=== PATIENT | male | born 1955 ===

== ENCOUNTER 2017-10-23 09:33 | Inpatient (IN) | payer MEDICARE, MEDICAID ==
[2017-10-23 09:51] VITALS: BMI 32.3
[2017-10-23] MEDS ORDERED: Albuterol-Ipratrop 3 mg / 0.5 (3 ml) UD INH STA (10:18)
[2017-10-23] MEDS ORDERED: Albuterol-Ipratrop 3 mg / 0.5 (3 ml) UD ONE (10:36)
[2017-10-23 10:37] LABS: BASO # 0.1 K/uL (0.0-0.2); BASO % 1.1 % (0.0-2.0); EOS # 0.5 K/uL (0.0-0.7); EOS % 6.1 % (0.0-4.0); HEMOGLOBIN 6.9 g/dL (12.0-18.0); LYMPH # 1.2 K/uL (1.0-4.3); LYMPH % 14.6 % (20.0-40.0); MEAN CELL VOLUME 92.5 fl (80.0-94.0); MEAN CORPUSCULAR HEMOGLOBIN 30.2 pg (27.0-31.0); MEAN CORPUSCULAR HGB CONC 32.7 g/dL (33.0-37.0); MEAN PLATELET VOLUME 9.2 fl (7.2-11.7); MONO % 12.6 % (0.0-10.0); NEUT # 5.4 K/uL (1.8-7.0); NEUT % 65.6 % (50.0-75.0); RBC 2.27 Mil/uL (4.40-5.90); RED CELL DISTRIBUTION WIDTH 13.4 % (11.5-14.5); WHITE BLOOD COUNT 8.2 K/uL (4.8-10.8)
--- NOTE | 2017-10-23 10:55 | RAD ---
HISTORY: progressive dyspnea, mild wheezing, bilateral rale COMPARISON: Chest radiograph dated 04/10/2015. TECHNIQUE: Chest PA and lateral FINDINGS: LUNGS: Left upper lobe infiltrate. PLEURA: Stable elevation of the right hemidiaphragm. No significant pleural effusion identified. No pneumothorax apparent. CARDIOVASCULAR: Atherosclerotic aortic calcifications. Cardiomediastinal silhouette unchanged. OSSEOUS STRUCTURES: Unchanged. VISUALIZED UPPER ABDOMEN: Normal. OTHER FINDINGS: None. IMPRESSION: Left upper lobe infiltrate.
[2017-10-23 11:00] LABS: TROPONIN I 0.027 ng/mL (0.00-0.120)
--- NOTE | 2017-10-23 11:02 | ED PDOC ---
HPI: SOB/CHF/COPD Time Seen by Provider: 10/23/17 10:18 Chief Complaint (Nursing): Shortness Of Breath Chief Complaint (Provider): Shortness Of Breath History Per: Patient History/Exam Limitations: no limitations Onset/Duration Of Symptoms: Days (x 1 week) Current Symptoms Are (Timing): Still Present Additional Complaint(s): Pawan is a 62 y/o male with a history of diabetes, coronary artery disease, and hypertension who presents to the ED c/o cough and shortness of breath ongoing for 1 weeks and progressively getting heavier. Patient denies chest pain , fever, nausea, vomiting, or back pain. He states he producing a small amount of phlegm. Patient has had 2 coronary stents placed at different time by Dr. Boucher and Dr. Morel PMD: None Provided Past Medical History Reviewed: Historical Data, Nursing Documentation, Vital Signs Vital Signs: Last Vital Signs Temp 98.9 F 10/23/17 09:51 Pulse 88 10/23/17 09:51 Resp 18 10/23/17 09:51 BP 139/71 10/23/17 10:54 Pulse Ox 99 10/23/17 11:10 - Medical History PMH: CAD, Diabetes, HTN - Surgical History Surgical History: Coronary Stent (x 2) Denies: Pacemaker Other surgeries: Right BTK amputation w/ prosthesis - Family History Family History: States: Unknown Family Hx - Home Medications Home Medications: Ambulatory Orders Medication Instructions Recorded Clopidogrel Hydrogen Sulfate 75 mg PO DAILY 10/16/13 [Clopidogrel Bisulfate] Ferrous Sulfate 325 mg PO DAILY 10/16/13 Gabapentin 100 mg PO BID 10/16/13 Pravastatin Sodium [Pravastatin] 40 mg PO DAILY 10/16/13 Ergocalciferol 50,000 iu PO WED 05/01/14 [place]-3/Dha/Epa/Fish Oil [[place]-3 2 cap PO BID 05/01/14 1000 mg-5 Iu] Trajenta 5 mg PO DAILY 05/01/14 Allopurinol [Zyloprim] 100 mg PO DAILY 10/23/17 Aspirin [Ecotrin] 81 mg PO DAILY 10/23/17 Isosorbide Mononitrate [Isosorbide 30 mg PO DAILY 10/23/17 Mononitrate ER] Paricalcitol [Zemplar] 1 mcg PO DAILY 10/23/17 Repaglinide [Prandin] 1 mg PO DAILY 10/23/17 Sevelamer [Renagel] 2 tab PO TID 10/23/17 Sodium Bicarbonate 650 mg PO BID 10/23/17 Terazosin [Hytrin] 10 mg PO HS 10/23/17 amLODIPine [Norvasc] 10 mg PO DAILY 10/23/17 - Allergies Allergies/Adverse Reactions: Allergies Allergy/AdvReac Type Severity Reaction Status Date / Time No Known Allergies Allergy Unverified 05/01/14 08:31 Review of Systems ROS Statement: Except As Marked, All Systems Reviewed And Found Negative Constitutional: Negative for: Fever Cardiovascular: Positive for: Edema (left leg - progressively gotten worse). Negative for: Chest Pain Respiratory: Positive for: Cough, Shortness of Breath, Sputum Gastrointestinal: Negative for: Nausea, Vomiting Musculoskeletal: Negative for: Back Pain Physical Exam - Reviewed Nursing Documentation Reviewed: Yes Vital Signs Reviewed: Yes - Physical Exam Appears: Positive for: Well, Non-toxic, No Acute Distress Head Exam: Positive for: ATRAUMATIC, NORMAL INSPECTION, NORMOCEPHALIC Neck: Negative for: Normal (JVD noted on right side) Cardiovascular/Chest: Positive for: Regular Rate, Rhythm, Edema (pitting edema on left lower extremity 2+). Negative for: Murmur Respiratory: Positive for: Rales (both bases in back), Wheezing (b/l high pitched and fine), Other (mild SOB w increased effort) Gastrointestinal/Abdominal: Positive for: Soft. Negative for: Tenderness Extremity: Positive for: Deformity (right bka w/ prosthesis) Neurologic/Psych: Positive for: Alert, Oriented - Laboratory Results Result Diagrams: 10/23/17 10:30 10/23/17 10:30 - ECG O2 Sat by Pulse Oximetry: 99 (RA) Pulse Ox Interpretation: Normal Medical Decision Making Medical Decision Making: Time: 10:18 Initial Impression: Shortness of Breath; Differentials include URI, pneumonia, congestive heart failure Initial Plan: --EKG --BNP --CMP --Troponin --Urine Dip --CBC --Chest XR --Duoneb --Lasix --Flu Swab Scribe Attestation: Documented by Bhavin Allen, acting as a scribe for Carli Villavicencio MD Provider Scribe Attestation: All medical record entries made by the Scribe were at my direction and personally dictated by me. I have reviewed the chart and agree that the record accurately reflects my personal performance of the history, physical exam, medical decision making, and the department course for this patient. I have also personally directed, reviewed, and agree with the discharge instructions and disposition. 12.35 - chest x-ray shows evidence of pneumonia. VBG is okay. Lactate is okay. Patient with anemia, probably chronic from his renal insufficiency. He denies blood per rectum or tarry stool. Patient will benefit from admission for IV antibiotics, transfusion (he agrees) and consultation with renal and cardio Disposition - Clinical Impression Clinical Impression: Pneumonia, Anemia, Renal insufficiency - Patient ED Disposition Is Patient to be Admitted: Yes - Disposition Disposition: Routine/Home Disposition Time: 12:05 Condition: FAIR Forms: [employer] (Bhutanese) - Pt Status Changed To: Hospital Disposition Of: Inpatient - Admit Certification Admit to Inpatient:: After my assessment, the patient will require hospitalization for at least two midnights. This is because of the severity of symptoms shown, intensity of services needed, and/or the medical risk in this patient being treated as an outpatient. - POA Present On Arrival: None
[2017-10-23 11:05] LABS: ALB/GLOB RATIO 0.8 (1.0-2.1); ALBUMIN 2.9 g/dL (3.5-5.0); CALCIUM 8.4 mg/dL (8.4-10.2)
[2017-10-23] MEDS ORDERED: Azithromycin 500 MG in Sodium Chloride 0.9% 250 ML IVPB STA (11:41)
[2017-10-23] MEDS ORDERED: cefTRIAXone (Rocephin) 1 gm Inj ONE (12:10)
[2017-10-23 12:34] LABS: VENOUS BLOOD GAS BASE EXCESS -3.4 mmol/L (0.0-2.0); VENOUS BLOOD GAS PCO2 41 mmHg (40-60); VENOUS BLOOD GAS PO2 25 mm/Hg (30-55); VENOUS BLOOD PH 7.34 (7.32-7.43)
[2017-10-23] MEDS ORDERED: Sod Polystyrene Sulf 15 gm/60 ml Susp PO ONE (13:44)
[2017-10-23] MEDS ORDERED: Sod Polystyrene Sulf 15 gm/60 ml Susp ONE (13:58)
--- NOTE | 2017-10-23 14:23 | CP.PCM.HP ---
History of Present Illness - History of Present Illness History of Present Illness: This is a 62 year old male with history of DM type 2, CAD with KIMO x 2 and CABG x 2 essential hypertension, Stage IV CKD not on dialysis, right BTK amputation with prosthesis, who presents to the ED with the complaint of worsening cough and congestion x 1 month, progressively getting worse. He is denying fever, nausea, vomiting, or back pain. + Productive cough x 1 week. In the ED the patient was found to have left upper lobe pneumonia on CXR. Also found to have a Hg of 6.9. He denies any bloody stool or black tarry stool. He is being transfused 1 unit PRBC from the ED. The patient is to be admitted for tx of his pneumonia and for blood transfusion. Present on Admission - Present on Admission Any Indicators Present on Admission: No Review of Systems - Review of Systems Review of Systems: A 12 point review of systems was conducted and found to be negative other than what was mentioned in the HPI. Past Patient History - Past Medical History & Family History Past Family History: Reviewed and not pertinent - Past Social History Smoking Status: Never Smoked - CARDIAC Hx Hypertension: Yes Hx Pacemaker: No - NEUROLOGICAL Hx Paralysis: No - ENDOCRINE/METABOLIC Hx Endocrine Disorders: Yes Hx Diabetes Mellitus Type 1: Yes - HEMATOLOGICAL/ONCOLOGICAL Hx Blood Transfusions: No Hx Blood Transfusion Reaction: No - MUSCULOSKELETAL/RHEUMATOLOGICAL Hx Musculoskeletal Disorders: No - PSYCHIATRIC Hx Emotional Abuse: No Hx Physical Abuse: No Hx Substance Use: No - SURGICAL HISTORY Hx Coronary Stent: Yes (x 2) - ANESTHESIA Hx Anesthesia Reactions: No Hx Malignant Hyperthermia: No Meds Allergies/Adverse Reactions: Allergies Allergy/AdvReac Type Severity Reaction Status Date / Time No Known Allergies Allergy Unverified 05/01/14 08:31 Physical Exam - Additional Findings Additional findings: Physical exam: Constitutional- cooperative, awake, alert Head- NCAT, PERRL Eye- PERRL, EOMI ENT- normal exam, MMM. Neck- normal inspection, supple, no JVD Respiratory- scattered rhonchi, no rales. decreased breath sounds left upper lung field Cardiovascular- RRR, +S1, +S2 no MRG GI/Abdominal- normal bowel sounds, soft, no mass, no hsm Skin- warm, dry Extremities Exam- + 2 pitting edema left lower extremity. RLE BKA. normal capillary refill LLE. Neurological Exam- alert, awake, oriented Psych- normal mood, normal affect Results - Vital Signs Recent Vital Signs: Last Vital Signs Temp 98.9 F 10/23/17 09:51 Pulse 84 10/23/17 12:52 Resp 19 10/23/17 12:52 BP 134/78 10/23/17 12:52 Pulse Ox 98 10/23/17 12:52 - Labs Result Diagrams: 10/23/17 10:30 10/23/17 12:00 Labs: Laboratory Results - last 24 hr 10/23/17 10/23/17 10/23/17 10:30 10:30 10:30 WBC 8.2 RBC 2.27 L Hgb 6.9 L Hct 21.0 L MCV 92.5 MCH 30.2 MCHC 32.7 L RDW 13.4 Plt Count 213 MPV 9.2 Neut % (Auto) 65.6 Lymph % (Auto) 14.6 L [place] % (Auto) 12.6 H Eos % (Auto) 6.1 H Baso % (Auto) 1.1 Neut # (Auto) 5.4 Lymph # (Auto) 1.2 [place] # (Auto) 1.0 H Eos # (Auto) 0.5 Baso # (Auto) 0.1 pO2 VBG pH VBG pCO2 VBG HCO3 VBG Total CO2 VBG O2 Sat (Calc) VBG Base Excess VBG Potassium A-a O2 Difference Glucose Lactate FiO2 Crit Value Called To Crit Value Called By Crit Value Read Back Blood Gas Notified Time Sodium 139 Potassium 5.4 H Chloride 109 H Carbon Dioxide 21 L Anion Gap 14 BUN 59 H Creatinine 5.6 H Est GFR ( Amer) 13 Est GFR (Non-Af Amer) 10 Random Glucose 119 H Calcium 8.4 Total Bilirubin 0.5 AST 22 ALT 20 L Alkaline Phosphatase 51 Troponin I 0.0270 NT-Pro-B Natriuret Pep 40771 H Total Protein 6.5 Albumin 2.9 L Globulin 3.6 Albumin/Globulin Ratio 0.8 L Venous Blood Potassium Influenza Typ A,B (EIA) Negative for flu a/b 10/23/17 10/23/17 11:53 12:00 WBC RBC Hgb Hct MCV MCH MCHC RDW Plt Count MPV Neut % (Auto) Lymph % (Auto) [place] % (Auto) Eos % (Auto) Baso % (Auto) Neut # (Auto) Lymph # (Auto) [place] # (Auto) Eos # (Auto) Baso # (Auto) pO2 25 L VBG pH 7.34 VBG pCO2 41 VBG HCO3 21.7 VBG Total CO2 23.4 VBG O2 Sat (Calc) 66.2 H VBG Base Excess -3.4 L VBG Potassium 5.1 A-a O2 Difference 73.0 Glucose 107 Lactate 0.6 L FiO2 21.0 Crit Value Called To Dr lópez salinas md Crit Value Called By 15 Crit Value Read Back Y Blood Gas Notified Time 1233 Sodium 136.0 Potassium 5.0 Chloride 109.0 H Carbon Dioxide Anion Gap BUN Creatinine Est GFR ( Amer) Est GFR (Non-Af Amer) Random Glucose Calcium Total Bilirubin AST ALT Alkaline Phosphatase Troponin I NT-Pro-B Natriuret Pep Total Protein Albumin Globulin Albumin/Globulin Ratio Venous Blood Potassium 5.1 Influenza Typ A,B (EIA) Assessment & Plan - Assessment and Plan (Free Text) Plan: ASSESSMENT/PLAN This is a 62 year old male with history of DM type 2, CAD with KIMO x 2 and CABG x 2 essential hypertension, Stage IV CKD not on dialysis, right BTK amputation with prosthesis, who presents to the ED with the complaint of worsening cough and congestion x 1 month, progressively getting worse. He is also complaining of chest pain, fever, nausea, vomiting, or back pain. + Productive cough x 1 week. In the ED the patient was found to have left upper lobe pneumonia. Also found to have a Hg of 6.9. He denies any bloody stool or black tarry stool. He is being transfused 1 unit PRBC from the ED. The patient is to be admitted for tx of his pneumonia and for blood transfusion. 1) Left upper lobe CAP - Admit to med/surg - Azithromycin/Rocephin IV abx - Robitussin PRN for cough - Repeat labs in AM 2) Anemia of chronic disease, acute on chronic - Hg 6.8 - 1 unit PRBC now - Repeat lab in AM - No evidence of acute bleeding 3) Acute on chronic stage IV renal disease - Nephrology consultation with Dr. 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 Beatty) - May need dialysis soon - Likely cause of pitting edema - Allopurinal - Renegel - Zemplar 4) CAD with CABG - Cardiology consultation with Dr. Cho - continue to monitor for chest pain - Troponin negative - Continue ASA/Plavix - Lasix given in ED - Isosorbide mononitrate 30 mg po daily' - Pravastatin 40 mg po daily 5) Diabetes mellitus - Regular insulin sliding scale - Continue Trajenta 5 mg po daily 6) Hyperkalemia - due to CKD - Kayexalate po 7) BPH continue Hytrin 8) DVT prophylaxis -Heparin SQ
[2017-10-23] MEDS: Insulin Regular 100 units/ml SC SCH ×2 (16:52→22:58)
[2017-10-23] MEDS: Omega-3-Acid Ethyl Esters 1 GM Cap PO SCH (17:00)
[2017-10-24 06:45] LABS: HEMOGLOBIN 8.7 g/dL (12.0-18.0); MEAN CELL VOLUME 92.4 fl (80.0-94.0); MEAN CORPUSCULAR HEMOGLOBIN 29.8 pg (27.0-31.0); MEAN CORPUSCULAR HGB CONC 32.2 g/dL (33.0-37.0); RBC 2.92 Mil/uL (4.40-5.90); RED CELL DISTRIBUTION WIDTH 14.1 % (11.5-14.5); WHITE BLOOD COUNT 6.3 K/uL (4.8-10.8)
[2017-10-24] MEDS: Insulin Regular 100 units/ml SC SCH ×4 (07:56→23:33)
--- NOTE | 2017-10-24 07:57 | CARD ---
APPROVED REPORT EKG Measurement Heart [id number] <Conclusion> Normal sinus rhythm Nonspecific T wave abnormality Abnormal ECG
[2017-10-24] MEDS: Omega-3-Acid Ethyl Esters 1 GM Cap PO SCH ×2 (09:17→16:44)
[2017-10-24] MEDS: Pravastatin Sodium 40 MG TAB PO SCH (09:24)
[2017-10-24] MEDS: guaiFENesin 200 mg/10 ml Syrup UD PO PRN (09:28)
[2017-10-24] MEDS: Azithromycin 500 MG in Sodium Chloride 0.9% 250 ML IVPB SCH (09:35)
--- NOTE | 2017-10-24 09:35 | CP.PCM.CON ---
History of Present Illness - History of Present Illness History of Present Illness: This patient however is 62 years of age presented to the emergency room complaining of coughing and diagnosed left upper lobe pneumonia and admitted for further evaluation. Receiving antibiotics. I was called to see this patient for consultation because of the abnormal kidney function. This patient has long history of chronic kidney disease stage IV not on dialysis. Patient also has multitude of past medical history related to diabetes mellitus Right below knee amputation Coronary artery disease also reported to have CABG Chin has been followed by cardiology intermittently History of hypertension as well Medication noted Review of system as noted below Social history noncontributory Review of Systems - Review of Systems Systems not reviewed;Unavailable: Language Barrier - Constitutional Constitutional: Anorexia. absent: Headache - EENT Eyes: Blurred Vision Nose/Mouth/Throat: Nasal Congestion. absent: Neck Pain - Cardiovascular Cardiovascular: Dyspnea on Exertion, Edema. absent: Acrocyanosis, Chest Pain - Respiratory Respiratory: Cough, Chest Congestion. absent: Hemoptysis - Gastrointestinal Gastrointestinal: absent: Abdominal Pain, Nausea - Genitourinary Genitourinary: Nocturia - Musculoskeletal Musculoskeletal: Muscle Weakness. absent: Numbness - Neurological Neurological: absent: Confusion, Headaches, Lack of Coordination - Psychiatric Psychiatric: As Per HPI - Endocrine Endocrine: Fatigue. absent: Excessive Sweating - Hematologic/Lymphatic Hematologic: absent: Easy Bleeding Past Patient History - Past Medical History & Family History Past Family History: Reviewed and not pertinent - Past Social History Smoking Status: Former Smoker - CARDIAC Hx Angina: Yes Hx Hypercholesterolemia: Yes Hx Hypertension: Yes Hx Pacemaker: No - PULMONARY Hx Pneumonia: Yes - NEUROLOGICAL Hx Paralysis: No - HEENT Hx Cataracts: Yes (extraction 2010) - RENAL Hx Chronic Kidney Disease: Yes Other/Comment: stage IV CKD - ENDOCRINE/METABOLIC Hx Endocrine Disorders: Yes Hx Diabetes Mellitus Type 1: Yes - HEMATOLOGICAL/ONCOLOGICAL Hx Blood Transfusions: No Hx Blood Transfusion Reaction: No - MUSCULOSKELETAL/RHEUMATOLOGICAL Hx Musculoskeletal Disorders: No Hx Falls: No - PSYCHIATRIC Hx Emotional Abuse: No Hx Physical Abuse: No Hx Substance Use: No - SURGICAL HISTORY Hx Surgeries: Yes Hx Amputation: Yes (Right BKA, Left TMA) Hx Cataract Extraction: Yes Hx Cardiac Catheterization: Yes Hx Coronary Stent: Yes (x 2) Hx Open Heart Surgery: Yes - ANESTHESIA Hx Anesthesia: Yes Hx Anesthesia Reactions: No Hx Malignant Hyperthermia: No Has any member of the family had a problem w/ anesthesia?: No Meds Allergies/Adverse Reactions: Allergies Allergy/AdvReac Type Severity Reaction Status Date / Time No Known Allergies Allergy Unverified 05/01/14 08:31 - Medications Medications: Current Medications Acetaminophen (Tylenol 325mg Tab) 650 mg PO Q6 PRN PRN Reason: Pain, Mild (1-3) Allopurinol (Zyloprim) 100 mg PO DAILY [facility] Last Admin: 10/24/17 09:20 Dose: 100 mg Amlodipine Besylate (Norvasc) 10 mg PO DAILY [facility] Last Admin: 10/24/17 09:18 Dose: 10 mg Aspirin (Ecotrin) 81 mg PO DAILY [facility] Last Admin: 10/24/17 09:15 Dose: 81 mg Clopidogrel Bisulfate (Plavix) 75 mg PO DAILY [facility] Last Admin: 10/24/17 09:19 Dose: 75 mg Ergocalciferol (Drisdol 50,000 Intl Units Cap) 1 cap PO WED [facility] Ferrous Sulfate (Feosol) 325 mg PO DAILY [facility] Last Admin: 10/24/17 09:16 Dose: 325 mg Gabapentin (Neurontin) 100 mg PO BID [facility] Last Admin: 10/24/17 09:18 Dose: 100 mg Guaifenesin (Robitussin) 200 mg PO Q6 PRN PRN Reason: Cough Last Admin: 10/24/17 09:28 Dose: 200 mg Heparin Sodium (Porcine) (Heparin) 5,000 units SC Q12 [facility] PRN Reason: Protocol Last Admin: 10/24/17 09:16 Dose: 5,000 units Home Med (Paricalcitol [Zemplar]) 1 mcg PO DAILY [facility] Azithromycin 500 mg/ Sodium (Chloride) 250 mls @ 250 mls/hr IVPB DAILY [facility] PRN Reason: Protocol Ceftriaxone Sodium 1 gm/ (Sodium Chloride) 100 mls @ 100 mls/hr IVPB DAILY [facility] PRN Reason: Protocol Insulin Human Regular (Humulin R) 0 units SC ACCU-CHECK [facility] PRN Reason: Protocol Last Admin: 10/24/17 07:56 Dose: Not Given Isosorbide Mononitrate (Imdur Er) 30 mg PO DAILY [facility] Last Admin: 10/24/17 09:16 Dose: 30 mg [id number] Ethyl Esters (Lovaza) 2 gm PO BID [facility] Last Admin: 10/24/17 09:17 Dose: 2 gm Pravastatin Sodium (Pravachol) 40 mg PO DAILY [facility] Last Admin: 10/24/17 09:24 Dose: 40 mg Repaglinide (Prandin) 1 mg PO DAILY [facility] Last Admin: 10/24/17 09:19 Dose: 1 mg Sevelamer HCl (Renagel) 1,600 mg PO TID [facility] Last Admin: 10/24/17 09:19 Dose: 1,600 mg Sitagliptin Phosphate (Januvia) 25 mg PO DAILY [facility] Last Admin: 10/24/17 09:17 Dose: 25 mg Sodium Bicarbonate (Sodium Bicarbonate Tab) 650 mg PO BID [facility] Last Admin: 10/24/17 09:20 Dose: 650 mg Terazosin HCl (Hytrin) 10 mg PO HS [facility] Last Admin: 10/23/17 21:13 Dose: 10 mg Physical Exam - Constitutional Appears: No Acute Distress - Eye Exam Eye Exam: absent: Nystagmus - ENT Exam ENT Exam: Mucous Membranes Moist - Neck Exam Neck exam: Negative for: Lymphadenopathy - Respiratory Exam Respiratory Exam: Rhonchi. absent: Chest Wall Tenderness - Cardiovascular Exam Cardiovascular Exam: absent: Gallop, JVD, Rubs - GI/Abdominal Exam GI & Abdominal Exam: Normal Bowel Sounds. absent: Guarding - Extremities Exam Extremities exam: Negative for: calf tenderness - Back Exam Back exam: absent: CVA tenderness (L), CVA tenderness (R) - Neurological Exam Neurological exam: Alert - Psychiatric Exam Psychiatric exam: Normal Mood Results - Vital Signs Recent Vital Signs: Last Vital Signs Temp 99.7 F H 10/24/17 08:36 Pulse 89 10/24/17 09:18 Resp 20 10/24/17 08:36 BP 164/76 H 10/24/17 09:18 Pulse Ox 98 10/24/17 08:36 - Labs Result Diagrams: 10/24/17 06:05 10/23/17 12:00 Labs: Laboratory Results - last 24 hr 10/23/17 10/23/17 10/23/17 10:30 10:30 10:30 WBC 8.2 RBC 2.27 L Hgb 6.9 L Hct 21.0 L MCV 92.5 MCH 30.2 MCHC 32.7 L RDW 13.4 Plt Count 213 MPV 9.2 Neut % (Auto) 65.6 Lymph % (Auto) 14.6 L [place] % (Auto) 12.6 H Eos % (Auto) 6.1 H Baso % (Auto) 1.1 Neut # (Auto) 5.4 Lymph # (Auto) 1.2 [place] # (Auto) 1.0 H Eos # (Auto) 0.5 Baso # (Auto) 0.1 pO2 VBG pH VBG pCO2 VBG HCO3 VBG Total CO2 VBG O2 Sat (Calc) VBG Base Excess VBG Potassium A-a O2 Difference Glucose Lactate FiO2 Crit Value Called To Crit Value Called By Crit Value Read Back Blood Gas Notified Time Sodium 139 Potassium 5.4 H Chloride 109 H Carbon Dioxide 21 L Anion Gap 14 BUN 59 H Creatinine 5.6 H Est GFR ( Amer) 13 Est GFR (Non-Af Amer) 10 POC Glucose (mg/dL) Random Glucose 119 H Calcium 8.4 Total Bilirubin 0.5 AST 22 ALT 20 L Alkaline Phosphatase 51 Troponin I 0.0270 NT-Pro-B Natriuret Pep 66019 H Total Protein 6.5 Albumin 2.9 L Globulin 3.6 Albumin/Globulin Ratio 0.8 L Venous Blood Potassium Influenza Typ A,B (EIA) Negative for flu a/b Blood Type Antibody Screen Crossmatch BBK History Checked 10/23/17 10/23/17 10/23/17 11:53 12:00 12:45 WBC RBC Hgb Hct MCV MCH MCHC RDW Plt Count MPV Neut % (Auto) Lymph % (Auto) [place] % (Auto) Eos % (Auto) Baso % (Auto) Neut # (Auto) Lymph # (Auto) [place] # (Auto) Eos # (Auto) Baso # (Auto) pO2 25 L VBG pH 7.34 VBG pCO2 41 VBG HCO3 21.7 VBG Total CO2 23.4 VBG O2 Sat (Calc) 66.2 H VBG Base Excess -3.4 L VBG Potassium 5.1 A-a O2 Difference 73.0 Glucose 107 Lactate 0.6 L FiO2 21.0 Crit Value Called To Dr lópez salinas md Crit Value Called By 15 Crit Value Read Back Y Blood Gas Notified Time 1233 Sodium 136.0 Potassium 5.0 Chloride 109.0 H Carbon Dioxide Anion Gap BUN Creatinine Est GFR ( Amer) Est GFR (Non-Af Amer) POC Glucose (mg/dL) Random Glucose Calcium Total Bilirubin AST ALT Alkaline Phosphatase Troponin I NT-Pro-B Natriuret Pep Total Protein Albumin Globulin Albumin/Globulin Ratio Venous Blood Potassium 5.1 Influenza Typ A,B (EIA) Blood Type O POSITIVE Antibody Screen Negative Crossmatch See Detail BBK History Checked Patient has bt 10/23/17 10/23/17 10/24/17 16:33 22:17 05:24 WBC RBC Hgb Hct MCV MCH MCHC RDW Plt Count MPV Neut % (Auto) Lymph % (Auto) [place] % (Auto) Eos % (Auto) Baso % (Auto) Neut # (Auto) Lymph # (Auto) [place] # (Auto) Eos # (Auto) Baso # (Auto) pO2 VBG pH VBG pCO2 VBG HCO3 VBG Total CO2 VBG O2 Sat (Calc) VBG Base Excess VBG Potassium A-a O2 Difference Glucose Lactate FiO2 Crit Value Called To Crit Value Called By Crit Value Read Back Blood Gas Notified Time Sodium Potassium Chloride Carbon Dioxide Anion Gap BUN Creatinine Est GFR ( Amer) Est GFR (Non-Af Amer) POC Glucose (mg/dL) 88 85 60 L Random Glucose Calcium Total Bilirubin AST ALT Alkaline Phosphatase Troponin I NT-Pro-B Natriuret Pep Total Protein Albumin Globulin Albumin/Globulin Ratio Venous Blood Potassium Influenza Typ A,B (EIA) Blood Type Antibody Screen Crossmatch BBK History Checked 10/24/17 06:05 WBC 6.3 RBC 2.92 L Hgb 8.7 L Hct 26.9 L MCV 92.4 MCH 29.8 MCHC 32.2 L RDW 14.1 Plt Count 168 MPV Neut % (Auto) Lymph % (Auto) [place] % (Auto) Eos % (Auto) Baso % (Auto) Neut # (Auto) Lymph # (Auto) [place] # (Auto) Eos # (Auto) Baso # (Auto) pO2 VBG pH VBG pCO2 VBG HCO3 VBG Total CO2 VBG O2 Sat (Calc) VBG Base Excess VBG Potassium A-a O2 Difference Glucose Lactate FiO2 Crit Value Called To Crit Value Called By Crit Value Read Back Blood Gas Notified Time Sodium Potassium Chloride Carbon Dioxide Anion Gap BUN Creatinine Est GFR ( Amer) Est GFR (Non-Af Amer) POC Glucose (mg/dL) Random Glucose Calcium Total Bilirubin AST ALT Alkaline Phosphatase Troponin I NT-Pro-B Natriuret Pep Total Protein Albumin Globulin Albumin/Globulin Ratio Venous Blood Potassium Influenza Typ A,B (EIA) Blood Type Antibody Screen Crossmatch BBK History Checked Assessment & Plan (1) Chronic kidney disease, stage V Assessment and Plan: Patient admitted with pneumonia was history of chronic kidney disease stage IV however kidney function deteriorating at this stage V at this point was EGFR 10. Rule out acute kidney injury superimposed on chronic kidney disease stage IV Patient receiving antibiotics for the pneumonia. I recommended to do a serum phosphorus and PTH and urinalysis and the ratio between protein to creatinine. Suggest ultrasound of the kidney We will monitor the kidney function and cross adductor dual venous mapping when his improving. Anemia patient given 1 unit of packed cells and he would need EPO . Serum iron and ferritin level. Status: Acute (2) Type 2 diabetes mellitus with diabetic chronic kidney disease Status: Acute (3) Anemia Status: Acute (4) Pneumonia Status: Acute
[2017-10-24 10:00] LABS: CALCIUM 8.2 mg/dL (8.4-10.2)
--- NOTE | 2017-10-24 12:00 | CARD ---
APPROVED REPORT EXAM: Two-dimensional and M-mode echocardiogram with Doppler and color Doppler. Other Information Quality : GoodRhythm : NSR INDICATION Congestive Heart Failure 2D DIMENSIONS IVSd1.08 (0.7-1.1cm)LVDd4.45 (3.9-5.9cm) LVOT Diameter1.84 (1.8-2.4cm)PWd1.17 (0.7-1.1cm) IVSs1.35 (0.8-1.2cm)LVDs2.92 (2.5-4.0cm) FS (%) 34.3 %PWs1.00 (0.8-1.2cm) M-Mode DIMENSIONS Left Atrium (MM)5.49 (2.5-4.0cm)IVSd1.19 (0.7-1.1cm) Aortic Root3.28 (2.2-3.7cm)LVDd6.42 (4.0-5.6cm) Aortic Cusp Exc.1.65 (1.5-2.0cm)PWd1.16 (0.7-1.1cm) IVSs2.12 cmFS (%) 44 % LVDs3.61 (2.0-3.8cm)PWs1.39 cm Mitral Valve MV E Drtzpryo624.9cm/sMV DECEL [id number] A Zvxfbxyu117.9cm/s MV [id number]/A ratio1.3MVA (PHT)4.07cm2 TDI Lateral E' Peak V14.18cm/sMedial E' Peak V12.22cm/sE/Lateral E'10.7 E/Medial E'12.4 LEFT VENTRICLE The left ventricle is normal size. There is normal left ventricular wall thickness. The left ventricular function is normal. The left ventricular ejection fraction is within the normal range. The Ejection Fraction is 65-70%. There is normal LV segmental wall motion. The left ventricular diastolic function is normal. RIGHT VENTRICLE The right ventricle is normal size. The right ventricular systolic function is normal. ATRIA The left atrium size is normal. The right atrium size is normal. AORTIC VALVE The aortic valve is normal in structure. No aortic regurgitation is present. There is no aortic valvular stenosis. MITRAL VALVE The mitral valve is normal in structure. There is no mitral valve stenosis. Mitral regurgitation is mild to moderate. TRICUSPID VALVE The tricuspid valve is normal in structure. There is no tricuspid valve regurgitation noted. PULMONIC VALVE The pulmonary valve is normal in structure. There is no pulmonic valvular regurgitation. GREAT VESSELS The aortic root is normal in size. The IVC is normal in size and collapses >50% with inspiration. PERICARDIAL EFFUSION The pericardium appears normal. <Conclusion> The left ventricle is normal size. The left ventricular function is normal. The left ventricular ejection fraction is within the normal range. The Ejection Fraction is 65-70%. Mitral regurgitation is mild to moderate.
[2017-10-24 12:56] LABS: IRON 17 ug/dL (49-181)
[2017-10-24 13:05] LABS: % IRON SATURATION 8 % (20-55); TOTAL IRON BINDING CAPACITY 228 ug/dL (250-450)
--- NOTE | 2017-10-24 15:42 | CP.PCM.PN ---
Subjective - Date & Time of Evaluation Date of Evaluation: 10/24/17 Time of Evaluation: 13:00 - Subjective Subjective: Patient seen and examined. Complained of mild SOB. Objective - Vital Signs/Intake and Output Vital Signs (last 24 hours): Temp Pulse Resp BP Pulse Ox 99.7 F H 89 20 164/76 H 98 10/24/17 08:36 10/24/17 09:18 10/24/17 08:36 10/24/17 09:18 10/24/17 08:36 - Medications Medications: Current Medications Acetaminophen (Tylenol 325mg Tab) 650 mg PO Q6 PRN PRN Reason: Pain, Mild (1-3) Allopurinol (Zyloprim) 100 mg PO DAILY [facility] Last Admin: 10/24/17 09:20 Dose: 100 mg Amlodipine Besylate (Norvasc) 10 mg PO DAILY [facility] Last Admin: 10/24/17 09:18 Dose: 10 mg Aspirin (Ecotrin) 81 mg PO DAILY [facility] Last Admin: 10/24/17 09:15 Dose: 81 mg Clopidogrel Bisulfate (Plavix) 75 mg PO DAILY [facility] Last Admin: 10/24/17 09:19 Dose: 75 mg Ergocalciferol (Drisdol 50,000 Intl Units Cap) 1 cap PO WED [facility] Ferrous Sulfate (Feosol) 325 mg PO DAILY [facility] Last Admin: 10/24/17 09:16 Dose: 325 mg Gabapentin (Neurontin) 100 mg PO BID [facility] Last Admin: 10/24/17 09:18 Dose: 100 mg Guaifenesin (Robitussin) 200 mg PO Q6 PRN PRN Reason: Cough Last Admin: 10/24/17 09:28 Dose: 200 mg Heparin Sodium (Porcine) (Heparin) 5,000 units SC Q12 [facility] PRN Reason: Protocol Last Admin: 10/24/17 09:16 Dose: 5,000 units Home Med (Paricalcitol [Zemplar]) 1 mcg PO DAILY [facility] Azithromycin 500 mg/ Sodium (Chloride) 250 mls @ 250 mls/hr IVPB DAILY [facility] PRN Reason: Protocol Last Admin: 10/24/17 09:35 Dose: 250 mls/hr Ceftriaxone Sodium 1 gm/ (Sodium Chloride) 100 mls @ 100 mls/hr IVPB DAILY [facility] PRN Reason: Protocol Insulin Human Regular (Humulin R) 0 units SC ACCU-CHECK [facility] PRN Reason: Protocol Last Admin: 10/24/17 12:24 Dose: Not Given Isosorbide Mononitrate (Imdur Er) 30 mg PO DAILY [facility] Last Admin: 10/24/17 09:16 Dose: 30 mg [id number] Ethyl Esters (Lovaza) 2 gm PO BID [facility] Last Admin: 10/24/17 09:17 Dose: 2 gm Pravastatin Sodium (Pravachol) 40 mg PO DAILY [facility] Last Admin: 10/24/17 09:24 Dose: 40 mg Repaglinide (Prandin) 1 mg PO DAILY [facility] Last Admin: 10/24/17 09:19 Dose: 1 mg Sevelamer HCl (Renagel) 1,600 mg PO TID [facility] Last Admin: 10/24/17 12:25 Dose: 1,600 mg Sitagliptin Phosphate (Januvia) 25 mg PO DAILY [facility] Last Admin: 10/24/17 09:17 Dose: 25 mg Sodium Bicarbonate (Sodium Bicarbonate Tab) 650 mg PO BID [facility] Last Admin: 10/24/17 09:20 Dose: 650 mg Terazosin HCl (Hytrin) 10 mg PO HS [facility] Last Admin: 10/23/17 21:13 Dose: 10 mg - Labs Labs: 10/24/17 06:05 10/24/17 09:37 - Constitutional Appears: No Acute Distress - Head Exam Head Exam: ATRAUMATIC - Eye Exam Eye Exam: absent: Scleral icterus - ENT Exam ENT Exam: Mucous Membranes Moist - Neck Exam Neck Exam: absent: Meningismus - Respiratory Exam Respiratory Exam: absent: Rhonchi, Wheezes, Respiratory Distress - Cardiovascular Exam Cardiovascular Exam: REGULAR RHYTHM, +S1, +S2 - GI/Abdominal Exam GI & Abdominal Exam: Soft. absent: Tenderness - Rectal Exam Rectal Exam: Deferred - Neurological Exam Neurological Exam: Alert, Oriented x3 - Psychiatric Exam Psychiatric exam: Normal Affect - Skin Skin Exam: Dry, Intact Assessment and Plan - Assessment and Plan (Free Text) Assessment: 62 yo male with history of DM2, CAD, HTN, right BKA and CKD came in with coughing associated with SOB. CXray showed KRISTI pneumonia. CBC was also significant for anemia with Hgb of 6.9. 1. KRISTI Pneumonia continue Rocephin and Azithromycin 2. Anemia orf Chronic Renal Failure received 1 unit of PRBC follow post transfusion CBC in am 3. Acute on CKD CKD probably secondary to DM renal consult with Dr Palmer 4. CAD continue ASA, Plavix, statin continue Isosorbide mononitrate 30mg PO daily cardiology consult with Dr Cho 5. DM2 BS on the low side DC Prandin Januvia 25mg PO daily accuchek ACHS 6. DVT prophylaxis Heparin 5000 SC q 12hrs
[2017-10-24 18:26] LABS: SQUAMOUS EPITHIAL < 1 /hpf (0-5); URINE BACTERIA RARE (<OCC); URINE BILIRUBIN NEGATIVE (NEGATIVE); URINE BLOOD SMALL (NEGATIVE); URINE CLARITY SLIGHTY-CLOUDY (Clear); URINE COLOR YELLOW (YELLOW); URINE GLUCOSE (UA) 150 mg/dL (Normal); URINE LEUKOCYTE ESTERASE NEG Leu/uL (Negative); URINE NITRATE NEGATIVE (NEGATIVE); URINE PROTEIN >=500 mg/dL (NEGATIVE); URINE UROBILINOGEN 0.2-1.0 mg/dL (0.2-1.0)
[2017-10-24 19:03] LABS: CREATININE, RANDOM URINE 72.7 mg/dL
--- NOTE | 2017-10-25 01:38 | CON ---
CARDIOLOGY CONSULTATION DATE: REASON FOR CONSULTATION: Coronary artery disease and history of coronary stenting. HISTORY OF PRESENT ILLNESS: The patient is a 62-year-old male who has history of coronary artery disease status post coronary artery stenting in the past, history of hypertension, diabetes mellitus, history of advanced renal insufficiency and history of peripheral vascular disease status post right below-knee amputation 6 years ago and left metatarsal amputation 5 years ago. The patient presented because of shortness of breath. The patient denies any retrosternal chest pain. Denies any fever or chills. SOCIAL HISTORY: Nonsmoker. Nondrinker. MEDICATIONS: IV Zithromax 500 mg daily, Rocephin 1 g intravenously daily, aspirin 81 mg once a day, Feosol 325 mg once a day, heparin 5000 units subcutaneous twice a day, Hytrin 10 mg once a day, Imdur 30 mg once a day, Januvia 25 mg daily, Plavix 75 mg once a day, Pravachol 40 mg once a day, Robitussin 200 mg p.o q.6 hours p.r.n. and allopurinol 100 mg daily. REVIEW OF SYSTEMS: No fever or chills. No vomiting or diarrhea. PHYSICAL EXAMINATION GENERAL: The patient is a middle-aged male who does not appear to be in acute distress. VITAL SIGNS: Blood pressure 144/74, heart rate 94, temperature on admission was 100.1 and respirations 20. HEENT: [place] conjunctivae. CHEST: Bilateral rhonchi. HEART: S1 and S2 regular. ABDOMEN: Soft. EXTREMITIES: Right below-knee amputation and left metatarsal amputation. LABORATORY DATA: Today's BUN and creatinine are 54 and 5.5 respectively, glucose is 72 and calcium is 8.2. Troponin 0.027. ProBNP is 21,000. Hemoglobin and hematocrit is 8.7 and 26.9, white count and platelet count are within normal limits. EKG reveals normal sinus rhythm with non-specific Q-waves changes. Echocardiograph study revealed ejection fraction in the range of 65% to 70%, [id number] mitral insufficiency. Chest x-ray revealed left upper lobe infiltrate. ASSESSMENT: 1. Pneumonia. 2. Coronary artery disease status post coronary stenting in the past. 3. Peripheral vascular disease status post right below-knee amputation, left metatarsal amputation. 4. Advanced renal insufficiency. RECOMMENDATIONS: Continue current IV Celexa and IV Rocephin. Continue aspirin, subcutanoeus heparin, Norvasc, Plavix, Pravachol . The case was discussed with Dr. Palmer, crop consultant oyster grader. Anish Cho MD
[2017-10-25] MEDS: Insulin Regular 100 units/ml SC SCH ×4 (07:04→22:01)
--- NOTE | 2017-10-25 07:28 | CP.PCM.PN ---
Subjective - Date & Time of Evaluation Date of Evaluation: 10/25/17 Time of Evaluation: 07:23 - Subjective Subjective: Patient did spike fever 102. Complain of some coughing. Kidney function noted to be no significant changes serum creatinine coming down slightly No chest pain complaining of congestion Objective - Vital Signs/Intake and Output Vital Signs (last 24 hours): Temp Pulse Resp BP Pulse Ox 99.6 F 103 H 20 153/79 H 97 10/25/17 04:03 10/24/17 23:59 10/24/17 23:59 10/24/17 23:59 10/24/17 23:59 - Medications Medications: Current Medications Acetaminophen (Tylenol 325mg Tab) 650 mg PO Q6 PRN PRN Reason: Pain, Mild (1-3) Acetaminophen (Tylenol 325mg Tab) 650 mg PO Q6 PRN PRN Reason: Fever >100.4 F Last Admin: 10/25/17 00:44 Dose: 650 mg Allopurinol (Zyloprim) 100 mg PO DAILY [facility] Last Admin: 10/24/17 09:20 Dose: 100 mg Amlodipine Besylate (Norvasc) 10 mg PO DAILY [facility] Last Admin: 10/24/17 09:18 Dose: 10 mg Aspirin (Ecotrin) 81 mg PO DAILY [facility] Last Admin: 10/24/17 09:15 Dose: 81 mg Clopidogrel Bisulfate (Plavix) 75 mg PO DAILY [facility] Last Admin: 10/24/17 09:19 Dose: 75 mg Ergocalciferol (Drisdol 50,000 Intl Units Cap) 1 cap PO WED [facility] Ferrous Sulfate (Feosol) 325 mg PO DAILY [facility] Last Admin: 10/24/17 09:16 Dose: 325 mg Gabapentin (Neurontin) 100 mg PO BID [facility] Last Admin: 10/24/17 16:44 Dose: 100 mg Guaifenesin (Robitussin) 200 mg PO Q6 PRN PRN Reason: Cough Last Admin: 10/24/17 09:28 Dose: 200 mg Heparin Sodium (Porcine) (Heparin) 5,000 units SC Q12 [facility] PRN Reason: Protocol Last Admin: 10/24/17 21:29 Dose: 5,000 units Home Med (Paricalcitol [Zemplar]) 1 mcg PO DAILY [facility] Azithromycin 500 mg/ Sodium (Chloride) 250 mls @ 250 mls/hr IVPB DAILY [facility] PRN Reason: Protocol Last Admin: 10/24/17 09:35 Dose: 250 mls/hr Ceftriaxone Sodium 1 gm/ (Sodium Chloride) 100 mls @ 100 mls/hr IVPB DAILY [facility] PRN Reason: Protocol Last Admin: 10/24/17 16:45 Dose: 100 mls/hr Insulin Human Regular (Humulin R) 0 units SC ACCU-CHECK [facility] PRN Reason: Protocol Last Admin: 10/25/17 07:04 Dose: Not Given Isosorbide Mononitrate (Imdur Er) 30 mg PO DAILY [facility] Last Admin: 10/24/17 09:16 Dose: 30 mg Uewnq-[id number] Ethyl Esters (Lovaza) 2 gm PO BID [facility] Last Admin: 10/24/17 16:44 Dose: 2 gm Pravastatin Sodium (Pravachol) 40 mg PO DAILY [facility] Last Admin: 10/24/17 09:24 Dose: 40 mg Sevelamer HCl (Renagel) 1,600 mg PO TID [facility] Last Admin: 10/24/17 16:44 Dose: 1,600 mg Sitagliptin Phosphate (Januvia) 25 mg PO DAILY [facility] Last Admin: 10/24/17 09:17 Dose: 25 mg Sodium Bicarbonate (Sodium Bicarbonate Tab) 650 mg PO BID [facility] Last Admin: 10/24/17 16:45 Dose: 650 mg Terazosin HCl (Hytrin) 10 mg PO HS [facility] Last Admin: 10/24/17 21:28 Dose: 10 mg - Labs Labs: 10/24/17 06:05 10/24/17 09:37 - Constitutional Appears: No Acute Distress - ENT Exam ENT Exam: Mucous Membranes Moist - Respiratory Exam Respiratory Exam: Rhonchi. absent: Chest Wall Tenderness - Cardiovascular Exam Cardiovascular Exam: REGULAR RHYTHM. absent: JVD, Rubs - GI/Abdominal Exam GI & Abdominal Exam: Soft, Normal Bowel Sounds. absent: Guarding - Extremities Exam Extremities Exam: absent: Calf Tenderness - Back Exam Back Exam: absent: CVA tenderness (L), CVA tenderness (R) - Neurological Exam Neurological Exam: Alert - Psychiatric Exam Psychiatric exam: Normal Affect Assessment and Plan (1) Chronic kidney disease, stage V Assessment & Plan: Chronic kidney disease is stage IV I cannot rule out acute kidney injury superimposed on chronic kidney disease related to the pneumonia and volume changes. Patient has history of coronary artery disease was previous past stent? No CABG Serum phosphorus and PTH pending Patient need adjustment with antibiotics because of the fever spiking As per primary team .for the pneumonia We will keep monitoring kidney function for the need of dialysis. He would need ultrasound of the kidney when his condition improving diabetes mellitus patient needs glycemic control. Anemia we will start epo Status: Acute (2) Type 2 diabetes mellitus with diabetic chronic kidney disease Status: Acute (3) Anemia Status: Acute (4) Pneumonia Status: Acute
[2017-10-25] MEDS: Omega-3-Acid Ethyl Esters 1 GM Cap PO SCH ×2 (09:17→17:19)
[2017-10-25] MEDS: Pravastatin Sodium 40 MG TAB PO SCH (09:18)
[2017-10-25] MEDS: Azithromycin 500 MG in Sodium Chloride 0.9% 250 ML IVPB SCH (09:26)
--- NOTE | 2017-10-25 15:59 | CP.PCM.PN ---
Subjective - Date & Time of Evaluation Date of Evaluation: 10/25/17 Time of Evaluation: 11:00 - Subjective Subjective: Patient seen and examined. Admitted feeling much better. Still with slight SOB but better than before. Objective - Vital Signs/Intake and Output Vital Signs (last 24 hours): Temp Pulse Resp BP Pulse Ox 98.6 F 77 20 133/72 97 10/25/17 12:00 10/25/17 09:17 10/25/17 08:56 10/25/17 09:17 10/25/17 08:56 - Medications Medications: Current Medications Acetaminophen (Tylenol 325mg Tab) 650 mg PO Q6 PRN PRN Reason: Pain, Mild (1-3) Acetaminophen (Tylenol 325mg Tab) 650 mg PO Q6 PRN PRN Reason: Fever >100.4 F Last Admin: 10/25/17 00:44 Dose: 650 mg Allopurinol (Zyloprim) 100 mg PO DAILY [facility] Last Admin: 10/25/17 09:20 Dose: 100 mg Amlodipine Besylate (Norvasc) 10 mg PO DAILY [facility] Last Admin: 10/25/17 09:17 Dose: 10 mg Aspirin (Ecotrin) 81 mg PO DAILY [facility] Last Admin: 10/25/17 09:16 Dose: 81 mg Clopidogrel Bisulfate (Plavix) 75 mg PO DAILY [facility] Last Admin: 10/25/17 09:18 Dose: 75 mg Epoetin Eddy (Procrit) 4,000 unit SC TTS [facility] Ergocalciferol (Drisdol 50,000 Intl Units Cap) 1 cap PO WED [facility] Ferrous Sulfate (Feosol) 325 mg PO DAILY [facility] Last Admin: 10/25/17 09:16 Dose: 325 mg Gabapentin (Neurontin) 100 mg PO BID [facility] Last Admin: 10/25/17 09:17 Dose: 100 mg Guaifenesin (Robitussin) 200 mg PO Q6 PRN PRN Reason: Cough Last Admin: 10/24/17 09:28 Dose: 200 mg Heparin Sodium (Porcine) (Heparin) 5,000 units SC Q12 [facility] PRN Reason: Protocol Last Admin: 10/25/17 09:16 Dose: 5,000 units Home Med (Paricalcitol [Zemplar]) 1 mcg PO DAILY [facility] Azithromycin 500 mg/ Sodium (Chloride) 250 mls @ 250 mls/hr IVPB DAILY [facility] PRN Reason: Protocol Last Admin: 10/25/17 09:26 Dose: 250 mls/hr Ceftriaxone Sodium 1 gm/ (Sodium Chloride) 100 mls @ 100 mls/hr IVPB DAILY [facility] PRN Reason: Protocol Last Admin: 10/25/17 09:20 Dose: 100 mls/hr Insulin Human Regular (Humulin R) 0 units SC ACCU-CHECK [facility] PRN Reason: Protocol Last Admin: 10/25/17 13:28 Dose: Not Given Isosorbide Mononitrate (Imdur Er) 30 mg PO DAILY [facility] Last Admin: 10/25/17 09:17 Dose: 30 mg Hcopq-5-Tlhq Ethyl Esters (Lovaza) 2 gm PO BID [facility] Last Admin: 10/25/17 09:17 Dose: 2 gm Pravastatin Sodium (Pravachol) 40 mg PO DAILY [facility] Last Admin: 10/25/17 09:18 Dose: 40 mg Sevelamer HCl (Renagel) 1,600 mg PO TID [facility] Last Admin: 10/25/17 09:20 Dose: 1,600 mg Sitagliptin Phosphate (Januvia) 25 mg PO DAILY [facility] Last Admin: 10/25/17 09:17 Dose: 25 mg Sodium Bicarbonate (Sodium Bicarbonate Tab) 650 mg PO BID [facility] Last Admin: 10/25/17 09:20 Dose: 650 mg Terazosin HCl (Hytrin) 10 mg PO HS [facility] Last Admin: 10/24/17 21:28 Dose: 10 mg - Labs Labs: 10/24/17 06:05 10/24/17 09:37 - Constitutional Appears: No Acute Distress - Head Exam Head Exam: ATRAUMATIC - Eye Exam Eye Exam: absent: Scleral icterus - ENT Exam ENT Exam: Mucous Membranes Moist - Neck Exam Neck Exam: absent: Meningismus - Respiratory Exam Respiratory Exam: Decreased Breath Sounds. absent: Rhonchi, Wheezes - Cardiovascular Exam Cardiovascular Exam: REGULAR RHYTHM, +S1, +S2 - GI/Abdominal Exam GI & Abdominal Exam: Soft. absent: Tenderness - Rectal Exam Rectal Exam: Deferred - Neurological Exam Neurological Exam: Alert, Oriented x3 - Psychiatric Exam Psychiatric exam: Normal Affect - Skin Skin Exam: Dry, Intact Assessment and Plan - Assessment and Plan (Free Text) Assessment: 62 yo male with history of DM2, CAD, HTN, right BKA and CKD came in with coughing associated with SOB. CXray showed KRISTI pneumonia. CBC was also significant for anemia with Hgb of 6.9. 1. KRISTI Pneumonia continue Rocephin and Azithromycin 2. Anemia orf Chronic Renal Failure received 1 unit of PRBC post transfusion Hgb: 8.7 3. Acute on CKD CKD probably secondary to DM aggravated by pneumonia renal consult with Dr Palmer appreciated renal sonogram 4. CAD continue ASA, Plavix, statin continue Isosorbide mononitrate 30mg PO daily cardiology consult with Dr Cho 5. DM2 BS controlled off Prandin Januvia 25mg PO daily accuchek ACHS 6. HTN BP stable continue Norvasc and Isosorbide 7. DVT prophylaxis Heparin 5000 SC q 12hrs
[2017-10-25] MEDS: Epoetin Alfa 4000 UNIT/ML Inj SC SCH (17:41)
[2017-10-26] MEDS: Insulin Regular 100 units/ml SC SCH ×4 (06:23→22:16)
[2017-10-26] MEDS: Azithromycin 500 MG in Sodium Chloride 0.9% 250 ML IVPB SCH (09:07)
[2017-10-26] MEDS: Omega-3-Acid Ethyl Esters 1 GM Cap PO SCH ×2 (09:07→17:57)
[2017-10-26] MEDS: guaiFENesin 200 mg/10 ml Syrup UD PO PRN ×2 (09:08→21:32)
[2017-10-26] MEDS: Ergocalciferol 50,000 Intl Units Cap PO SCH (09:09)
[2017-10-26] MEDS: Pravastatin Sodium 40 MG TAB PO SCH (09:09)
[2017-10-26] MEDS ORDERED: Tuberculin 5 Units/0.1 ml Inj ID ONE (11:00)
[2017-10-26] MEDS ORDERED: Albuterol-Ipratrop 3 mg / 0.5 (3 ml) UD INH PRN (11:06)
--- NOTE | 2017-10-26 11:47 | CP.PCM.CON ---
History of Present Illness - History of Present Illness History of Present Illness: Infectious Disease Consultation Note- asked to see this patient at the request of for cough and fever. HPI- Patient is a 62 year old male with pmh of DM II, CAD s/p CABG, HTN, CKD stage 4 , Right BKA who was admitted 3 days ago with c/o cough that has been persistent for past month and has recently gotten worse. Pt.denie any fever at home but states he has been febrile here while inpatient. he denies any hemoptysois, denies any phlegm, denies any weight loss or night swetas, denies any recent travel. denies any h/o exposure to TB. Is from [place] originally but has lived in [place] for past 40 years. I'm asked to evaluate the patient because he continues to be febrile on IV antibiotics. Pt. however does states that he feels better today compared to yesterday. Review of Systems - Review of Systems Review of Systems: ROS_ + fever in past 3 days while inpatient, + cough without much phlegm, denies any hemoptysis, denies any night sweats, denies any weight loss, denies any chest pain, denies any abd. pain, denies any nausea or vomiting. denies any dysurea, denies any diarrhea. denies any recent travel denies any exposure to TB Past Patient History - Past Medical History & Family History Past Family History: Reviewed and not pertinent - Past Social History Smoking Status: Former Smoker Alcohol: None Drugs: Denies Home Situation {Lives}: With Family - CARDIAC Hx Angina: Yes Hx Hypercholesterolemia: Yes Hx Hypertension: Yes Hx Pacemaker: No - PULMONARY Hx Pneumonia: Yes - NEUROLOGICAL Hx Paralysis: No - HEENT Hx Cataracts: Yes (extraction 2010) - RENAL Hx Chronic Kidney Disease: Yes Other/Comment: stage IV CKD - ENDOCRINE/METABOLIC Hx Endocrine Disorders: Yes Hx Diabetes Mellitus Type 1: Yes - HEMATOLOGICAL/ONCOLOGICAL Hx Blood Transfusions: No Hx Blood Transfusion Reaction: No - MUSCULOSKELETAL/RHEUMATOLOGICAL Hx Musculoskeletal Disorders: No Hx Falls: No - PSYCHIATRIC Hx Emotional Abuse: No Hx Physical Abuse: No Hx Substance Use: No - SURGICAL HISTORY Hx Surgeries: Yes Hx Amputation: Yes (Right BKA, Left TMA) Hx Cataract Extraction: Yes Hx Cardiac Catheterization: Yes Hx Coronary Stent: Yes (x 2) Hx Open Heart Surgery: Yes - ANESTHESIA Hx Anesthesia: Yes Hx Anesthesia Reactions: No Hx Malignant Hyperthermia: No Has any member of the family had a problem w/ anesthesia?: No Meds Allergies/Adverse Reactions: Allergies Allergy/AdvReac Type Severity Reaction Status Date / Time No Known Allergies Allergy Unverified 05/01/14 08:31 - Medications Medications: Current Medications Acetaminophen (Tylenol 325mg Tab) 650 mg PO Q6 PRN PRN Reason: Pain, Mild (1-3) Last Admin: 10/25/17 17:17 Dose: 650 mg Acetaminophen (Tylenol 325mg Tab) 650 mg PO Q6 PRN PRN Reason: Fever >100.4 F Last Admin: 10/26/17 09:06 Dose: 650 mg Albuterol/Ipratropium (Duoneb 3 Mg/0.5 Mg (3 Ml) Ud) 3 ml INH RQ4 PRN PRN Reason: Shortness of Breath Allopurinol (Zyloprim) 100 mg PO DAILY [facility] Last Admin: 10/26/17 09:07 Dose: 100 mg Amlodipine Besylate (Norvasc) 10 mg PO DAILY [facility] Last Admin: 10/26/17 09:07 Dose: 10 mg Aspirin (Ecotrin) 81 mg PO DAILY [facility] Last Admin: 10/26/17 09:07 Dose: 81 mg Clopidogrel Bisulfate (Plavix) 75 mg PO DAILY [facility] Last Admin: 10/26/17 09:08 Dose: 75 mg Epoetin Eddy (Procrit) 4,000 unit SC TTS [facility] Last Admin: 10/25/17 17:41 Dose: 4,000 unit Ergocalciferol (Drisdol 50,000 Intl Units Cap) 1 cap PO WED [facility] Last Admin: 10/26/17 09:09 Dose: 1 cap Ferrous Sulfate (Feosol) 325 mg PO DAILY [facility] Last Admin: 10/26/17 09:07 Dose: 325 mg Gabapentin (Neurontin) 100 mg PO BID [facility] Last Admin: 10/26/17 09:07 Dose: 100 mg Guaifenesin (Robitussin) 200 mg PO Q6 PRN PRN Reason: Cough Last Admin: 10/26/17 09:08 Dose: 200 mg Heparin Sodium (Porcine) (Heparin) 5,000 units SC Q12 [facility] PRN Reason: Protocol Last Admin: 10/26/17 09:09 Dose: 5,000 units Home Med (Paricalcitol [Zemplar]) 1 mcg PO DAILY [facility] Azithromycin 500 mg/ Sodium (Chloride) 250 mls @ 250 mls/hr IVPB DAILY [facility] PRN Reason: Protocol Last Admin: 10/26/17 09:07 Dose: 250 mls/hr Ceftriaxone Sodium 1 gm/ (Sodium Chloride) 100 mls @ 100 mls/hr IVPB DAILY [facility] PRN Reason: Protocol Last Admin: 10/26/17 09:06 Dose: 100 mls/hr Insulin Human Regular (Humulin R) 0 units SC ACCU-CHECK [facility] PRN Reason: Protocol Last Admin: 10/26/17 06:23 Dose: Not Given Isosorbide Mononitrate (Imdur Er) 30 mg PO DAILY [facility] Last Admin: 10/26/17 09:08 Dose: 30 mg Eaiao-6-Pklp Ethyl Esters (Lovaza) 2 gm PO BID [facility] Last Admin: 10/26/17 09:07 Dose: 2 gm Pravastatin Sodium (Pravachol) 40 mg PO DAILY [facility] Last Admin: 10/26/17 09:09 Dose: 40 mg Sevelamer HCl (Renagel) 1,600 mg PO TID [facility] Last Admin: 10/26/17 09:08 Dose: 1,600 mg Sitagliptin Phosphate (Januvia) 25 mg PO DAILY [facility] Last Admin: 10/26/17 09:08 Dose: 25 mg Sodium Bicarbonate (Sodium Bicarbonate Tab) 650 mg PO BID [facility] Last Admin: 10/26/17 09:08 Dose: 650 mg Terazosin HCl (Hytrin) 10 mg PO HS [facility] Last Admin: 10/25/17 21:41 Dose: 10 mg Physical Exam - Constitutional Appears: No Acute Distress - Head Exam Head Exam: ATRAUMATIC - Eye Exam Eye Exam: EOMI - ENT Exam ENT Exam: Normal Oropharynx - Neck Exam Neck exam: Positive for: Full Rom - Respiratory Exam Respiratory Exam: NORMAL BREATHING PATTERN Additional comments: left lung coarse breath sounds No wheezing - Cardiovascular Exam Cardiovascular Exam: RRR, +S1, +S2 - GI/Abdominal Exam GI & Abdominal Exam: Normal Bowel Sounds, Soft Additional comments: NT, ND - Extremities Exam Additional comments: Right BKA stump clean/ no erythema - Neurological Exam Neurological exam: Alert, Oriented x3 Results - Vital Signs Recent Vital Signs: Last Vital Signs Temp 100.5 F H 02/07/18 10:06 Pulse 109 H 10/26/17 08:07 Resp 20 10/26/17 08:07 BP 151/80 H 10/26/17 08:07 Pulse Ox 94 L 10/26/17 08:07 - Labs Result Diagrams: 10/24/17 06:05 10/24/17 09:37 Labs: Laboratory Results - last 24 hr 10/24/17 10/25/17 10/25/17 11:20 15:44 21:39 POC Glucose (mg/dL) 104 124 H PTH Intact Whole Molec 168 H 10/26/17 10/26/17 05:50 11:22 POC Glucose (mg/dL) 80 107 PTH Intact Whole Molec Laboratory Results - last 72 hr 10/23/17 10/23/17 10/23/17 12:45 16:33 22:17 WBC RBC Hgb Hct MCV MCH MCHC RDW Plt Count Sodium Potassium Chloride Carbon Dioxide Anion Gap BUN Creatinine Est GFR ( Amer) Est GFR (Non-Af Amer) POC Glucose (mg/dL) 88 85 Random Glucose Calcium Phosphorus Iron TIBC % Saturation Ferritin PTH Intact Whole Molec Urine Color Urine Clarity Urine pH Ur Specific [place] Urine Protein Urine Glucose (UA) Urine Ketones Urine Blood Urine Nitrate Urine Bilirubin Urine Urobilinogen Ur Leukocyte Esterase Urine RBC (Auto) Urine Microscopic WBC Ur Squamous Epith Cells Urine Bacteria Ur Random Creatinine U Random Total Protein Blood Type O POSITIVE Antibody Screen Negative Crossmatch See Detail BBK History Checked Patient has bt 10/24/17 10/24/17 10/24/17 05:24 06:05 09:37 WBC 6.3 RBC 2.92 L Hgb 8.7 L Hct 26.9 L MCV 92.4 MCH 29.8 MCHC 32.2 L RDW 14.1 Plt Count 168 Sodium 140 Potassium 4.9 Chloride 109 H Carbon Dioxide 20 L Anion Gap 16 BUN 54 H Creatinine 5.5 H Est GFR ( Amer) 13 Est GFR (Non-Af Amer) 11 POC Glucose (mg/dL) 60 L Random Glucose 72 L Calcium 8.2 L Phosphorus Iron TIBC % Saturation Ferritin PTH Intact Whole Molec Urine Color Urine Clarity Urine pH Ur Specific [place] Urine Protein Urine Glucose (UA) Urine Ketones Urine Blood Urine Nitrate Urine Bilirubin Urine Urobilinogen Ur Leukocyte Esterase Urine RBC (Auto) Urine Microscopic WBC Ur Squamous Epith Cells Urine Bacteria Ur Random Creatinine U Random Total Protein Blood Type Antibody Screen Crossmatch BBK History Checked 10/24/17 10/24/17 10/24/17 10:40 10:59 11:20 WBC RBC Hgb Hct MCV MCH MCHC RDW Plt Count Sodium Potassium Chloride Carbon Dioxide Anion Gap BUN Creatinine Est GFR ( Amer) Est GFR (Non-Af Amer) POC Glucose (mg/dL) 126 H Random Glucose Calcium Phosphorus 5.9 H Iron 17 L TIBC 228 L % Saturation 8 L Ferritin 293.0 PTH Intact Whole Molec Urine Color Urine Clarity Urine pH Ur Specific [place] Urine Protein Urine Glucose (UA) Urine Ketones Urine Blood Urine Nitrate Urine Bilirubin Urine Urobilinogen Ur Leukocyte Esterase Urine RBC (Auto) Urine Microscopic WBC Ur Squamous Epith Cells Urine Bacteria Ur Random Creatinine U Random Total Protein Blood Type Antibody Screen Crossmatch BBK History Checked 10/24/17 10/24/17 10/24/17 11:20 15:33 18:00 WBC RBC Hgb Hct MCV MCH MCHC RDW Plt Count Sodium Potassium Chloride Carbon Dioxide Anion Gap BUN Creatinine Est GFR ( Amer) Est GFR (Non-Af Amer) POC Glucose (mg/dL) 88 Random Glucose Calcium Phosphorus Iron TIBC % Saturation Ferritin PTH Intact Whole Molec 168 H Urine Color Yellow Urine Clarity Slighty-cloudy Urine pH 6.0 Ur Specific [place] 1.014 Urine Protein >=500 Urine Glucose (UA) 150 Urine Ketones Negative Urine Blood Small Urine Nitrate Negative Urine Bilirubin Negative Urine Urobilinogen 0.2-1.0 Ur Leukocyte Esterase Neg Urine RBC (Auto) 9 H Urine Microscopic WBC 3 Ur Squamous Epith Cells < 1 Urine Bacteria Rare Ur Random Creatinine U Random Total Protein Blood Type Antibody Screen Crossmatch BBK History Checked 10/24/17 10/24/17 10/25/17 18:10 21:09 05:22 WBC RBC Hgb Hct MCV MCH MCHC RDW Plt Count Sodium Potassium Chloride Carbon Dioxide Anion Gap BUN Creatinine Est GFR ( Amer) Est GFR (Non-Af Amer) POC Glucose (mg/dL) 100 86 Random Glucose Calcium Phosphorus Iron TIBC % Saturation Ferritin PTH Intact Whole Molec Urine Color Urine Clarity Urine pH Ur Specific [place] Urine Protein Urine Glucose (UA) Urine Ketones Urine Blood Urine Nitrate Urine Bilirubin Urine Urobilinogen Ur Leukocyte Esterase Urine RBC (Auto) Urine Microscopic WBC Ur Squamous Epith Cells Urine Bacteria Ur Random Creatinine 72.7 U Random Total Protein 1108.0 H Blood Type Antibody Screen Crossmatch BBK History Checked 10/25/17 10/25/17 10/25/17 11:16 15:44 21:39 WBC RBC Hgb Hct MCV MCH MCHC RDW Plt Count Sodium Potassium Chloride Carbon Dioxide Anion Gap BUN Creatinine Est GFR ( Amer) Est GFR (Non-Af Amer) POC Glucose (mg/dL) 144 H 104 124 H Random Glucose Calcium Phosphorus Iron TIBC % Saturation Ferritin PTH Intact Whole Molec Urine Color Urine Clarity Urine pH Ur Specific [place] Urine Protein Urine Glucose (UA) Urine Ketones Urine Blood Urine Nitrate Urine Bilirubin Urine Urobilinogen Ur Leukocyte Esterase Urine RBC (Auto) Urine Microscopic WBC Ur Squamous Epith Cells Urine Bacteria Ur Random Creatinine U Random Total Protein Blood Type Antibody Screen Crossmatch BBK History Checked 10/26/17 10/26/17 05:50 11:22 WBC RBC Hgb Hct MCV MCH MCHC RDW Plt Count Sodium Potassium Chloride Carbon Dioxide Anion Gap BUN Creatinine Est GFR ( Amer) Est GFR (Non-Af Amer) POC Glucose (mg/dL) 80 107 Random Glucose Calcium Phosphorus Iron TIBC % Saturation Ferritin PTH Intact Whole Molec Urine Color Urine Clarity Urine pH Ur Specific [place] Urine Protein Urine Glucose (UA) Urine Ketones Urine Blood Urine Nitrate Urine Bilirubin Urine Urobilinogen Ur Leukocyte Esterase Urine RBC (Auto) Urine Microscopic WBC Ur Squamous Epith Cells Urine Bacteria Ur Random Creatinine U Random Total Protein Blood Type Antibody Screen Crossmatch BBK History Checked Microbiology 10/23/17 12:00 Blood Blood Culture - Preliminary NO GROWTH AFTER 3 DAYS 10/25/17 07:05 Blood-Venous Blood Culture - Preliminary NO GROWTH AFTER 24 HOURS 10/25/17 07:05 Blood-Venous Blood Culture - Preliminary NO GROWTH AFTER 24 HOURS Accession No. : [id number] Patient Name / ID : DESTINI Mcdaniels / [id number] Exam Date : 10/23/2017 10:24:06 ( Approved ) Study Comment : Sex / Age : M / 62Y Creator : Timo Cho MD Dictator : Timo Cho MD Harnessmaker Apprentice : Flooring Sales Manager : Timo Cho MD Approver2 : Report Date : 10/23/2017 10:53:51 My Comment : HISTORY: progressive dyspnea, mild wheezing, bilateral rale COMPARISON: Chest radiograph dated 04/10/2015. TECHNIQUE: Chest PA and lateral FINDINGS: LUNGS: Left upper lobe infiltrate. PLEURA: Stable elevation of the right hemidiaphragm. No significant pleural effusion identified. No pneumothorax apparent. CARDIOVASCULAR: Atherosclerotic aortic calcifications. Cardiomediastinal silhouette unchanged. OSSEOUS STRUCTURES: Unchanged. VISUALIZED UPPER ABDOMEN: Normal. OTHER FINDINGS: None. IMPRESSION: Left upper lobe infiltrate. Assessment & Plan (1) Chronic kidney disease, stage V Status: Acute (2) Pneumonia Status: Acute (3) Type 2 diabetes mellitus with diabetic chronic kidney disease Status: Acute (4) Fever Status: Acute - Assessment and Plan (Free Text) Assessment: A/P- 62 year old male with DM , CAD , CKD, admitted with cough and left sided pneumonia. febrile normal wbc count rapid flu test -neg plan- advise to check blood cx x 2. check sputum culture. advise to continue with zithromax to cover for atypicals and in addition advise to d/c ceftriaxone and place on broader spectrum antibiotic such as zosyn. advise to check urine legionella AG. check mycoplasma serology. Low suspicion for TB. Thank you for allowing me to take part in the care of this patient . will f/u while inpatient.
--- NOTE | 2017-10-26 15:14 | CP.PCM.PN ---
Subjective - Date & Time of Evaluation Date of Evaluation: 10/26/17 Time of Evaluation: 15:10 - Subjective Subjective: Patient feeling much better No nausea or vomiting No diarrhea reported Objective - Vital Signs/Intake and Output Vital Signs (last 24 hours): Temp Pulse Resp BP Pulse Ox 100.5 F H 109 H 20 151/80 H 94 L 10/26/17 10:06 10/26/17 08:07 10/26/17 08:07 10/26/17 08:07 10/26/17 08:07 - Medications Medications: Current Medications Acetaminophen (Tylenol 325mg Tab) 650 mg PO Q6 PRN PRN Reason: Pain, Mild (1-3) Last Admin: 10/25/17 17:17 Dose: 650 mg Acetaminophen (Tylenol 325mg Tab) 650 mg PO Q6 PRN PRN Reason: Fever >100.4 F Last Admin: 10/26/17 09:06 Dose: 650 mg Albuterol/Ipratropium (Duoneb 3 Mg/0.5 Mg (3 Ml) Ud) 3 ml INH RQ4 PRN PRN Reason: Shortness of Breath Allopurinol (Zyloprim) 100 mg PO DAILY [facility] Last Admin: 10/26/17 09:07 Dose: 100 mg Amlodipine Besylate (Norvasc) 10 mg PO DAILY [facility] Last Admin: 10/26/17 09:07 Dose: 10 mg Aspirin (Ecotrin) 81 mg PO DAILY [facility] Last Admin: 10/26/17 09:07 Dose: 81 mg Clopidogrel Bisulfate (Plavix) 75 mg PO DAILY [facility] Last Admin: 10/26/17 09:08 Dose: 75 mg Epoetin Eddy (Procrit) 4,000 unit SC TTS [facility] Last Admin: 10/25/17 17:41 Dose: 4,000 unit Ergocalciferol (Drisdol 50,000 Intl Units Cap) 1 cap PO WED [facility] Last Admin: 10/26/17 09:09 Dose: 1 cap Ferrous Sulfate (Feosol) 325 mg PO DAILY [facility] Last Admin: 10/26/17 09:07 Dose: 325 mg Gabapentin (Neurontin) 100 mg PO BID [facility] Last Admin: 10/26/17 09:07 Dose: 100 mg Guaifenesin (Robitussin) 200 mg PO Q6 PRN PRN Reason: Cough Last Admin: 10/26/17 09:08 Dose: 200 mg Heparin Sodium (Porcine) (Heparin) 5,000 units SC Q12 [facility] PRN Reason: Protocol Last Admin: 10/26/17 09:09 Dose: 5,000 units Home Med (Paricalcitol [Zemplar]) 1 mcg PO DAILY [facility] Azithromycin 500 mg/ Sodium (Chloride) 250 mls @ 250 mls/hr IVPB DAILY [facility] PRN Reason: Protocol Last Admin: 10/26/17 09:07 Dose: 250 mls/hr Piperacillin Sod/Tazobactam (Sod 2.25 gm/ Sodium Chloride) 50 mls @ 50 mls/hr IVPB Q8 [facility] PRN Reason: Protocol Insulin Human Regular (Humulin R) 0 units SC ACCU-CHECK [facility] PRN Reason: Protocol Last Admin: 10/26/17 11:57 Dose: Not Given Isosorbide Mononitrate (Imdur Er) 30 mg PO DAILY [facility] Last Admin: 10/26/17 09:08 Dose: 30 mg Eddgh-6-Odiy Ethyl Esters (Lovaza) 2 gm PO BID [facility] Last Admin: 10/26/17 09:07 Dose: 2 gm Pravastatin Sodium (Pravachol) 40 mg PO DAILY [facility] Last Admin: 10/26/17 09:09 Dose: 40 mg Sevelamer HCl (Renagel) 1,600 mg PO TID [facility] Last Admin: 10/26/17 12:46 Dose: 1,600 mg Sitagliptin Phosphate (Januvia) 25 mg PO DAILY [facility] Last Admin: 10/26/17 09:08 Dose: 25 mg Sodium Bicarbonate (Sodium Bicarbonate Tab) 650 mg PO BID [facility] Last Admin: 10/26/17 09:08 Dose: 650 mg Terazosin HCl (Hytrin) 10 mg PO HS [facility] Last Admin: 10/25/17 21:41 Dose: 10 mg - Labs Labs: 10/24/17 06:05 10/24/17 09:37 - Constitutional Appears: No Acute Distress - ENT Exam ENT Exam: Mucous Membranes Moist - Neck Exam Neck Exam: absent: Lymphadenopathy - Respiratory Exam Respiratory Exam: NORMAL BREATHING PATTERN. absent: Chest Wall Tenderness - Cardiovascular Exam Cardiovascular Exam: REGULAR RHYTHM. absent: Gallop, Rubs - GI/Abdominal Exam GI & Abdominal Exam: Soft, Normal Bowel Sounds - Extremities Exam Extremities Exam: absent: Calf Tenderness - Back Exam Back Exam: absent: CVA tenderness (L), CVA tenderness (R) - Neurological Exam Neurological Exam: Alert - Psychiatric Exam Psychiatric exam: Normal Affect - Skin Skin Exam: Normal Color Assessment and Plan (1) Chronic kidney disease, stage V Assessment & Plan: Serum creatinine stable around that level was GFR around 11-12 consistent with chronic kidney disease stage V Patient appeared to be very close to the dialysis Patient receiving antibiotics for the pneumonia and fever which is improving since yesterday to still have low-grade fever Secondary hyperparathyroidism I would add calcitriol Phosphorus pending We will do ultrasound of the kidney as soon as we can and then will do venous mapping and possibly dialysis if it is not improving Status: Acute (2) Type 2 diabetes mellitus with diabetic chronic kidney disease Status: Acute (3) Anemia Status: Acute (4) Pneumonia Status: Acute
[2017-10-26] MEDS: Piperacillin/Tazobact 2.25 GM in Sodium Chloride 0.9% 50 ML IVPB SCH (17:55)
--- NOTE | 2017-10-26 18:00 | CP.PCM.PN ---
Subjective - Date & Time of Evaluation Date of Evaluation: 10/26/17 Time of Evaluation: 17:00 - Subjective Subjective: Patient seen and examined. Claimed he still coughing and has SOB but admitted feeling better. Also has been having fever. Objective - Vital Signs/Intake and Output Vital Signs (last 24 hours): Temp Pulse Resp BP Pulse Ox 98.5 F 86 20 149/77 97 10/26/17 16:37 10/26/17 16:37 10/26/17 16:37 10/26/17 16:37 10/26/17 16:37 - Medications Medications: Current Medications Acetaminophen (Tylenol 325mg Tab) 650 mg PO Q6 PRN PRN Reason: Pain, Mild (1-3) Last Admin: 10/25/17 17:17 Dose: 650 mg Acetaminophen (Tylenol 325mg Tab) 650 mg PO Q6 PRN PRN Reason: Fever >100.4 F Last Admin: 10/26/17 09:06 Dose: 650 mg Albuterol/Ipratropium (Duoneb 3 Mg/0.5 Mg (3 Ml) Ud) 3 ml INH RQ4 PRN PRN Reason: Shortness of Breath Allopurinol (Zyloprim) 100 mg PO DAILY [facility] Last Admin: 10/26/17 09:07 Dose: 100 mg Amlodipine Besylate (Norvasc) 10 mg PO DAILY [facility] Last Admin: 10/26/17 09:07 Dose: 10 mg Aspirin (Ecotrin) 81 mg PO DAILY [facility] Last Admin: 10/26/17 09:07 Dose: 81 mg Clopidogrel Bisulfate (Plavix) 75 mg PO DAILY [facility] Last Admin: 10/26/17 09:08 Dose: 75 mg Epoetin Eddy (Procrit) 4,000 unit SC TTS [facility] Last Admin: 10/25/17 17:41 Dose: 4,000 unit Ergocalciferol (Drisdol 50,000 Intl Units Cap) 1 cap PO WED [facility] Last Admin: 10/26/17 09:09 Dose: 1 cap Ferrous Sulfate (Feosol) 325 mg PO DAILY [facility] Last Admin: 10/26/17 09:07 Dose: 325 mg Gabapentin (Neurontin) 100 mg PO BID [facility] Last Admin: 10/26/17 09:07 Dose: 100 mg Guaifenesin (Robitussin) 200 mg PO Q6 PRN PRN Reason: Cough Last Admin: 10/26/17 09:08 Dose: 200 mg Heparin Sodium (Porcine) (Heparin) 5,000 units SC Q12 [facility] PRN Reason: Protocol Last Admin: 10/26/17 09:09 Dose: 5,000 units Home Med (Paricalcitol [Zemplar]) 1 mcg PO DAILY [facility] Azithromycin 500 mg/ Sodium (Chloride) 250 mls @ 250 mls/hr IVPB DAILY [facility] PRN Reason: Protocol Last Admin: 10/26/17 09:07 Dose: 250 mls/hr Piperacillin Sod/Tazobactam (Sod 2.25 gm/ Sodium Chloride) 50 mls @ 50 mls/hr IVPB Q8 [facility] PRN Reason: Protocol Insulin Human Regular (Humulin R) 0 units SC ACCU-CHECK [facility] PRN Reason: Protocol Last Admin: 10/26/17 11:57 Dose: Not Given Isosorbide Mononitrate (Imdur Er) 30 mg PO DAILY [facility] Last Admin: 10/26/17 09:08 Dose: 30 mg Mbazt-8-Xdeq Ethyl Esters (Lovaza) 2 gm PO BID [facility] Last Admin: 10/26/17 09:07 Dose: 2 gm Pravastatin Sodium (Pravachol) 40 mg PO DAILY [facility] Last Admin: 10/26/17 09:09 Dose: 40 mg Sevelamer HCl (Renagel) 1,600 mg PO TID [facility] Last Admin: 10/26/17 12:46 Dose: 1,600 mg Sitagliptin Phosphate (Januvia) 25 mg PO DAILY [facility] Last Admin: 10/26/17 09:08 Dose: 25 mg Sodium Bicarbonate (Sodium Bicarbonate Tab) 650 mg PO BID [facility] Last Admin: 10/26/17 09:08 Dose: 650 mg Terazosin HCl (Hytrin) 10 mg PO HS [facility] Last Admin: 10/25/17 21:41 Dose: 10 mg - Labs Labs: 10/24/17 06:05 10/24/17 09:37 - Constitutional Appears: No Acute Distress - Head Exam Head Exam: ATRAUMATIC - Eye Exam Eye Exam: absent: Scleral icterus - ENT Exam ENT Exam: Mucous Membranes Moist - Neck Exam Neck Exam: absent: Meningismus - Respiratory Exam Respiratory Exam: Decreased Breath Sounds. absent: Rhonchi, Wheezes - Cardiovascular Exam Cardiovascular Exam: REGULAR RHYTHM, +S1, +S2 - GI/Abdominal Exam GI & Abdominal Exam: Soft. absent: Tenderness - Rectal Exam Rectal Exam: Deferred - Neurological Exam Neurological Exam: Alert, Oriented x3 - Psychiatric Exam Psychiatric exam: Normal Affect - Skin Skin Exam: Dry, Intact Assessment and Plan - Assessment and Plan (Free Text) Assessment: 62 yo male with history of DM2, CAD, HTN, right BKA and CKD came in with coughing associated with SOB. CXray showed KRISTI pneumonia. CBC was also significant for anemia with Hgb of 6.9. 1. KRISTI Pneumonia has been receiving Rocephin and Azithromycin but continue to have fever and coughing PPD, sputum AFB, Quantiferon TB placed on respiratory isolation ID consult with Dr Gaona appreciated Rocephin switched to Zosyn 2.25gm IV q 8hrs (renal dose) 2. Anemia orf Chronic Renal Failure received 1 unit of PRBC post transfusion Hgb: 8.7 3. Acute on CKD CKD probably secondary to DM aggravated by pneumonia renal consult with Dr Palmer appreciated renal sonogram ordered 4. CAD continue ASA, Plavix, statin continue Isosorbide mononitrate 30mg PO daily 5. DM2 BS controlled off Prandin Januvia 25mg PO daily accuchek ACHS 6. HTN BP stable continue Norvasc and Isosorbide 7. DVT prophylaxis Heparin 5000 SC q 12hrs
--- NOTE | 2017-10-26 22:26 | PN ---
DATE: SUBJECTIVE: The patient is on droplet and contact isolation. He denies or shortness of breath. PHYSICAL EXAMINATION VITAL SIGNS: Blood pressure 149/77, heart rate 86, temperature 98.5 and respirations 20. HEENT: Pale conjunctivae. CHEST: Minimal basal rhonchi. HEART: S1 and S2 regular. EXTREMITIES: Right below knee amputation, left metatarsal amputation. LABORATORY DATA: Today's blood sugars are 80, 107 and 129. Echocardiographic study revealed normal ejection fraction range of 65% to 70%. Blood cultures are negative after 24 hours and 3 days. I did review the nephrology evaluation and according to the manager managing, the patient has GFR around 11 to 12 consistent with chronic kidney disease stage 5. The patient appears to be very close to dialysis. The patient is receiving antibiotics for pneumonia and fever, which is improving. We will do ultrasound of kidney as soon as possible and venous mapping and possibly dialysis if not improving. ASSESSMENT: 1. Coronary artery disease status post coronary stenting in the past. 2. Advanced renal insufficiency. 3. Peripheral vascular disease. 4. Pneumonia. RECOMMENDATIONS: Continue current IV Zithromax and IV Zosyn. Continue Plavix 75 mg once a day and 2 mg p.o. twice a day, Hytrin 10 mg once a day, subcutaneous heparin 5000 units q. 8 hours and aspirin 81 mg once a day. Anish Cho MD
[2017-10-27] MEDS: Piperacillin/Tazobact 2.25 GM in Sodium Chloride 0.9% 50 ML IVPB SCH ×3 (00:05→21:16)
[2017-10-27] MEDS: Insulin Regular 100 units/ml SC SCH ×4 (07:00→23:00)
[2017-10-27] MEDS: Omega-3-Acid Ethyl Esters 1 GM Cap PO SCH ×2 (08:37→17:11)
[2017-10-27] MEDS: Patient's Own Med (Paricalcitol [Zemplar] 1 MCG) PO SCH (08:39)
[2017-10-27] MEDS: Pravastatin Sodium 40 MG TAB PO SCH (08:39)
[2017-10-27] MEDS: Epoetin Alfa 4000 UNIT/ML Inj SC SCH (08:40)
[2017-10-27] MEDS: Azithromycin 500 MG in Sodium Chloride 0.9% 250 ML IVPB SCH (08:47)
[2017-10-27] MEDS ORDERED: Piperacillin/Tazobact 2.25 GM in Sodium Chloride 0.9% 50 ML IVPB SCH (09:00)
--- NOTE | 2017-10-27 10:10 | CP.PCM.PN ---
Subjective - Date & Time of Evaluation Date of Evaluation: 10/27/17 Time of Evaluation: 10:09 - Subjective Subjective: doing well, no complaints mild wheezing no cp, sob, calftenderness HD stable NAD Objective - Vital Signs/Intake and Output Vital Signs (last 24 hours): Temp Pulse Resp BP Pulse Ox 97.8 F 99 H 19 145/82 94 L 10/27/17 07:59 10/27/17 08:38 10/27/17 07:59 10/27/17 08:38 10/27/17 07:59 - Medications Medications: Current Medications Acetaminophen (Tylenol 325mg Tab) 650 mg PO Q6 PRN PRN Reason: Pain, Mild (1-3) Last Admin: 10/25/17 17:17 Dose: 650 mg Acetaminophen (Tylenol 325mg Tab) 650 mg PO Q6 PRN PRN Reason: Fever >100.4 F Last Admin: 10/27/17 00:07 Dose: 650 mg Albuterol/Ipratropium (Duoneb 3 Mg/0.5 Mg (3 Ml) Ud) 3 ml INH RQ4 PRN PRN Reason: Shortness of Breath Last Admin: 10/27/17 01:09 Dose: 3 ml Allopurinol (Zyloprim) 100 mg PO DAILY [facility] Last Admin: 10/27/17 08:42 Dose: 100 mg Amlodipine Besylate (Norvasc) 10 mg PO DAILY [facility] Last Admin: 10/27/17 08:38 Dose: 10 mg Aspirin (Ecotrin) 81 mg PO DAILY [facility] Last Admin: 10/27/17 08:33 Dose: 81 mg Clopidogrel Bisulfate (Plavix) 75 mg PO DAILY [facility] Last Admin: 10/27/17 08:39 Dose: 75 mg Epoetin Eddy (Procrit) 4,000 unit SC TTS [facility] Last Admin: 10/27/17 08:40 Dose: 4,000 unit Ergocalciferol (Drisdol 50,000 Intl Units Cap) 1 cap PO WED [facility] Last Admin: 10/26/17 09:09 Dose: 1 cap Ferrous Sulfate (Feosol) 325 mg PO DAILY [facility] Last Admin: 10/27/17 08:33 Dose: 325 mg Gabapentin (Neurontin) 100 mg PO BID [facility] Last Admin: 10/27/17 08:38 Dose: 100 mg Guaifenesin (Robitussin) 200 mg PO Q6 PRN PRN Reason: Cough Last Admin: 10/26/17 21:32 Dose: 200 mg Heparin Sodium (Porcine) (Heparin) 5,000 units SC Q12 [facility] PRN Reason: Protocol Last Admin: 10/27/17 08:33 Dose: 5,000 units Home Med (Paricalcitol [Zemplar]) 1 mcg PO DAILY [facility] Last Admin: 10/27/17 08:39 Dose: 1 mcg Azithromycin 500 mg/ Sodium (Chloride) 250 mls @ 250 mls/hr IVPB DAILY [facility] PRN Reason: Protocol Last Admin: 10/27/17 08:47 Dose: 250 mls/hr Piperacillin Sod/Tazobactam (Sod 2.25 gm/ Sodium Chloride) 50 mls @ 50 mls/hr IVPB Q8 [facility] PRN Reason: Protocol Insulin Human Regular (Humulin R) 0 units SC ACCU-CHECK [facility] PRN Reason: Protocol Last Admin: 10/27/17 07:00 Dose: Not Given Isosorbide Mononitrate (Imdur Er) 30 mg PO DAILY [facility] Last Admin: 10/27/17 08:36 Dose: 30 mg Xnftk-[id number] Ethyl Esters (Lovaza) 2 gm PO BID [facility] Last Admin: 10/27/17 08:37 Dose: 2 gm Pravastatin Sodium (Pravachol) 40 mg PO DAILY [facility] Last Admin: 10/27/17 08:39 Dose: 40 mg Sevelamer HCl (Renagel) 1,600 mg PO TID [facility] Last Admin: 10/27/17 08:41 Dose: 1,600 mg Sitagliptin Phosphate (Januvia) 25 mg PO DAILY [facility] Last Admin: 10/27/17 08:37 Dose: 25 mg Sodium Bicarbonate (Sodium Bicarbonate Tab) 650 mg PO BID [facility] Last Admin: 10/27/17 08:41 Dose: 650 mg Terazosin HCl (Hytrin) 10 mg PO HS [facility] Last Admin: 10/26/17 21:27 Dose: 10 mg - Labs Labs: 10/24/17 06:05 10/24/17 09:37 - Constitutional Appears: Non-toxic, No Acute Distress - Head Exam Head Exam: ATRAUMATIC, NORMOCEPHALIC - Eye Exam Eye Exam: EOMI, Normal appearance, PERRL Pupil Exam: NORMAL ACCOMODATION - ENT Exam ENT Exam: Mucous Membranes Moist, Normal Oropharynx - Respiratory Exam Respiratory Exam: Wheezes, NORMAL BREATHING PATTERN - Cardiovascular Exam Cardiovascular Exam: RRR, +S1, +S2 - GI/Abdominal Exam GI & Abdominal Exam: Soft, Normal Bowel Sounds - Extremities Exam Extremities Exam: Full ROM, Normal Capillary Refill. absent: Calf Tenderness - Back Exam Back Exam: absent: CVA tenderness (L), CVA tenderness (R) - Neurological Exam Neurological Exam: Alert, Awake - Psychiatric Exam Psychiatric exam: Normal Affect, Normal Mood - Skin Skin Exam: Dry, Warm Assessment and Plan - Assessment and Plan (Free Text) Plan: 62 yo male with history of DM2, CAD, HTN, right BKA and CKD came in with coughing associated with SOB. CXray showed KRISTI pneumonia. CBC was also significant for anemia with Hgb of 6.9. 1. KRISTI Pneumonia has been receiving Rocephin and Azithromycin but continue to have fever and coughing PPD, sputum AFB, Quantiferon TB placed on respiratory isolation bronchodilators scheduled ID consult with Dr Gaona appreciated Rocephin switched to Zosyn 2.25gm IV q 8hrs (renal dose) 2. Anemia 2/2 Chronic Renal Failure received 1 unit of PRBC post transfusion Hgb: 8.7 3. Acute on CKD CKD probably secondary to DM aggravated by pneumonia renal consult with Dr Palmer appreciated renal sonogram ordered 4. CAD continue ASA, Plavix, statin continue Isosorbide mononitrate 30mg PO daily 5. DM2 BS controlled off Prandin Januvia 25mg PO daily accuchek ACHS 6. HTN BP stable continue Norvasc and Isosorbide 7. DVT prophylaxis Heparin 5000 SC q 12hrs
[2017-10-27] MEDS: Albuterol-Ipratrop 3 mg / 0.5 (3 ml) UD INH SCH ×3 (10:47→20:04)
--- NOTE | 2017-10-27 11:22 | CP.PCM.PN ---
Subjective - Date & Time of Evaluation Date of Evaluation: 10/27/17 Time of Evaluation: 11:20 - Subjective Subjective: Patient is awake No nausea no vomiting No diarrhea no chest pain Vision appears to be comfortable temperature coming down to normal Objective - Vital Signs/Intake and Output Vital Signs (last 24 hours): Temp Pulse Resp BP Pulse Ox 97.8 F 99 H 19 145/82 94 L 10/27/17 07:59 10/27/17 08:38 10/27/17 07:59 10/27/17 08:38 10/27/17 07:59 - Medications Medications: Current Medications Acetaminophen (Tylenol 325mg Tab) 650 mg PO Q6 PRN PRN Reason: Pain, Mild (1-3) Last Admin: 10/25/17 17:17 Dose: 650 mg Acetaminophen (Tylenol 325mg Tab) 650 mg PO Q6 PRN PRN Reason: Fever >100.4 F Last Admin: 10/27/17 00:07 Dose: 650 mg Albuterol/Ipratropium (Duoneb 3 Mg/0.5 Mg (3 Ml) Ud) 3 ml INH RQ4 [facility] Last Admin: 10/27/17 10:47 Dose: 3 ml Allopurinol (Zyloprim) 100 mg PO DAILY [facility] Last Admin: 10/27/17 08:42 Dose: 100 mg Amlodipine Besylate (Norvasc) 10 mg PO DAILY [facility] Last Admin: 10/27/17 08:38 Dose: 10 mg Aspirin (Ecotrin) 81 mg PO DAILY [facility] Last Admin: 10/27/17 08:33 Dose: 81 mg Clopidogrel Bisulfate (Plavix) 75 mg PO DAILY [facility] Last Admin: 10/27/17 08:39 Dose: 75 mg Epoetin Eddy (Procrit) 4,000 unit SC TTS [facility] Last Admin: 10/27/17 08:40 Dose: 4,000 unit Ergocalciferol (Drisdol 50,000 Intl Units Cap) 1 cap PO WED [facility] Last Admin: 10/26/17 09:09 Dose: 1 cap Ferrous Sulfate (Feosol) 325 mg PO DAILY [facility] Last Admin: 10/27/17 08:33 Dose: 325 mg Gabapentin (Neurontin) 100 mg PO BID [facility] Last Admin: 10/27/17 08:38 Dose: 100 mg Guaifenesin (Robitussin) 200 mg PO Q6 PRN PRN Reason: Cough Last Admin: 10/26/17 21:32 Dose: 200 mg Heparin Sodium (Porcine) (Heparin) 5,000 units SC Q12 [facility] PRN Reason: Protocol Last Admin: 10/27/17 08:33 Dose: 5,000 units Home Med (Paricalcitol [Zemplar]) 1 mcg PO DAILY [facility] Last Admin: 10/27/17 08:39 Dose: 1 mcg Azithromycin 500 mg/ Sodium (Chloride) 250 mls @ 250 mls/hr IVPB DAILY [facility] PRN Reason: Protocol Last Admin: 10/27/17 08:47 Dose: 250 mls/hr Piperacillin Sod/Tazobactam (Sod 2.25 gm/ Sodium Chloride) 50 mls @ 50 mls/hr IVPB Q8 [facility] PRN Reason: Protocol Insulin Human Regular (Humulin R) 0 units SC ACCU-CHECK [facility] PRN Reason: Protocol Last Admin: 10/27/17 07:00 Dose: Not Given Isosorbide Mononitrate (Imdur Er) 30 mg PO DAILY [facility] Last Admin: 10/27/17 08:36 Dose: 30 mg [id number]-[id number] Ethyl Esters (Lovaza) 2 gm PO BID [facility] Last Admin: 10/27/17 08:37 Dose: 2 gm Pravastatin Sodium (Pravachol) 40 mg PO DAILY [facility] Last Admin: 10/27/17 08:39 Dose: 40 mg Sevelamer HCl (Renagel) 1,600 mg PO TID [facility] Last Admin: 10/27/17 08:41 Dose: 1,600 mg Sitagliptin Phosphate (Januvia) 25 mg PO DAILY [facility] Last Admin: 10/27/17 08:37 Dose: 25 mg Sodium Bicarbonate (Sodium Bicarbonate Tab) 650 mg PO BID [facility] Last Admin: 10/27/17 08:41 Dose: 650 mg Terazosin HCl (Hytrin) 10 mg PO HS [facility] Last Admin: 10/26/17 21:27 Dose: 10 mg - Labs Labs: 10/24/17 06:05 10/24/17 09:37 - Constitutional Appears: No Acute Distress - Eye Exam Eye Exam: Conjunctival injection - ENT Exam ENT Exam: Mucous Membranes Moist - Neck Exam Neck Exam: absent: Lymphadenopathy - Respiratory Exam Respiratory Exam: absent: Chest Wall Tenderness, Rales, Wheezes - Cardiovascular Exam Cardiovascular Exam: absent: Gallop, JVD, Rubs - GI/Abdominal Exam GI & Abdominal Exam: Soft, Normal Bowel Sounds - Extremities Exam Extremities Exam: absent: Calf Tenderness - Back Exam Back Exam: absent: CVA tenderness (L), CVA tenderness (R) - Neurological Exam Neurological Exam: Alert - Psychiatric Exam Psychiatric exam: Normal Affect - Skin Skin Exam: absent: Cyanosis Assessment and Plan (1) Chronic kidney disease, stage V Assessment & Plan: Chronic kidney disease stage V. Stable Pneumonia patient receiving antibiotics and improving. Patient seen venous mapping of the upper extremity for AV fistula Please call vascular when his fever is cleared and cleared by ID for AV fistula Status: Acute (2) Type 2 diabetes mellitus with diabetic chronic kidney disease Status: Acute (3) Anemia Status: Acute (4) Pneumonia Status: Acute
--- NOTE | 2017-10-27 12:00 | US ---
PROCEDURE: Ultrasound of the Kidneys HISTORY: CR[facility] COMPARISON: Renal ultrasound dated 05/03/2015. TECHNIQUE: Sonogram of the kidneys. FINDINGS: RIGHT KIDNEY: Measures: 10.4 x 5.6 x 5.5 cm. Normal in size, contour and echogenicity. No stone, solid mass lesion or hydronephrosis visualized. LEFT KIDNEY: Measures: 11.6 x 6.2 x 4.3 cm. Normal in size, contour and echogenicity. No stone, solid mass lesion or hydronephrosis visualized. OTHER FINDINGS: None. IMPRESSION: Unremarkable renal sonogram.
--- NOTE | 2017-10-27 14:09 | PN ---
DATE: SUBJECTIVE: The patient denies any retrosternal chest pain. He is experiencing productive cough. PHYSICAL EXAMINATION: VITAL SIGNS: Blood pressure 145/82, heart rate 99, temperature 97.8, and respirations 19. HEENT: Normocephalic. CHEST: Bilateral rhonchi. HEART: S1 and S2 regular. EXTREMITIES: Right below-knee amputation and left metatarsal amputation. LABORATORY DATA: Blood cultures are negative after 48 hours and 4 days. Laboratories; today's blood sugars are 107 and 129. ASSESSMENT: 1. Advanced renal insufficiency. 2. Coronary artery disease with history of coronary artery stenting in the past. 3. Peripheral vascular disease, status post right below-knee amputation and left metatarsal amputation. RECOMMENDATIONS: I did review the renal consult, which was unremarkable study. Continue IV Zithromax at 500 mg daily, IV Zosyn 2.25 g intravenously q.8 hours. Continue Plavix 75 mg once a day, Norvasc 10 mg once a day, Imdur ER 30 mg once a day, and aspirin 81 mg once a day. Awaiting AFB sputum smear . Anish Cho MD
[2017-10-27] MEDS: guaiFENesin 200 mg/10 ml Syrup UD PO PRN (21:22)
[2017-10-28] MEDS: Albuterol-Ipratrop 3 mg / 0.5 (3 ml) UD INH SCH ×7 (00:32→23:44)
[2017-10-28] MEDS: Piperacillin/Tazobact 2.25 GM in Sodium Chloride 0.9% 50 ML IVPB SCH ×3 (03:22→21:04)
[2017-10-28 06:40] LABS: BASO % 0.4 % (0.0-2.0); EOS # 0.8 K/uL (0.0-0.7); EOS % 14.5 % (0.0-4.0); HEMOGLOBIN 8.1 g/dL (12.0-18.0); LYMPH # 1.1 K/uL (1.0-4.3); LYMPH % 18.7 % (20.0-40.0); MEAN CELL VOLUME 91.5 fl (80.0-94.0); MEAN CORPUSCULAR HEMOGLOBIN 29.8 pg (27.0-31.0); MEAN CORPUSCULAR HGB CONC 32.6 g/dL (33.0-37.0); MEAN PLATELET VOLUME 8.7 fl (7.2-11.7); MONO # 0.5 K/uL (0.0-0.8); MONO % 9.2 % (0.0-10.0); NEUT # 3.3 K/uL (1.8-7.0); NEUT % 57.2 % (50.0-75.0); NRBC % 0.1 % (0.0-0.0); RBC 2.71 Mil/uL (4.40-5.90); RED CELL DISTRIBUTION WIDTH 13.7 % (11.5-14.5); WHITE BLOOD COUNT 5.8 K/uL (4.8-10.8)
[2017-10-28] MEDS: Pravastatin Sodium 40 MG TAB PO SCH (09:20)
[2017-10-28] MEDS: Omega-3-Acid Ethyl Esters 1 GM Cap PO SCH ×2 (09:21→16:26)
[2017-10-28] MEDS: Patient's Own Med (Paricalcitol [Zemplar] 1 MCG) PO SCH (09:21)
[2017-10-28] MEDS: Insulin Regular 100 units/ml SC SCH ×3 (09:22→16:21)
[2017-10-28] MEDS: Azithromycin 500 MG in Sodium Chloride 0.9% 250 ML IVPB SCH (09:23)
--- NOTE | 2017-10-28 09:54 | CP.PCM.PN ---
<Carlos Alberto Kennedy - Last Filed: 10/28/17 17:05> Subjective - Date & Time of Evaluation Date of Evaluation: 10/28/17 Time of Evaluation: 09:47 - Subjective Subjective: Progress Note for Hospitalist- Dr. Aguila. 62 y.o male seen and examined at bedside for pneumonia. Patient is seen sitting comfortably in bedside, in NAD, and AA0x3. Reports unable to produce septum. Patient reports that his SOB has improved and coughing improved. Denies acute overnight events. Patient denies n/v/sob/cp or chills. Denies calf pain or tenderness. Pt denies any new complaints. Objective - Vital Signs/Intake and Output Vital Signs (last 24 hours): Temp Pulse Resp BP Pulse Ox 98.3 F 102 H 20 137/74 100 10/28/17 07:57 10/28/17 09:20 10/28/17 07:57 10/28/17 09:20 10/28/17 07:57 - Medications Medications: Current Medications Acetaminophen (Tylenol 325mg Tab) 650 mg PO Q6 PRN PRN Reason: Pain, Mild (1-3) Last Admin: 10/25/17 17:17 Dose: 650 mg Acetaminophen (Tylenol 325mg Tab) 650 mg PO Q6 PRN PRN Reason: Fever >100.4 F Last Admin: 10/27/17 00:07 Dose: 650 mg Albuterol/Ipratropium (Duoneb 3 Mg/0.5 Mg (3 Ml) Ud) 3 ml INH RQ4 [facility] Last Admin: 10/28/17 07:46 Dose: 3 ml Allopurinol (Zyloprim) 100 mg PO DAILY [facility] Last Admin: 10/28/17 09:20 Dose: 100 mg Amlodipine Besylate (Norvasc) 10 mg PO DAILY [facility] Last Admin: 10/28/17 09:20 Dose: 10 mg Aspirin (Ecotrin) 81 mg PO DAILY [facility] Last Admin: 10/28/17 09:21 Dose: 81 mg Clopidogrel Bisulfate (Plavix) 75 mg PO DAILY [facility] Last Admin: 10/28/17 09:22 Dose: 75 mg Epoetin Eddy (Procrit) 4,000 unit SC TTS [facility] Last Admin: 10/27/17 08:40 Dose: 4,000 unit Ergocalciferol (Drisdol 50,000 Intl Units Cap) 1 cap PO WED [facility] Last Admin: 10/26/17 09:09 Dose: 1 cap Ferrous Sulfate (Feosol) 325 mg PO DAILY [facility] Last Admin: 10/28/17 09:22 Dose: 325 mg Gabapentin (Neurontin) 100 mg PO BID [facility] Last Admin: 10/28/17 09:21 Dose: 100 mg Guaifenesin (Robitussin) 200 mg PO Q6 PRN PRN Reason: Cough Last Admin: 10/27/17 21:22 Dose: 200 mg Heparin Sodium (Porcine) (Heparin) 5,000 units SC Q12 [facility] PRN Reason: Protocol Last Admin: 10/28/17 09:23 Dose: 5,000 units Home Med (Paricalcitol [Zemplar]) 1 mcg PO DAILY [facility] Last Admin: 10/28/17 09:21 Dose: 1 mcg Azithromycin 500 mg/ Sodium (Chloride) 250 mls @ 250 mls/hr IVPB DAILY [facility] PRN Reason: Protocol Last Admin: 10/28/17 09:23 Dose: 250 mls/hr Piperacillin Sod/Tazobactam (Sod 2.25 gm/ Sodium Chloride) 50 mls @ 50 mls/hr IVPB Q8@0400,1200,2000 [facility] PRN Reason: Protocol Last Admin: 10/28/17 03:22 Dose: 50 mls/hr Insulin Human Regular (Humulin R) 0 units SC ACCU-CHECK [facility] PRN Reason: Protocol Last Admin: 10/28/17 09:22 Dose: Not Given Isosorbide Mononitrate (Imdur Er) 30 mg PO DAILY [facility] Last Admin: 10/28/17 09:21 Dose: 30 mg Lkhef-5-Asjg Ethyl Esters (Lovaza) 2 gm PO BID [facility] Last Admin: 10/28/17 09:21 Dose: 2 gm Pravastatin Sodium (Pravachol) 40 mg PO DAILY [facility] Last Admin: 10/28/17 09:20 Dose: 40 mg Sevelamer HCl (Renagel) 1,600 mg PO TID [facility] Last Admin: 10/28/17 09:20 Dose: 1,600 mg Sitagliptin Phosphate (Januvia) 25 mg PO DAILY [facility] Last Admin: 10/28/17 09:20 Dose: 25 mg Sodium Bicarbonate (Sodium Bicarbonate Tab) 650 mg PO BID [facility] Last Admin: 10/28/17 09:22 Dose: 650 mg Terazosin HCl (Hytrin) 10 mg PO HS [facility] Last Admin: 10/27/17 21:17 Dose: 10 mg - Labs Labs: 10/28/17 05:40 10/28/17 05:40 - Constitutional Appears: Well, Non-toxic, No Acute Distress - Head Exam Head Exam: ATRAUMATIC, NORMAL INSPECTION, NORMOCEPHALIC - Eye Exam Eye Exam: EOMI, Normal appearance Pupil Exam: NORMAL ACCOMODATION - ENT Exam ENT Exam: Mucous Membranes Moist, Normal Exam - Neck Exam Neck Exam: Full ROM, Normal Inspection - Respiratory Exam Respiratory Exam: Clear to Ausculation Bilateral, Wheezes, NORMAL BREATHING PATTERN. absent: Rales, Rhonchi, Respiratory Distress, Stridor Additional comments: Patient is seen at bedside breathing comfortably - Cardiovascular Exam Cardiovascular Exam: REGULAR RHYTHM, +S1, +S2 - GI/Abdominal Exam GI & Abdominal Exam: Soft, Normal Bowel Sounds. absent: Tenderness - Extremities Exam Extremities Exam: Full ROM, Normal Inspection. absent: Calf Tenderness - Back Exam Back Exam: absent: CVA tenderness (L), CVA tenderness (R) - Neurological Exam Neurological Exam: Alert, Awake, Oriented x3 - Psychiatric Exam Psychiatric exam: Normal Affect, Normal Mood - Skin Skin Exam: Dry, Intact, Normal Color, Warm Assessment and Plan - Assessment and Plan (Free Text) Assessment: 62 yo male with history of DM2, CAD, HTN, right BKA and CKD came in with coughing associated with SOB. CXray showed KRISTI pneumonia. CBC was also significant for anemia with Hgb of 6.9; stable Plan: 1. KRISTI Pneumonia cxray-left upper lobe infiltrate has been receiving Rocephin and Azithromycin but continue to have fever and coughing PPD, sputum AFB, Quantiferon TB placed on respiratory isolation bronchodilators scheduled ID consult with Dr Gaona appreciated Rocephin switched to Zosyn 2.25gm IV q 8hrs (renal dose) 2. Anemia 2/2 Chronic Renal Failure received 1 unit of PRBC post transfusion Hgb: 8.7 will monitor 3. Acute on CKD CKD probably secondary to DM aggravated by pneumonia renal consult with Dr Palmer appreciated: -to call vascular when fever is cleared and cleared by ID for AV fistula renal ultrasound- unremarkable 4. CAD continue ASA, Plavix, statin continue Isosorbide mononitrate 30mg PO daily 5. DM2 BS controlled off Prandin Januvia 25mg PO daily accuchek ACHS 6. HTN BP stable continue Norvasc and Isosorbide 7. DVT prophylaxis Heparin 5000 SC q 12hrs <Danyell Aguila - Last Filed: 10/29/17 19:15> Objective - Vital Signs/Intake and Output Vital Signs (last 24 hours): Temp Pulse Resp BP Pulse Ox 98 F 100 H 20 123/78 98 10/29/17 15:58 10/29/17 15:58 10/29/17 15:58 10/29/17 15:58 10/29/17 15:58 - Medications Medications: Current Medications Acetaminophen (Tylenol 325mg Tab) 650 mg PO Q6 PRN PRN Reason: Pain, Mild (1-3) Last Admin: 10/25/17 17:17 Dose: 650 mg Acetaminophen (Tylenol 325mg Tab) 650 mg PO Q6 PRN PRN Reason: Fever >100.4 F Last Admin: 10/27/17 00:07 Dose: 650 mg Albuterol/Ipratropium (Duoneb 3 Mg/0.5 Mg (3 Ml) Ud) 3 ml INH RQ4 [facility] Last Admin: 10/29/17 18:59 Dose: 3 ml Allopurinol (Zyloprim) 100 mg PO DAILY [facility] Last Admin: 10/29/17 09:31 Dose: 100 mg Amlodipine Besylate (Norvasc) 10 mg PO DAILY [facility] Last Admin: 10/29/17 09:31 Dose: 10 mg Aspirin (Ecotrin) 81 mg PO DAILY [facility] Last Admin: 10/29/17 09:32 Dose: 81 mg Clopidogrel Bisulfate (Plavix) 75 mg PO DAILY [facility] Last Admin: 10/29/17 09:31 Dose: 75 mg Epoetin Eddy (Procrit) 4,000 unit SC TTS [facility] Last Admin: 10/29/17 09:32 Dose: 4,000 unit Ergocalciferol (Drisdol 50,000 Intl Units Cap) 1 cap PO WED [facility] Last Admin: 10/26/17 09:09 Dose: 1 cap Ferrous Sulfate (Feosol) 325 mg PO DAILY [facility] Last Admin: 10/29/17 09:32 Dose: 325 mg Gabapentin (Neurontin) 100 mg PO BID [facility] Last Admin: 10/29/17 17:00 Dose: 100 mg Guaifenesin (Robitussin) 200 mg PO Q6 PRN PRN Reason: Cough Last Admin: 10/28/17 10:28 Dose: 200 mg Heparin Sodium (Porcine) (Heparin) 5,000 units SC Q12 [facility] PRN Reason: Protocol Last Admin: 10/29/17 09:32 Dose: 5,000 units Home Med (Paricalcitol [Zemplar]) 1 mcg PO DAILY [facility] Last Admin: 10/29/17 09:31 Dose: 1 mcg Piperacillin Sod/Tazobactam (Sod 2.25 gm/ Sodium Chloride) 50 mls @ 50 mls/hr IVPB Q8@0400,1200,2000 [facility] PRN Reason: Protocol Last Admin: 10/29/17 13:10 Dose: 50 mls/hr Iron Sucrose 100 mg/ Sodium (Chloride) 105 mls @ 105 mls/hr IVPB DAILY [facility] Last Admin: 10/29/17 11:12 Dose: 105 mls/hr Insulin Human Regular (Humulin R) 0 units SC ACCU-CHECK [facility] PRN Reason: Protocol Last Admin: 10/29/17 16:57 Dose: Not Given Isosorbide Mononitrate (Imdur Er) 30 mg PO DAILY [facility] Last Admin: 10/29/17 09:31 Dose: 30 mg Tnhdm-1-Bivf Ethyl Esters (Lovaza) 2 gm PO BID [facility] Last Admin: 10/29/17 17:00 Dose: 2 gm Pravastatin Sodium (Pravachol) 40 mg PO DAILY [facility] Last Admin: 10/29/17 09:32 Dose: 40 mg Sevelamer HCl (Renagel) 1,600 mg PO TID [facility] Last Admin: 10/29/17 16:58 Dose: 1,600 mg Sitagliptin Phosphate (Januvia) 25 mg PO DAILY [facility] Last Admin: 10/29/17 09:32 Dose: 25 mg Sodium Bicarbonate (Sodium Bicarbonate Tab) 650 mg PO BID [facility] Last Admin: 10/29/17 16:59 Dose: 650 mg Terazosin HCl (Hytrin) 10 mg PO HS [facility] Last Admin: 10/28/17 21:06 Dose: 10 mg - Labs Labs: 10/28/17 05:40 10/28/17 05:40 Attending/Attestation - Attestation I have personally seen and examined this patient.: Yes I have fully participated in the care of the patient.: Yes I have reviewed all pertinent clinical information, including history, physical exam and plan: Yes Notes (Text): 10/29/17 19:14 Seen, examined, and discussed with resident Dr. Kennedy, agree with findings and plan as above.
[2017-10-28] MEDS: guaiFENesin 200 mg/10 ml Syrup UD PO PRN (10:28)
--- NOTE | 2017-10-28 14:47 | CP.PCM.PN ---
Subjective - Date & Time of Evaluation Date of Evaluation: 10/28/17 Time of Evaluation: 14:43 - Subjective Subjective: FEELS BETTER LESS COUPHING NO NAUSEA OR VOMITING Objective - Vital Signs/Intake and Output Vital Signs (last 24 hours): Temp Pulse Resp BP Pulse Ox 98.3 F 102 H 20 137/74 100 10/28/17 07:57 10/28/17 09:20 10/28/17 07:57 10/28/17 09:20 10/28/17 07:57 - Medications Medications: Current Medications Acetaminophen (Tylenol 325mg Tab) 650 mg PO Q6 PRN PRN Reason: Pain, Mild (1-3) Last Admin: 10/25/17 17:17 Dose: 650 mg Acetaminophen (Tylenol 325mg Tab) 650 mg PO Q6 PRN PRN Reason: Fever >100.4 F Last Admin: 10/27/17 00:07 Dose: 650 mg Albuterol/Ipratropium (Duoneb 3 Mg/0.5 Mg (3 Ml) Ud) 3 ml INH RQ4 [facility] Last Admin: 10/28/17 11:29 Dose: 3 ml Allopurinol (Zyloprim) 100 mg PO DAILY [facility] Last Admin: 10/28/17 09:20 Dose: 100 mg Amlodipine Besylate (Norvasc) 10 mg PO DAILY [facility] Last Admin: 10/28/17 09:20 Dose: 10 mg Aspirin (Ecotrin) 81 mg PO DAILY [facility] Last Admin: 10/28/17 09:21 Dose: 81 mg Clopidogrel Bisulfate (Plavix) 75 mg PO DAILY [facility] Last Admin: 10/28/17 09:22 Dose: 75 mg Epoetin Eddy (Procrit) 4,000 unit SC TTS [facility] Last Admin: 10/27/17 08:40 Dose: 4,000 unit Ergocalciferol (Drisdol 50,000 Intl Units Cap) 1 cap PO WED [facility] Last Admin: 10/26/17 09:09 Dose: 1 cap Ferrous Sulfate (Feosol) 325 mg PO DAILY [facility] Last Admin: 10/28/17 09:22 Dose: 325 mg Gabapentin (Neurontin) 100 mg PO BID [facility] Last Admin: 10/28/17 09:21 Dose: 100 mg Guaifenesin (Robitussin) 200 mg PO Q6 PRN PRN Reason: Cough Last Admin: 10/28/17 10:28 Dose: 200 mg Heparin Sodium (Porcine) (Heparin) 5,000 units SC Q12 [facility] PRN Reason: Protocol Last Admin: 10/28/17 09:23 Dose: 5,000 units Home Med (Paricalcitol [Zemplar]) 1 mcg PO DAILY [facility] Last Admin: 10/28/17 09:21 Dose: 1 mcg Azithromycin 500 mg/ Sodium (Chloride) 250 mls @ 250 mls/hr IVPB DAILY [facility] PRN Reason: Protocol Last Admin: 10/28/17 09:23 Dose: 250 mls/hr Piperacillin Sod/Tazobactam (Sod 2.25 gm/ Sodium Chloride) 50 mls @ 50 mls/hr IVPB Q8@0400,1200,2000 [facility] PRN Reason: Protocol Last Admin: 10/28/17 12:14 Dose: 50 mls/hr Insulin Human Regular (Humulin R) 0 units SC ACCU-CHECK [facility] PRN Reason: Protocol Last Admin: 10/28/17 12:10 Dose: Not Given Isosorbide Mononitrate (Imdur Er) 30 mg PO DAILY [facility] Last Admin: 10/28/17 09:21 Dose: 30 mg [id number] Ethyl Esters (Lovaza) 2 gm PO BID [facility] Last Admin: 10/28/17 09:21 Dose: 2 gm Pravastatin Sodium (Pravachol) 40 mg PO DAILY [facility] Last Admin: 10/28/17 09:20 Dose: 40 mg Sevelamer HCl (Renagel) 1,600 mg PO TID [facility] Last Admin: 10/28/17 12:15 Dose: 1,600 mg Sitagliptin Phosphate (Januvia) 25 mg PO DAILY [facility] Last Admin: 10/28/17 09:20 Dose: 25 mg Sodium Bicarbonate (Sodium Bicarbonate Tab) 650 mg PO BID [facility] Last Admin: 10/28/17 09:22 Dose: 650 mg Terazosin HCl (Hytrin) 10 mg PO HS [facility] Last Admin: 10/27/17 21:17 Dose: 10 mg - Labs Labs: 10/28/17 05:40 10/28/17 05:40 - Constitutional Appears: No Acute Distress - ENT Exam ENT Exam: Mucous Membranes Moist - Neck Exam Neck Exam: absent: Lymphadenopathy - Respiratory Exam Respiratory Exam: Rhonchi, NORMAL BREATHING PATTERN. absent: Chest Wall Tenderness - GI/Abdominal Exam GI & Abdominal Exam: Soft, Normal Bowel Sounds - Extremities Exam Extremities Exam: absent: Calf Tenderness - Back Exam Back Exam: absent: CVA tenderness (L), CVA tenderness (R) - Neurological Exam Neurological Exam: Alert - Psychiatric Exam Psychiatric exam: Normal Affect - Skin Skin Exam: absent: Cyanosis Assessment and Plan (1) Chronic kidney disease, stage V Assessment & Plan: CKD 5 STABLE WAITING FOR VENOUS MAPPING AND VASCULAR CONSULT NEPHROTIC SYNDROM PROTEINURIA / DIABETIC? PNEUMONIA ON atbx HYPERPHOSPHATEMIA SECONDARY hpt ANEMIA ON EPO ALSEO NEEDS IRON iv Status: Acute (2) Type 2 diabetes mellitus with diabetic chronic kidney disease Status: Acute (3) Anemia Status: Acute (4) Pneumonia Status: Acute
--- NOTE | 2017-10-28 21:20 | PN ---
DATE: SUBJECTIVE: The patient denies retrosternal chest pain. PHYSICAL EXAMINATION: VITAL SIGNS: Blood pressure 135/73, heart rate 104, temperature 97.5, and respirations 19. HEENT: Pale conjunctivae. CHEST: Right basal rhonchi. HEART: S1 and S2 regular. EXTREMITIES: Right below-knee amputation and left metatarsal amputation. LABORATORY DATA: BUN and creatinine are 46 and 5.5 respectively. Calcium is below normal at 8.0. Hemoglobin and hematocrit 8.1 and 24.8. White count and platelet count are within normal limits. Sputum Gram-stain is Gram-positive rods. Blood cultures are still negative after 5 days and 2 days. ASSESSMENT: 1. Coronary artery disease with history of coronary stenting. 2. Advanced renal insufficiency. 3. Peripheral vascular disease, status post right below-knee amputation and left metatarsal amputation. 4. Pneumonia. RECOMMENDATIONS: Continue current IV . Continue aspirin 81 mg once a day, subcutaneous heparin 5000 units twice a day, Hytrin 10 mg once a day, Norvasc 10 mg once a day, IV Zosyn 2.25 g intravenously q.8 hours, Plavix 75 mg once a day, and Zyloprim 100 mg once a day. Anish Cho MD
[2017-10-29 01:35] LABS: TB ANTIGEN MINUS NIL <0.00 IU/mL
[2017-10-29] MEDS: Piperacillin/Tazobact 2.25 GM in Sodium Chloride 0.9% 50 ML IVPB SCH ×3 (03:25→20:24)
[2017-10-29] MEDS: Albuterol-Ipratrop 3 mg / 0.5 (3 ml) UD INH SCH ×6 (03:52→23:24)
[2017-10-29] MEDS: Omega-3-Acid Ethyl Esters 1 GM Cap PO SCH ×2 (09:31→17:00)
[2017-10-29] MEDS: Patient's Own Med (Paricalcitol [Zemplar] 1 MCG) PO SCH (09:31)
[2017-10-29] MEDS: Pravastatin Sodium 40 MG TAB PO SCH (09:32)
[2017-10-29] MEDS: Epoetin Alfa 4000 UNIT/ML Inj SC SCH (09:32)
[2017-10-29] MEDS: Insulin Regular 100 units/ml SC SCH ×4 (09:33→23:16)
[2017-10-29] MEDS: Azithromycin 500 MG in Sodium Chloride 0.9% 250 ML IVPB SCH (09:33)
--- NOTE | 2017-10-29 10:58 | CP.PCM.PN ---
Subjective - Date & Time of Evaluation Date of Evaluation: 10/29/17 Time of Evaluation: 10:58 - Subjective Subjective: RENAL FOLLOW UP Seen and examined , on isolation feels ok no n/v appetite is good o: vss gen: nad slcera anicteric op clear neck supple cv+s1+s2 lungs coarse bs abd soft ext no edema neuro A+Ox3 psych: nml affect skin no rash labs reviewed imp: ckd 5 / hypertensive kidney / anemia of renal / secondary hyperparathyroidism plan: renal function is stable bp is stable will give dose of epogen pth is acceptable Objective - Vital Signs/Intake and Output Vital Signs (last 24 hours): Temp Pulse Resp BP Pulse Ox 98.3 F 99 H 20 144/73 94 L 10/29/17 08:29 10/29/17 09:31 10/29/17 08:29 10/29/17 09:31 10/29/17 08:29 - Medications Medications: Current Medications Acetaminophen (Tylenol 325mg Tab) 650 mg PO Q6 PRN PRN Reason: Pain, Mild (1-3) Last Admin: 10/25/17 17:17 Dose: 650 mg Acetaminophen (Tylenol 325mg Tab) 650 mg PO Q6 PRN PRN Reason: Fever >100.4 F Last Admin: 10/27/17 00:07 Dose: 650 mg Albuterol/Ipratropium (Duoneb 3 Mg/0.5 Mg (3 Ml) Ud) 3 ml INH RQ4 [facility] Last Admin: 10/29/17 08:24 Dose: Not Given Allopurinol (Zyloprim) 100 mg PO DAILY [facility] Last Admin: 10/29/17 09:31 Dose: 100 mg Amlodipine Besylate (Norvasc) 10 mg PO DAILY [facility] Last Admin: 10/29/17 09:31 Dose: 10 mg Aspirin (Ecotrin) 81 mg PO DAILY [facility] Last Admin: 10/29/17 09:32 Dose: 81 mg Clopidogrel Bisulfate (Plavix) 75 mg PO DAILY [facility] Last Admin: 10/29/17 09:31 Dose: 75 mg Epoetin Eddy (Procrit) 4,000 unit SC TTS [facility] Last Admin: 10/29/17 09:32 Dose: 4,000 unit Ergocalciferol (Drisdol 50,000 Intl Units Cap) 1 cap PO WED [facility] Last Admin: 10/26/17 09:09 Dose: 1 cap Ferrous Sulfate (Feosol) 325 mg PO DAILY [facility] Last Admin: 10/29/17 09:32 Dose: 325 mg Gabapentin (Neurontin) 100 mg PO BID [facility] Last Admin: 10/29/17 09:31 Dose: 100 mg Guaifenesin (Robitussin) 200 mg PO Q6 PRN PRN Reason: Cough Last Admin: 10/28/17 10:28 Dose: 200 mg Heparin Sodium (Porcine) (Heparin) 5,000 units SC Q12 [facility] PRN Reason: Protocol Last Admin: 10/29/17 09:32 Dose: 5,000 units Home Med (Paricalcitol [Zemplar]) 1 mcg PO DAILY [facility] Last Admin: 10/29/17 09:31 Dose: 1 mcg Piperacillin Sod/Tazobactam (Sod 2.25 gm/ Sodium Chloride) 50 mls @ 50 mls/hr IVPB Q8@0400,1200,2000 [facility] PRN Reason: Protocol Last Admin: 10/29/17 03:25 Dose: 50 mls/hr Iron Sucrose 100 mg/ Sodium (Chloride) 105 mls @ 105 mls/hr IVPB DAILY [facility] Last Admin: 10/28/17 16:25 Dose: 105 mls/hr Insulin Human Regular (Humulin R) 0 units SC ACCU-CHECK [facility] PRN Reason: Protocol Last Admin: 10/29/17 09:33 Dose: Not Given Isosorbide Mononitrate (Imdur Er) 30 mg PO DAILY [facility] Last Admin: 10/29/17 09:31 Dose: 30 mg Oonuq-5-[id number] Ethyl Esters (Lovaza) 2 gm PO BID [facility] Last Admin: 10/29/17 09:31 Dose: 2 gm Pravastatin Sodium (Pravachol) 40 mg PO DAILY [facility] Last Admin: 10/29/17 09:32 Dose: 40 mg Sevelamer HCl (Renagel) 1,600 mg PO TID [facility] Last Admin: 10/29/17 09:32 Dose: 1,600 mg Sitagliptin Phosphate (Januvia) 25 mg PO DAILY [facility] Last Admin: 10/29/17 09:32 Dose: 25 mg Sodium Bicarbonate (Sodium Bicarbonate Tab) 650 mg PO BID [facility] Last Admin: 10/29/17 09:32 Dose: 650 mg Terazosin HCl (Hytrin) 10 mg PO HS [facility] Last Admin: 10/28/17 21:06 Dose: 10 mg - Labs Labs: 10/28/17 05:40 10/28/17 05:40
--- NOTE | 2017-10-29 12:05 | CP.PCM.PN ---
Subjective - Date & Time of Evaluation Date of Evaluation: 10/29/17 Time of Evaluation: 11:30 - Subjective Subjective: No fever still with cough no CP no SOB Sputum E coli ESBL AFB x 2 negative no abd pain Objective - Vital Signs/Intake and Output Vital Signs (last 24 hours): Temp Pulse Resp BP Pulse Ox 98.3 F 99 H 20 144/73 94 L 10/29/17 08:29 10/29/17 09:31 10/29/17 08:29 10/29/17 09:31 10/29/17 08:29 - Medications Medications: Current Medications Acetaminophen (Tylenol 325mg Tab) 650 mg PO Q6 PRN PRN Reason: Pain, Mild (1-3) Last Admin: 10/25/17 17:17 Dose: 650 mg Acetaminophen (Tylenol 325mg Tab) 650 mg PO Q6 PRN PRN Reason: Fever >100.4 F Last Admin: 10/27/17 00:07 Dose: 650 mg Albuterol/Ipratropium (Duoneb 3 Mg/0.5 Mg (3 Ml) Ud) 3 ml INH RQ4 [facility] Last Admin: 10/29/17 11:31 Dose: 3 ml Allopurinol (Zyloprim) 100 mg PO DAILY [facility] Last Admin: 10/29/17 09:31 Dose: 100 mg Amlodipine Besylate (Norvasc) 10 mg PO DAILY [facility] Last Admin: 10/29/17 09:31 Dose: 10 mg Aspirin (Ecotrin) 81 mg PO DAILY [facility] Last Admin: 10/29/17 09:32 Dose: 81 mg Clopidogrel Bisulfate (Plavix) 75 mg PO DAILY [facility] Last Admin: 10/29/17 09:31 Dose: 75 mg Epoetin Eddy (Procrit) 4,000 unit SC TTS [facility] Last Admin: 10/29/17 09:32 Dose: 4,000 unit Ergocalciferol (Drisdol 50,000 Intl Units Cap) 1 cap PO WED [facility] Last Admin: 10/26/17 09:09 Dose: 1 cap Ferrous Sulfate (Feosol) 325 mg PO DAILY [facility] Last Admin: 10/29/17 09:32 Dose: 325 mg Gabapentin (Neurontin) 100 mg PO BID [facility] Last Admin: 10/29/17 09:31 Dose: 100 mg Guaifenesin (Robitussin) 200 mg PO Q6 PRN PRN Reason: Cough Last Admin: 10/28/17 10:28 Dose: 200 mg Heparin Sodium (Porcine) (Heparin) 5,000 units SC Q12 [facility] PRN Reason: Protocol Last Admin: 10/29/17 09:32 Dose: 5,000 units Home Med (Paricalcitol [Zemplar]) 1 mcg PO DAILY [facility] Last Admin: 10/29/17 09:31 Dose: 1 mcg Piperacillin Sod/Tazobactam (Sod 2.25 gm/ Sodium Chloride) 50 mls @ 50 mls/hr IVPB Q8@0400,1200,2000 [facility] PRN Reason: Protocol Last Admin: 10/29/17 03:25 Dose: 50 mls/hr Iron Sucrose 100 mg/ Sodium (Chloride) 105 mls @ 105 mls/hr IVPB DAILY [facility] Last Admin: 10/29/17 11:12 Dose: 105 mls/hr Insulin Human Regular (Humulin R) 0 units SC ACCU-CHECK [facility] PRN Reason: Protocol Last Admin: 10/29/17 09:33 Dose: Not Given Isosorbide Mononitrate (Imdur Er) 30 mg PO DAILY [facility] Last Admin: 10/29/17 09:31 Dose: 30 mg Nvhcl-2-Hqvb Ethyl Esters (Lovaza) 2 gm PO BID [facility] Last Admin: 10/29/17 09:31 Dose: 2 gm Pravastatin Sodium (Pravachol) 40 mg PO DAILY [facility] Last Admin: 10/29/17 09:32 Dose: 40 mg Sevelamer HCl (Renagel) 1,600 mg PO TID [facility] Last Admin: 10/29/17 09:32 Dose: 1,600 mg Sitagliptin Phosphate (Januvia) 25 mg PO DAILY [facility] Last Admin: 10/29/17 09:32 Dose: 25 mg Sodium Bicarbonate (Sodium Bicarbonate Tab) 650 mg PO BID [facility] Last Admin: 10/29/17 09:32 Dose: 650 mg Terazosin HCl (Hytrin) 10 mg PO HS [facility] Last Admin: 10/28/17 21:06 Dose: 10 mg - Labs Labs: 10/28/17 05:40 10/28/17 05:40 - Constitutional Appears: Chronically Ill - Head Exam Head Exam: ATRAUMATIC, NORMAL INSPECTION, NORMOCEPHALIC - Eye Exam Eye Exam: EOMI, Normal appearance Pupil Exam: NORMAL ACCOMODATION - ENT Exam ENT Exam: Mucous Membranes Moist, Normal External Ear Exam - Neck Exam Neck Exam: Full ROM. absent: Meningismus - Respiratory Exam Respiratory Exam: Rales, Rhonchi, NORMAL BREATHING PATTERN. absent: Respiratory Distress - Cardiovascular Exam Cardiovascular Exam: REGULAR RHYTHM, +S1, +S2 - Extremities Exam Extremities Exam: Full ROM, Normal Capillary Refill. absent: Calf Tenderness Additional comments: right BKA - Back Exam Back Exam: Full ROM. absent: CVA tenderness (L), CVA tenderness (R), vertebral tenderness - Neurological Exam Neurological Exam: Alert, Awake, CN II-XII Intact, Oriented x3 - Psychiatric Exam Psychiatric exam: Normal Affect, Normal Mood - Skin Skin Exam: Dry, Normal Color, Warm Assessment and Plan - Assessment and Plan (Free Text) Assessment: 62 yo male with history of DM2, CAD, HTN, right BKA and CKD came bec of fever and cough, associated with SOB. CXray showed KRISTI pneumonia. CBC was also significant for anemia with Hgb of 6.9 1. KRISTI Pneumonia need to r/o PTB cxray-left upper lobe infiltrate Pt was on Rocephin and Azithromycin but continued to have fever and coughing - ID was consulted- rec change Rocephin to Zosyn Sputum AFB x 2 negative Sputum c/s : E Coli ESBL placed on respiratory and contact isolation Influenza negative Legionella negative Quabtiferon TB negative 2. Anemia 2/2 Chronic Renal Failure received 1 unit of PRBC post transfusion Hgb: 8.7 will monitor 3. Acute on CKD CKD probably secondary to DM renal consult with Dr Palmer -to call vascular when fever is cleared and cleared by ID for AV fistula renal ultrasound- unremarkable cont Renagel and Bicarb tabs Crea stable around 5.0 4. CAD continue ASA, Plavix, statin continue Isosorbide mononitrate 30mg PO daily 5. DM2 BS controlled off Prandin Januvia 25mg PO daily accuchek ACHS 6. HTN BP stable continue Norvasc and Isosorbide 7. DVT prophylaxis Heparin 5000 SC q 12hrs
[2017-10-30] MEDS: Albuterol-Ipratrop 3 mg / 0.5 (3 ml) UD INH SCH ×5 (03:11→19:31)
[2017-10-30] MEDS: Piperacillin/Tazobact 2.25 GM in Sodium Chloride 0.9% 50 ML IVPB SCH ×3 (04:36→20:44)
[2017-10-30] MEDS: Insulin Regular 100 units/ml SC SCH ×4 (06:56→23:34)
[2017-10-30] MEDS: Omega-3-Acid Ethyl Esters 1 GM Cap PO SCH ×2 (08:43→16:00)
[2017-10-30] MEDS: Patient's Own Med (Paricalcitol [Zemplar] 1 MCG) PO SCH (08:43)
[2017-10-30] MEDS: Pravastatin Sodium 40 MG TAB PO SCH (08:45)
--- NOTE | 2017-10-30 13:48 | CP.PCM.PN ---
Subjective - Date & Time of Evaluation Date of Evaluation: 10/30/17 Time of Evaluation: 12:00 - Subjective Subjective: No fever Cough better today no CP no SOB no abd pain awaiting 3rd AFB Objective - Vital Signs/Intake and Output Vital Signs (last 24 hours): Temp Pulse Resp BP Pulse Ox 98.3 F 101 H 20 137/79 99 10/30/17 08:00 10/30/17 08:44 10/30/17 08:00 10/30/17 08:44 10/30/17 08:00 - Medications Medications: Current Medications Acetaminophen (Tylenol 325mg Tab) 650 mg PO Q6 PRN PRN Reason: Pain, Mild (1-3) Last Admin: 10/25/17 17:17 Dose: 650 mg Acetaminophen (Tylenol 325mg Tab) 650 mg PO Q6 PRN PRN Reason: Fever >100.4 F Last Admin: 10/27/17 00:07 Dose: 650 mg Albuterol/Ipratropium (Duoneb 3 Mg/0.5 Mg (3 Ml) Ud) 3 ml INH RQ4 [facility] Last Admin: 10/30/17 11:23 Dose: 3 ml Allopurinol (Zyloprim) 100 mg PO DAILY [facility] Last Admin: 10/30/17 08:44 Dose: 100 mg Amlodipine Besylate (Norvasc) 10 mg PO DAILY [facility] Last Admin: 10/30/17 08:44 Dose: 10 mg Aspirin (Ecotrin) 81 mg PO DAILY [facility] Last Admin: 10/30/17 08:44 Dose: 81 mg Clopidogrel Bisulfate (Plavix) 75 mg PO DAILY [facility] Last Admin: 10/30/17 08:43 Dose: 75 mg Epoetin Eddy (Procrit) 4,000 unit SC TTS [facility] Last Admin: 10/29/17 09:32 Dose: 4,000 unit Ergocalciferol (Drisdol 50,000 Intl Units Cap) 1 cap PO WED [facility] Last Admin: 10/26/17 09:09 Dose: 1 cap Ferrous Sulfate (Feosol) 325 mg PO DAILY [facility] Last Admin: 10/30/17 08:44 Dose: 325 mg Gabapentin (Neurontin) 100 mg PO BID [facility] Last Admin: 10/30/17 08:44 Dose: 100 mg Guaifenesin (Robitussin) 200 mg PO Q6 PRN PRN Reason: Cough Last Admin: 10/28/17 10:28 Dose: 200 mg Heparin Sodium (Porcine) (Heparin) 5,000 units SC Q12 [facility] PRN Reason: Protocol Last Admin: 10/30/17 08:45 Dose: 5,000 units Home Med (Paricalcitol [Zemplar]) 1 mcg PO DAILY [facility] Last Admin: 10/30/17 08:43 Dose: 1 mcg Piperacillin Sod/Tazobactam (Sod 2.25 gm/ Sodium Chloride) 50 mls @ 50 mls/hr IVPB Q8@0400,1200,2000 [facility] PRN Reason: Protocol Last Admin: 10/30/17 12:16 Dose: 50 mls/hr Iron Sucrose 100 mg/ Sodium (Chloride) 105 mls @ 105 mls/hr IVPB DAILY [facility] Stop: 11/01/17 09:59 Last Admin: 10/30/17 09:35 Dose: 105 mls/hr Insulin Human Regular (Humulin R) 0 units SC ACCU-CHECK [facility] PRN Reason: Protocol Last Admin: 10/30/17 11:06 Dose: Not Given Isosorbide Mononitrate (Imdur Er) 30 mg PO DAILY [facility] Last Admin: 10/30/17 08:43 Dose: 30 mg Weukg-2-Ozwu Ethyl Esters (Lovaza) 2 gm PO BID [facility] Last Admin: 10/30/17 08:43 Dose: 2 gm Pravastatin Sodium (Pravachol) 40 mg PO DAILY [facility] Last Admin: 10/30/17 08:45 Dose: 40 mg Sevelamer HCl (Renagel) 1,600 mg PO TID [facility] Last Admin: 10/30/17 12:17 Dose: 1,600 mg Sitagliptin Phosphate (Januvia) 25 mg PO DAILY [facility] Last Admin: 10/30/17 08:43 Dose: 25 mg Sodium Bicarbonate (Sodium Bicarbonate Tab) 650 mg PO BID [facility] Last Admin: 10/30/17 08:43 Dose: 650 mg Terazosin HCl (Hytrin) 10 mg PO HS [facility] Last Admin: 10/29/17 21:11 Dose: 10 mg - Labs Labs: 10/28/17 05:40 10/28/17 05:40 s - Constitutional Appears: Chronically Ill - Head Exam Head Exam: ATRAUMATIC, NORMAL INSPECTION, NORMOCEPHALIC - Eye Exam Eye Exam: EOMI, Normal appearance Pupil Exam: NORMAL ACCOMMODATION - ENT Exam ENT Exam: Mucous Membranes Moist, Normal External Ear Exam - Neck Exam Neck Exam: Full ROM. absent: Meningismus - Respiratory Exam Respiratory Exam: Rales, Rhonchi, NORMAL BREATHING PATTERN. absent: Respiratory Distress - Cardiovascular Exam Cardiovascular Exam: REGULAR RHYTHM, +S1, +S2 - Extremities Exam Extremities Exam: Full ROM, Normal Capillary Refill. absent: Calf Tenderness Additional comments: right BKA left TMA - Back Exam Back Exam: Full ROM. absent: CVA tenderness (L), CVA tenderness (R), vertebral tenderness - Neurological Exam Neurological Exam: Alert, Awake, CN II-XII Intact, Oriented x3 - Psychiatric Exam Psychiatric exam: Normal Affect, Normal Mood - Skin Skin Exam: Dry, Normal Color, Warm Assessment and Plan - Assessment and Plan (Free Text) Assessment: 62 yo male with history of DM2, CAD, HTN, right BKA and CKD came bec of fever and cough, associated with SOB. CXray showed KRISTI pneumonia. CBC was also significant for anemia with Hgb of 6.9 Pt started on IV antibiotics and transfused PRBC. 1. KRISTI Pneumonia need to r/o PTB CXR-left upper lobe infiltrate Pt was on Rocephin and Azithromycin but continued to have fever and coughing - ID was consulted- rec change Rocephin to Zosyn Sputum AFB x 2 negative Sputum c/s : E Coli ESBL placed on respiratory and contact isolation Influenza negative Legionella negative Quantiferon TB negative 2. Anemia 2/2 Chronic Renal Failure received 1 unit of PRBC post transfusion Hgb: 8.7 will monitor Received IV venofer and Epogen 3. Acute on CKD CKD probably secondary to DM renal consult with Dr Palmer -to call vascular Sx when fever is cleared and cleared by ID for AV fistula renal ultrasound- unremarkable cont Renagel and Bicarb tabs Crea stable around 5.0 Venous mapping for HD access 4. CAD continue ASA, Plavix, statin continue Isosorbide mononitrate 30mg PO daily Cardio : Dr Cho 5. DM2 BS controlled off Prandin Januvia 25mg PO daily accuchek ACHS 6. HTN BP stable continue Norvasc and Isosorbide 7. DVT prophylaxis Heparin 5000 SC q 12hrs
[2017-10-30] MEDS: Azithromycin 500 MG in Sodium Chloride 0.9% 250 ML IVPB SCH (16:12)
[2017-10-31] MEDS: Albuterol-Ipratrop 3 mg / 0.5 (3 ml) UD INH SCH ×7 (00:31→23:37)
[2017-10-31] MEDS: Piperacillin/Tazobact 2.25 GM in Sodium Chloride 0.9% 50 ML IVPB SCH ×3 (04:07→20:25)
[2017-10-31 06:41] LABS: HEMOGLOBIN 8.2 g/dL (12.0-18.0); MEAN CELL VOLUME 90.4 fl (80.0-94.0); MEAN CORPUSCULAR HEMOGLOBIN 30.6 pg (27.0-31.0); MEAN CORPUSCULAR HGB CONC 33.8 g/dL (33.0-37.0); RBC 2.67 Mil/uL (4.40-5.90); RED CELL DISTRIBUTION WIDTH 13.7 % (11.5-14.5); WHITE BLOOD COUNT 7.2 K/uL (4.8-10.8)
[2017-10-31 06:53] LABS: CALCIUM 7.9 mg/dL (8.4-10.2)
--- NOTE | 2017-10-31 09:21 | CP.PCM.PN ---
Subjective - Date & Time of Evaluation Date of Evaluation: 10/31/17 Time of Evaluation: 09:20 - Subjective Subjective: dictated Objective - Vital Signs/Intake and Output Vital Signs (last 24 hours): Temp Pulse Resp BP Pulse Ox 97.5 F L 103 H 19 133/86 98 10/31/17 08:50 10/31/17 08:50 10/31/17 08:50 10/31/17 08:50 10/31/17 08:50 - Medications Medications: Current Medications Acetaminophen (Tylenol 325mg Tab) 650 mg PO Q6 PRN PRN Reason: Pain, Mild (1-3) Last Admin: 10/25/17 17:17 Dose: 650 mg Acetaminophen (Tylenol 325mg Tab) 650 mg PO Q6 PRN PRN Reason: Fever >100.4 F Last Admin: 10/27/17 00:07 Dose: 650 mg Albuterol/Ipratropium (Duoneb 3 Mg/0.5 Mg (3 Ml) Ud) 3 ml INH RQ4 ON LICENSE OF [facility] Last Admin: 10/31/17 07:17 Dose: 3 ml Allopurinol (Zyloprim) 100 mg PO DAILY ON LICENSE OF [facility] Last Admin: 10/30/17 08:44 Dose: 100 mg Amlodipine Besylate (Norvasc) 10 mg PO DAILY ON [facility] OF [facility] Last Admin: 10/30/17 08:44 Dose: 10 mg Aspirin (Ecotrin) 81 mg PO DAILY ON [facility] OF [facility] Last Admin: 10/30/17 08:44 Dose: 81 mg Clopidogrel Bisulfate (Plavix) 75 mg PO DAILY ON [facility] OF [facility] Last Admin: 10/30/17 08:43 Dose: 75 mg Epoetin Eddy (Procrit) 4,000 unit SC TTS ON LICENSE OF [facility] Last Admin: 10/29/17 09:32 Dose: 4,000 unit Ergocalciferol (Drisdol 50,000 Intl Units Cap) 1 cap PO WED ON LICENSE OF [facility] Last Admin: 10/26/17 09:09 Dose: 1 cap Ferrous Sulfate (Feosol) 325 mg PO DAILY ON [facility] OF [facility] Last Admin: 10/30/17 08:44 Dose: 325 mg Gabapentin (Neurontin) 100 mg PO BID ON LICENSE OF [facility] Last Admin: 10/30/17 16:01 Dose: 100 mg Guaifenesin (Robitussin) 200 mg PO Q6 PRN PRN Reason: Cough Last Admin: 10/28/17 10:28 Dose: 200 mg Heparin Sodium (Porcine) (Heparin) 5,000 units SC Q12 ON LICENSE OF [facility] PRN Reason: Protocol Last Admin: 10/30/17 20:51 Dose: 5,000 units Home Med (Paricalcitol [Zemplar]) 1 mcg PO DAILY ON [facility] OF [facility] Last Admin: 10/30/17 08:43 Dose: 1 mcg Piperacillin Sod/Tazobactam (Sod 2.25 gm/ Sodium Chloride) 50 mls @ 50 mls/hr IVPB Q8@0400,1200,2000 ON LICENSE OF [facility] PRN Reason: Protocol Last Admin: 10/31/17 04:07 Dose: 50 mls/hr Iron Sucrose 100 mg/ Sodium (Chloride) 105 mls @ 105 mls/hr IVPB DAILY ON [facility] OF [facility] Stop: 11/01/17 09:59 Last Admin: 10/30/17 09:35 Dose: 105 mls/hr Azithromycin 500 mg/ Sodium (Chloride) 250 mls @ 250 mls/hr IVPB DAILY ON [facility] OF [facility] PRN Reason: Protocol Last Admin: 10/30/17 16:12 Dose: 250 mls/hr Insulin Human Regular (Humulin R) 0 units SC ACCU-CHECK ON LICENSE OF [facility] PRN Reason: Protocol Last Admin: 10/30/17 23:34 Dose: Not Given Isosorbide Mononitrate (Imdur Er) 30 mg PO DAILY ON [facility] OF [facility] Last Admin: 10/30/17 08:43 Dose: 30 mg [id number] Ethyl Esters (Lovaza) 2 gm PO BID ON [facility] OF [facility] Last Admin: 10/30/17 16:00 Dose: 2 gm Pravastatin Sodium (Pravachol) 40 mg PO DAILY ON [facility] Last Admin: 10/30/17 08:45 Dose: 40 mg Sevelamer HCl (Renagel) 1,600 mg PO TID ON LICENSE OF [facility] Last Admin: 10/30/17 16:00 Dose: 1,600 mg Sitagliptin Phosphate (Januvia) 25 mg PO DAILY ON [facility] Last Admin: 10/30/17 08:43 Dose: 25 mg Sodium Bicarbonate (Sodium Bicarbonate Tab) 650 mg PO BID ON [facility] Last Admin: 10/30/17 16:01 Dose: 650 mg Terazosin HCl (Hytrin) 10 mg PO HS ON [facility] Last Admin: 10/30/17 22:54 Dose: 10 mg - Labs Labs: 10/31/17 05:55 10/31/17 05:55 Assessment and Plan (1) Chronic kidney disease, stage V Status: Acute (2) Type 2 diabetes mellitus with diabetic chronic kidney disease Status: Acute (3) Anemia Status: Acute (4) Pneumonia Status: Acute
[2017-10-31] MEDS: Omega-3-Acid Ethyl Esters 1 GM Cap PO SCH (09:23)
[2017-10-31] MEDS: Pravastatin Sodium 40 MG TAB PO SCH (09:26)
[2017-10-31] MEDS: Insulin Regular 100 units/ml SC SCH ×4 (09:27→22:14)
[2017-10-31] MEDS: Azithromycin 500 MG in Sodium Chloride 0.9% 250 ML IVPB SCH (09:31)
--- NOTE | 2017-10-31 09:41 | CP.PCM.CON ---
<Priscilla Lemons - Last Filed: 10/31/17 09:42> History of Present Illness - History of Present Illness History of Present Illness: Vascular Surgery Dr. Leon 62 y/o M w/ PMHx of DM2, CAD, HTN, CKD presented to the ED on 10/23/17 for worsening cough and congestion. Pt admitted and receiving treatment for pneumonia. During admission, pt found to have worsening kidney function and is now Stage V, ESRD. Surgery consulted for HD access and AVF. Today, pt has no complaints. denies F/C, SOB, CP, N/V, D/C. PMHx: see above Meds: reviewed in chart NKDA PSHx: CABG, cardiac stents, R BKA, L trans-met amputation SHx: denies tobacco, EtOH, drug use FHx: noncontributory Review of Systems - Review of Systems All systems: reviewed and no additional remarkable complaints except (see HPI) Past Patient History - Past Medical History & Family History Past Family History: Reviewed and not pertinent - Past Social History Smoking Status: Former Smoker Alcohol: None Drugs: Denies Home Situation {Lives}: With Family - CARDIAC Hx Angina: Yes Hx Hypercholesterolemia: Yes Hx Hypertension: Yes Hx Pacemaker: No - PULMONARY Hx Pneumonia: Yes - NEUROLOGICAL Hx Paralysis: No - HEENT Hx Cataracts: Yes (extraction 2010) - RENAL Hx Chronic Kidney Disease: Yes Other/Comment: stage IV CKD - ENDOCRINE/METABOLIC Hx Endocrine Disorders: Yes Hx Diabetes Mellitus Type 1: Yes - HEMATOLOGICAL/ONCOLOGICAL Hx Blood Transfusions: No Hx Blood Transfusion Reaction: No - MUSCULOSKELETAL/RHEUMATOLOGICAL Hx Musculoskeletal Disorders: No Hx Falls: No - PSYCHIATRIC Hx Emotional Abuse: No Hx Physical Abuse: No Hx Substance Use: No - SURGICAL HISTORY Hx Surgeries: Yes Hx Amputation: Yes (Right BKA, Left TMA) Hx Cataract Extraction: Yes Hx Cardiac Catheterization: Yes Hx Coronary Stent: Yes (x 2) Hx Open Heart Surgery: Yes - ANESTHESIA Hx Anesthesia: Yes Hx Anesthesia Reactions: No Hx Malignant Hyperthermia: No Has any member of the family had a problem w/ anesthesia?: No Meds Allergies/Adverse Reactions: Allergies Allergy/AdvReac Type Severity Reaction Status Date / Time No Known Allergies Allergy Unverified 05/01/14 08:31 - Medications Medications: Current Medications Acetaminophen (Tylenol 325mg Tab) 650 mg PO Q6 PRN PRN Reason: Pain, Mild (1-3) Last Admin: 10/25/17 17:17 Dose: 650 mg Acetaminophen (Tylenol 325mg Tab) 650 mg PO Q6 PRN PRN Reason: Fever >100.4 F Last Admin: 10/27/17 00:07 Dose: 650 mg Albuterol/Ipratropium (Duoneb 3 Mg/0.5 Mg (3 Ml) Ud) 3 ml INH RQ4 [facility] Last Admin: 10/31/17 07:17 Dose: 3 ml Allopurinol (Zyloprim) 100 mg PO DAILY [facility] Last Admin: 10/31/17 09:26 Dose: 100 mg Amlodipine Besylate (Norvasc) 10 mg PO DAILY [facility] Last Admin: 10/31/17 09:26 Dose: 10 mg Aspirin (Ecotrin) 81 mg PO DAILY [facility] Last Admin: 10/31/17 09:25 Dose: 81 mg Clopidogrel Bisulfate (Plavix) 75 mg PO DAILY [facility] Last Admin: 10/31/17 09:25 Dose: 75 mg Epoetin Eddy (Procrit) 4,000 unit SC TTS [facility] Last Admin: 10/29/17 09:32 Dose: 4,000 unit Ergocalciferol (Drisdol 50,000 Intl Units Cap) 1 cap PO WED [facility] Last Admin: 10/26/17 09:09 Dose: 1 cap Ferrous Sulfate (Feosol) 325 mg PO DAILY [facility] Last Admin: 10/31/17 09:25 Dose: 325 mg Gabapentin (Neurontin) 100 mg PO BID [facility] Last Admin: 10/31/17 09:25 Dose: 100 mg Guaifenesin (Robitussin) 200 mg PO Q6 PRN PRN Reason: Cough Last Admin: 10/28/17 10:28 Dose: 200 mg Heparin Sodium (Porcine) (Heparin) 5,000 units SC Q12 [facility] PRN Reason: Protocol Last Admin: 10/31/17 09:27 Dose: 5,000 units Home Med (Paricalcitol [Zemplar]) 1 mcg PO DAILY [facility] Last Admin: 10/30/17 08:43 Dose: 1 mcg Piperacillin Sod/Tazobactam (Sod 2.25 gm/ Sodium Chloride) 50 mls @ 50 mls/hr IVPB Q8@0400,1200,2000 [facility] PRN Reason: Protocol Last Admin: 10/31/17 04:07 Dose: 50 mls/hr Iron Sucrose 100 mg/ Sodium (Chloride) 105 mls @ 105 mls/hr IVPB DAILY [facility] Stop: 11/01/17 09:59 Last Admin: 10/30/17 09:35 Dose: 105 mls/hr Azithromycin 500 mg/ Sodium (Chloride) 250 mls @ 250 mls/hr IVPB DAILY [facility] PRN Reason: Protocol Last Admin: 10/31/17 09:31 Dose: 250 mls/hr Insulin Human Regular (Humulin R) 0 units SC ACCU-CHECK [facility] PRN Reason: Protocol Last Admin: 10/31/17 09:27 Dose: Not Given Isosorbide Mononitrate (Imdur Er) 30 mg PO DAILY [facility] Last Admin: 10/31/17 09:25 Dose: 30 mg Onjyi-1-Yrig Ethyl Esters (Lovaza) 2 gm PO BID [facility] Last Admin: 10/31/17 09:23 Dose: 2 gm Pravastatin Sodium (Pravachol) 40 mg PO DAILY [facility] Last Admin: 10/31/17 09:26 Dose: 40 mg Sevelamer HCl (Renagel) 1,600 mg PO TID [facility] Last Admin: 10/31/17 09:23 Dose: 1,600 mg Sitagliptin Phosphate (Januvia) 25 mg PO DAILY [facility] Last Admin: 10/31/17 09:25 Dose: 25 mg Sodium Bicarbonate (Sodium Bicarbonate Tab) 650 mg PO BID [facility] Last Admin: 10/31/17 09:26 Dose: 650 mg Terazosin HCl (Hytrin) 10 mg PO HS [facility] Last Admin: 10/30/17 22:54 Dose: 10 mg Physical Exam - Constitutional Appears: Non-toxic, No Acute Distress - Head Exam Head Exam: NORMAL INSPECTION - Eye Exam Eye Exam: Normal appearance - ENT Exam ENT Exam: Mucous Membranes Moist - Respiratory Exam Respiratory Exam: NORMAL BREATHING PATTERN. absent: Accessory Muscle Use, Respiratory Distress - GI/Abdominal Exam GI & Abdominal Exam: Soft. absent: Distended, Tenderness - Extremities Exam Extremities exam: Positive for: pedal edema. Negative for: tenderness Additional comments: R BKA L trans-met - Neurological Exam Neurological exam: Alert, Oriented x3 - Psychiatric Exam Psychiatric exam: Normal Affect, Normal Mood - Skin Skin Exam: Dry, Intact, Warm Results - Vital Signs Recent Vital Signs: Last Vital Signs Temp 97.5 F L 10/31/17 08:50 Pulse 103 H 10/31/17 09:26 Resp 19 10/31/17 08:50 BP 138/86 10/31/17 09:26 Pulse Ox 98 10/31/17 08:50 - Labs Result Diagrams: 10/31/17 05:55 10/31/17 05:55 Labs: Laboratory Results - last 24 hr 10/26/17 10/30/17 10/30/17 15:32 11:05 16:37 WBC RBC Hgb Hct MCV MCH MCHC RDW Plt Count Sodium Potassium Chloride Carbon Dioxide Anion Gap BUN Creatinine Est GFR ( Amer) Est GFR (Non-Af Amer) POC Glucose (mg/dL) 122 H 98 Random Glucose Calcium Mycoplasma pneumon IgM 13 10/30/17 10/31/17 10/31/17 22:14 05:16 05:55 WBC 7.2 RBC 2.67 L Hgb 8.2 L Hct 24.1 L MCV 90.4 MCH 30.6 MCHC 33.8 RDW 13.7 Plt Count 256 Sodium Potassium Chloride Carbon Dioxide Anion Gap BUN Creatinine Est GFR ( Amer) Est GFR (Non-Af Amer) POC Glucose (mg/dL) 115 H 62 L Random Glucose Calcium Mycoplasma pneumon IgM 10/31/17 10/31/17 05:55 06:10 WBC RBC Hgb Hct MCV MCH MCHC RDW Plt Count Sodium 143 Potassium 4.5 Chloride 114 H Carbon Dioxide 17 L Anion Gap 17 BUN 37 H Creatinine 5.5 H Est GFR ( Amer) 13 Est GFR (Non-Af Amer) 11 POC Glucose (mg/dL) 75 Random Glucose 82 Calcium 7.9 L Mycoplasma pneumon IgM - Imaging and Cardiology Vein mapping Status: Pending Assessment & Plan - Assessment and Plan (Free Text) Assessment: 62 y/o M w/ ESRD - f/u vein mapping - cont IV Abx per ID - cont medical management - encourage OOB to chair/Amb - GI/DVT PPx Pt discussed w/ Dr. Edward Lemons DO PGY2 <Cedrick Leon - Last Filed: 10/31/17 15:56> Meds - Medications Medications: Current Medications Acetaminophen (Tylenol 325mg Tab) 650 mg PO Q6 PRN PRN Reason: Pain, Mild (1-3) Last Admin: 10/25/17 17:17 Dose: 650 mg Acetaminophen (Tylenol 325mg Tab) 650 mg PO Q6 PRN PRN Reason: Fever >100.4 F Last Admin: 10/27/17 00:07 Dose: 650 mg Albuterol/Ipratropium (Duoneb 3 Mg/0.5 Mg (3 Ml) Ud) 3 ml INH RQ4 [facility] Last Admin: 10/31/17 15:24 Dose: 3 ml Allopurinol (Zyloprim) 100 mg PO DAILY [facility] Last Admin: 10/31/17 09:26 Dose: 100 mg Amlodipine Besylate (Norvasc) 10 mg PO DAILY [facility] Last Admin: 10/31/17 09:26 Dose: 10 mg Aspirin (Ecotrin) 81 mg PO DAILY [facility] Last Admin: 10/31/17 09:25 Dose: 81 mg Clopidogrel Bisulfate (Plavix) 75 mg PO DAILY [facility] Last Admin: 10/31/17 09:25 Dose: 75 mg Epoetin Eddy (Procrit) 4,000 unit SC TTS [facility] Last Admin: 10/29/17 09:32 Dose: 4,000 unit Ergocalciferol (Drisdol 50,000 Intl Units Cap) 1 cap PO WED [facility] Last Admin: 10/26/17 09:09 Dose: 1 cap Ferrous Sulfate (Feosol) 325 mg PO DAILY [facility] Last Admin: 10/31/17 09:25 Dose: 325 mg Gabapentin (Neurontin) 100 mg PO BID [facility] Last Admin: 10/31/17 09:25 Dose: 100 mg Guaifenesin (Robitussin) 200 mg PO Q6 PRN PRN Reason: Cough Last Admin: 10/28/17 10:28 Dose: 200 mg Heparin Sodium (Porcine) (Heparin) 5,000 units SC Q12 [facility] PRN Reason: Protocol Last Admin: 10/31/17 09:27 Dose: 5,000 units Home Med (Paricalcitol [Zemplar]) 1 mcg PO DAILY [facility] Last Admin: 10/30/17 08:43 Dose: 1 mcg Piperacillin Sod/Tazobactam (Sod 2.25 gm/ Sodium Chloride) 50 mls @ 50 mls/hr IVPB Q8@0400,1200,2000 [facility] PRN Reason: Protocol Last Admin: 10/31/17 11:40 Dose: 50 mls/hr Iron Sucrose 100 mg/ Sodium (Chloride) 105 mls @ 105 mls/hr IVPB DAILY [facility] Stop: 11/01/17 09:59 Last Admin: 10/31/17 13:22 Dose: 105 mls/hr Azithromycin 500 mg/ Sodium (Chloride) 250 mls @ 250 mls/hr IVPB DAILY [facility] PRN Reason: Protocol Last Admin: 10/31/17 09:31 Dose: 250 mls/hr Insulin Human Regular (Humulin R) 0 units SC ACCU-CHECK [facility] PRN Reason: Protocol Last Admin: 10/31/17 11:40 Dose: Not Given Isosorbide Mononitrate (Imdur Er) 30 mg PO DAILY [facility] Last Admin: 10/31/17 09:25 Dose: 30 mg [id number] Ethyl Esters (Lovaza) 2 gm PO BID [facility] Last Admin: 10/31/17 09:23 Dose: 2 gm Pravastatin Sodium (Pravachol) 40 mg PO DAILY [facility] Last Admin: 10/31/17 09:26 Dose: 40 mg Sevelamer HCl (Renagel) 1,600 mg PO TID [facility] Last Admin: 10/31/17 12:26 Dose: 1,600 mg Sitagliptin Phosphate (Januvia) 25 mg PO DAILY [facility] Last Admin: 10/31/17 09:25 Dose: 25 mg Sodium Bicarbonate (Sodium Bicarbonate Tab) 650 mg PO BID [facility] Last Admin: 10/31/17 09:26 Dose: 650 mg Terazosin HCl (Hytrin) 10 mg PO HS [facility] Last Admin: 10/30/17 22:54 Dose: 10 mg Results - Vital Signs Recent Vital Signs: Last Vital Signs Temp 97.5 F L 10/31/17 08:50 Pulse 103 H 10/31/17 09:26 Resp 19 10/31/17 08:50 BP 138/86 10/31/17 09:26 Pulse Ox 98 10/31/17 08:50 - Labs Result Diagrams: 10/31/17 05:55 10/31/17 05:55 Labs: Laboratory Results - last 24 hr 10/26/17 10/30/17 10/30/17 15:32 16:37 22:14 WBC RBC Hgb Hct MCV MCH MCHC RDW Plt Count Sodium Potassium Chloride Carbon Dioxide Anion Gap BUN Creatinine Est GFR ( Amer) Est GFR (Non-Af Amer) POC Glucose (mg/dL) 98 115 H Random Glucose Calcium Mycoplasma pneumon IgM 13 10/31/17 10/31/17 10/31/17 05:16 05:55 05:55 WBC 7.2 RBC 2.67 L Hgb 8.2 L Hct 24.1 L MCV 90.4 MCH 30.6 MCHC 33.8 RDW 13.7 Plt Count 256 Sodium 143 Potassium 4.5 Chloride 114 H Carbon Dioxide 17 L Anion Gap 17 BUN 37 H Creatinine 5.5 H Est GFR ( Amer) 13 Est GFR (Non-Af Amer) 11 POC Glucose (mg/dL) 62 L Random Glucose 82 Calcium 7.9 L Mycoplasma pneumon IgM 10/31/17 10/31/17 10/31/17 06:10 11:08 15:30 WBC RBC Hgb Hct MCV MCH MCHC RDW Plt Count Sodium Potassium Chloride Carbon Dioxide Anion Gap BUN Creatinine Est GFR ( Amer) Est GFR (Non-Af Amer) POC Glucose (mg/dL) 75 124 H 141 H Random Glucose Calcium Mycoplasma pneumon IgM Assessment & Plan - Assessment and Plan (Free Text) Plan: Patient was seen and examined by me Dr Leon ESRD need dialysis access. For vein mapping and creation of the AV fistula - Date & Time Date: 10/31/17 Time: 12:15
--- NOTE | 2017-10-31 15:55 | CP.PCM.DIS ---
<Carlos Alberto Kennedy - Last Filed: 10/31/17 16:46> Provider - Provider Date of Admission: 10/23/17 12:33 Attending physician: London Cr DO Consults: Cardiology Consult- Dr. Cho Nephrology Consult- Dr. Palmer Infectious Disease Consult- Dr. Barr Vascular Consult Dr. Avilez Time Spent in preparation of Discharge (in minutes): 20 Diagnosis - Discharge Diagnosis (1) Pneumonia Status: Acute (2) Anemia Status: Chronic Comment: Anemia 2/2 Chronic Renal Failure (3) Chronic kidney disease, stage V Status: Acute Comment: Acute on CKD (4) CAD (coronary artery disease) Status: Chronic (5) Type 2 diabetes mellitus with diabetic chronic kidney disease Status: Chronic (6) HTN (hypertension) Status: Chronic Hospital Course - Lab Results Lab Results: Micro Results 10/26/17 15:42 Blood-Venous Blood Culture - Preliminary NO GROWTH AFTER 4 DAYS 10/26/17 15:32 Blood-Venous Blood Culture - Preliminary NO GROWTH AFTER 4 DAYS 10/28/17 06:50 Other: Please Indicate Mycobacterial Culture - Preliminary 10/25/17 07:05 Blood-Venous Blood Culture - Final NO GROWTH AFTER 5 DAYS 10/25/17 07:05 Blood-Venous Gram Stain - Final TEST NOT PERFORMED 10/25/17 07:05 Blood-Venous Blood Culture - Final NO GROWTH AFTER 5 DAYS 10/25/17 07:05 Blood-Venous Gram Stain - Final TEST NOT PERFORMED 10/26/17 06:55 Sputum Gram Stain - Final 10/26/17 06:55 Sputum Sputum Culture - Final Escherichia Coli 10/27/17 10:58 Other: Please Indicate Mycobacterial Culture - Preliminary 10/23/17 12:00 Blood Blood Culture - Final NO GROWTH AFTER 5 DAYS 10/23/17 12:00 Blood Gram Stain - Final TEST NOT PERFORMED 10/26/17 13:39 Other: Please Indicate Mycobacterial Culture - Preliminary Most Recent Lab Values WBC 7.2 K/uL (4.8-10.8) 10/31/17 05:55 RBC 2.67 Mil/uL (4.40-5.90) L 10/31/17 05:55 Hgb 8.2 g/dL (12.0-18.0) L 10/31/17 05:55 Hct 24.1 % (35.0-51.0) L 10/31/17 05:55 MCV 90.4 fl (80.0-94.0) 10/31/17 05:55 MCH 30.6 pg (27.0-31.0) 10/31/17 05:55 MCHC 33.8 g/dL (33.0-37.0) 10/31/17 05:55 RDW 13.7 % (11.5-14.5) 10/31/17 05:55 Plt Count 256 K/uL (130-400) 10/31/17 05:55 MPV 8.7 fl (7.2-11.7) 10/28/17 05:40 Neut % (Auto) 57.2 % (50.0-75.0) 10/28/17 05:40 Lymph % (Auto) 18.7 % (20.0-40.0) L 10/28/17 05:40 [place] % (Auto) 9.2 % (0.0-10.0) 10/28/17 05:40 Eos % (Auto) 14.5 % (0.0-4.0) H 10/28/17 05:40 Baso % (Auto) 0.4 % (0.0-2.0) 10/28/17 05:40 Neut # (Auto) 3.3 K/uL (1.8-7.0) 10/28/17 05:40 Lymph # (Auto) 1.1 K/uL (1.0-4.3) 10/28/17 05:40 [place] # (Auto) 0.5 K/uL (0.0-0.8) 10/28/17 05:40 Eos # (Auto) 0.8 K/uL (0.0-0.7) H 10/28/17 05:40 Baso # (Auto) 0.0 K/uL (0.0-0.2) 10/28/17 05:40 pO2 25 mm/Hg (30-55) L 10/23/17 11:53 VBG pH 7.34 (7.32-7.43) 10/23/17 11:53 VBG pCO2 41 mmHg (40-60) 10/23/17 11:53 VBG HCO3 21.7 mmol/L 10/23/17 11:53 VBG Total CO2 23.4 mmol/L (22-28) 10/23/17 11:53 VBG O2 Sat (Calc) 66.2 % (40-65) H 10/23/17 11:53 VBG Base Excess -3.4 mmol/L (0.0-2.0) L 10/23/17 11:53 VBG Potassium 5.1 mmol/L (3.6-5.2) 10/23/17 11:53 A-a O2 Difference 73.0 mm/Hg 10/23/17 11:53 Sodium 136.0 mmol/L (132-148) 10/23/17 11:53 Chloride 109.0 mmol/L (98-107) H 10/23/17 11:53 Glucose 107 mg/dL (75-110) 10/23/17 11:53 Lactate 0.6 mmol/L (0.7-2.1) L 10/23/17 11:53 FiO2 21.0 % 10/23/17 11:53 Crit Value Called To Dr lópez salinas md 10/23/17 11:53 Crit Value Called By Liberty 10/23/17 11:53 Crit Value Read Back Y 10/23/17 11:53 Blood Gas Notified Time 1233 10/23/17 11:53 Sodium 143 mmol/l (132-148) 10/31/17 05:55 Potassium 4.5 MMOL/L (3.6-5.0) 10/31/17 05:55 Chloride 114 mmol/L (98-107) H 10/31/17 05:55 Carbon Dioxide 17 mmol/L (22-30) L 10/31/17 05:55 Anion Gap 17 (10-20) 10/31/17 05:55 BUN 37 mg/dl (9-20) H 10/31/17 05:55 Creatinine 5.5 mg/dl (0.8-1.5) H 10/31/17 05:55 Est GFR ( Amer) 13 10/31/17 05:55 Est GFR (Non-Af Amer) 11 10/31/17 05:55 POC Glucose (mg/dL) 141 mg/dL (65-110) H 10/31/17 15:30 Random Glucose 82 mg/dL (75-110) 10/31/17 05:55 Calcium 7.9 mg/dL (8.4-10.2) L 10/31/17 05:55 Phosphorus 5.9 mg/dl (2.5-4.5) H 10/24/17 10:40 Iron 17 ug/dL (49-181) L 10/24/17 11:20 TIBC 228 ug/dL (250-450) L 10/24/17 11:20 % Saturation 8 % (20-55) L 10/24/17 11:20 Ferritin 293.0 ng/Ml (17.9-464) 10/24/17 10:40 Total Bilirubin 0.5 mg/dl (0.2-1.3) 10/23/17 10:30 AST 22 U/L (17-59) 10/23/17 10:30 ALT 20 U/L (21-72) L 10/23/17 10:30 Alkaline Phosphatase 51 U/L (38-126) 10/23/17 10:30 Troponin I 0.0270 ng/mL (0.00-0.120) 10/23/17 10:30 NT-Pro-B Natriuret Pep 25953 pg/ml (0-900) H 10/23/17 10:30 Total Protein 6.5 G/DL (6.3-8.2) 10/23/17 10:30 Albumin 2.9 g/dL (3.5-5.0) L 10/23/17 10:30 Globulin 3.6 gm/dL (2.2-3.9) 10/23/17 10:30 Albumin/Globulin Ratio 0.8 (1.0-2.1) L 10/23/17 10:30 PTH Intact Whole Molec 168 pg/mL (14-64) H 10/24/17 11:20 Venous Blood Potassium 5.1 mmol/L (3.6-5.2) 10/23/17 11:53 Urine Color Yellow (YELLOW) 10/24/17 18:00 Urine Clarity Slighty-cloudy (Clear) 10/24/17 18:00 Urine pH 6.0 (5.0-8.0) 10/24/17 18:00 Ur Specific Sultan 1.014 (1.003-1.030) 10/24/17 18:00 Urine Protein >=500 mg/dL (NEGATIVE) 10/24/17 18:00 Urine Glucose (UA) 150 mg/dL (Normal) 10/24/17 18:00 Urine Ketones Negative mg/dL (NEGATIVE) 10/24/17 18:00 Urine Blood Small (NEGATIVE) 10/24/17 18:00 Urine Nitrate Negative (NEGATIVE) 10/24/17 18:00 Urine Bilirubin Negative (NEGATIVE) 10/24/17 18:00 Urine Urobilinogen 0.2-1.0 mg/dL (0.2-1.0) 10/24/17 18:00 Ur Leukocyte Esterase Neg Michelle/uL (Negative) 10/24/17 18:00 Urine RBC (Auto) 9 /hpf (0-3) H 10/24/17 18:00 Urine Microscopic WBC 3 /hpf (0-5) 10/24/17 18:00 Ur Squamous Epith Cells < 1 /hpf (0-5) 10/24/17 18:00 Urine Bacteria Rare (<OCC) 10/24/17 18:00 Ur Random Creatinine 72.7 mg/dL 10/24/17 18:10 U Random Total Protein 1108.0 mg/dL (0.0-12.0) H 10/24/17 18:10 Influenza Typ A,B (EIA) Negative for flu a/b (NEGATIVE) 10/23/17 10:30 Ur L.pneumophila Ag Negative (NEGATIVE) 10/26/17 06:58 Mycoplasma pneumon IgG <=0.90 (<=0.90) 10/26/17 15:32 Mycoplasma pneumon IgM 13 U/mL (<770) 10/26/17 15:32 TB Test (QFT) Nil 0.73 IU/mL 10/26/17 10:30 TB Test Mitogen - Nil 7.79 IU/mL 10/26/17 10:30 TB Test TB - Nil <0.00 IU/mL 10/26/17 10:30 TB Test (QFT) Negative (Negative) 10/26/17 10:30 Blood Type O POSITIVE 10/23/17 12:45 Antibody Screen Negative 10/23/17 12:45 Crossmatch See Detail 10/23/17 12:45 BBK History Checked Patient has bt 10/23/17 12:45 - Hospital Course Hospital Course: 62 y.o male with PMH of DM2, CAD, CABG, HTN, Stage IV CKD not on dialysis, right BTK amputation with prosthesis admitted for pneumonia. Chest x-ray shows left upper lobe infiltrate. Patient was started on Azithromycin and Rocephin. Patient continued to have fever and ID consulted Dr. Barr: stopped Rocephin and started Zosyn. Pt received Duonebs, Venofer treatments, IV Zoysn and Azithromycin. Sputum AFB x 3 negative TB. Sputum c/s: E.Coli ESBL, Influenza negative, Urine- negative legionella AG, Quantiferon TB negative. In the ED patient found to Hg of 6.8 in which 1 unit PRBC transfused. Hg post transfusion 8.7 and remains stable the entire hospital course. Nephrology Dr. Palmer was consulted 2/2 patients stage IV CKD. Renal ultrasound unremarkable. Recommended venous mapping and vascular consult for need of HD access in the future. Patient has improved significantly clinically and decision was made to d/c to [facility] with close followup with PMH. Patient will follow-up with Vascular Dr. Avilez as an outpatient. Patient will f/u with Dr. Palmer Discharge Exam - Head Exam Head Exam: ATRAUMATIC, NORMAL INSPECTION - Eye Exam Eye Exam: EOMI, Normal appearance, PERRL Pupil Exam: NORMAL ACCOMODATION - ENT Exam ENT Exam: Mucous Membranes Moist - Neck Exam Neck exam: Full Rom, Normal Inspection - Respiratory Exam Respiratory Exam: Rales, Rhonchi, NORMAL BREATHING PATTERN, UNREMARKABLE. absent: Wheezes, Respiratory Distress, Stridor - Cardiovascular Exam Cardiovascular Exam: REGULAR RHYTHM, +S1, +S2 - GI/Abdominal Exam GI & Abdominal Exam: Normal Bowel Sounds, Unremarkable - Extremities Exam Additional comments: right BKA left TMA no calf tenderness with palpation - Back Exam Back exam: absent: CVA tenderness (L), CVA tenderness (R) - Neurological Exam Neurological exam: Alert, Oriented x3 - Psychiatric Exam Psychiatric exam: Normal Affect, Normal Mood - Skin Skin Exam: Intact, Normal Color, Warm Discharge Plan - Discharge Medications Prescriptions: Azithromycin [Zithomax 500mg IV] 500 mg IV DAILY 5 Days pds Piperacillin/Tazobact 2.25gm [ZOSYN 2.25 gm in 0.9% 100 ml] 2.25 g IV Q8 5 Days bag - Follow Up Plan Condition: FAIR Disposition: TRANSF TO SNF Instructions: Iron Rich Diet (DC), Blood Transfusion (DC), Anemia (DC), Pneumonia (DC) Additional Instructions: follow up appointment at [facility] with Dr. Rudolph on tuesdaynov 04 at 2pm. ff up with Dr Palmer in [address] Leon in 1 wk Referrals: [facility] [Outside] Cedrick Leon MD [Medical Doctor] - Jonathan Palmer MD [Staff Provider] - Anish hCo MD [Staff Provider] - Miesha Rudolph MD [Family Provider] - <Latrice Gutierrez - Last Filed: 10/31/17 16:54> Provider - Provider Date of Admission: 10/23/17 12:33 Attending physician: London Cr DO Hospital Course - Lab Results Lab Results: Micro Results 10/26/17 15:42 Blood-Venous Blood Culture - Final NO GROWTH AFTER 5 DAYS 10/26/17 15:42 Blood-Venous Gram Stain - Final TEST NOT PERFORMED 10/26/17 15:32 Blood-Venous Blood Culture - Final NO GROWTH AFTER 5 DAYS 10/26/17 15:32 Blood-Venous Gram Stain - Final TEST NOT PERFORMED 10/28/17 06:50 Other: Please Indicate Mycobacterial Culture - Preliminary 10/25/17 07:05 Blood-Venous Blood Culture - Final NO GROWTH AFTER 5 DAYS 10/25/17 07:05 Blood-Venous Gram Stain - Final TEST NOT PERFORMED 10/25/17 07:05 Blood-Venous Blood Culture - Final NO GROWTH AFTER 5 DAYS 10/25/17 07:05 Blood-Venous Gram Stain - Final TEST NOT PERFORMED 10/26/17 06:55 Sputum Gram Stain - Final 10/26/17 06:55 Sputum Sputum Culture - Final Escherichia Coli 10/27/17 10:58 Other: Please Indicate Mycobacterial Culture - Preliminary 10/23/17 12:00 Blood Blood Culture - Final NO GROWTH AFTER 5 DAYS 10/23/17 12:00 Blood Gram Stain - Final TEST NOT PERFORMED 10/26/17 13:39 Other: Please Indicate Mycobacterial Culture - Preliminary Most Recent Lab Values WBC 7.2 K/uL (4.8-10.8) 10/31/17 05:55 RBC 2.67 Mil/uL (4.40-5.90) L 10/31/17 05:55 Hgb 8.2 g/dL (12.0-18.0) L 10/31/17 05:55 Hct 24.1 % (35.0-51.0) L 10/31/17 05:55 MCV 90.4 fl (80.0-94.0) 10/31/17 05:55 MCH 30.6 pg (27.0-31.0) 10/31/17 05:55 MCHC 33.8 g/dL (33.0-37.0) 10/31/17 05:55 RDW 13.7 % (11.5-14.5) 10/31/17 05:55 Plt Count 256 K/uL (130-400) 10/31/17 05:55 MPV 8.7 fl (7.2-11.7) 10/28/17 05:40 Neut % (Auto) 57.2 % (50.0-75.0) 10/28/17 05:40 Lymph % (Auto) 18.7 % (20.0-40.0) L 10/28/17 05:40 [place] % (Auto) 9.2 % (0.0-10.0) 10/28/17 05:40 Eos % (Auto) 14.5 % (0.0-4.0) H 10/28/17 05:40 Baso % (Auto) 0.4 % (0.0-2.0) 10/28/17 05:40 Neut # (Auto) 3.3 K/uL (1.8-7.0) 10/28/17 05:40 Lymph # (Auto) 1.1 K/uL (1.0-4.3) 10/28/17 05:40 [place] # (Auto) 0.5 K/uL (0.0-0.8) 10/28/17 05:40 Eos # (Auto) 0.8 K/uL (0.0-0.7) H 10/28/17 05:40 Baso # (Auto) 0.0 K/uL (0.0-0.2) 10/28/17 05:40 pO2 25 mm/Hg (30-55) L 10/23/17 11:53 VBG pH 7.34 (7.32-7.43) 10/23/17 11:53 VBG pCO2 41 mmHg (40-60) 10/23/17 11:53 VBG HCO3 21.7 mmol/L 10/23/17 11:53 VBG Total CO2 23.4 mmol/L (22-28) 10/23/17 11:53 VBG O2 Sat (Calc) 66.2 % (40-65) H 10/23/17 11:53 VBG Base Excess -3.4 mmol/L (0.0-2.0) L 10/23/17 11:53 VBG Potassium 5.1 mmol/L (3.6-5.2) 10/23/17 11:53 A-a O2 Difference 73.0 mm/Hg 10/23/17 11:53 Sodium 136.0 mmol/L (132-148) 10/23/17 11:53 Chloride 109.0 mmol/L (98-107) H 10/23/17 11:53 Glucose 107 mg/dL (75-110) 10/23/17 11:53 Lactate 0.6 mmol/L (0.7-2.1) L 10/23/17 11:53 FiO2 21.0 % 10/23/17 11:53 Crit Value Called To Dr lópez salinas md 10/23/17 11:53 Crit Value Called By 15 10/23/17 11:53 Crit Value Read Back Y 10/23/17 11:53 Blood Gas Notified Time 1233 10/23/17 11:53 Sodium 143 mmol/l (132-148) 10/31/17 05:55 Potassium 4.5 MMOL/L (3.6-5.0) 10/31/17 05:55 Chloride 114 mmol/L (98-107) H 10/31/17 05:55 Carbon Dioxide 17 mmol/L (22-30) L 10/31/17 05:55 Anion Gap 17 (10-20) 10/31/17 05:55 BUN 37 mg/dl (9-20) H 10/31/17 05:55 Creatinine 5.5 mg/dl (0.8-1.5) H 10/31/17 05:55 Est GFR ( Amer) 13 10/31/17 05:55 Est GFR (Non-Af Amer) 11 10/31/17 05:55 POC Glucose (mg/dL) 141 mg/dL (65-110) H 10/31/17 15:30 Random Glucose 82 mg/dL (75-110) 10/31/17 05:55 Calcium 7.9 mg/dL (8.4-10.2) L 10/31/17 05:55 Phosphorus 5.9 mg/dl (2.5-4.5) H 10/24/17 10:40 Iron 17 ug/dL (49-181) L 10/24/17 11:20 TIBC 228 ug/dL (250-450) L 10/24/17 11:20 % Saturation 8 % (20-55) L 10/24/17 11:20 Ferritin 293.0 ng/Ml (17.9-464) 10/24/17 10:40 Total Bilirubin 0.5 mg/dl (0.2-1.3) 10/23/17 10:30 AST 22 U/L (17-59) 10/23/17 10:30 ALT 20 U/L (21-72) L 10/23/17 10:30 Alkaline Phosphatase 51 U/L (38-126) 10/23/17 10:30 Troponin I 0.0270 ng/mL (0.00-0.120) 10/23/17 10:30 NT-Pro-B Natriuret Pep 75298 pg/ml (0-900) H 10/23/17 10:30 Total Protein 6.5 G/DL (6.3-8.2) 10/23/17 10:30 Albumin 2.9 g/dL (3.5-5.0) L 10/23/17 10:30 Globulin 3.6 gm/dL (2.2-3.9) 10/23/17 10:30 Albumin/Globulin Ratio 0.8 (1.0-2.1) L 10/23/17 10:30 PTH Intact Whole Molec 168 pg/mL (14-64) H 10/24/17 11:20 Venous Blood Potassium 5.1 mmol/L (3.6-5.2) 10/23/17 11:53 Urine Color Yellow (YELLOW) 10/24/17 18:00 Urine Clarity Slighty-cloudy (Clear) 10/24/17 18:00 Urine pH 6.0 (5.0-8.0) 10/24/17 18:00 Ur Specific Sultan 1.014 (1.003-1.030) 10/24/17 18:00 Urine Protein >=500 mg/dL (NEGATIVE) 10/24/17 18:00 Urine Glucose (UA) 150 mg/dL (Normal) 10/24/17 18:00 Urine Ketones Negative mg/dL (NEGATIVE) 10/24/17 18:00 Urine Blood Small (NEGATIVE) 10/24/17 18:00 Urine Nitrate Negative (NEGATIVE) 10/24/17 18:00 Urine Bilirubin Negative (NEGATIVE) 10/24/17 18:00 Urine Urobilinogen 0.2-1.0 mg/dL (0.2-1.0) 10/24/17 18:00 Ur Leukocyte Esterase Neg Michelle/uL (Negative) 10/24/17 18:00 Urine RBC (Auto) 9 /hpf (0-3) H 10/24/17 18:00 Urine Microscopic WBC 3 /hpf (0-5) 10/24/17 18:00 Ur Squamous Epith Cells < 1 /hpf (0-5) 10/24/17 18:00 Urine Bacteria Rare (<OCC) 10/24/17 18:00 Ur Random Creatinine 72.7 mg/dL 10/24/17 18:10 U Random Total Protein 1108.0 mg/dL (0.0-12.0) H 10/24/17 18:10 Influenza Typ A,B (EIA) Negative for flu a/b (NEGATIVE) 10/23/17 10:30 Ur L.pneumophila Ag Negative (NEGATIVE) 10/26/17 06:58 Mycoplasma pneumon IgG <=0.90 (<=0.90) 10/26/17 15:32 Mycoplasma pneumon IgM 13 U/mL (<770) 10/26/17 15:32 TB Test (QFT) Nil 0.73 IU/mL 10/26/17 10:30 TB Test Mitogen - Nil 7.79 IU/mL 10/26/17 10:30 TB Test TB - Nil <0.00 IU/mL 10/26/17 10:30 TB Test (QFT) Negative (Negative) 10/26/17 10:30 Blood Type O POSITIVE 10/23/17 12:45 Antibody Screen Negative 10/23/17 12:45 Crossmatch See Detail 10/23/17 12:45 BBK History Checked Patient has bt 10/23/17 12:45 Attending/Attestation - Attestation Notes (Text): 1. KRISTI Pneumonia, bacterial PTB ruled out CXR-left upper lobe infiltrate Pt was on Rocephin and Azithromycin but continued to have fever and coughing - ID was consulted- rec change Rocephin to Zosyn Sputum AFB x 2 negative Sputum c/s : E Coli ESBL placed on respiratory and contact isolation Influenza negative Legionella negative Quantiferon TB negative Pt refused to go to [facility] for further IV abx and Physical therapy, discussed with ID , rec to continue IV Zosyn x 2 more days as inpatient 2. Anemia 2/2 Chronic Renal Failure received 1 unit of PRBC post transfusion Hgb: 8.7 Received IV venofer and Epogen 3. Acute on CKD CKD probably secondary to DM renal consult with Dr Palmer renal ultrasound- unremarkable cont Renagel and Bicarb tabs Crea stable around 5.0 Venous mapping for HD access Discussed case with Dr Leon - plan for outpt AV Fistula 4. CAD continue ASA, Plavix, statin continue Isosorbide mononitrate 30mg PO daily Cardio : Dr Cho 5. DM2 BS controlled off Prandin Januvia 25mg PO daily accuchek ACHS 6. HTN BP stable continue Norvasc and Isosorbide 7. DVT prophylaxis Heparin 5000 SC q 12hrs
--- NOTE | 2017-10-31 22:18 | CP.PCM.PN ---
Subjective - Date & Time of Evaluation Date of Evaluation: 10/31/17 Time of Evaluation: 19:00 - Subjective Subjective: ID note- Pt. seen and examined today. denies any fever or chills. cough is almost resolved. denies any sob. AFB - neg x 3 Objective - Vital Signs/Intake and Output Vital Signs (last 24 hours): Temp Pulse Resp BP Pulse Ox 97.9 F 103 H 20 148/82 99 10/31/17 16:15 10/31/17 16:15 10/31/17 16:15 10/31/17 16:15 10/31/17 16:15 - Medications Medications: Current Medications Acetaminophen (Tylenol 325mg Tab) 650 mg PO Q6 PRN PRN Reason: Pain, Mild (1-3) Last Admin: 10/25/17 17:17 Dose: 650 mg Acetaminophen (Tylenol 325mg Tab) 650 mg PO Q6 PRN PRN Reason: Fever >100.4 F Last Admin: 10/27/17 00:07 Dose: 650 mg Albuterol/Ipratropium (Duoneb 3 Mg/0.5 Mg (3 Ml) Ud) 3 ml INH RQ4 [facility] Last Admin: 10/31/17 19:05 Dose: 3 ml Allopurinol (Zyloprim) 100 mg PO DAILY [facility] Last Admin: 10/31/17 09:26 Dose: 100 mg Amlodipine Besylate (Norvasc) 10 mg PO DAILY [facility] Last Admin: 10/31/17 09:26 Dose: 10 mg Aspirin (Ecotrin) 81 mg PO DAILY [facility] Last Admin: 10/31/17 09:25 Dose: 81 mg Clopidogrel Bisulfate (Plavix) 75 mg PO DAILY [facility] Last Admin: 10/31/17 09:25 Dose: 75 mg Epoetin Eddy (Procrit) 4,000 unit SC TTS [facility] Last Admin: 10/29/17 09:32 Dose: 4,000 unit Ergocalciferol (Drisdol 50,000 Intl Units Cap) 1 cap PO WED [facility] Last Admin: 10/26/17 09:09 Dose: 1 cap Ferrous Sulfate (Feosol) 325 mg PO DAILY [facility] Last Admin: 10/31/17 09:25 Dose: 325 mg Gabapentin (Neurontin) 100 mg PO BID [facility] Last Admin: 10/31/17 09:25 Dose: 100 mg Guaifenesin (Robitussin) 200 mg PO Q6 PRN PRN Reason: Cough Last Admin: 10/28/17 10:28 Dose: 200 mg Heparin Sodium (Porcine) (Heparin) 5,000 units SC Q12 [facility] PRN Reason: Protocol Last Admin: 10/31/17 20:26 Dose: 5,000 units Home Med (Paricalcitol [Zemplar]) 1 mcg PO DAILY [facility] Last Admin: 10/30/17 08:43 Dose: 1 mcg Piperacillin Sod/Tazobactam (Sod 2.25 gm/ Sodium Chloride) 50 mls @ 50 mls/hr IVPB Q8@0400,1200,2000 [facility] PRN Reason: Protocol Last Admin: 10/31/17 20:25 Dose: 50 mls/hr Iron Sucrose 100 mg/ Sodium (Chloride) 105 mls @ 105 mls/hr IVPB DAILY [facility] Stop: 11/01/17 09:59 Last Admin: 10/31/17 13:22 Dose: 105 mls/hr Azithromycin 500 mg/ Sodium (Chloride) 250 mls @ 250 mls/hr IVPB DAILY [facility] PRN Reason: Protocol Last Admin: 10/31/17 09:31 Dose: 250 mls/hr Insulin Human Regular (Humulin R) 0 units SC ACCU-CHECK [facility] PRN Reason: Protocol Last Admin: 10/31/17 22:14 Dose: Not Given Isosorbide Mononitrate (Imdur Er) 30 mg PO DAILY [facility] Last Admin: 10/31/17 09:25 Dose: 30 mg [id number] Ethyl Esters (Lovaza) 2 gm PO BID [facility] Last Admin: 10/31/17 09:23 Dose: 2 gm Pravastatin Sodium (Pravachol) 40 mg PO DAILY [facility] Last Admin: 10/31/17 09:26 Dose: 40 mg Sevelamer HCl (Renagel) 1,600 mg PO TID [facility] Last Admin: 10/31/17 12:26 Dose: 1,600 mg Sitagliptin Phosphate (Januvia) 25 mg PO DAILY [facility] Last Admin: 10/31/17 09:25 Dose: 25 mg Sodium Bicarbonate (Sodium Bicarbonate Tab) 650 mg PO TID [facility] Terazosin HCl (Hytrin) 10 mg PO HS [facility] Last Admin: 10/31/17 22:15 Dose: 10 mg - Labs Labs: - Additional Findings Additional findings: - Constitutional Appears: No Acute Distress - Head Exam Head Exam: ATRAUMATIC - Eye Exam Eye Exam: EOMI - ENT Exam ENT Exam: Normal Oropharynx - Neck Exam Neck exam: Positive for: Full Rom - Respiratory Exam Respiratory Exam: NORMAL BREATHING PATTERN Additional comments: good breath sounds b/l No wheezing - Cardiovascular Exam Cardiovascular Exam: RRR, +S1, +S2 - GI/Abdominal Exam GI & Abdominal Exam: Normal Bowel Sounds, Soft Additional comments: NT, ND - Extremities Exam Additional comments: Right BKA stump clean/ no erythema - Neurological Exam Neurological exam: Alert, Oriented x 3 Laboratory Results - last 72 hr 10/26/17 10/26/17 10/29/17 10:30 15:32 06:59 WBC RBC Hgb Hct MCV MCH MCHC RDW Plt Count Sodium Potassium Chloride Carbon Dioxide Anion Gap BUN Creatinine Est GFR ( Amer) Est GFR (Non-Af Amer) POC Glucose (mg/dL) 75 Random Glucose Calcium Mycoplasma pneumon IgM 13 TB Test (QFT) Nil 0.73 TB Test Mitogen - Nil 7.79 TB Test TB - Nil <0.00 TB Test (QFT) Negative 10/29/17 10/29/17 10/29/17 11:10 16:14 22:24 WBC RBC Hgb Hct MCV MCH MCHC RDW Plt Count Sodium Potassium Chloride Carbon Dioxide Anion Gap BUN Creatinine Est GFR ( Amer) Est GFR (Non-Af Amer) POC Glucose (mg/dL) 130 H 113 H 122 H Random Glucose Calcium Mycoplasma pneumon IgM TB Test (QFT) Nil TB Test Mitogen - Nil TB Test TB - Nil TB Test (QFT) 10/30/17 10/30/17 10/30/17 05:29 11:05 16:37 WBC RBC Hgb Hct MCV MCH MCHC RDW Plt Count Sodium Potassium Chloride Carbon Dioxide Anion Gap BUN Creatinine Est GFR ( Amer) Est GFR (Non-Af Amer) POC Glucose (mg/dL) 78 122 H 98 Random Glucose Calcium Mycoplasma pneumon IgM TB Test (QFT) Nil TB Test Mitogen - Nil TB Test TB - Nil TB Test (QFT) 10/30/17 10/31/17 10/31/17 22:14 05:16 05:55 WBC 7.2 RBC 2.67 L Hgb 8.2 L Hct 24.1 L MCV 90.4 MCH 30.6 MCHC 33.8 RDW 13.7 Plt Count 256 Sodium Potassium Chloride Carbon Dioxide Anion Gap BUN Creatinine Est GFR ( Amer) Est GFR (Non-Af Amer) POC Glucose (mg/dL) 115 H 62 L Random Glucose Calcium Mycoplasma pneumon IgM TB Test (QFT) Nil TB Test Mitogen - Nil TB Test TB - Nil TB Test (QFT) 10/31/17 10/31/17 10/31/17 05:55 06:10 11:08 WBC RBC Hgb Hct MCV MCH MCHC RDW Plt Count Sodium 143 Potassium 4.5 Chloride 114 H Carbon Dioxide 17 L Anion Gap 17 BUN 37 H Creatinine 5.5 H Est GFR ( Amer) 13 Est GFR (Non-Af Amer) 11 POC Glucose (mg/dL) 75 124 H Random Glucose 82 Calcium 7.9 L Mycoplasma pneumon IgM TB Test (QFT) Nil TB Test Mitogen - Nil TB Test TB - Nil TB Test (QFT) 10/31/17 10/31/17 15:30 21:40 WBC RBC Hgb Hct MCV MCH MCHC RDW Plt Count Sodium Potassium Chloride Carbon Dioxide Anion Gap BUN Creatinine Est GFR ( Amer) Est GFR (Non-Af Amer) POC Glucose (mg/dL) 141 H 154 H Random Glucose Calcium Mycoplasma pneumon IgM TB Test (QFT) Nil TB Test Mitogen - Nil TB Test TB - Nil TB Test (QFT) Microbiology 10/26/17 15:42 Blood-Venous Blood Culture - Final NO GROWTH AFTER 5 DAYS 10/26/17 15:42 Blood-Venous Gram Stain - Final TEST NOT PERFORMED 10/26/17 15:32 Blood-Venous Blood Culture - Final NO GROWTH AFTER 5 DAYS 10/26/17 15:32 Blood-Venous Gram Stain - Final TEST NOT PERFORMED 10/28/17 06:50 Other: Please Indicate Mycobacterial Culture - Preliminary 10/25/17 07:05 Blood-Venous Blood Culture - Final NO GROWTH AFTER 5 DAYS 10/25/17 07:05 Blood-Venous Gram Stain - Final TEST NOT PERFORMED 10/25/17 07:05 Blood-Venous Blood Culture - Final NO GROWTH AFTER 5 DAYS 10/25/17 07:05 Blood-Venous Gram Stain - Final TEST NOT PERFORMED 10/26/17 06:55 Sputum Gram Stain - Final 10/26/17 06:55 Sputum Sputum Culture - Final Escherichia Coli 10/27/17 10:58 Other: Please Indicate Mycobacterial Culture - Preliminary 10/23/17 12:00 Blood Blood Culture - Final NO GROWTH AFTER 5 DAYS 10/23/17 12:00 Blood Gram Stain - Final TEST NOT PERFORMED 10/26/17 13:39 Other: Please Indicate Mycobacterial Culture - Preliminary Assessment and Plan (1) Chronic kidney disease, stage V Status: Acute (2) Pneumonia Status: Acute (3) Type 2 diabetes mellitus with diabetic chronic kidney disease Status: Chronic (4) Fever Status: Acute - Assessment and Plan (Free Text) Assessment: A/P- 62 year old male with DM , CAD , CKD, admitted with cough and left sided pneumonia. afebrile normal wbc count rapid flu test -neg blood cx- neg x 5 sputum AFB smear - Neg x 3 Urine legionella AG- neg sputum cx- ESBL E.coli sens to zosyn plan- d/c airborne isolation. has completed 5 days of IV zosyn, advise 2 more days for treatment of the e.coli in sputum cx. d/c zithromax.
[2017-11-01] MEDS: Piperacillin/Tazobact 2.25 GM in Sodium Chloride 0.9% 50 ML IVPB SCH ×3 (04:05→20:42)
[2017-11-01] MEDS: Albuterol-Ipratrop 3 mg / 0.5 (3 ml) UD INH SCH ×6 (04:44→23:37)
[2017-11-01] MEDS: Insulin Regular 100 units/ml SC SCH ×4 (08:28→23:35)
--- NOTE | 2017-11-01 08:53 | PN ---
DATE: SUBJECTIVE: The patient feeling much better, less coughing. No chest pain. No nausea. No vomiting. PHYSICAL EXAMINATION: VITAL SIGNS: Blood pressure 153/86 with normal temperature 97.5, pulse in the range of 95. NECK: Supple. CHEST: Few scattered rhonchi. HEART: No rubs. ABDOMEN: Soft. Bowel sounds were active. EXTREMITIES: No edema. LABORATORY DATA: Creatinine still 5.5, GFR 11, CO2 17, and sodium and potassium within normal limits. Last phosphorus 5.9. Hemoglobin 8.2. IMPRESSION AND PLAN: 1. The patient has chronic kidney disease stage V, appear to be stable. The patient is scheduled to have venous mapping and arteriovenous fistula by the vascular. I have spoken with hospitalist this morning to call for vascular consult. 2. Nephrotic syndrome proteinuria probably related to diabetic nephropathy and continue ARB or DARLIN. 3. Pneumonia, the patient is receiving the antibiotics. 4. Hyperphosphatemia. Continue phosphorus binder. 5. Secondary hyperparathyroidism, stable. 6. Anemia. The patient receiving EPO and Venofer. Continue renal diet. oJnathan Palmer MD
--- NOTE | 2017-11-01 08:58 | US ---
PROCEDURE: Upper Extremity Venous Duplex Exam HISTORY: HD access PRIORS: None. TECHNIQUE: Bilateral upper extremity, internal jugular, subclavian, axillary, brachial, ulnar, radial, basilic and upper cephalic veins were evaluated. Flow was assessed with color Doppler, compressibility, assessment of phasic flow and augmentation response. FINDINGS: RIGHT: 1. Internal Jugular Vein: Compressibility - Fully compressible: Thrombus - None : Flow - Phasic 2. Subclavian Vein:Compressibility - Fully compressible: Thrombus - None : Flow - Phasic 3. Axillary Vein: Compressibility - Fully compressible: Thrombus - None 4. Brachial Vein: Compressibility - Fully compressible: Thrombus - None 5. Cephalic Vein: Compressibility - Fully compressible: thrombus - None 5.1. Proximal Diameter: 0.5cm. Mid Diameter: 0.5cm. Distal Diameter: 0.5cm. 6. Basilic Vein:Compressibility - Fully compressible: thrombus - None 6.1. Mid Diameter: 0.6cm. Distal Diameter: 0.6cm. LEFT: 1. Internal Jugular Vein: Compressibility - Fully compressible: Thrombus - None : Flow - Phasic 2. Subclavian Vein:Compressibility - Fully compressible: Thrombus - None : Flow - Phasic 3. Axillary Vein: Compressibility - Fully compressible: Thrombus - None 4. Brachial Vein: Compressibility - Fully compressible: Thrombus - None 5. Cephalic Vein: Compressibility - Fully compressible: thrombus - None 5.1. Proximal Diameter: 0.3cm. Mid Diameter: 0.2cm. Distal Diameter: 0.3cm. 6. Basilic Vein:Compressibility - Fully compressible: thrombus - None 6.1. Proximal Diameter: 0.5cm. Mid Diameter: 0.6cm. Distal Diameter: 0.5cm. OTHER FINDINGS: Right: None. Left: None. IMPRESSION: Right: Diameter measurements of the right cephalic vein is measured at 0.5 cm and basilic vein is measured at 0.6 cm. Left: Diameter measurements of the left cephalic vein is measured between 0.2 cm and 0.3 cm and basilic vein is measured between 0.5cm and 0.6cm.
[2017-11-01] MEDS: Pravastatin Sodium 40 MG TAB PO SCH (09:05)
[2017-11-01] MEDS: Omega-3-Acid Ethyl Esters 1 GM Cap PO SCH ×2 (09:05→17:11)
[2017-11-01] MEDS: Patient's Own Med (Paricalcitol [Zemplar] 1 MCG) PO SCH (09:06)
[2017-11-01] MEDS: Epoetin Alfa 4000 UNIT/ML Inj SC SCH (10:01)
--- NOTE | 2017-11-01 11:03 | CP.PCM.PN ---
Subjective - Date & Time of Evaluation Date of Evaluation: 11/01/17 Time of Evaluation: 11:01 - Subjective Subjective: Patient continued to improve feeling much better Objective - Vital Signs/Intake and Output Vital Signs (last 24 hours): Temp Pulse Resp BP Pulse Ox 98.0 F 99 H 19 151/89 H 97 11/01/17 08:33 11/01/17 08:33 11/01/17 08:33 11/01/17 08:33 11/01/17 08:33 - Medications Medications: Current Medications Acetaminophen (Tylenol 325mg Tab) 650 mg PO Q6 PRN PRN Reason: Pain, Mild (1-3) Last Admin: 10/25/17 17:17 Dose: 650 mg Acetaminophen (Tylenol 325mg Tab) 650 mg PO Q6 PRN PRN Reason: Fever >100.4 F Last Admin: 10/27/17 00:07 Dose: 650 mg Albuterol/Ipratropium (Duoneb 3 Mg/0.5 Mg (3 Ml) Ud) 3 ml INH RQ4 [facility] Last Admin: 11/01/17 04:44 Dose: 3 ml Allopurinol (Zyloprim) 100 mg PO DAILY [facility] Last Admin: 11/01/17 09:07 Dose: 100 mg Amlodipine Besylate (Norvasc) 10 mg PO DAILY [facility] Last Admin: 11/01/17 09:05 Dose: 10 mg Aspirin (Ecotrin) 81 mg PO DAILY [facility] Last Admin: 11/01/17 09:07 Dose: 81 mg Clopidogrel Bisulfate (Plavix) 75 mg PO DAILY [facility] Last Admin: 11/01/17 09:05 Dose: 75 mg Epoetin Eddy (Procrit) 4,000 unit SC TTS [facility] Last Admin: 11/01/17 10:01 Dose: 4,000 unit Ergocalciferol (Drisdol 50,000 Intl Units Cap) 1 cap PO WED [facility] Last Admin: 10/26/17 09:09 Dose: 1 cap Ferrous Sulfate (Feosol) 325 mg PO DAILY [facility] Last Admin: 11/01/17 09:05 Dose: 325 mg Gabapentin (Neurontin) 100 mg PO BID [facility] Last Admin: 11/01/17 09:05 Dose: 100 mg Guaifenesin (Robitussin) 200 mg PO Q6 PRN PRN Reason: Cough Last Admin: 10/28/17 10:28 Dose: 200 mg Heparin Sodium (Porcine) (Heparin) 5,000 units SC Q12 [facility] PRN Reason: Protocol Last Admin: 11/01/17 09:04 Dose: 5,000 units Home Med (Paricalcitol [Zemplar]) 1 mcg PO DAILY [facility] Last Admin: 11/01/17 09:06 Dose: 1 mcg Piperacillin Sod/Tazobactam (Sod 2.25 gm/ Sodium Chloride) 50 mls @ 50 mls/hr IVPB Q8@0400,1200,2000 [facility] PRN Reason: Protocol Last Admin: 11/01/17 04:05 Dose: 50 mls/hr Iron Sucrose 100 mg/ Sodium (Chloride) 105 mls @ 105 mls/hr IVPB ONCE ONE Stop: 11/01/17 11:44 Insulin Human Regular (Humulin R) 0 units SC ACCU-CHECK [facility] PRN Reason: Protocol Last Admin: 11/01/17 08:28 Dose: Not Given Isosorbide Mononitrate (Imdur Er) 30 mg PO DAILY [facility] Last Admin: 11/01/17 09:05 Dose: 30 mg [id number] Ethyl Esters (Lovaza) 2 gm PO BID [facility] Last Admin: 11/01/17 09:05 Dose: 2 gm Pravastatin Sodium (Pravachol) 40 mg PO DAILY [facility] Last Admin: 11/01/17 09:05 Dose: 40 mg Sevelamer HCl (Renagel) 1,600 mg PO TID [facility] Last Admin: 11/01/17 09:04 Dose: 1,600 mg Sitagliptin Phosphate (Januvia) 25 mg PO DAILY [facility] Last Admin: 11/01/17 09:07 Dose: 25 mg Sodium Bicarbonate (Sodium Bicarbonate Tab) 650 mg PO TID [facility] Last Admin: 11/01/17 09:04 Dose: 650 mg Terazosin HCl (Hytrin) 10 mg PO HS [facility] Last Admin: 10/31/17 22:15 Dose: 10 mg - Labs Labs: 10/31/17 05:55 11/01/17 05:50 - Constitutional Appears: No Acute Distress - Eye Exam Eye Exam: Conjunctival injection - ENT Exam ENT Exam: Mucous Membranes Moist - Neck Exam Neck Exam: absent: Lymphadenopathy - Respiratory Exam Respiratory Exam: NORMAL BREATHING PATTERN. absent: Chest Wall Tenderness, Rales - GI/Abdominal Exam GI & Abdominal Exam: Soft, Normal Bowel Sounds. absent: Rigid - Extremities Exam Extremities Exam: absent: Calf Tenderness - Back Exam Back Exam: absent: CVA tenderness (L), CVA tenderness (R) - Neurological Exam Neurological Exam: Alert - Psychiatric Exam Psychiatric exam: Normal Affect - Skin Skin Exam: absent: Cyanosis Assessment and Plan (1) Chronic kidney disease, stage V Assessment & Plan: Chronic kidney disease stage V has been stable Status post pneumonia which has been improving and recovering Patient will have AV fistula as outpatient at clinic that time when his condition continued to improve Follow-up by his group sales representative as outpatient for his chronic kidney disease Status: Acute (2) 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
--- NOTE | 2017-11-01 12:03 | CP.PCM.PN ---
Subjective - Date & Time of Evaluation Date of Evaluation: 11/01/17 Time of Evaluation: 12:07 - Subjective Subjective: Progress Note for Hospitalist- Dr. Mackenzie 62 y.o male seen and examined at bedside for pneumonia. Patient is seen sitting comfortably in bedside, in NAD, and AA0x3. Patient denies acute overnight events. Patient denies SOB. Reports same cough. Denies n/v/sob/cp or chills. Denies calf pain or tenderness. Reports able to void and urinate without problems. Pt denies any new complaints. Objective - Vital Signs/Intake and Output Vital Signs (last 24 hours): Temp Pulse Resp BP Pulse Ox 98.0 F 99 H 19 151/89 H 97 11/01/17 08:33 11/01/17 08:33 11/01/17 08:33 11/01/17 08:33 11/01/17 08:33 - Medications Medications: Current Medications Acetaminophen (Tylenol 325mg Tab) 650 mg PO Q6 PRN PRN Reason: Pain, Mild (1-3) Last Admin: 10/25/17 17:17 Dose: 650 mg Acetaminophen (Tylenol 325mg Tab) 650 mg PO Q6 PRN PRN Reason: Fever >100.4 F Last Admin: 10/27/17 00:07 Dose: 650 mg Albuterol/Ipratropium (Duoneb 3 Mg/0.5 Mg (3 Ml) Ud) 3 ml INH RQ4 [facility] Last Admin: 11/01/17 11:29 Dose: 3 ml Allopurinol (Zyloprim) 100 mg PO DAILY [facility] Last Admin: 11/01/17 09:07 Dose: 100 mg Amlodipine Besylate (Norvasc) 10 mg PO DAILY [facility] Last Admin: 11/01/17 09:05 Dose: 10 mg Aspirin (Ecotrin) 81 mg PO DAILY [facility] Last Admin: 11/01/17 09:07 Dose: 81 mg Clopidogrel Bisulfate (Plavix) 75 mg PO DAILY [facility] Last Admin: 11/01/17 09:05 Dose: 75 mg Epoetin Eddy (Procrit) 4,000 unit SC TTS [facility] Last Admin: 11/01/17 10:01 Dose: 4,000 unit Ergocalciferol (Drisdol 50,000 Intl Units Cap) 1 cap PO WED [facility] Last Admin: 10/26/17 09:09 Dose: 1 cap Ferrous Sulfate (Feosol) 325 mg PO DAILY [facility] Last Admin: 11/01/17 09:05 Dose: 325 mg Gabapentin (Neurontin) 100 mg PO BID [facility] Last Admin: 11/01/17 09:05 Dose: 100 mg Guaifenesin (Robitussin) 200 mg PO Q6 PRN PRN Reason: Cough Last Admin: 10/28/17 10:28 Dose: 200 mg Heparin Sodium (Porcine) (Heparin) 5,000 units SC Q12 [facility] PRN Reason: Protocol Last Admin: 11/01/17 09:04 Dose: 5,000 units Home Med (Paricalcitol [Zemplar]) 1 mcg PO DAILY [facility] Last Admin: 11/01/17 09:06 Dose: 1 mcg Piperacillin Sod/Tazobactam (Sod 2.25 gm/ Sodium Chloride) 50 mls @ 50 mls/hr IVPB Q8@0400,1200,2000 [facility] PRN Reason: Protocol Last Admin: 11/01/17 04:05 Dose: 50 mls/hr Insulin Human Regular (Humulin R) 0 units SC ACCU-CHECK [facility] PRN Reason: Protocol Last Admin: 11/01/17 08:28 Dose: Not Given Isosorbide Mononitrate (Imdur Er) 30 mg PO DAILY [facility] Last Admin: 11/01/17 09:05 Dose: 30 mg Ragdo-0-Zgby Ethyl Esters (Lovaza) 2 gm PO BID [facility] Last Admin: 11/01/17 09:05 Dose: 2 gm Pravastatin Sodium (Pravachol) 40 mg PO DAILY [facility] Last Admin: 11/01/17 09:05 Dose: 40 mg Sevelamer HCl (Renagel) 1,600 mg PO TID [facility] Last Admin: 11/01/17 09:04 Dose: 1,600 mg Sitagliptin Phosphate (Januvia) 25 mg PO DAILY [facility] Last Admin: 11/01/17 09:07 Dose: 25 mg Sodium Bicarbonate (Sodium Bicarbonate Tab) 650 mg PO TID [facility] Last Admin: 11/01/17 09:04 Dose: 650 mg Terazosin HCl (Hytrin) 10 mg PO HS [facility] Last Admin: 10/31/17 22:15 Dose: 10 mg - Labs Labs: 10/31/17 05:55 11/01/17 05:50 - Constitutional Appears: Well, Non-toxic, No Acute Distress - Head Exam Head Exam: ATRAUMATIC, NORMAL INSPECTION - Eye Exam Eye Exam: EOMI, Normal appearance, PERRL Pupil Exam: NORMAL ACCOMODATION, PERRL - ENT Exam ENT Exam: Mucous Membranes Moist, Normal Exam - Neck Exam Neck Exam: Full ROM, Normal Inspection - Respiratory Exam Respiratory Exam: Rales, Rhonchi, NORMAL BREATHING PATTERN. absent: Wheezes, Respiratory Distress - Cardiovascular Exam Cardiovascular Exam: REGULAR RHYTHM, +S1, +S2 - GI/Abdominal Exam GI & Abdominal Exam: Soft, Normal Bowel Sounds. absent: Tenderness - Extremities Exam Extremities Exam: absent: Calf Tenderness Additional comments: right BKA left TMA no calf tenderness with palpation - Neurological Exam Neurological Exam: Alert, Awake, Oriented x3 - Psychiatric Exam Psychiatric exam: Normal Affect, Normal Mood - Skin Skin Exam: Dry, Intact, Normal Color, Warm Assessment and Plan (1) Pneumonia Status: Acute (2) Anemia Status: Chronic (3) Chronic kidney disease, stage V Status: Acute (4) CAD (coronary artery disease) Status: Chronic (5) Type 2 diabetes mellitus with diabetic chronic kidney disease Status: Chronic (6) HTN (hypertension) Status: Chronic - Assessment and Plan (Free Text) Assessment: 62 y.o male with PMH of DM2, CAD, CABG, HTN, Stage IV CKD not on dialysis, right BTK amputation with prosthesis admitted for pneumonia. Plan: 1. KRISTI Pneumonia, bacterial PTB ruled out CXR-left upper lobe infiltrate Pt was on Rocephin and Azithromycin but continued to have fever and coughing - ID was consulted- rec change Rocephin to Zosyn Sputum AFB x 2 negative Sputum c/s : E Coli ESBL placed on respiratory and contact isolation Influenza negative Legionella negative Quantiferon TB negative Pt refused to go to [facility] for further IV abx and Physical therapy, discussed with ID , rec to continue IV Zosyn x 2 more days as inpatient d/c Azithromycin repeat chest x-ray (11/01/17)-Impression: Prominence of the pulmonary vasculature may be secondary to low lung volumes, AP technique and/or pulmonary vascular congestion. No focal consolidation or pleural effusion. 2. Anemia 2/2 Chronic Renal Failure received 1 unit of PRBC post transfusion Hgb: 8.7 Received IV venofer and Epogen 3. Acute on CKD CKD probably secondary to DM renal consult with Dr Palmer renal ultrasound- unremarkable cont Renagel and Bicarb tabs Crea stable around 5.0 Venous mapping for HD access Discussed case with Dr Leon - plan for outpt AV Fistula once infection resolved 4. CAD continue ASA, Plavix, statin continue Isosorbide mononitrate 30mg PO daily Cardio: Dr Cho 5. DM2 BS controlled off Prandin Januvia 25mg PO daily accuchek ACHS 6. HTN BP stable continue Norvasc and Isosorbide 7. DVT prophylaxis Heparin 5000 SC q 12hrs
--- NOTE | 2017-11-01 14:37 | RAD ---
HISTORY: pneumonia COMPARISON: Chest radiograph dated 10/23/2017. TECHNIQUE: Chest PA and lateral FINDINGS: LUNGS: Prominence of the pulmonary vasculature may be secondary to low lung volumes, AP technique and/or pulmonary vascular congestion. PLEURA: Stable elevation of the right hemidiaphragm. No significant pleural effusion identified. No pneumothorax apparent. CARDIOVASCULAR: Atherosclerotic aortic calcifications. Cardiomediastinal silhouette stably enlarged. OSSEOUS STRUCTURES: Unchanged VISUALIZED UPPER ABDOMEN: Normal. OTHER FINDINGS: None. IMPRESSION: Prominence of the pulmonary vasculature may be secondary to low lung volumes, AP technique and/or pulmonary vascular congestion. No focal consolidation or pleural effusion.
[2017-11-01 18:23] VITALS: RESP 20
[2017-11-02] MEDS: Albuterol-Ipratrop 3 mg / 0.5 (3 ml) UD INH SCH (03:28)
[2017-11-02] MEDS: Piperacillin/Tazobact 2.25 GM in Sodium Chloride 0.9% 50 ML IVPB SCH ×2 (04:19→12:52)
[2017-11-02 06:42] LABS: HEMOGLOBIN 8.2 g/dL (12.0-18.0); MEAN CELL VOLUME 91.2 fl (80.0-94.0); MEAN CORPUSCULAR HEMOGLOBIN 30.3 pg (27.0-31.0); MEAN CORPUSCULAR HGB CONC 33.2 g/dL (33.0-37.0); RBC 2.71 Mil/uL (4.40-5.90); WHITE BLOOD COUNT 8.6 K/uL (4.8-10.8)
[2017-11-02 06:44] LABS: CALCIUM 8.1 mg/dL (8.4-10.2)
[2017-11-02] MEDS: Insulin Regular 100 units/ml SC SCH ×2 (07:30→12:35)
[2017-11-02 07:58] VITALS: BP 126/75; PULSE 108; TEMP 98.6; O2SAT 97
[2017-11-02] MEDS: Omega-3-Acid Ethyl Esters 1 GM Cap PO SCH (08:54)
[2017-11-02] MEDS: Patient's Own Med (Paricalcitol [Zemplar] 1 MCG) PO SCH (08:54)
[2017-11-02] MEDS: Pravastatin Sodium 40 MG TAB PO SCH (08:56)
[2017-11-02] MEDS: Ergocalciferol 50,000 Intl Units Cap PO SCH (08:57)
--- NOTE | 2017-11-02 10:18 | CP.PCM.PN ---
Subjective - Date & Time of Evaluation Date of Evaluation: 11/02/17 Time of Evaluation: 10:15 - Subjective Subjective: Patient appears to be comfortable Complaining of feel coughing intermittently. Feeling much better Objective - Vital Signs/Intake and Output Vital Signs (last 24 hours): Temp Pulse Resp BP Pulse Ox 98.6 F 108 H 20 126/75 97 11/02/17 07:57 11/02/17 07:57 11/02/17 07:57 11/02/17 07:57 11/02/17 07:57 - Medications Medications: Current Medications Acetaminophen (Tylenol 325mg Tab) 650 mg PO Q6 PRN PRN Reason: Pain, Mild (1-3) Last Admin: 10/25/17 17:17 Dose: 650 mg Acetaminophen (Tylenol 325mg Tab) 650 mg PO Q6 PRN PRN Reason: Fever >100.4 F Last Admin: 10/27/17 00:07 Dose: 650 mg Albuterol/Ipratropium (Duoneb 3 Mg/0.5 Mg (3 Ml) Ud) 3 ml INH RQ4 [facility] Last Admin: 11/02/17 03:28 Dose: 3 ml Allopurinol (Zyloprim) 100 mg PO DAILY [facility] Last Admin: 11/02/17 08:58 Dose: 100 mg Amlodipine Besylate (Norvasc) 10 mg PO DAILY [facility] Last Admin: 11/02/17 08:58 Dose: 10 mg Aspirin (Ecotrin) 81 mg PO DAILY [facility] Last Admin: 11/02/17 08:58 Dose: 81 mg Clopidogrel Bisulfate (Plavix) 75 mg PO DAILY [facility] Last Admin: 11/02/17 08:58 Dose: 75 mg Epoetin Eddy (Procrit) 4,000 unit SC TTS [facility] Last Admin: 11/01/17 10:01 Dose: 4,000 unit Ergocalciferol (Drisdol 50,000 Intl Units Cap) 1 cap PO WED [facility] Last Admin: 11/02/17 08:57 Dose: 1 cap Ferrous Sulfate (Feosol) 325 mg PO DAILY [facility] Last Admin: 11/02/17 08:57 Dose: 325 mg Gabapentin (Neurontin) 100 mg PO BID [facility] Last Admin: 11/02/17 08:56 Dose: 100 mg Guaifenesin (Robitussin) 200 mg PO Q6 PRN PRN Reason: Cough Last Admin: 10/28/17 10:28 Dose: 200 mg Heparin Sodium (Porcine) (Heparin) 5,000 units SC Q12 [facility] PRN Reason: Protocol Last Admin: 11/02/17 08:57 Dose: 5,000 units Home Med (Paricalcitol [Zemplar]) 1 mcg PO DAILY [facility] Last Admin: 11/02/17 08:54 Dose: 1 mcg Piperacillin Sod/Tazobactam (Sod 2.25 gm/ Sodium Chloride) 50 mls @ 50 mls/hr IVPB Q8@0400,1200,2000 [facility] PRN Reason: Protocol Last Admin: 11/02/17 04:19 Dose: 50 mls/hr Insulin Human Regular (Humulin R) 0 units SC ACCU-CHECK [facility] PRN Reason: Protocol Last Admin: 11/02/17 07:30 Dose: Not Given Isosorbide Mononitrate (Imdur Er) 30 mg PO DAILY [facility] Last Admin: 11/02/17 08:57 Dose: 30 mg [id number] Ethyl Esters (Lovaza) 2 gm PO BID [facility] Last Admin: 11/02/17 08:54 Dose: 2 gm Pravastatin Sodium (Pravachol) 40 mg PO DAILY [facility] Last Admin: 11/02/17 08:56 Dose: 40 mg Sevelamer HCl (Renagel) 1,600 mg PO TID [facility] Last Admin: 11/02/17 08:53 Dose: 1,600 mg Sitagliptin Phosphate (Januvia) 25 mg PO DAILY [facility] Last Admin: 11/02/17 08:57 Dose: 25 mg Sodium Bicarbonate (Sodium Bicarbonate Tab) 650 mg PO TID [facility] Last Admin: 11/02/17 08:54 Dose: 650 mg Terazosin HCl (Hytrin) 10 mg PO HS [facility] Last Admin: 11/01/17 21:48 Dose: 10 mg - Labs Labs: 11/02/17 05:25 11/02/17 05:25 - Constitutional Appears: No Acute Distress - ENT Exam ENT Exam: Mucous Membranes Moist - Respiratory Exam Respiratory Exam: NORMAL BREATHING PATTERN. absent: Chest Wall Tenderness, Rales - Cardiovascular Exam Cardiovascular Exam: absent: Gallop, JVD, RRR, Rubs - GI/Abdominal Exam GI & Abdominal Exam: Soft, Normal Bowel Sounds - Extremities Exam Extremities Exam: absent: Calf Tenderness - Back Exam Back Exam: absent: CVA tenderness (L), CVA tenderness (R) - Neurological Exam Neurological Exam: Alert - Psychiatric Exam Psychiatric exam: Normal Affect Assessment and Plan (1) Chronic kidney disease, stage V Assessment & Plan: CK disease stage V remained to be stable for AV fistula as outpatient Receiving antibiotics for pneumonia Hyperphosphatemia and secondary hyperparathyroidism continue the same treatment Status: Acute (2) 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
--- NOTE | 2017-11-02 11:46 | CP.PCM.DIS ---
Provider - Provider Date of Admission: 10/23/17 12:33 Attending physician: London Cr DO Consults: Cardiology Consult- Dr. Cho Nephrology Consult- Dr. Palmer Infectious Disease Consult- Dr. Barr Vascular Consult Dr. Avilez Time Spent in preparation of Discharge (in minutes): 20 Diagnosis - Discharge Diagnosis (1) Pneumonia Status: Acute Comment: Bacterial pneumonia KRISTI (2) Anemia Status: Chronic Comment: Anemia 2/2 Chronic Renal Failure (3) Chronic kidney disease, stage V Status: Acute Comment: Acute on CKD (4) CAD (coronary artery disease) Status: Chronic (5) Type 2 diabetes mellitus with diabetic chronic kidney disease Status: Chronic (6) HTN (hypertension) Status: Chronic Hospital Course - Lab Results Lab Results: Micro Results 10/26/17 15:42 Blood-Venous Blood Culture - Final NO GROWTH AFTER 5 DAYS 10/26/17 15:42 Blood-Venous Gram Stain - Final TEST NOT PERFORMED 10/26/17 15:32 Blood-Venous Blood Culture - Final NO GROWTH AFTER 5 DAYS 10/26/17 15:32 Blood-Venous Gram Stain - Final TEST NOT PERFORMED 10/28/17 06:50 Other: Please Indicate Mycobacterial Culture - Preliminary 10/25/17 07:05 Blood-Venous Blood Culture - Final NO GROWTH AFTER 5 DAYS 10/25/17 07:05 Blood-Venous Gram Stain - Final TEST NOT PERFORMED 10/25/17 07:05 Blood-Venous Blood Culture - Final NO GROWTH AFTER 5 DAYS 10/25/17 07:05 Blood-Venous Gram Stain - Final TEST NOT PERFORMED 10/26/17 06:55 Sputum Gram Stain - Final 10/26/17 06:55 Sputum Sputum Culture - Final Escherichia Coli 10/27/17 10:58 Other: Please Indicate Mycobacterial Culture - Preliminary 10/23/17 12:00 Blood Blood Culture - Final NO GROWTH AFTER 5 DAYS 10/23/17 12:00 Blood Gram Stain - Final TEST NOT PERFORMED 10/26/17 13:39 Other: Please Indicate Mycobacterial Culture - Preliminary Most Recent Lab Values WBC 8.6 K/uL (4.8-10.8) 11/02/17 05:25 RBC 2.71 Mil/uL (4.40-5.90) L 11/02/17 05:25 Hgb 8.2 g/dL (12.0-18.0) L 11/02/17 05:25 Hct 24.7 % (35.0-51.0) L 11/02/17 05:25 MCV 91.2 fl (80.0-94.0) 11/02/17 05:25 MCH 30.3 pg (27.0-31.0) 11/02/17 05:25 MCHC 33.2 g/dL (33.0-37.0) 11/02/17 05:25 RDW 14.0 % (11.5-14.5) 11/02/17 05:25 Plt Count 264 K/uL (130-400) 11/02/17 05:25 MPV 8.7 fl (7.2-11.7) 10/28/17 05:40 Neut % (Auto) 57.2 % (50.0-75.0) 10/28/17 05:40 Lymph % (Auto) 18.7 % (20.0-40.0) L 10/28/17 05:40 [place] % (Auto) 9.2 % (0.0-10.0) 10/28/17 05:40 Eos % (Auto) 14.5 % (0.0-4.0) H 10/28/17 05:40 Baso % (Auto) 0.4 % (0.0-2.0) 10/28/17 05:40 Neut # (Auto) 3.3 K/uL (1.8-7.0) 10/28/17 05:40 Lymph # (Auto) 1.1 K/uL (1.0-4.3) 10/28/17 05:40 [place] # (Auto) 0.5 K/uL (0.0-0.8) 10/28/17 05:40 Eos # (Auto) 0.8 K/uL (0.0-0.7) H 10/28/17 05:40 Baso # (Auto) 0.0 K/uL (0.0-0.2) 10/28/17 05:40 pO2 25 mm/Hg (30-55) L 10/23/17 11:53 VBG pH 7.34 (7.32-7.43) 10/23/17 11:53 VBG pCO2 41 mmHg (40-60) 10/23/17 11:53 VBG HCO3 21.7 mmol/L 10/23/17 11:53 VBG Total CO2 23.4 mmol/L (22-28) 10/23/17 11:53 VBG O2 Sat (Calc) 66.2 % (40-65) H 10/23/17 11:53 VBG Base Excess -3.4 mmol/L (0.0-2.0) L 10/23/17 11:53 VBG Potassium 5.1 mmol/L (3.6-5.2) 10/23/17 11:53 A-a O2 Difference 73.0 mm/Hg 10/23/17 11:53 Sodium 136.0 mmol/L (132-148) 10/23/17 11:53 Chloride 109.0 mmol/L (98-107) H 10/23/17 11:53 Glucose 107 mg/dL (75-110) 10/23/17 11:53 Lactate 0.6 mmol/L (0.7-2.1) L 10/23/17 11:53 FiO2 21.0 % 10/23/17 11:53 Crit Value Called To Dr lópez salinas md 10/23/17 11:53 Crit Value Called By 15 10/23/17 11:53 Crit Value Read Back Y 10/23/17 11:53 Blood Gas Notified Time 1233 10/23/17 11:53 Sodium 142 mmol/l (132-148) 11/02/17 05:25 Potassium 4.8 MMOL/L (3.6-5.0) 11/02/17 05:25 Chloride 114 mmol/L (98-107) H 11/02/17 05:25 Carbon Dioxide 21 mmol/L (22-30) L 11/02/17 05:25 Anion Gap 12 (10-20) 11/02/17 05:25 BUN 38 mg/dl (9-20) H 11/02/17 05:25 Creatinine 5.8 mg/dl (0.8-1.5) H 11/02/17 05:25 Est GFR ( Amer) 12 11/02/17 05:25 Est GFR (Non-Af Amer) 10 11/02/17 05:25 POC Glucose (mg/dL) 121 mg/dL (65-110) H 02/14/18 10:52 Random Glucose 81 mg/dL (75-110) 11/02/17 05:25 Calcium 8.1 mg/dL (8.4-10.2) L 11/02/17 05:25 Phosphorus 5.9 mg/dl (2.5-4.5) H 10/24/17 10:40 Iron 17 ug/dL (49-181) L 10/24/17 11:20 TIBC 228 ug/dL (250-450) L 10/24/17 11:20 % Saturation 8 % (20-55) L 10/24/17 11:20 Ferritin 293.0 ng/Ml (17.9-464) 10/24/17 10:40 Total Bilirubin 0.5 mg/dl (0.2-1.3) 10/23/17 10:30 AST 22 U/L (17-59) 10/23/17 10:30 ALT 20 U/L (21-72) L 10/23/17 10:30 Alkaline Phosphatase 51 U/L (38-126) 10/23/17 10:30 Troponin I 0.0270 ng/mL (0.00-0.120) 10/23/17 10:30 NT-Pro-B Natriuret Pep 37761 pg/ml (0-900) H 10/23/17 10:30 Total Protein 6.5 G/DL (6.3-8.2) 10/23/17 10:30 Albumin 2.9 g/dL (3.5-5.0) L 10/23/17 10:30 Globulin 3.6 gm/dL (2.2-3.9) 10/23/17 10:30 Albumin/Globulin Ratio 0.8 (1.0-2.1) L 10/23/17 10:30 PTH Intact Whole Molec 168 pg/mL (14-64) H 10/24/17 11:20 Venous Blood Potassium 5.1 mmol/L (3.6-5.2) 10/23/17 11:53 Urine Color Yellow (YELLOW) 10/24/17 18:00 Urine Clarity Slighty-cloudy (Clear) 10/24/17 18:00 Urine pH 6.0 (5.0-8.0) 10/24/17 18:00 Ur Specific Sandy 1.014 (1.003-1.030) 10/24/17 18:00 Urine Protein >=500 mg/dL (NEGATIVE) 10/24/17 18:00 Urine Glucose (UA) 150 mg/dL (Normal) 10/24/17 18:00 Urine Ketones Negative mg/dL (NEGATIVE) 10/24/17 18:00 Urine Blood Small (NEGATIVE) 10/24/17 18:00 Urine Nitrate Negative (NEGATIVE) 10/24/17 18:00 Urine Bilirubin Negative (NEGATIVE) 10/24/17 18:00 Urine Urobilinogen 0.2-1.0 mg/dL (0.2-1.0) 10/24/17 18:00 Ur Leukocyte Esterase Neg Michelle/uL (Negative) 10/24/17 18:00 Urine RBC (Auto) 9 /hpf (0-3) H 10/24/17 18:00 Urine Microscopic WBC 3 /hpf (0-5) 10/24/17 18:00 Ur Squamous Epith Cells < 1 /hpf (0-5) 10/24/17 18:00 Urine Bacteria Rare (<OCC) 10/24/17 18:00 Ur Random Creatinine 72.7 mg/dL 10/24/17 18:10 U Random Total Protein 1108.0 mg/dL (0.0-12.0) H 10/24/17 18:10 Influenza Typ A,B (EIA) Negative for flu a/b (NEGATIVE) 10/23/17 10:30 Ur L.pneumophila Ag Negative (NEGATIVE) 10/26/17 06:58 Mycoplasma pneumon IgG <=0.90 (<=0.90) 10/26/17 15:32 Mycoplasma pneumon IgM 13 U/mL (<770) 10/26/17 15:32 TB Test (QFT) Nil 0.73 IU/mL 10/26/17 10:30 TB Test Mitogen - Nil 7.79 IU/mL 10/26/17 10:30 TB Test TB - Nil <0.00 IU/mL 10/26/17 10:30 TB Test (QFT) Negative (Negative) 10/26/17 10:30 Blood Type O POSITIVE 10/23/17 12:45 Antibody Screen Negative 10/23/17 12:45 Crossmatch See Detail 10/23/17 12:45 BBK History Checked Patient has bt 10/23/17 12:45 - Hospital Course Hospital Course: 62 y.o male with PMH of DM2, CAD, CABG, HTN, Stage IV CKD not on dialysis, right BTK amputation with prosthesis admitted for pneumonia. Chest x-ray shows left upper lobe infiltrate. Patient was started on Azithromycin and Rocephin. Patient continued to have fever and ID consulted Dr. Barr: stopped Rocephin and started Zosyn. Pt received Duonebs, Venofer treatments, IV Zoysn and Azithromycin. Sputum AFB x 3 negative TB. Sputum c/s: E.Coli ESBL, Influenza negative, Urine- negative legionella AG, Quantiferon TB negative. Patient received repeat chest X-ray on 11/01/17 and showed no focal consolidation or pleural effusion. In the ED patient found to Hg of 6.8 in which 1 unit PRBC transfused. Hg post transfusion 8.7 and remains stable the entire hospital course. Nephrology Dr. Palmer was consulted 2/2 patients stage IV CKD. Renal ultrasound unremarkable. Recommended venous mapping, in which was performed during hospital stay, and vascular consult for need of HD access in the future. Patient has improved significantly clinically and decision was made to d/c to [facility] with close followup with PMH. Patient will follow-up with Vascular Dr. Avilez. Patient will f/u with Dr. Palmer Discharge Exam - Head Exam Head Exam: ATRAUMATIC, NORMAL INSPECTION - Eye Exam Eye Exam: EOMI, Normal appearance, PERRL Pupil Exam: NORMAL ACCOMODATION, PERRL - Respiratory Exam Respiratory Exam: NORMAL BREATHING PATTERN. absent: Wheezes, Respiratory Distress, Stridor Additional comments: rales and rhonchi has improved significantly - Cardiovascular Exam Cardiovascular Exam: RRR, +S1, +S2 - GI/Abdominal Exam GI & Abdominal Exam: Normal Bowel Sounds, Unremarkable - Extremities Exam Additional comments: right BKA left TMA no calf tenderness with palpation - Back Exam Back exam: NORMAL INSPECTION. absent: CVA tenderness (L), CVA tenderness (R) - Neurological Exam Neurological exam: Alert, Oriented x3 - Psychiatric Exam Psychiatric exam: Normal Affect, Normal Mood - Skin Skin Exam: Dry, Intact, Normal Color, Warm Discharge Plan - Follow Up Plan Condition: FAIR Disposition: HOME/ ROUTINE Instructions: Iron Rich Diet (DC), Blood Transfusion (DC), Anemia (DC), Pneumonia (DC) Additional Instructions: follow up appointment at [facility] with Dr. Rudolph on tuesdaynov 04 at 2pm. ff up with Dr Palmer in [address] Leon in 1 wk Referrals: [facility] [Outside] Cedrick Leon MD [Medical Doctor] - Jonathan Palmer MD [Staff Provider] - Anish Cho MD [Staff Provider] - Miesha Rudolph MD [Family Provider] -
--- NOTE | 2017-11-02 13:12 | PN ---
DATE: SUBJECTIVE: The patient denies chest pain, no shortness of breath at this time. PHYSICAL EXAMINATION: VITAL SIGNS: Blood pressure 126/75, heart rate 108, temperature 98.6, and respirations 20. HEENT: Pale conjunctivae. CHEST: Diminished breath sounds over the bases. HEART: S1 and S2 regular. EXTREMITIES: Right below-knee amputation and left metatarsal amputation with 1+ pedal edema of the left lower extremity. LABORATORY DATA: Hemoglobin and hematocrit are 8.1 and 24.7. White count and platelet count are within normal limit. Today's BUN and creatinine are 38 and 5.8 respectively. Yesterday's chest x-ray revealed prominence of pulmonary vasculature it is secondary to low lung volumes. No focal consolidation or pleural effusion. ASSESSMENT: 1. Coronary artery disease, status post coronary stenting. 2. Peripheral vascular disease. 3. Pneumonia. 4. Advanced renal insufficiency. 5. Hypertension. 6. Diabetes mellitus. RECOMMENDATIONS: Continue current Plavix 75 mg once a day, Norvasc 10 mg once a day, subcutaneous heparin 5000 units twice a day, aspirin 81 mg once a day, and Zosyn 2.25 g intravenously q.8 hours. The plain is to perform an IV access as an outpatient for near future hemodialysis. Anish Cho MD
== END 2017-11-02 15:55 | disposition home or self-care (01) | DRG 194 ==
LOC: H.ER 09:33 → H.ERHOLD 12:33 → H.MEDSURG1 14:29
PROVIDERS: ADMIT Internal Medicine; ATTEND Internal Medicine
PROC: 30233N1 Transfusion of Nonautologous Red Blood Cells into Peripheral Vein, Percutaneous Approach (ICD-10-PCS; principal; 2017-10-23)
DX: J15.9 Unspecified bacterial pneumonia (principal); N25.81 Secondary hyperparathyroidism of renal origin; E11.21 Type 2 diabetes mellitus with diabetic nephropathy; E11.51 Type 2 diabetes mellitus with diabetic peripheral angiopathy without gangrene; I12.0 Hypertensive chronic kidney disease with stage 5 chronic kidney disease or end stage renal disease; N18.5 Chronic kidney disease, stage 5; E83.39 Other disorders of phosphorus metabolism; E87.5 Hyperkalemia; I25.10 Atherosclerotic heart disease of native coronary artery without angina pectoris; Z89.511 Acquired absence of right leg below knee; Z95.5 Presence of coronary angioplasty implant and graft; D63.1 Anemia in chronic kidney disease; Z87.891 Personal history of nicotine dependence; N40.0 Benign prostatic hyperplasia without lower urinary tract symptoms; E11.22 Type 2 diabetes mellitus with diabetic chronic kidney disease

== ENCOUNTER 2018-02-20 07:19 | Day surgery (SDC) | payer MEDICARE, MEDICAID ==
[2018-02-16 10:54] VITALS: BMI 28.0
[2018-02-20] MEDS ORDERED: Bupivacaine HCl 0.25% PF (10 ml) Inj ONE (09:01)
[2018-02-20] MEDS ORDERED: Lidocaine 2% Inj (20ml) ONE (09:01)
[2018-02-20 09:42] LABS: CALCIUM 8.6 mg/dL (8.4-10.2)
--- NOTE | 2018-02-20 11:42 | CP.SDSHP ---
Same Day Surgery H & P - History Proposed Procedure: R arm AV Fistula creation Pre-Op Diagnosis: End-Stage Renal Disease - Previous Medical/Surgical History Cardiac: Hypertension, ASHD/CAD Endocrine/Metabolic: Diabetes, Renal Disease Pain: 0. No Pain Previous Surgical History: CABG, Cardiac Stents, R BKA, L Trans-metatarsal Amputation - Allergies Allergies: Allergies No Known Allergies Allergy (Unverified 02/20/18 08:26) - Physical Exam Vital Signs: Vital Signs 02/20/18 02/20/18 08:12 08:20 Temperature 98.1 F Pulse Rate 89 89 Respiratory 20 Rate Blood Pressure 148/78 O2 Sat by Pulse 97 Oximetry Mental Status: Alert & Oriented x3 Neuro: WNL Heart: WNL Lungs: WNL GI: WNL - Impression Impression: 62yo M with Renal Disease, here for Right arm AVF creation. Pt. Evaluated Today:Candidate for Anesthesia & Procedure: Yes - Date & Time Date: 02/20/18 Time: 11:42 Short Stay Discharge - Short Stay Discharge Admitting Diagnosis/Reason for Visit: N18.6 Disposition: HOME/ ROUTINE Referrals: Miesha Rudolph MD [Primary Care Provider] - Cedrick Leon MD [Medical Doctor] -
[2018-02-20] MEDS ORDERED: ePHEDrine 50 mg/ml Inj ONE (11:43)
[2018-02-20] MEDS ORDERED: Ropivacaine 0.5% 30ML IV ONE (11:43)
[2018-02-20] MEDS ORDERED: Midazolam 2 MG/2 ML VIAL ONE ×2 (11:53→12:45)
[2018-02-20] MEDS ORDERED: Sodium Chloride 0.9% 500 ML IV ONE (12:10)
[2018-02-20] MEDS ORDERED: ceFAZolin IV 2 gm in Dextrose 2 GM/50 ML BAG IVPB ONE (12:17)
[2018-02-20] MEDS ORDERED: Lidocaine 2% Inj (20ml) IJ ONE (12:25)
--- NOTE | 2018-02-20 13:56 | PCM.SURG1 ---
Surgeon's Initial Post Op Note - Surgeon's Notes Surgeon: Dr. Leon Event Marketing Representative: Radha PGY1; Bertrand PGY1 Type of Anesthesia: Block Regional, IV Sedation, Local Anesthesia Administered By: Dr. Estrada Pre-Operative Diagnosis: Renal Disease Operative Findings: see operative report Post-Operative Diagnosis: same Operation Performed: Right Brachio-cephalic AV fistula creation Specimen/Specimens Removed: none Estimated Blood Loss: EBL {In ML}: 20 Blood Products Given: N/A Drains Used: No Drains Post-Op Condition: Fair Date of Surgery/Procedure: 02/20/18 Time of Surgery/Procedure: 13:56
[2018-02-20] MEDS ORDERED: Oxycodone/Acetaminophen 5/325 mg Tab PO PRN (13:58)
--- NOTE | 2018-02-20 15:47 | PCM.ANESB4 ---
Infraclavicular Block - Procedure Infraclavicular Block: Right Supraclavicular Block The procedure was explained to the patient that it is for the post-operative pain management. Consent was obtained after a thorough discussion with the patient regarding the benefits and possible complications of local anesthetic block of the brachial plexus at the supraclavicular area. The patient was brought to the operating room and standard monitors were applied. Time-out was held with the circulating nurse to confirm the correct surgery and the appropriate block. After applying oxygen by nasal cannula and administering IV Sedation, patient's head was gently rotated away from the operative ____right___ _ shoulder. The ultrasound transducer was then applied to the skin in the transverse plane and the brachial plexus was visualized lateral to the subclavian artery. After thorough identification, this area was prepped with Betadine solution three times and 1 % Lidocaine was injected subcutaneously for topical anesthesia. At this point, a #21 gauge Stimuplex 2-inch needle was inserted inserted in supraclavicular region above clavicle in lateral to medial direction. Needle advancement was performed carefully under ultrasound visualization, noted to be above pleura at all times. Nerve stimulator was used and twitch of the affected extremity including fingers, hand, wrist and elbow was obtained at current of __ 0.4___MA. After repeated negative aspiration, ___5__cc of ____0.5_% ropivacaine was injected and this was followed with ___15___ cc of _ ___0.5% ropivacaine__. Under ultrasound guidance the local anesthetics were observed surrounding the brachial plexus. The needle was removed intact and sterile dressing was applied. The patient had stable vital signs, was conscious and in no apparent distress. The patient tolerated the supraclavicular block of the brachial plexus well with stable vital signs was prepared for subsequent surgery.
[2018-02-20 16:04] VITALS: RESP 18; TEMP 98.2; O2SAT 98
[2018-02-20 17:19] VITALS: BP 132/67; PULSE 74
--- NOTE | 2018-02-20 22:28 | CARD ---
APPROVED REPORT EKG Measurement Heart [id number] <Conclusion> Normal sinus rhythm Nonspecific T wave abnormality Abnormal ECG
== END 2018-02-20 17:20 | disposition home or self-care (01) ==
LOC: H.OPSURG 07:19
PROVIDERS: ATTEND Surgery
DX: I12.0 Hypertensive chronic kidney disease with stage 5 chronic kidney disease or end stage renal disease (principal); E11.22 Type 2 diabetes mellitus with diabetic chronic kidney disease; N18.6 End stage renal disease; Z99.2 Dependence on renal dialysis; I25.10 Atherosclerotic heart disease of native coronary artery without angina pectoris; Z89.511 Acquired absence of right leg below knee; Z89.512 Acquired absence of left leg below knee; Z95.1 Presence of aortocoronary bypass graft; Z95.5 Presence of coronary angioplasty implant and graft
CPT/HCPCS: 36415; 36821; 80048; 82948; 86850; 86900; 93005; J0690; J1644; J2250; J7030

== ENCOUNTER 2018-04-18 10:01 | Inpatient (IN) | payer MEDICARE, MEDICAID ==
[2018-04-18 10:10] VITALS: BMI 30.4
[2018-04-18] MEDS ORDERED: Albuterol-Ipratrop 3 mg / 0.5 (3 ml) UD INH STA (10:51)
--- NOTE | 2018-04-18 10:54 | ED PDOC ---
HPI: General Adult Time Seen by Provider: 04/18/18 10:33 Chief Complaint (Provider): Dyspnea History Per: Patient History/Exam Limitations: no limitations Onset/Duration Of Symptoms: Days (3 weeks) Additional Complaint(s): Pt. with dyspnea for 3 weeks. Worse on ambulation. Mild sternal chest pain. No nausea, vomit, diarrhea, headaches, dizziness, weakness. No numbness, tingles. No abd pain. No cough, congestion. Past Medical History Reviewed: Nursing Documentation, Vital Signs Vital Signs: Last Vital Signs Temp 98 F 04/18/18 13:20 Pulse 97 H 04/18/18 13:20 Resp 19 04/18/18 13:20 BP 150/80 04/18/18 13:20 Pulse Ox 97 04/18/18 13:24 - Medical History PMH: Anemia, CAD, Diabetes, HTN, Hypercholesterolemia, Pneumonia, Chronic Kidney Disease - Surgical History Surgical History: Coronary Stent (x 2) Denies: Pacemaker Other surgeries: dialysis shunt on R arm; R BKA - Family History Family History: States: Unknown Family Hx - Living Arrangements Living Arrangements: With Family - Home Medications Home Medications: Ambulatory Orders Medication Instructions Recorded Ferrous Sulfate 325 mg PO DAILY 10/16/13 Gabapentin 100 mg PO BID 10/16/13 Pravastatin Sodium [Pravastatin] 40 mg PO HS 10/16/13 Allopurinol [Zyloprim] 200 mg PO DAILY 10/23/17 Aspirin [Ecotrin] 81 mg PO DAILY 10/23/17 Isosorbide Mononitrate [Isosorbide 30 mg PO DAILY 10/23/17 Mononitrate ER] Terazosin [Hytrin] 10 mg PO HS 10/23/17 amLODIPine [Norvasc] 10 mg PO DAILY 10/23/17 Cholecalciferol [Vitamin D 1000 IU] 1,000 intlu PO DAILY 02/16/18 Clopidogrel [Plavix] 75 mg PO DAILY 02/16/18 Ergocalciferol (Vitamin D2) 50,000 unit PO DAILY 02/16/18 [Vitamin D2] Furosemide [Lasix] 40 mg PO DAILY 02/16/18 Sevelamer Carbonate [Renvela] 800 mg PO DAILY 02/16/18 hydrALAZINE [Apresoline] 25 mg PO TID 02/16/18 Calcitriol [Rocaltrol] 0.25 mcg PO .TID/WEEK 02/20/18 Enalapril Maleate [Vasotec] 20 mg PO DAILY 02/20/18 Linagliptin [Tradjenta] 5 mg PO DAILY 02/20/18 Metoprolol Succinate XL [Toprol XL] 100 mg PO DAILY 02/20/18 Paricalcitol [Zemplar] 1 mcg PO DAILY 02/20/18 Repaglinide [Prandin] 1 mg PO TID 02/20/18 Sodium Bicarbonate Tab 650 mg PO BID 02/20/18 oxyCODONE/Acetaminophen [Percocet 1 tab PO Q6 PRN 02/20/18 5/325 mg Tab] - Allergies Allergies/Adverse Reactions: Allergies Allergy/AdvReac Type Severity Reaction Status Date / Time No Known Allergies Allergy Unverified 02/20/18 08:26 Review of Systems ROS Statement: Except As Marked, All Systems Reviewed And Found Negative Cardiovascular: Positive for: Chest Pain Respiratory: Positive for: Shortness of Breath Physical Exam - Reviewed Nursing Documentation Reviewed: Yes Vital Signs Reviewed: Yes - Physical Exam Appears: Positive for: Non-toxic, No Acute Distress Head Exam: Positive for: ATRAUMATIC, NORMAL INSPECTION, NORMOCEPHALIC Skin: Positive for: Normal Color, Warm, DRY Eye Exam: Positive for: EOMI, Normal appearance, PERRL ENT: Positive for: Normal ENT Inspection Neck: Positive for: Normal, Painless ROM Cardiovascular/Chest: Positive for: Regular Rate, Rhythm Respiratory: Positive for: Decreased Breath Sounds, Other (coarse b/l mild) Gastrointestinal/Abdominal: Positive for: Normal Exam, Soft. Negative for: Tenderness Back: Positive for: Normal Inspection. Negative for: L CVA Tenderness, R CVA Tenderness Extremity: Positive for: Normal ROM, Other (R BKA). Negative for: Tenderness Neurologic/Psych: Positive for: Alert, Oriented - Laboratory Results Result Diagrams: 04/18/18 11:15 04/18/18 11:15 Interpretation Of Abn Labs: hg 7.2, elevated bun/cr elevated trop and probnp - ECG ECG: Positive for: Interpreted By Me, Viewed By Me ECG Rhythm: Positive for: Nonspecific Changes O2 Sat by Pulse Oximetry: 97 - Radiology X-Ray: Read By Radiologist X-Ray Interpretation: Other (increased interstial markings) - Progress ED Course And Treament: 1322: Pt. likely chf. Troponin borderline elevation likely from chf and renal failure. Pt. anemia. 1417: Stable. Alert. Dr. Gambino will admit. Dr. Gambino spoken to and will consult. Agrees with current management. Disposition - Clinical Impression Clinical Impression: CHF exacerbation, Renal insufficiency, Anemia - Patient ED Disposition Is Patient to be Admitted: Yes Counseled Patient/Family Regarding: Studies Performed, Diagnosis - Disposition Disposition Time: 14:19 Condition: FAIR - POA Present On Arrival: None
[2018-04-18] MEDS ORDERED: Sodium Chloride 0.9% 500 ML IV SCH (11:00)
[2018-04-18 11:28] LABS: BASO % 0.4 % (0.0-2.0); EOS # 0.3 K/uL (0.0-0.7); EOS % 4.2 % (0.0-4.0); HEMOGLOBIN 7.2 g/dL (12.0-18.0); LYMPH # 0.6 K/uL (1.0-4.3); LYMPH % 7.8 % (20.0-40.0); MEAN CELL VOLUME 97.7 fl (80.0-94.0); MEAN CORPUSCULAR HEMOGLOBIN 32.7 pg (27.0-31.0); MEAN CORPUSCULAR HGB CONC 33.5 g/dL (33.0-37.0); MEAN PLATELET VOLUME 8.5 fl (7.2-11.7); MONO # 0.7 K/uL (0.0-0.8); MONO % 8.7 % (0.0-10.0); NEUT % 78.9 % (50.0-75.0); NRBC % 0.2 % (0.0-0.0); PLATELET COUNT 179 K/uL (130-400); RED CELL DISTRIBUTION WIDTH 15.6 % (11.5-14.5); WHITE BLOOD COUNT 7.6 K/uL (4.8-10.8)
[2018-04-18] MEDS ORDERED: Albuterol-Ipratrop 3 mg / 0.5 (3 ml) UD ONE ×2 (11:31→20:27)
[2018-04-18 11:32] LABS: ALB/GLOB RATIO 1.1 (1.0-2.1); ALBUMIN 3.5 g/dL (3.5-5.0); CALCIUM 9.5 mg/dL (8.4-10.2)
[2018-04-18 11:34] LABS: INR 1.1 (0.9-1.2); PROTHROMBIN TIME 12.5 Seconds (9.8-13.1)
[2018-04-18] MEDS: Albuterol-Ipratrop 3 mg / 0.5 (3 ml) UD IH STA ×2 (11:37→12:01)
[2018-04-18 11:53] LABS: ABG ALLEN TEST YES; ARTERIAL BLOOD GAS HCO3 22.8 mmol/L (21-28); ARTERIAL BLOOD GAS O2 SAT 98.9 % (95-98); ARTERIAL BLOOD GAS PCO2 33 mm/Hg (35-45); ARTERIAL BLOOD GAS PH 7.42 (7.35-7.45); ARTERIAL BLOOD GAS PO2 87 mm/Hg (80-100); ARTERIAL BLOOD GAS TCO2 22.4 mmol/L (22-28)
[2018-04-18 11:54] LABS: TROPONIN I 0.243 ng/mL (0.00-0.120)
--- NOTE | 2018-04-18 12:27 | RAD ---
Date of service: 04/18/2018 HISTORY: Sepsis Patient COMPARISON: No prior. FINDINGS: LUNGS: Current lung volumes more shallow than before. Current projection apical lordotic accentuating pulmonary vasculature and heart size. PLEURA: No significant pleural effusion identified, no pneumothorax apparent. CARDIOVASCULAR: Nevertheless despite projection cardiomegaly and mild pulmonary venous congestion interstitial type is suggested and represents an interval change. OSSEOUS STRUCTURES: No significant abnormalities. VISUALIZED UPPER ABDOMEN: Similar asymmetrically elevated right hemidiaphragm status OTHER FINDINGS: None. IMPRESSION: Mild cardiomegaly with mild interval increased pulmonary interstitial edema. No consolidation appreciated. Other findings -as above.
[2018-04-18 13:05] LABS: ANISOCYTOSIS SLIGHT; EOSINOPHIL 3 % (0-7); HYPOCHROMIC MODERATE; LYMPHOCYTE 10 % (20-50); MONOCYTE 7 % (0-10); NEUTROPHIL 80 % (42-75); OVALOCYTES SLIGHT; PLATELET ESTIMATE NORMAL (NORMAL); SCHISTOCYTES SLIGHT; TEARDROP CELLS SLIGHT; TOTAL CELLS COUNTED 100
--- NOTE | 2018-04-18 15:21 | CARD ---
APPROVED REPORT Date of service: 04/18/2018 EKG Measurement Heart [id number] <Conclusion> Sinus tachycardia ST & T wave abnormality, consider lateral ischemia Abnormal ECG
--- NOTE | 2018-04-18 16:48 | CP.PCM.HP ---
History of Present Illness - History of Present Illness History of Present Illness: 62 YR OLD MALE ADMITTED VIA THE ER BECAUSE OF SHORTNESS OF BREATH FOR SEVERAL WEEKS,WORSE ON THE DAY OF ADMISSION.HX OF CARDIAC DISEASE,RENAL DISEASE AND CHRONIC ANEMIA.S/P R BKA. HX OF FORMER SMOKING AND ALCOHOL USE. Present on Admission - Present on Admission Any Indicators Present on Admission: Yes Past Patient History - Past Medical History & Family History Past Medical History?: Yes - Past Social History Smoking Status: Former Smoker - CARDIAC Hx Hypercholesterolemia: Yes Hx Hypertension: Yes Hx Pacemaker: No - PULMONARY Hx Pneumonia: Yes - NEUROLOGICAL Hx Neurological Disorder: No Hx Paralysis: No Other/Comment: mini-stroke 2010 - HEENT Hx HEENT Problems: Yes Hx Cataracts: Yes (extraction 2010) - RENAL Hx Chronic Kidney Disease: Yes - ENDOCRINE/METABOLIC Hx Endocrine Disorders: Yes Hx Diabetes Mellitus Type 2: Yes - HEMATOLOGICAL/ONCOLOGICAL Hx Anemia: Yes - INTEGUMENTARY Hx Dermatological Problems: No - MUSCULOSKELETAL/RHEUMATOLOGICAL Hx Musculoskeletal Disorders: No Hx Falls: No - GASTROINTESTINAL Hx Gastrointestinal Disorders: No - GENITOURINARY/GYNECOLOGICAL Hx Genitourinary Disorders: No - PSYCHIATRIC Hx Emotional Abuse: No Hx Physical Abuse: No Hx Substance Use: No - SURGICAL HISTORY Hx Coronary Stent: Yes (x 2) - ANESTHESIA Hx Anesthesia: Yes Hx Anesthesia Reactions: No Hx Malignant Hyperthermia: No Meds Allergies/Adverse Reactions: Allergies Allergy/AdvReac Type Severity Reaction Status Date / Time No Known Allergies Allergy Unverified 02/20/18 08:26 Results - Vital Signs Recent Vital Signs: Last Vital Signs Temp 98 F 04/18/18 13:20 Pulse 90 04/18/18 14:58 Resp 19 04/18/18 14:58 BP 153/86 H 04/18/18 14:58 Pulse Ox 98 04/18/18 14:58 - Labs Result Diagrams: 04/18/18 11:15 04/18/18 11:15 Labs: Laboratory Results - last 24 hr 04/18/18 04/18/18 04/18/18 11:05 11:15 11:15 WBC 7.6 RBC 2.20 L Hgb 7.2 L D Hct 21.5 L MCV 97.7 H D MCH 32.7 H MCHC 33.5 RDW 15.6 H Plt Count 179 MPV 8.5 Neut % (Auto) 78.9 H Lymph % (Auto) 7.8 L [place] % (Auto) 8.7 Eos % (Auto) 4.2 H Baso % (Auto) 0.4 Neut # (Auto) 6.0 Lymph # (Auto) 0.6 L [place] # (Auto) 0.7 Eos # (Auto) 0.3 Baso # (Auto) 0.0 Neutrophils % (Manual) 80 H Lymphocytes % (Manual) 10 L Monocytes % (Manual) 7 Eosinophils % (Manual) 3 Platelet Estimate Normal Hypochromasia (manual) Moderate Anisocytosis (manual) Slight Tear Drop Cells Slight Ovalocytes Slight Schistocytes Slight PT INR APTT pCO2 33 L pO2 87 HCO3 22.8 ABG pH 7.42 ABG Total CO2 22.4 ABG O2 Saturation 98.9 H ABG Base Excess -2.7 L Niraj Test Yes ABG Potassium 4.2 A-a O2 Difference 157.0 Sodium 138.0 140 Chloride 109.0 H 108 H Glucose 126 H Lactate 0.6 L FiO2 40.0 Potassium 4.6 Carbon Dioxide 18 L Anion Gap 19 BUN 66 H Creatinine 6.7 H Est GFR ( Amer) 10 Est GFR (Non-Af Amer) 8 Random Glucose 120 H Calcium 9.5 Phosphorus 5.2 H Magnesium 1.4 L Total Bilirubin 0.5 AST 27 ALT 30 Alkaline Phosphatase 73 Troponin I 0.2430 H* NT-Pro-B Natriuret Pep 01549 H Total Protein 6.8 Albumin 3.5 D Globulin 3.2 Albumin/Globulin Ratio 1.1 Arterial Blood Potassium 4.2 04/18/18 11:15 WBC RBC Hgb Hct MCV MCH MCHC RDW Plt Count MPV Neut % (Auto) Lymph % (Auto) [place] % (Auto) Eos % (Auto) Baso % (Auto) Neut # (Auto) Lymph # (Auto) [place] # (Auto) Eos # (Auto) Baso # (Auto) Neutrophils % (Manual) Lymphocytes % (Manual) Monocytes % (Manual) Eosinophils % (Manual) Platelet Estimate Hypochromasia (manual) Anisocytosis (manual) Tear Drop Cells Ovalocytes Schistocytes PT 12.5 INR 1.1 APTT 28.0 pCO2 pO2 HCO3 ABG pH ABG Total CO2 ABG O2 Saturation ABG Base Excess Niraj Test ABG Potassium A-a O2 Difference Sodium Chloride Glucose Lactate FiO2 Potassium Carbon Dioxide Anion Gap BUN Creatinine Est GFR ( Amer) Est GFR (Non-Af Amer) Random Glucose Calcium Phosphorus Magnesium Total Bilirubin AST ALT Alkaline Phosphatase Troponin I NT-Pro-B Natriuret Pep Total Protein Albumin Globulin Albumin/Globulin Ratio Arterial Blood Potassium Assessment & Plan - Assessment and Plan (Free Text) Assessment: ACUTE CONGESTIVE HEART FAILURE-R/O ACUTE CORONARY SYNDROME ESRD HTN CHRONIC ANEMIA--DUE TO RENAL FAILURE ?COPD HX OF R BKA Plan: CARDIOLOGY,NEPHROLOGY AND HEME EVAL SEE ORDERS - Date & Time Date: 04/18/18 Time: 16:51
[2018-04-18] MEDS ORDERED: Ergocalciferol 50,000 Intl Units Cap PO SCH (17:00)
[2018-04-18] MEDS ORDERED: Epoetin Alfa 40000 UNIT/ml Inj IV SCH (17:00)
[2018-04-18] MEDS ORDERED: Albuterol-Ipratrop 3 mg / 0.5 (3 ml) UD INH PRN (17:05)
[2018-04-18] MEDS: Cholecalciferol 1,000 INTLU TAB PO SCH ×3 (17:29→17:33)
[2018-04-18 18:15] LABS: T4 8.22 ug/dl (5.5-11.0)
[2018-04-18 18:35] LABS: TROPONIN I 0.197 ng/mL (0.00-0.120)
--- NOTE | 2018-04-18 20:58 | CP.PCM.CON ---
History of Present Illness - History of Present Illness History of Present Illness: I was asked to see patient by Dr Gambino. Patient is a 62 year old male with PMH HTN, CAD, renal failure who presents with dyspnea. Patient had recent cardiac cath revealing patent coronary stents. The patient has noted progressive dyspnea on exertion, worse after walking 2 blocks, he has noted wheezing. He presented to the ER and was found to have anemia. He is seen in the ER. Review of Systems - Constitutional Constitutional: absent: As Per HPI, Anorexia, Chills, Daytime Sleepiness, Excessive Sweating, Fatigue, Fever, Frequent Falls, Headache, Increased Appetite , Lethargy, Malaise, Night Sweats, Snoring, Sleep Apnea, Weight Gain, Weight Loss, Weakness, Other - EENT Eyes: absent: As Per HPI, Blind Spots, Blurred Vision, Change in Vision, Decreased Night Vision, Diplopia, Discharge, Dry Eye, Exophthalmos, Floaters, Irritation, Itchy Eyes, Loss of Peripheral Vision, Pain, Photophobia, Requires Corrective Lenses, Sees Flashes, Spots in Vision, Tunnel Vision, Other Visual Disturbances, Loss of Vision, Other Ears: absent: As Per HPI, Decreased Hearing, Ear Discharge, Ear Pain, Tinnitus, Abnormal Hearing, Disequilibrium, Dizziness, Other Nose/Mouth/Throat: absent: As Per HPI, Epistaxis, Nasal Congestion, Nasal Discharge, Nasal Obstruction, Nasal Trauma, Nose Pain, Post Nasal Drip, Sinus Pain, Sinus Pressure, Bleeding Gums, Change in Voice, Dental Pain, Dry Mouth, Dysphagia, Halitosis, Hoarsness, Lip Swelling, Mouth Lesions, Mouth Pain, Odynophagia, Sore Throat, Throat Swelling, Tongue Swelling, Facial Pain, Neck Pain, Neck Mass, Other - Cardiovascular Cardiovascular: Dyspnea, Dyspnea on Exertion - Respiratory Respiratory: Dyspnea - Gastrointestinal Gastrointestinal: absent: As Per HPI, Abdominal Pain, Belching, Bloating, Change in Bowel Habits, Change in Stool Character, Coffee Ground Emesis, Constipation, Cramping, Diarrhea, Dyspepsia, Dysphagia, Early Satiety, Excessive Flatus, Fecal Incontinence, Heartburn, Hematemesis, Hematochezia, Loose Stools, Melena, Nausea, Odynophagia, Temesmus, Vomiting, Other - Genitourinary Genitourinary: absent: As Per HPI, Change in Urinary Stream, Difficulty Urinating, Dysuria, Flank Pain, Hematuria, Pyuria, Nocturia, Urinary Incontinence, Urinary Frequency, Urinary Hesitance, Urinary Urgency, Voiding Freq/Small Amts, Freq UTI, Hx Renal/Bladder Calculi, Hx /Renal Surgery, Bladder Distension, Other - Musculoskeletal Musculoskeletal: absent: As Per HPI, Abnormal Gait, Arthralgias, Atrophy, Back Pain, Deformity, Joint Swelling, Limited Range of Motion, Loss of Height, Muscle Cramps, Muscle Weakness, Myalgias, Neck Pain, Numbness, Radiating Pain into Limb, Stiffness, Tingling, Other - Integumentary Integumentary: absent: As Per HPI, Acne, Alopecia, Bleeding Lesions, Change in Hair, Change in Nails, Change in Pigmentation, Changing Lesions, Dry Skin, Erythema, Furuncle, Hirsutism, Lesions, New Lesions, Non-Healing Lesions, Photosensitivity, Pruritus, Rash, Skin Pain, Skin Ulcer, Sores, Striae, Swelling , Unusual Bruising, Wounds, Jaundice, Other - Neurological Neurological: absent: As Per HPI, Abnormal Gait, Abnormal Hearing, Abnormal Movements, Abnormal Speech, Behavioral Changes, Burning Sensations, Confusion, Convulsions, Disequilibrium, Dizziness, Numbness, Focal Weakness, Frequent Falls , Headaches, Lack of Coordination, Loss of Vision, Memory Loss, Paresthesias, Radicular Pain, Restless Legs, Sensory Deficit, Syncope, Tingling, Tremor, Vertigo, Weakness, Other Visual Disturbances, Other - Psychiatric Psychiatric: absent: As Per HPI, Abnormal Sleep Pattern, Anhedonia, Anxiety, Auditory Hallucinations, Behavioral Changes, Change in Appetite, Change in Libido, Confusion, Depression, Difficulty Concentrating, Hallucinations, Homicidal Ideation, Hopelessness, Irritability, Memory Loss, Mood Swings, Panic Attacks, Paranoia, Suicidal Ideation, Visual Hallucinations, Tactile Hallucinations, Other - Endocrine Endocrine: absent: As Per HPI, Change in Body Appearance, Change in Libido, Cold Intolorance, Deepening of Voice, Excessive Sweating, Fatigue, Flushing, Heat Intolorance, Increase in Ring/Shoe/Hat Size, Palpitations, Polydipsia, Polyphagia, Polyuria, Other - Hematologic/Lymphatic Hematologic: absent: As Per HPI, Easy Bleeding, Easy Bruising, Lymphadenopathy, Other Past Patient History - Past Medical History & Family History Past Medical History?: Yes - Past Social History Smoking Status: Former Smoker - CARDIAC Hx Hypercholesterolemia: Yes Hx Hypertension: Yes Hx Pacemaker: No - PULMONARY Hx Pneumonia: Yes - NEUROLOGICAL Hx Neurological Disorder: No Hx Paralysis: No Other/Comment: mini-stroke 2010 - HEENT Hx HEENT Problems: Yes Hx Cataracts: Yes (extraction 2010) - RENAL Hx Chronic Kidney Disease: Yes - ENDOCRINE/METABOLIC Hx Endocrine Disorders: Yes Hx Diabetes Mellitus Type 2: Yes - HEMATOLOGICAL/ONCOLOGICAL Hx Anemia: Yes - INTEGUMENTARY Hx Dermatological Problems: No - MUSCULOSKELETAL/RHEUMATOLOGICAL Hx Musculoskeletal Disorders: No Hx Falls: No - GASTROINTESTINAL Hx Gastrointestinal Disorders: No - GENITOURINARY/GYNECOLOGICAL Hx Genitourinary Disorders: No - PSYCHIATRIC Hx Emotional Abuse: No Hx Physical Abuse: No Hx Substance Use: No - SURGICAL HISTORY Hx Coronary Stent: Yes (x 2) - ANESTHESIA Hx Anesthesia: Yes Hx Anesthesia Reactions: No Hx Malignant Hyperthermia: No Meds Allergies/Adverse Reactions: Allergies Allergy/AdvReac Type Severity Reaction Status Date / Time No Known Allergies Allergy Unverified 02/20/18 08:26 - Medications Medications: Current Medications Albuterol/Ipratropium (Duoneb 3 Mg/0.5 Mg (3 Ml) Ud) 3 ml INH RQ6 PRN PRN Reason: Shortness of Breath Last Admin: 04/18/18 20:30 Dose: 3 ml Allopurinol (Zyloprim) 200 mg PO DAILY [facility] Amlodipine Besylate (Norvasc) 10 mg PO DAILY [facility] Aspirin (Ecotrin) 81 mg PO DAILY [facility] Calcitriol (Rocaltrol) 0.25 mcg PO MWF [facility] Cholecalciferol (Vitamin D) 5,000 intlu PO DAILY [facility] Last Admin: 04/18/18 17:33 Dose: 5,000 intlu Clopidogrel Bisulfate (Plavix) 75 mg PO DAILY [facility] Enalapril Maleate (Vasotec) 20 mg PO DAILY [facility] Epoetin Eddy (Procrit) 40,000 unit IV QWK [facility] Ferrous Sulfate (Feosol) 325 mg PO DAILY [facility] Furosemide (Lasix) 40 mg IVP DAILY [facility] Home Med (Paricalcitol [Zemplar]) 1 mcg PO DAILY [facility] Home Med (Sevelamer Carbonate [Renvela]) 1,600 mg PO TID [facility] Hydralazine HCl (Apresoline) 50 mg PO Q8 [facility] Last Admin: 04/18/18 17:34 Dose: 50 mg Isosorbide Mononitrate (Imdur Er) 30 mg PO DAILY [facility] Last Admin: 04/18/18 17:28 Dose: 30 mg Metoprolol Succinate (Toprol Xl) 100 mg PO DAILY [facility] Pravastatin Sodium (Pravachol) 40 mg PO HS [facility] Repaglinide (Prandin) 1 mg PO BRKDIN [facility] Last Admin: 04/18/18 17:29 Dose: 1 mg Repaglinide (Prandin) 2 mg PO ACL [facility] Last Admin: 04/18/18 20:04 Dose: Not Given Sitagliptin Phosphate (Januvia) 25 mg PO DAILY [facility] Sodium Bicarbonate (Sodium Bicarbonate Tab) 1,300 mg PO Q12 [facility] Physical Exam - Constitutional Appears: Non-toxic - Head Exam Head Exam: NORMAL INSPECTION - Eye Exam Eye Exam: Normal appearance - ENT Exam ENT Exam: Mucous Membranes Moist - Neck Exam Neck exam: Positive for: Full Rom - Respiratory Exam Respiratory Exam: NORMAL BREATHING PATTERN - Cardiovascular Exam Cardiovascular Exam: REGULAR RHYTHM - GI/Abdominal Exam GI & Abdominal Exam: Normal Bowel Sounds - Rectal Exam Rectal Exam: Deferred - Extremities Exam Extremities exam: Negative for: pedal edema - Back Exam Back exam: NORMAL INSPECTION - Neurological Exam Neurological exam: Alert, Oriented x3 - Psychiatric Exam Psychiatric exam: Normal Affect - Skin Skin Exam: Normal Color Results - Vital Signs Recent Vital Signs: Last Vital Signs Temp 98 F 04/18/18 17:07 Pulse 80 04/18/18 20:30 Resp 18 04/18/18 20:30 BP 144/87 04/18/18 20:30 Pulse Ox 100 04/18/18 20:30 - Labs Result Diagrams: 04/18/18 11:15 04/18/18 11:15 Labs: Laboratory Results - last 24 hr 04/18/18 04/18/18 04/18/18 11:05 11:15 11:15 WBC 7.6 RBC 2.20 L Hgb 7.2 L D Hct 21.5 L MCV 97.7 H D MCH 32.7 H MCHC 33.5 RDW 15.6 H Plt Count 179 MPV 8.5 Neut % (Auto) 78.9 H Lymph % (Auto) 7.8 L [place] % (Auto) 8.7 Eos % (Auto) 4.2 H Baso % (Auto) 0.4 Neut # (Auto) 6.0 Lymph # (Auto) 0.6 L [place] # (Auto) 0.7 Eos # (Auto) 0.3 Baso # (Auto) 0.0 Neutrophils % (Manual) 80 H Lymphocytes % (Manual) 10 L Monocytes % (Manual) 7 Eosinophils % (Manual) 3 Platelet Estimate Normal Hypochromasia (manual) Moderate Anisocytosis (manual) Slight Tear Drop Cells Slight Ovalocytes Slight Schistocytes Slight PT INR APTT pCO2 33 L pO2 87 HCO3 22.8 ABG pH 7.42 ABG Total CO2 22.4 ABG O2 Saturation 98.9 H ABG Base Excess -2.7 L Niraj Test Yes ABG Potassium 4.2 A-a O2 Difference 157.0 Sodium 138.0 140 Chloride 109.0 H 108 H Glucose 126 H Lactate 0.6 L FiO2 40.0 Potassium 4.6 Carbon Dioxide 18 L Anion Gap 19 BUN 66 H Creatinine 6.7 H Est GFR ( Amer) 10 Est GFR (Non-Af Amer) 8 Random Glucose 120 H Calcium 9.5 Phosphorus 5.2 H Magnesium 1.4 L Ferritin Total Bilirubin 0.5 AST 27 ALT 30 Alkaline Phosphatase 73 Troponin I 0.2430 H* NT-Pro-B Natriuret Pep 08470 H Total Protein 6.8 Albumin 3.5 D Globulin 3.2 Albumin/Globulin Ratio 1.1 Thyroxine (T4) TSH 3rd Generation Arterial Blood Potassium 4.2 04/18/18 04/18/18 11:15 17:39 WBC RBC Hgb Hct MCV MCH MCHC RDW Plt Count MPV Neut % (Auto) Lymph % (Auto) [place] % (Auto) Eos % (Auto) Baso % (Auto) Neut # (Auto) Lymph # (Auto) [place] # (Auto) Eos # (Auto) Baso # (Auto) Neutrophils % (Manual) Lymphocytes % (Manual) Monocytes % (Manual) Eosinophils % (Manual) Platelet Estimate Hypochromasia (manual) Anisocytosis (manual) Tear Drop Cells Ovalocytes Schistocytes PT 12.5 INR 1.1 APTT 28.0 pCO2 pO2 HCO3 ABG pH ABG Total CO2 ABG O2 Saturation ABG Base Excess Niraj Test ABG Potassium A-a O2 Difference Sodium Chloride Glucose Lactate FiO2 Potassium Carbon Dioxide Anion Gap BUN Creatinine Est GFR ( Amer) Est GFR (Non-Af Amer) Random Glucose Calcium Phosphorus Magnesium Ferritin 254.0 Total Bilirubin AST ALT Alkaline Phosphatase Troponin I 0.1970 H* NT-Pro-B Natriuret Pep 96547 H Total Protein Albumin Globulin Albumin/Globulin Ratio Thyroxine (T4) 8.22 TSH 3rd Generation 0.67 Arterial Blood Potassium - EKG Data EKG Interpreted by: Myself EKG shows normal: Sinus rhythm Assessment & Plan (1) Chronic kidney disease, stage V Assessment and Plan: annley a contributor with concomitant anemia. recommend medical tehrapy. likely will benefit from transfusion. renal evaluation Status: Acute (2) CAD (coronary artery disease) Assessment and Plan: no active angina Status: Chronic (3) HTN (hypertension) Assessment and Plan: will monitor blood pressure Status: Chronic
[2018-04-18] MEDS: Pravastatin Sodium 40 MG TAB PO SCH (22:17)
[2018-04-19] MEDS: Patient's Own Med (Paricalcitol [Zemplar] 1 MCG) PO SCH (09:19)
[2018-04-19] MEDS: SEVELAMER CARBONATE 1600 MG PO SCH ×2 (09:20→17:55)
[2018-04-19] MEDS: Metoprolol Succinate 100 mg XL Tab PO SCH (09:22)
--- NOTE | 2018-04-19 09:27 | CP.PCM.PN ---
Subjective - Date & Time of Evaluation Date of Evaluation: 04/19/18 Time of Evaluation: 09:30 - Subjective Subjective: still has sob on mild exertion no chest pains/sob Objective - Vital Signs/Intake and Output Vital Signs (last 24 hours): Temp Pulse Resp BP Pulse Ox 97.3 F L 84 20 153/73 H 98 04/19/18 08:00 04/19/18 09:22 04/19/18 08:00 04/19/18 09:22 04/19/18 08:00 - Medications Medications: Current Medications Albuterol/Ipratropium (Duoneb 3 Mg/0.5 Mg (3 Ml) Ud) 3 ml INH RQ6 PRN PRN Reason: Shortness of Breath Last Admin: 04/18/18 20:30 Dose: 3 ml Allopurinol (Zyloprim) 200 mg PO DAILY [facility] Last Admin: 04/19/18 09:22 Dose: 200 mg Amlodipine Besylate (Norvasc) 10 mg PO DAILY [facility] Last Admin: 04/19/18 09:18 Dose: 10 mg Aspirin (Ecotrin) 81 mg PO DAILY [facility] Last Admin: 04/19/18 09:17 Dose: Not Given Calcitriol (Rocaltrol) 0.25 mcg PO MWF [facility] Last Admin: 04/19/18 09:21 Dose: 0.25 mcg Cholecalciferol (Vitamin D) 5,000 intlu PO DAILY [facility] Last Admin: 04/18/18 17:33 Dose: 5,000 intlu Clopidogrel Bisulfate (Plavix) 75 mg PO DAILY [facility] Last Admin: 04/19/18 09:20 Dose: Not Given Enalapril Maleate (Vasotec) 20 mg PO DAILY [facility] Last Admin: 04/19/18 09:21 Dose: 20 mg Epoetin Eddy (Procrit) 40,000 unit IV QWK [facility] Ferrous Sulfate (Feosol) 325 mg PO DAILY [facility] Last Admin: 04/19/18 09:17 Dose: 325 mg Furosemide (Lasix) 40 mg IVP DAILY [facility] Last Admin: 04/19/18 09:18 Dose: 40 mg Home Med (Paricalcitol [Zemplar]) 1 mcg PO DAILY [facility] Last Admin: 04/19/18 09:19 Dose: 1 mcg Home Med (Sevelamer Carbonate [Renvela]) 1,600 mg PO TID [facility] Last Admin: 04/19/18 09:20 Dose: 1,600 mg Hydralazine HCl (Apresoline) 50 mg PO Q8 [facility] Last Admin: 04/19/18 09:16 Dose: 50 mg Isosorbide Mononitrate (Imdur Er) 30 mg PO DAILY [facility] Last Admin: 04/19/18 09:17 Dose: 30 mg Metoprolol Succinate (Toprol Xl) 100 mg PO DAILY [facility] Last Admin: 04/19/18 09:22 Dose: 100 mg Pravastatin Sodium (Pravachol) 40 mg PO HS [facility] Last Admin: 04/18/18 22:17 Dose: 40 mg Repaglinide (Prandin) 1 mg PO BRKDIN [facility] Last Admin: 04/19/18 08:00 Dose: 1 mg Repaglinide (Prandin) 2 mg PO ACL [facility] Sitagliptin Phosphate (Januvia) 25 mg PO DAILY [facility] Last Admin: 04/19/18 09:18 Dose: 25 mg Sodium Bicarbonate (Sodium Bicarbonate Tab) 1,300 mg PO Q12 [facility] Last Admin: 04/19/18 09:20 Dose: 1,300 mg - Labs Labs: 04/18/18 11:15 04/18/18 11:15 PT 12.5 Seconds (9.8-13.1) 04/18/18 11:15 INR 1.1 (0.9-1.2) 04/18/18 11:15 APTT 28.0 Seconds (25.6-37.1) 04/18/18 11:15 - Constitutional Appears: Chronically Ill - Head Exam Head Exam: ATRAUMATIC, NORMAL INSPECTION, NORMOCEPHALIC - Eye Exam Eye Exam: EOMI, Normal appearance, PERRL Pupil Exam: NORMAL ACCOMODATION, PERRL - ENT Exam ENT Exam: Mucous Membranes Moist, Normal Exam - Neck Exam Neck Exam: Full ROM, Normal Inspection. absent: Lymphadenopathy - Respiratory Exam Respiratory Exam: Decreased Breath Sounds, Rales, NORMAL BREATHING PATTERN - Cardiovascular Exam Cardiovascular Exam: REGULAR RHYTHM, +S1, +S2. absent: Murmur - GI/Abdominal Exam GI & Abdominal Exam: Soft, Normal Bowel Sounds. absent: Tenderness - Rectal Exam Rectal Exam: NORMAL INSPECTION - Extremities Exam Extremities Exam: Full ROM, Normal Capillary Refill, Normal Inspection. absent : Joint Swelling, Pedal Edema Additional comments: s/p r bka - Back Exam Back Exam: NORMAL INSPECTION - Neurological Exam Neurological Exam: Alert, Awake, CN II-XII Intact, Normal Gait, Oriented x3 - Psychiatric Exam Psychiatric exam: Normal Affect, Normal Mood - Skin Skin Exam: Dry, Intact, Normal Color, Warm Assessment and Plan - Assessment and Plan (Free Text) Assessment: sob and anemia probably due to esrd mild chf ashd dm htn elevated troponin due to renal failure Plan: may need dialysis and transfusion of prbcs/iron will obtain heme and nephrology consults
--- NOTE | 2018-04-19 11:12 | CP.PCM.PN ---
Subjective - Date & Time of Evaluation Date of Evaluation: 04/19/18 Time of Evaluation: 11:11 - Subjective Subjective: Pt see full note to follow Tests ordered. , Objective - Vital Signs/Intake and Output Vital Signs (last 24 hours): Temp Pulse Resp BP Pulse Ox 97.3 F L 84 20 141/75 98 04/19/18 08:00 04/19/18 09:22 04/19/18 08:00 04/19/18 10:55 04/19/18 08:00 - Medications Medications: Current Medications Albuterol/Ipratropium (Duoneb 3 Mg/0.5 Mg (3 Ml) Ud) 3 ml INH RQ6 PRN PRN Reason: Shortness of Breath Last Admin: 04/18/18 20:30 Dose: 3 ml Allopurinol (Zyloprim) 200 mg PO DAILY [facility] Last Admin: 04/19/18 09:22 Dose: 200 mg Amlodipine Besylate (Norvasc) 10 mg PO DAILY [facility] Last Admin: 04/19/18 09:18 Dose: 10 mg Aspirin (Ecotrin) 81 mg PO DAILY [facility] Last Admin: 04/19/18 09:17 Dose: Not Given Calcitriol (Rocaltrol) 0.25 mcg PO MWF [facility] Last Admin: 04/19/18 09:21 Dose: 0.25 mcg Cholecalciferol (Vitamin D) 5,000 intlu PO DAILY [facility] Last Admin: 04/18/18 17:33 Dose: 5,000 intlu Clopidogrel Bisulfate (Plavix) 75 mg PO DAILY [facility] Last Admin: 04/19/18 09:20 Dose: Not Given Enalapril Maleate (Vasotec) 20 mg PO DAILY [facility] Last Admin: 04/19/18 09:21 Dose: 20 mg Epoetin Eddy (Procrit) 40,000 unit IV QWK [facility] Ferrous Sulfate (Feosol) 325 mg PO DAILY [facility] Last Admin: 04/19/18 09:17 Dose: 325 mg Furosemide (Lasix) 40 mg IVP DAILY [facility] Last Admin: 04/19/18 09:18 Dose: 40 mg Home Med (Paricalcitol [Zemplar]) 1 mcg PO DAILY [facility] Last Admin: 04/19/18 09:19 Dose: 1 mcg Home Med (Sevelamer Carbonate [Renvela]) 1,600 mg PO TID [facility] Last Admin: 04/19/18 09:20 Dose: 1,600 mg Hydralazine HCl (Apresoline) 50 mg PO Q8 [facility] Last Admin: 04/19/18 09:16 Dose: 50 mg Isosorbide Mononitrate (Imdur Er) 30 mg PO DAILY [facility] Last Admin: 04/19/18 09:17 Dose: 30 mg Metoprolol Succinate (Toprol Xl) 100 mg PO DAILY [facility] Last Admin: 04/19/18 09:22 Dose: 100 mg Pravastatin Sodium (Pravachol) 40 mg PO HS [facility] Last Admin: 04/18/18 22:17 Dose: 40 mg Repaglinide (Prandin) 1 mg PO BRKDIN [facility] Last Admin: 04/19/18 08:00 Dose: 1 mg Repaglinide (Prandin) 2 mg PO ACL [facility] Sitagliptin Phosphate (Januvia) 25 mg PO DAILY [facility] Last Admin: 04/19/18 09:18 Dose: 25 mg Sodium Bicarbonate (Sodium Bicarbonate Tab) 1,300 mg PO Q12 [facility] Last Admin: 04/19/18 09:20 Dose: 1,300 mg - Labs Labs: 04/18/18 11:15 04/18/18 11:15 PT 12.5 Seconds (9.8-13.1) 04/18/18 11:15 INR 1.1 (0.9-1.2) 04/18/18 11:15 APTT 28.0 Seconds (25.6-37.1) 04/18/18 11:15
--- NOTE | 2018-04-19 11:32 | CP.PCM.CON ---
History of Present Illness - History of Present Illness History of Present Illness: patient is a 62 years of age male who was admitted from the emergency room complaining of shortness of breath and difficulty breathing. Patient is known to have a chronic kidney disease stage V. Patient has right upper arm fistula approximately 4 weeks ago And patient was told that he may need dialysis in the near future.no nausea no vomiting Medical history patient has diabetes mellitus and hypertension in addition to chronic kidney disease And anemia Social history patient was EX smoker and ex alcohol but not anymore Review of Systems - Constitutional Constitutional: absent: Chills - Cardiovascular Cardiovascular: Dyspnea on Exertion. absent: Chest Pain, Edema, Pedal Edema - Respiratory Respiratory: Chest Congestion. absent: Hemoptysis - Gastrointestinal Gastrointestinal: absent: Abdominal Pain - Genitourinary Genitourinary: Nocturia - Musculoskeletal Musculoskeletal: As Per HPI - Neurological Neurological: As Per HPI. absent: Confusion, Focal Weakness - Psychiatric Psychiatric: As Per HPI - Endocrine Endocrine: Fatigue - Hematologic/Lymphatic Hematologic: absent: Easy Bleeding Past Patient History - Past Medical History & Family History Past Medical History?: Yes - Past Social History Smoking Status: Unknown If Ever Smoked - CARDIAC Hx Hypercholesterolemia: Yes Hx Hypertension: Yes Hx Pacemaker: No - PULMONARY Hx Pneumonia: Yes - NEUROLOGICAL Hx Neurological Disorder: No Hx Paralysis: No Other/Comment: mini-stroke 2010 - HEENT Hx HEENT Problems: Yes Hx Cataracts: Yes (extraction 2010) - RENAL Hx Chronic Kidney Disease: Yes - ENDOCRINE/METABOLIC Hx Endocrine Disorders: Yes Hx Diabetes Mellitus Type 2: Yes - HEMATOLOGICAL/ONCOLOGICAL Hx Anemia: Yes - INTEGUMENTARY Hx Dermatological Problems: No - MUSCULOSKELETAL/RHEUMATOLOGICAL Hx Falls: No - GASTROINTESTINAL Hx Gastrointestinal Disorders: No - GENITOURINARY/GYNECOLOGICAL Hx Genitourinary Disorders: No - PSYCHIATRIC Hx Substance Use: No - SURGICAL HISTORY Hx Coronary Stent: Yes (x 2) - ANESTHESIA Hx Anesthesia: Yes Hx Anesthesia Reactions: No Hx Malignant Hyperthermia: No Meds Allergies/Adverse Reactions: Allergies Allergy/AdvReac Type Severity Reaction Status Date / Time No Known Allergies Allergy Unverified 02/20/18 08:26 - Medications Medications: Current Medications Albuterol/Ipratropium (Duoneb 3 Mg/0.5 Mg (3 Ml) Ud) 3 ml INH RQ6 PRN PRN Reason: Shortness of Breath Last Admin: 04/18/18 20:30 Dose: 3 ml Allopurinol (Zyloprim) 200 mg PO DAILY [facility] Last Admin: 04/19/18 09:22 Dose: 200 mg Amlodipine Besylate (Norvasc) 10 mg PO DAILY [facility] Last Admin: 04/19/18 09:18 Dose: 10 mg Aspirin (Ecotrin) 81 mg PO DAILY [facility] Last Admin: 04/19/18 09:17 Dose: Not Given Calcitriol (Rocaltrol) 0.25 mcg PO MWF [facility] Last Admin: 04/19/18 09:21 Dose: 0.25 mcg Cholecalciferol (Vitamin D) 5,000 intlu PO DAILY [facility] Last Admin: 04/18/18 17:33 Dose: 5,000 intlu Clopidogrel Bisulfate (Plavix) 75 mg PO DAILY [facility] Last Admin: 04/19/18 09:20 Dose: Not Given Enalapril Maleate (Vasotec) 20 mg PO DAILY [facility] Last Admin: 04/19/18 09:21 Dose: 20 mg Epoetin Eddy (Procrit) 40,000 unit IV QWK [facility] Ferrous Sulfate (Feosol) 325 mg PO DAILY [facility] Last Admin: 04/19/18 09:17 Dose: 325 mg Furosemide (Lasix) 40 mg IVP DAILY [facility] Last Admin: 04/19/18 09:18 Dose: 40 mg Home Med (Paricalcitol [Zemplar]) 1 mcg PO DAILY [facility] Last Admin: 04/19/18 09:19 Dose: 1 mcg Home Med (Sevelamer Carbonate [Renvela]) 1,600 mg PO TID [facility] Last Admin: 04/19/18 09:20 Dose: 1,600 mg Hydralazine HCl (Apresoline) 50 mg PO Q8 [facility] Last Admin: 04/19/18 09:16 Dose: 50 mg Isosorbide Mononitrate (Imdur Er) 30 mg PO DAILY [facility] Last Admin: 04/19/18 09:17 Dose: 30 mg Metoprolol Succinate (Toprol Xl) 100 mg PO DAILY [facility] Last Admin: 04/19/18 09:22 Dose: 100 mg Pravastatin Sodium (Pravachol) 40 mg PO HS [facility] Last Admin: 04/18/18 22:17 Dose: 40 mg Repaglinide (Prandin) 1 mg PO BRKDIN [facility] Last Admin: 04/19/18 08:00 Dose: 1 mg Repaglinide (Prandin) 2 mg PO ACL [facility] Sitagliptin Phosphate (Januvia) 25 mg PO DAILY [facility] Last Admin: 04/19/18 09:18 Dose: 25 mg Sodium Bicarbonate (Sodium Bicarbonate Tab) 1,300 mg PO Q12 [facility] Last Admin: 04/19/18 09:20 Dose: 1,300 mg Physical Exam - Constitutional Appears: No Acute Distress - Eye Exam Eye Exam: Conjunctival injection - ENT Exam ENT Exam: absent: Mucous Membranes Moist - Neck Exam Neck exam: Negative for: Lymphadenopathy - Respiratory Exam Respiratory Exam: NORMAL BREATHING PATTERN - Cardiovascular Exam Cardiovascular Exam: absent: Gallop, JVD, Rubs - GI/Abdominal Exam GI & Abdominal Exam: absent: Normal Bowel Sounds - Extremities Exam Extremities exam: Negative for: calf tenderness - Back Exam Back exam: absent: CVA tenderness (L), CVA tenderness (R) - Neurological Exam Neurological exam: Alert - Psychiatric Exam Psychiatric exam: Normal Affect - Skin Skin Exam: Intact Results - Vital Signs Recent Vital Signs: Last Vital Signs Temp 97.3 F L 04/19/18 08:00 Pulse 84 04/19/18 09:22 Resp 20 04/19/18 08:00 BP 141/75 04/19/18 10:55 Pulse Ox 98 04/19/18 08:00 - Labs Result Diagrams: 04/18/18 11:15 04/18/18 11:15 Labs: Laboratory Results - last 24 hr 04/18/18 04/18/18 04/18/18 11:05 11:15 11:15 WBC 7.6 RBC 2.20 L Hgb 7.2 L D Hct 21.5 L MCV 97.7 H D MCH 32.7 H MCHC 33.5 RDW 15.6 H Plt Count 179 MPV 8.5 Neut % (Auto) 78.9 H Lymph % (Auto) 7.8 L [place] % (Auto) 8.7 Eos % (Auto) 4.2 H Baso % (Auto) 0.4 Neut # (Auto) 6.0 Lymph # (Auto) 0.6 L [place] # (Auto) 0.7 Eos # (Auto) 0.3 Baso # (Auto) 0.0 Neutrophils % (Manual) 80 H Lymphocytes % (Manual) 10 L Monocytes % (Manual) 7 Eosinophils % (Manual) 3 Platelet Estimate Normal Hypochromasia (manual) Moderate Anisocytosis (manual) Slight Tear Drop Cells Slight Ovalocytes Slight Schistocytes Slight PT INR APTT pCO2 33 L pO2 87 HCO3 22.8 ABG pH 7.42 ABG Total CO2 22.4 ABG O2 Saturation 98.9 H ABG Base Excess -2.7 L Niraj Test Yes ABG Potassium 4.2 A-a O2 Difference 157.0 Sodium 138.0 140 Chloride 109.0 H 108 H Glucose 126 H Lactate 0.6 L FiO2 40.0 Potassium 4.6 Carbon Dioxide 18 L Anion Gap 19 BUN 66 H Creatinine 6.7 H Est GFR ( Amer) 10 Est GFR (Non-Af Amer) 8 POC Glucose (mg/dL) Random Glucose 120 H Calcium 9.5 Phosphorus 5.2 H Magnesium 1.4 L Ferritin Total Bilirubin 0.5 AST 27 ALT 30 Alkaline Phosphatase 73 Troponin I 0.2430 H* NT-Pro-B Natriuret Pep 23464 H Total Protein 6.8 Albumin 3.5 D Globulin 3.2 Albumin/Globulin Ratio 1.1 Thyroxine (T4) TSH 3rd Generation Arterial Blood Potassium 4.2 04/18/18 04/18/18 04/18/18 11:15 17:39 21:13 WBC RBC Hgb Hct MCV MCH MCHC RDW Plt Count MPV Neut % (Auto) Lymph % (Auto) [place] % (Auto) Eos % (Auto) Baso % (Auto) Neut # (Auto) Lymph # (Auto) [place] # (Auto) Eos # (Auto) Baso # (Auto) Neutrophils % (Manual) Lymphocytes % (Manual) Monocytes % (Manual) Eosinophils % (Manual) Platelet Estimate Hypochromasia (manual) Anisocytosis (manual) Tear Drop Cells Ovalocytes Schistocytes PT 12.5 INR 1.1 APTT 28.0 pCO2 pO2 HCO3 ABG pH ABG Total CO2 ABG O2 Saturation ABG Base Excess Niraj Test ABG Potassium A-a O2 Difference Sodium Chloride Glucose Lactate FiO2 Potassium Carbon Dioxide Anion Gap BUN Creatinine Est GFR ( Amer) Est GFR (Non-Af Amer) POC Glucose (mg/dL) 304 H Random Glucose Calcium Phosphorus Magnesium Ferritin 254.0 Total Bilirubin AST ALT Alkaline Phosphatase Troponin I 0.1970 H* NT-Pro-B Natriuret Pep 80170 H Total Protein Albumin Globulin Albumin/Globulin Ratio Thyroxine (T4) 8.22 TSH 3rd Generation 0.67 Arterial Blood Potassium Assessment & Plan (1) CHF exacerbation Status: Acute (2) Chronic kidney disease, stage V Assessment and Plan: patient admitted with on a kidney disease stage V , appeared that he is in need of dialysis. patient has right upper arm fistula appears to be has good bruit but not ready to be used . I spoke to the vascular surgeon and he will put permacath by tomorrow morning so he can go to dialysis after that.therefore we will proceed for dialysis for tomorrow morning Patient was given Lasix 80 mg stat now and he appeared to be making urine. Review of blood test no hyperkalemia B UN and creatinine noted to be elevated. Hypertension Diabetes mellitus history of hyperphosphatemia History of secondary hyperparathyroidism Status: Acute
--- NOTE | 2018-04-19 14:43 | CP.PCM.PCO ---
Physician Communication Note - Physician Communication Note Physician Communication Note: pt. scheduled for HD cath placement tommorow with at 12:30
[2018-04-19 15:44] LABS: IRON 27 ug/dL (49-181)
[2018-04-19 15:54] LABS: % IRON SATURATION 10 % (20-55); TOTAL IRON BINDING CAPACITY 260 ug/dL (250-450)
--- NOTE | 2018-04-19 17:42 | CP.PCM.PN ---
Subjective - Date & Time of Evaluation Date of Evaluation: 04/19/18 Time of Evaluation: 17:30 - Subjective Subjective: less dyspnea today. Objective - Vital Signs/Intake and Output Vital Signs (last 24 hours): Temp Pulse Resp BP Pulse Ox 98.1 F 73 20 112/68 100 04/19/18 15:46 04/19/18 15:46 04/19/18 15:46 04/19/18 15:46 04/19/18 15:46 - Medications Medications: Current Medications Albuterol/Ipratropium (Duoneb 3 Mg/0.5 Mg (3 Ml) Ud) 3 ml INH RQ6 PRN PRN Reason: Shortness of Breath Last Admin: 04/18/18 20:30 Dose: 3 ml Allopurinol (Zyloprim) 200 mg PO DAILY [facility] Last Admin: 04/19/18 09:22 Dose: 200 mg Amlodipine Besylate (Norvasc) 10 mg PO DAILY [facility] Last Admin: 04/19/18 09:18 Dose: 10 mg Aspirin (Ecotrin) 81 mg PO DAILY [facility] Last Admin: 04/19/18 09:17 Dose: Not Given Calcitriol (Rocaltrol) 0.25 mcg PO MWF [facility] Last Admin: 04/19/18 09:21 Dose: 0.25 mcg Cholecalciferol (Vitamin D) 5,000 intlu PO DAILY [facility] Last Admin: 04/18/18 17:33 Dose: 5,000 intlu Clopidogrel Bisulfate (Plavix) 75 mg PO DAILY [facility] Last Admin: 04/19/18 09:20 Dose: Not Given Enalapril Maleate (Vasotec) 20 mg PO DAILY [facility] Last Admin: 04/19/18 09:21 Dose: 20 mg Epoetin Eddy (Procrit) 40,000 unit IV QWK [facility] Ferrous Sulfate (Feosol) 325 mg PO DAILY [facility] Last Admin: 04/19/18 09:17 Dose: 325 mg Furosemide (Lasix) 40 mg IVP DAILY [facility] Last Admin: 04/19/18 09:18 Dose: 40 mg Home Med (Paricalcitol [Zemplar]) 1 mcg PO DAILY [facility] Last Admin: 04/19/18 09:19 Dose: 1 mcg Home Med (Sevelamer Carbonate [Renvela]) 1,600 mg PO TID [facility] Last Admin: 04/19/18 09:20 Dose: 1,600 mg Hydralazine HCl (Apresoline) 50 mg PO Q8 [facility] Last Admin: 04/19/18 09:16 Dose: 50 mg Isosorbide Mononitrate (Imdur Er) 30 mg PO DAILY [facility] Last Admin: 04/19/18 09:17 Dose: 30 mg Metoprolol Succinate (Toprol Xl) 100 mg PO DAILY [facility] Last Admin: 04/19/18 09:22 Dose: 100 mg Pravastatin Sodium (Pravachol) 40 mg PO HS [facility] Last Admin: 04/18/18 22:17 Dose: 40 mg Repaglinide (Prandin) 1 mg PO BRKDIN [facility] Last Admin: 04/19/18 08:00 Dose: 1 mg Repaglinide (Prandin) 2 mg PO ACL [facility] Sitagliptin Phosphate (Januvia) 25 mg PO DAILY [facility] Last Admin: 04/19/18 09:18 Dose: 25 mg Sodium Bicarbonate (Sodium Bicarbonate Tab) 1,300 mg PO Q12 [facility] Last Admin: 04/19/18 09:20 Dose: 1,300 mg - Labs Labs: 04/18/18 11:15 04/18/18 11:15 PT 12.5 Seconds (9.8-13.1) 04/18/18 11:15 INR 1.1 (0.9-1.2) 04/18/18 11:15 APTT 28.0 Seconds (25.6-37.1) 04/18/18 11:15 - Constitutional Appears: Non-toxic - Head Exam Head Exam: NORMAL INSPECTION - Eye Exam Eye Exam: Normal appearance - ENT Exam ENT Exam: Mucous Membranes Moist - Neck Exam Neck Exam: Full ROM - Respiratory Exam Respiratory Exam: NORMAL BREATHING PATTERN - Cardiovascular Exam Cardiovascular Exam: REGULAR RHYTHM, Murmur - GI/Abdominal Exam GI & Abdominal Exam: Normal Bowel Sounds - Rectal Exam Rectal Exam: Deferred - Extremities Exam Extremities Exam: absent: Pedal Edema - Back Exam Back Exam: NORMAL INSPECTION - Neurological Exam Neurological Exam: Alert - Psychiatric Exam Psychiatric exam: Normal Affect - Skin Skin Exam: Normal Color Assessment and Plan (1) Chronic kidney disease, stage V Assessment & Plan: for permacath tomorrow. no cardiovascular contraindication. Status: Acute (2) CAD (coronary artery disease) Assessment & Plan: no angina Status: Chronic (3) HTN (hypertension) Assessment & Plan: blood pressure control Status: Chronic
--- NOTE | 2018-04-19 21:09 | CARD ---
APPROVED REPORT Date of service: 04/19/2018 EXAM: Two-dimensional and M-mode echocardiogram with Doppler and color Doppler. Other Information Quality : GoodRhythm : NSR INDICATION ASD 2D DIMENSIONS IVSd1.29 (0.7-1.1cm)LVDd5.26 (3.9-5.9cm) LVOT Diameter2.14 (1.8-2.4cm)PWd0.81 (0.7-1.1cm) IVSs1.49 (0.8-1.2cm)LVDs3.63 (2.5-4.0cm) FS (%) 31.0 %PWs1.47 (0.8-1.2cm) M-Mode DIMENSIONS Left Atrium (MM)5.21 (2.5-4.0cm)IVSd1.18 (0.7-1.1cm) Aortic Root3.35 (2.2-3.7cm)LVDd6.59 (4.0-5.6cm) Aortic Cusp Exc.1.47 (1.5-2.0cm)PWd1.03 (0.7-1.1cm) IVSs1.47 cmFS (%) 32 % LVDs4.50 (2.0-3.8cm)PWs1.47 cm Aortic Valve AoV Peak Psxlceej821.8cm/Camila Peak GR.31mmHgLVOT Peak Hmsshnuc931.1cm/s LVOT VTI23.01cmAVA (VMAX)0.69cm2 Mitral Valve MV E Vmpyunnh752.0cm/sMV DECEL ADRD015cwBN A Dtiwerhr04.5cm/s MV SDV27wvL/A ratio1.8MVA (PHT)4.31cm2 TDI Lateral E' Peak V13.12cm/sMedial E' Peak V6.60cm/sE/Lateral E'12.2 E/Medial E'24.2 Pulmonary Valve PV Peak Enxqpjqv484.7cm/s LEFT VENTRICLE The left ventricle is normal size. There is mild concentric left ventricular hypertrophy. The left ventricular ejection fraction is within the normal range, with EF 55-60%. No regional wall motion abnormalities noted. Transmitral Doppler flow pattern is Grade 2-abnormal relaxation pattern. No left ventricle thrombus noted on this study. There is no ventricular septal defect visualized. There is no left ventricular aneurysm. There is no mass noted in the left ventricle. RIGHT VENTRICLE The right ventricle is normal size. There is normal right ventricular wall thickness. The right ventricular systolic function is normal. ATRIA The left atrium size is moderately dilated. The right atrium size is normal. The interatrial septum is intact with no evidence for an atrial septal defect. AORTIC VALVE The aortic valve is normal in structure. Mildly calcified leaflets. No aortic regurgitation is present. There is mild to moderate aortic valvular stenosis. There is no aortic valvular vegetation. MITRAL VALVE The mitral valve is normal in structure. There is no evidence of mitral valve prolapse. There is no mitral valve stenosis. There is mild to moderate mitral valve regurgitation noted. TRICUSPID VALVE The tricuspid valve is normal in structure. There is mild tricuspid valve regurgitation noted. There is no tricuspid valve prolapse or vegetation. There is no tricuspid valve stenosis. PULMONIC VALVE The pulmonary valve is normal in structure. There is no pulmonic valvular regurgitation. There is no pulmonic valvular stenosis. GREAT VESSELS The aortic root is normal in size. The ascending aorta is normal in size. The pulmonary artery is normal. The IVC is normal in size and collapses >50% with inspiration. PERICARDIAL EFFUSION The pericardium appears normal. There is no pleural effusion. <Conclusion> The left ventricular ejection fraction is within the normal range, with EF 55-60%. There is mild concentric left ventricular hypertrophy. Transmitral Doppler flow pattern is Grade 2-abnormal relaxation pattern. There is mild to moderate mitral valve regurgitation noted. There is mild to moderate aortic valvular stenosis. The left atrium size is moderately dilated.
[2018-04-19 21:20] LABS: FOLATE 12.9 ng/mL
[2018-04-19] MEDS: Pravastatin Sodium 40 MG TAB PO SCH (21:51)
[2018-04-20] MEDS ORDERED: Dextrose 50% SYRINGE Inj (50 ml) IVP STA (05:52)
[2018-04-20 06:34] LABS: BASO # 0.1 K/uL (0.0-0.2); BASO % 0.5 % (0.0-2.0); EOS # 0.3 K/uL (0.0-0.7); EOS % 2.3 % (0.0-4.0); LYMPH # 1.2 K/uL (1.0-4.3); LYMPH % 10.7 % (20.0-40.0); MEAN CELL VOLUME 99.1 fl (80.0-94.0); MEAN CORPUSCULAR HEMOGLOBIN 31.6 pg (27.0-31.0); MEAN CORPUSCULAR HGB CONC 31.9 g/dL (33.0-37.0); MONO # 0.9 K/uL (0.0-0.8); MONO % 8.1 % (0.0-10.0); NEUT # 8.9 K/uL (1.8-7.0); NEUT % 78.4 % (50.0-75.0); RBC 2.22 Mil/uL (4.40-5.90); RED CELL DISTRIBUTION WIDTH 15.8 % (11.5-14.5); WHITE BLOOD COUNT 11.4 K/uL (4.8-10.8)
--- NOTE | 2018-04-20 07:56 | CP.PCM.CON ---
History of Present Illness - History of Present Illness History of Present Illness: This is a 62 yrs old male with multiple medical problems, including chronic renal failure, CAD, DM2 with a R BKA. He also has HTN and hypercholesterolism pt over the past couple of weeks has been getting shortness of breath on exertion. He has h/o smoking and COPD as well. But this timew he had difficulty going even aroud the house. He came to the ER where he was found to be severely anemic Hgb 7.1gms, His mcv was 99 and WBC and Platelets were normal. B12 was normal. The iron was low at 27 , iron sat 10%, but ferritin was normal . The retic count was 5.9. Pt's creatinine is 6.7 and he is to have dialysis today during which he will receive 2 units of blood. I had ordered tests to r/o multiple myeloma but the results are awaited. He is already on procrit because of the renal disease. He is also on aspirin + plavix , but did not c/o dark stools Will ck for occult blood. Past Patient History - Past Medical History & Family History Past Medical History?: Yes - Past Social History Smoking Status: Unknown If Ever Smoked - CARDIAC Hx Hypercholesterolemia: Yes Hx Hypertension: Yes Hx Pacemaker: No - PULMONARY Hx Pneumonia: Yes - NEUROLOGICAL Hx Neurological Disorder: No Hx Paralysis: No Other/Comment: mini-stroke 2010 - HEENT Hx HEENT Problems: Yes Hx Cataracts: Yes (extraction 2010) - RENAL Hx Chronic Kidney Disease: Yes - ENDOCRINE/METABOLIC Hx Endocrine Disorders: Yes Hx Diabetes Mellitus Type 2: Yes - HEMATOLOGICAL/ONCOLOGICAL Hx Anemia: Yes - INTEGUMENTARY Hx Dermatological Problems: No - MUSCULOSKELETAL/RHEUMATOLOGICAL Hx Falls: No - GASTROINTESTINAL Hx Gastrointestinal Disorders: No - GENITOURINARY/GYNECOLOGICAL Hx Genitourinary Disorders: No - PSYCHIATRIC Hx Substance Use: No - SURGICAL HISTORY Hx Coronary Stent: Yes (x 2) - ANESTHESIA Hx Anesthesia: Yes Hx Anesthesia Reactions: No Hx Malignant Hyperthermia: No Meds Allergies/Adverse Reactions: Allergies Allergy/AdvReac Type Severity Reaction Status Date / Time No Known Allergies Allergy Unverified 02/20/18 08:26 - Medications Medications: Current Medications Albuterol/Ipratropium (Duoneb 3 Mg/0.5 Mg (3 Ml) Ud) 3 ml INH RQ6 PRN PRN Reason: Shortness of Breath Last Admin: 04/18/18 20:30 Dose: 3 ml Allopurinol (Zyloprim) 200 mg PO DAILY [facility] Last Admin: 04/19/18 09:22 Dose: 200 mg Amlodipine Besylate (Norvasc) 10 mg PO DAILY [facility] Last Admin: 04/19/18 09:18 Dose: 10 mg Aspirin (Ecotrin) 81 mg PO DAILY [facility] Last Admin: 04/19/18 09:17 Dose: Not Given Calcitriol (Rocaltrol) 0.25 mcg PO MWF [facility] Last Admin: 04/19/18 09:21 Dose: 0.25 mcg Cholecalciferol (Vitamin D) 5,000 intlu PO DAILY [facility] Last Admin: 04/18/18 17:33 Dose: 5,000 intlu Clopidogrel Bisulfate (Plavix) 75 mg PO DAILY [facility] Last Admin: 04/19/18 09:20 Dose: Not Given Enalapril Maleate (Vasotec) 20 mg PO DAILY [facility] Last Admin: 04/19/18 09:21 Dose: 20 mg Epoetin Eddy (Procrit) 40,000 unit IV QWK [facility] Ferrous Sulfate (Feosol) 325 mg PO DAILY [facility] Last Admin: 04/19/18 09:17 Dose: 325 mg Furosemide (Lasix) 40 mg IVP DAILY [facility] Last Admin: 04/19/18 09:18 Dose: 40 mg Home Med (Paricalcitol [Zemplar]) 1 mcg PO DAILY [facility] Last Admin: 04/19/18 09:19 Dose: 1 mcg Home Med (Sevelamer Carbonate [Renvela]) 1,600 mg PO TID [facility] Last Admin: 04/19/18 17:55 Dose: 1,600 mg Hydralazine HCl (Apresoline) 50 mg PO Q8 [facility] Last Admin: 04/20/18 01:41 Dose: Not Given Isosorbide Mononitrate (Imdur Er) 30 mg PO DAILY [facility] Last Admin: 04/19/18 09:17 Dose: 30 mg Metoprolol Succinate (Toprol Xl) 100 mg PO DAILY [facility] Last Admin: 04/19/18 09:22 Dose: 100 mg Pravastatin Sodium (Pravachol) 40 mg PO HS [facility] Last Admin: 04/19/18 21:51 Dose: 40 mg Repaglinide (Prandin) 1 mg PO BRKDIN [facility] Last Admin: 04/19/18 17:00 Dose: 1 mg Repaglinide (Prandin) 2 mg PO ACL [facility] Last Admin: 04/19/18 12:00 Dose: 2 mg Sitagliptin Phosphate (Januvia) 25 mg PO DAILY [facility] Last Admin: 04/19/18 09:18 Dose: 25 mg Sodium Bicarbonate (Sodium Bicarbonate Tab) 1,300 mg PO Q12 [facility] Last Admin: 04/19/18 21:51 Dose: 1,300 mg Physical Exam - Additional Findings Additional findings: Physical exam; Alert,well oriented in mild respiratory doistress neck; Supple, no adenopathy Chest' Clear, scattered rales on the bases Heart; RSR, no murmur Abd; Soft, no mass or h/s megaly Right lower extremity BKA Results - Vital Signs Recent Vital Signs: Last Vital Signs Temp 97.9 F 04/20/18 05:05 Pulse 73 04/20/18 05:05 Resp 18 04/20/18 05:05 BP 118/80 04/20/18 05:05 Pulse Ox 96 04/20/18 05:05 - Labs Result Diagrams: 04/20/18 05:50 04/18/18 11:15 Labs: Laboratory Results - last 24 hr 04/19/18 04/19/18 04/19/18 05:24 11:05 11:28 WBC RBC Hgb Hct MCV MCH MCHC RDW Plt Count MPV Neut % (Auto) Lymph % (Auto) [place] % (Auto) Eos % (Auto) Baso % (Auto) Neut # (Auto) Lymph # (Auto) [place] # (Auto) Eos # (Auto) Baso # (Auto) Retic Count POC Glucose (mg/dL) 198 H 287 H Iron TIBC % Saturation Ferritin Total Protein (PEP) Vitamin B12 Folate Blood Type O POSITIVE Antibody Screen Negative BBK History Checked Patient has bt 04/19/18 04/19/18 04/19/18 11:28 11:28 14:30 WBC RBC Hgb Hct MCV MCH MCHC RDW Plt Count MPV Neut % (Auto) Lymph % (Auto) [place] % (Auto) Eos % (Auto) Baso % (Auto) Neut # (Auto) Lymph # (Auto) [place] # (Auto) Eos # (Auto) Baso # (Auto) Retic Count 5.9 H POC Glucose (mg/dL) Iron 27 L TIBC 260 % Saturation 10 L Ferritin 250.0 Total Protein (PEP) Vitamin B12 367 Folate 12.9 Blood Type Antibody Screen BBK History Checked 04/19/18 04/19/18 04/19/18 14:30 16:24 21:26 WBC RBC Hgb Hct MCV MCH MCHC RDW Plt Count MPV Neut % (Auto) Lymph % (Auto) [place] % (Auto) Eos % (Auto) Baso % (Auto) Neut # (Auto) Lymph # (Auto) [place] # (Auto) Eos # (Auto) Baso # (Auto) Retic Count POC Glucose (mg/dL) 101 104 Iron TIBC % Saturation Ferritin Total Protein (PEP) 5.6 L Vitamin B12 Folate Blood Type Antibody Screen BBK History Checked 04/20/18 04/20/18 04/20/18 05:12 05:19 05:50 WBC 11.4 H RBC 2.22 L Hgb 7.0 L Hct 22.0 L MCV 99.1 H MCH 31.6 H MCHC 31.9 L RDW 15.8 H Plt Count 155 MPV 8.0 Neut % (Auto) 78.4 H Lymph % (Auto) 10.7 L [place] % (Auto) 8.1 Eos % (Auto) 2.3 Baso % (Auto) 0.5 Neut # (Auto) 8.9 H Lymph # (Auto) 1.2 [place] # (Auto) 0.9 H Eos # (Auto) 0.3 Baso # (Auto) 0.1 Retic Count POC Glucose (mg/dL) 60 L 51 L Iron TIBC % Saturation Ferritin Total Protein (PEP) Vitamin B12 Folate Blood Type Antibody Screen BBK History Checked Assessment & Plan - Assessment and Plan (Free Text) Assessment: Impression; Severe anemia secondary to renal disease R/O myeloma Possible upper gi bleeding from aspirin +plavix Plan: Plan; will await resiults of Myeloma work up Stools for occult blood Agree with te transfusion - Date & Time Date: 04/20/18 Time: 08:10
[2018-04-20] MEDS: Patient's Own Med (Paricalcitol [Zemplar] 1 MCG) PO SCH (09:07)
[2018-04-20] MEDS: SEVELAMER CARBONATE 1600 MG PO SCH ×3 (09:08→17:03)
[2018-04-20] MEDS: Cholecalciferol 1,000 INTLU TAB PO SCH (09:08)
[2018-04-20] MEDS: Metoprolol Succinate 100 mg XL Tab PO SCH (09:10)
--- NOTE | 2018-04-20 09:28 | CP.PCM.PN ---
Subjective - Date & Time of Evaluation Date of Evaluation: 04/20/18 Time of Evaluation: 09:28 - Subjective Subjective: CLINICALLY IMPROVING NO APPARENT DISTRESS FOR DIALYSIS CATH PLACEMENT TODAY AND FOR HEMODIALYSIS Objective - Vital Signs/Intake and Output Vital Signs (last 24 hours): Temp Pulse Resp BP Pulse Ox 97.8 F 72 20 124/76 100 04/20/18 08:21 04/20/18 08:21 04/20/18 08:21 04/20/18 08:21 04/20/18 08:21 - Medications Medications: Current Medications Albuterol/Ipratropium (Duoneb 3 Mg/0.5 Mg (3 Ml) Ud) 3 ml INH RQ6 PRN PRN Reason: Shortness of Breath Last Admin: 04/18/18 20:30 Dose: 3 ml Allopurinol (Zyloprim) 200 mg PO DAILY [facility] Last Admin: 04/20/18 09:10 Dose: Not Given Amlodipine Besylate (Norvasc) 10 mg PO DAILY [facility] Last Admin: 04/20/18 09:07 Dose: Not Given Aspirin (Ecotrin) 81 mg PO DAILY [facility] Last Admin: 04/20/18 09:06 Dose: Not Given Calcitriol (Rocaltrol) 0.25 mcg PO MWF [facility] Last Admin: 04/19/18 09:21 Dose: 0.25 mcg Cholecalciferol (Vitamin D) 5,000 intlu PO DAILY [facility] Last Admin: 04/20/18 09:08 Dose: Not Given Clopidogrel Bisulfate (Plavix) 75 mg PO DAILY [facility] Last Admin: 04/20/18 09:07 Dose: Not Given Enalapril Maleate (Vasotec) 20 mg PO DAILY [facility] Last Admin: 04/20/18 09:08 Dose: Not Given Epoetin Eddy (Procrit) 40,000 unit IV QWK [facility] Ferrous Sulfate (Feosol) 325 mg PO DAILY [facility] Last Admin: 04/20/18 09:06 Dose: Not Given Furosemide (Lasix) 40 mg IVP DAILY [facility] Last Admin: 04/20/18 09:09 Dose: 40 mg Home Med (Paricalcitol [Zemplar]) 1 mcg PO DAILY [facility] Last Admin: 04/20/18 09:07 Dose: Not Given Home Med (Sevelamer Carbonate [Renvela]) 1,600 mg PO TID [facility] Last Admin: 04/20/18 09:08 Dose: Not Given Hydralazine HCl (Apresoline) 50 mg PO Q8 [facility] Last Admin: 04/20/18 09:06 Dose: Not Given Isosorbide Mononitrate (Imdur Er) 30 mg PO DAILY [facility] Last Admin: 04/20/18 09:07 Dose: Not Given Metoprolol Succinate (Toprol Xl) 100 mg PO DAILY [facility] Last Admin: 04/20/18 09:10 Dose: 100 mg Pravastatin Sodium (Pravachol) 40 mg PO HS [facility] Last Admin: 04/19/18 21:51 Dose: 40 mg Repaglinide (Prandin) 1 mg PO BRKDIN [facility] Last Admin: 04/20/18 09:07 Dose: Not Given Repaglinide (Prandin) 2 mg PO ACL [facility] Last Admin: 04/19/18 12:00 Dose: 2 mg Sitagliptin Phosphate (Januvia) 25 mg PO DAILY [facility] Last Admin: 04/20/18 09:07 Dose: Not Given Sodium Bicarbonate (Sodium Bicarbonate Tab) 1,300 mg PO Q12 [facility] Last Admin: 04/20/18 09:08 Dose: Not Given - Labs Labs: 04/20/18 05:50 04/18/18 11:15 PT 12.5 Seconds (9.8-13.1) 04/18/18 11:15 INR 1.1 (0.9-1.2) 04/18/18 11:15 APTT 28.0 Seconds (25.6-37.1) 04/18/18 11:15 - Constitutional Appears: No Acute Distress - Head Exam Head Exam: ATRAUMATIC, NORMAL INSPECTION, NORMOCEPHALIC - Eye Exam Eye Exam: EOMI, Normal appearance, PERRL Pupil Exam: NORMAL ACCOMODATION, PERRL - ENT Exam ENT Exam: Mucous Membranes Moist, Normal Exam - Neck Exam Neck Exam: Full ROM, Normal Inspection. absent: Lymphadenopathy - Respiratory Exam Respiratory Exam: Decreased Breath Sounds, Rales, NORMAL BREATHING PATTERN - Cardiovascular Exam Cardiovascular Exam: REGULAR RHYTHM, +S1, +S2. absent: Murmur - GI/Abdominal Exam GI & Abdominal Exam: Soft, Normal Bowel Sounds. absent: Tenderness - Rectal Exam Rectal Exam: NORMAL INSPECTION - Extremities Exam Extremities Exam: Full ROM, Normal Capillary Refill, Normal Inspection. absent : Joint Swelling, Pedal Edema Additional comments: R BKA - Back Exam Back Exam: NORMAL INSPECTION - Neurological Exam Neurological Exam: Alert, Awake, CN II-XII Intact, Normal Gait, Oriented x3 - Psychiatric Exam Psychiatric exam: Normal Affect, Normal Mood - Skin Skin Exam: Dry, Intact, Normal Color, Warm Assessment and Plan - Assessment and Plan (Free Text) Assessment: CHF ESRD ANEMIA DM HTN Plan: CONTINUE CURRENT RX
--- NOTE | 2018-04-20 10:04 | CP.PCM.PN ---
Subjective - Date & Time of Evaluation Date of Evaluation: 04/20/18 Time of Evaluation: 10:03 - Subjective Subjective: patient M bed appears to be comfortable and Not in acute distress vital sign noted to be stable No nausea no vomiting Objective - Vital Signs/Intake and Output Vital Signs (last 24 hours): Temp Pulse Resp BP Pulse Ox 97.8 F 72 20 124/76 100 04/20/18 08:21 04/20/18 08:21 04/20/18 08:21 04/20/18 08:21 04/20/18 08:21 - Medications Medications: Current Medications Albuterol/Ipratropium (Duoneb 3 Mg/0.5 Mg (3 Ml) Ud) 3 ml INH RQ6 PRN PRN Reason: Shortness of Breath Last Admin: 04/18/18 20:30 Dose: 3 ml Allopurinol (Zyloprim) 200 mg PO DAILY [facility] Last Admin: 04/20/18 09:10 Dose: Not Given Amlodipine Besylate (Norvasc) 10 mg PO DAILY [facility] Last Admin: 04/20/18 09:07 Dose: Not Given Aspirin (Ecotrin) 81 mg PO DAILY [facility] Last Admin: 04/20/18 09:06 Dose: Not Given Calcitriol (Rocaltrol) 0.25 mcg PO MWF [facility] Last Admin: 04/19/18 09:21 Dose: 0.25 mcg Cholecalciferol (Vitamin D) 5,000 intlu PO DAILY [facility] Last Admin: 04/20/18 09:08 Dose: Not Given Clopidogrel Bisulfate (Plavix) 75 mg PO DAILY [facility] Last Admin: 04/20/18 09:07 Dose: Not Given Enalapril Maleate (Vasotec) 20 mg PO DAILY [facility] Last Admin: 04/20/18 09:08 Dose: Not Given Epoetin Eddy (Procrit) 40,000 unit IV QWK [facility] Ferrous Sulfate (Feosol) 325 mg PO DAILY [facility] Last Admin: 04/20/18 09:06 Dose: Not Given Furosemide (Lasix) 40 mg IVP DAILY [facility] Last Admin: 04/20/18 09:09 Dose: 40 mg Home Med (Paricalcitol [Zemplar]) 1 mcg PO DAILY [facility] Last Admin: 04/20/18 09:07 Dose: Not Given Home Med (Sevelamer Carbonate [Renvela]) 1,600 mg PO TID [facility] Last Admin: 04/20/18 09:08 Dose: Not Given Hydralazine HCl (Apresoline) 50 mg PO Q8 [facility] Last Admin: 04/20/18 09:06 Dose: Not Given Isosorbide Mononitrate (Imdur Er) 30 mg PO DAILY [facility] Last Admin: 04/20/18 09:07 Dose: Not Given Metoprolol Succinate (Toprol Xl) 100 mg PO DAILY [facility] Last Admin: 04/20/18 09:10 Dose: 100 mg Pravastatin Sodium (Pravachol) 40 mg PO HS [facility] Last Admin: 04/19/18 21:51 Dose: 40 mg Repaglinide (Prandin) 1 mg PO BRKDIN [facility] Last Admin: 04/20/18 09:07 Dose: Not Given Repaglinide (Prandin) 2 mg PO ACL [facility] Last Admin: 04/19/18 12:00 Dose: 2 mg Sitagliptin Phosphate (Januvia) 25 mg PO DAILY [facility] Last Admin: 04/20/18 09:07 Dose: Not Given Sodium Bicarbonate (Sodium Bicarbonate Tab) 1,300 mg PO Q12 [facility] Last Admin: 04/20/18 09:08 Dose: Not Given - Labs Labs: 04/20/18 05:50 04/18/18 11:15 PT 12.5 Seconds (9.8-13.1) 04/18/18 11:15 INR 1.1 (0.9-1.2) 04/18/18 11:15 APTT 28.0 Seconds (25.6-37.1) 04/18/18 11:15 - Constitutional Appears: No Acute Distress - Eye Exam Eye Exam: Conjunctival injection - ENT Exam ENT Exam: Mucous Membranes Moist - Neck Exam Neck Exam: absent: Lymphadenopathy - Respiratory Exam Respiratory Exam: Rhonchi, NORMAL BREATHING PATTERN. absent: Chest Wall Tenderness - Cardiovascular Exam Cardiovascular Exam: REGULAR RHYTHM. absent: Gallop, JVD, Rubs - GI/Abdominal Exam GI & Abdominal Exam: Soft, Normal Bowel Sounds - Extremities Exam Extremities Exam: absent: Calf Tenderness - Back Exam Back Exam: absent: CVA tenderness (L), CVA tenderness (R) - Neurological Exam Neurological Exam: Alert - Psychiatric Exam Psychiatric exam: Normal Affect - Skin Skin Exam: absent: Cyanosis Assessment and Plan (1) CHF exacerbation Status: Acute (2) Chronic kidney disease, stage V Assessment & Plan: atient admitted with on a kidney disease stage V , appeared that he is in need of dialysis. patient has right upper arm fistula appears to be has good bruit but not ready to be used . Patient was given Lasix 40 mg stat now and he appeared to be making urine. Review of blood test no hyperkalemia B UN and creatinine noted to be elevated. Hypertension Diabetes mellitus history of hyperphosphatemia History of secondary hyperparathyroidism waiting for dialysis after inserting subcl permacath call social insurance analyst for an arrangement for dialysis at [facility] Status: Acute
[2018-04-20] MEDS ORDERED: Lidocaine 2% MPF (5 ml) Inj ONE (13:01)
[2018-04-20] MEDS ORDERED: Protamine 50mg/5mL Inj IV ONE (13:01)
[2018-04-20 13:03] LABS: ALBUMIN (PEP) 2.9 g/dL (3.8-4.8); ALPHA-1-GLOBULIN (PEP) 0.3 g/dL (0.2-0.3)
[2018-04-20] MEDS ORDERED: Midazolam 2 MG/2 ML VIAL ONE (13:11)
[2018-04-20] MEDS ORDERED: Sodium Chloride 0.9% 100 ML IV ONE (13:20)
--- NOTE | 2018-04-20 14:36 | PCM.SURG1 ---
Surgeon's Initial Post Op Note - Surgeon's Notes Surgeon: Dr. Leon Bander And Cellophan[employer] Machine Helper: Dr. Lemons PGY3 Type of Anesthesia: IV Sedation, Local Pre-Operative Diagnosis: end-stage renal disease requiring hemodilaysis Operative Findings: see dictation Post-Operative Diagnosis: same Operation Performed: ultrasound-guided, fluoroscopic left internal jugular permacath placement Specimen/Specimens Removed: none Estimated Blood Loss: EBL {In ML}: 10 Blood Products Given: N/A Drains Used: No Drains Post-Op Condition: Good Date of Surgery/Procedure: 04/20/18 Time of Surgery/Procedure: 14:36
[2018-04-20] MEDS ORDERED: Oxycodone/Acetaminophen 5/325 mg Tab PO PRN (14:38)
--- NOTE | 2018-04-20 16:17 | RAD ---
Date of service: 04/20/2018 PROCEDURE: CHEST RADIOGRAPH, 1 VIEW HISTORY: s/p permacath placement COMPARISON: 04/18/2018 FINDINGS: LUNGS: Clear. PLEURA: No pneumothorax or pleural fluid seen. CARDIOVASCULAR: Mild cardiomegaly. Tunneled left central venous dialysis catheter. OSSEOUS STRUCTURES: No significant abnormalities. VISUALIZED UPPER ABDOMEN: Normal. OTHER FINDINGS: None. IMPRESSION: No active disease.
[2018-04-20] MEDS: Pravastatin Sodium 40 MG TAB PO SCH (22:00)
[2018-04-20 22:11] LABS: HEPATITIS B SURFACE AG Negative (NEGATIVE)
[2018-04-20 22:17] LABS: HEPATITIS B CORE AB NEGATIVE (NEGATIVE)
[2018-04-20 22:18] LABS: HEPATITIS A IGM NEGATIVE (NEGATIVE)
[2018-04-20 22:28] LABS: HEPATITIS C ANTIBODY NEGATIVE (NEGATIVE)
[2018-04-21 02:27] LABS: BASO % 0.4 % (0.0-2.0); EOS # 0.3 K/uL (0.0-0.7); EOS % 2.9 % (0.0-4.0); HEMOGLOBIN 9.5 g/dL (12.0-18.0); LYMPH # 0.5 K/uL (1.0-4.3); LYMPH % 5.3 % (20.0-40.0); MEAN CELL VOLUME 94.6 fl (80.0-94.0); MEAN CORPUSCULAR HGB CONC 32.8 g/dL (33.0-37.0); MEAN PLATELET VOLUME 7.8 fl (7.2-11.7); MONO # 0.7 K/uL (0.0-0.8); MONO % 6.9 % (0.0-10.0); NEUT # 8.5 K/uL (1.8-7.0); NEUT % 84.5 % (50.0-75.0); NRBC % 0.3 % (0.0-0.0); RBC 3.07 Mil/uL (4.40-5.90); RED CELL DISTRIBUTION WIDTH 15.8 % (11.5-14.5)
[2018-04-21 02:30] LABS: ABG ALLEN TEST YES; ARTERIAL BLOOD GAS HCO3 24.7 mmol/L (21-28); ARTERIAL BLOOD GAS HEMOGLOBIN 12.5 g/dL (11.7-17.4); ARTERIAL BLOOD GAS O2 CAPACITY 17.2 mL/dL (16-24); ARTERIAL BLOOD GAS O2 CONTENT 16.9 ML/dL (15-23); ARTERIAL BLOOD GAS PCO2 37 mm/Hg (35-45); ARTERIAL BLOOD GAS PH 7.42 (7.35-7.45); ARTERIAL BLOOD GAS PO2 102 mm/Hg (80-100); ARTERIAL BLOOD GAS TCO2 25.1 mmol/L (22-28)
[2018-04-21 02:33] LABS: INR 1.1; PROTHROMBIN TIME 12.5 Seconds (9.8-13.1)
--- NOTE | 2018-04-21 02:56 | PCM.RRT ---
RADIUS GRINDER Nurse Assessment - Situation RADIUS GRINDER Responder Arrival Time: 01:52 I.Reason for RADIUS GRINDER - A) Acute Change in Patient: Subjective: RADIUS GRINDER: 1:52AM RADIUS GRINDER location: 417 bed 2 RADIUS GRINDER VS : INitial VS BP 171/88, HR 72, OSat 100% on3 nc. S: RADIUS GRINDER was callled by RN after patient developed lightheadedness, and chest discomfort 4/10, non radiating. Patient has Hx of CKD and had hemodialysis session today with 2 units of PRBC administered.Patient was admitted for progressive dyspnea on exertion and underwent cardiac cath that revealed patent coronary stents. O: HEENT: NCAT, EOMI, NIRAV. CArdio: RRR, S1 S2 present, no gallop, no murmurs. RESP: CTA bilateral, no wheezing. Abdomen: Obese, soft, nontender to palpation. Neuro: AAOx 3, cranial nerves grossly intact. LE: Right BKA, LLE no edema. RADIUS GRINDER Interventions 1-EKG 12 leads: no acute ichemic changes compared to previous ekg. 2-CBC, CMP, ABG, Tropnins, PT/IMR, Mg, Ph Repeat VS @ 2:12 BP 162/87 HR 75 OSat 100% on 3 L NC. A/P 62 y/o male with PMHx of HTN, CAD, Renal failure, who was admitted for MORRIS. Today c/o dizziness and chest discomfort. 1-F/u with labs 2-Continue tele monitoring 3-F/U serial Troponin RADIUS GRINDER end at 2:15 AM: Patient states feeling better, no chest discomfort, lightheadedness resolved. RADIUS GRINDER service team leader: Dr Danyell Aguila RADIUS GRINDER residents: Dr Rees PGY3, Dr York PGY1.
[2018-04-21 02:58] LABS: ALB/GLOB RATIO 1.1 (1.0-2.1); ALBUMIN 3.5 g/dL (3.5-5.0); CALCIUM 8.4 mg/dL (8.4-10.2); TROPONIN I 0.13 ng/mL (0.00-0.120)
--- NOTE | 2018-04-21 07:19 | CP.PCM.PN ---
Subjective - Date & Time of Evaluation Date of Evaluation: 04/21/18 Time of Evaluation: 07:17 - Subjective Subjective: Vascular Surgery Dr. Leon Pt S&E @bedside. Yesterday, pt underwent permacath placement for worsening renal function. Pt tolerated the procedure well w/o complication. Pt underwent HD s/p permacath placement and tolerated well. Pt had QUILL STRIPPER overnight for chest discomfort and lightheadedness. Workup negative for acute pathology. This AM pt c/o back pain. denies F/C, N/V, CP, SOB. tolerating diet. Objective - Vital Signs/Intake and Output Vital Signs (last 24 hours): Temp Pulse Resp BP Pulse Ox 99.0 F 89 18 164/80 H 100 04/21/18 04:20 04/21/18 04:20 04/21/18 04:20 04/21/18 04:20 04/21/18 04:20 Intake and Output: 04/21/18 04/21/18 06:59 18:59 Intake Total 627 Balance 627 - Medications Medications: Current Medications Albuterol/Ipratropium (Duoneb 3 Mg/0.5 Mg (3 Ml) Ud) 3 ml INH RQ6 PRN PRN Reason: Shortness of Breath Last Admin: 04/18/18 20:30 Dose: 3 ml Allopurinol (Zyloprim) 200 mg PO DAILY [facility] Last Admin: 04/20/18 09:10 Dose: Not Given Amlodipine Besylate (Norvasc) 10 mg PO DAILY [facility] Last Admin: 04/20/18 09:07 Dose: Not Given Aspirin (Ecotrin) 81 mg PO DAILY [facility] Last Admin: 04/20/18 09:06 Dose: Not Given Calcitriol (Rocaltrol) 0.25 mcg PO MWF [facility] Last Admin: 04/19/18 09:21 Dose: 0.25 mcg Cholecalciferol (Vitamin D) 5,000 intlu PO DAILY [facility] Last Admin: 04/20/18 09:08 Dose: Not Given Clopidogrel Bisulfate (Plavix) 75 mg PO DAILY [facility] Last Admin: 04/20/18 09:07 Dose: Not Given Enalapril Maleate (Vasotec) 20 mg PO DAILY [facility] Last Admin: 04/20/18 09:08 Dose: Not Given Epoetin Eddy (Procrit) 40,000 unit IV QWK [facility] Ferrous Sulfate (Feosol) 325 mg PO DAILY [facility] Last Admin: 04/20/18 09:06 Dose: Not Given Furosemide (Lasix) 40 mg IVP DAILY [facility] Last Admin: 04/20/18 09:09 Dose: 40 mg Home Med (Paricalcitol [Zemplar]) 1 mcg PO DAILY [facility] Last Admin: 04/20/18 09:07 Dose: Not Given Home Med (Sevelamer Carbonate [Renvela]) 1,600 mg PO TID [facility] Last Admin: 04/20/18 17:03 Dose: 1,600 mg Hydralazine HCl (Apresoline) 50 mg PO Q8 [facility] Last Admin: 04/21/18 00:31 Dose: 50 mg Isosorbide Mononitrate (Imdur Er) 30 mg PO DAILY [facility] Last Admin: 04/20/18 09:07 Dose: Not Given Metoprolol Succinate (Toprol Xl) 100 mg PO DAILY [facility] Last Admin: 04/20/18 09:10 Dose: 100 mg Oxycodone/Acetaminophen (Percocet 5/325 Mg Tab) 1 tab PO Q4 PRN PRN Reason: Pain, moderate (4-7) Stop: 04/22/18 14:39 Pravastatin Sodium (Pravachol) 40 mg PO HS [facility] Last Admin: 04/20/18 22:00 Dose: 40 mg Repaglinide (Prandin) 1 mg PO BRKDIN [facility] Last Admin: 04/20/18 17:02 Dose: Not Given Repaglinide (Prandin) 2 mg PO ACL [facility] Last Admin: 04/20/18 12:29 Dose: Not Given Sitagliptin Phosphate (Januvia) 25 mg PO DAILY [facility] Last Admin: 04/20/18 09:07 Dose: Not Given Sodium Bicarbonate (Sodium Bicarbonate Tab) 1,300 mg PO Q12 [facility] Last Admin: 04/20/18 22:00 Dose: 1,300 mg - Labs Labs: 04/21/18 02:15 04/21/18 02:15 PT 12.5 Seconds (9.8-13.1) 04/21/18 02:15 INR 1.1 04/21/18 02:15 APTT 28.0 Seconds (25.6-37.1) 04/18/18 11:15 - Constitutional Appears: Non-toxic, No Acute Distress - Head Exam Head Exam: NORMAL INSPECTION - Eye Exam Eye Exam: Normal appearance - ENT Exam ENT Exam: Mucous Membranes Moist - Neck Exam Additional comments: permacath in place. dressing c/d/i no hematoma - Respiratory Exam Respiratory Exam: NORMAL BREATHING PATTERN. absent: Accessory Muscle Use, Respiratory Distress - Cardiovascular Exam Cardiovascular Exam: REGULAR RHYTHM. absent: Bradycardia, Tachycardia - GI/Abdominal Exam GI & Abdominal Exam: Soft. absent: Distended, Tenderness - Extremities Exam Extremities Exam: Normal Inspection - Back Exam Back Exam: NORMAL INSPECTION - Neurological Exam Neurological Exam: Alert, Awake, Oriented x3 - Psychiatric Exam Psychiatric exam: Normal Affect, Normal Mood - Skin Skin Exam: Dry, Intact, Normal Color, Warm Assessment and Plan - Assessment and Plan (Free Text) Assessment: 62 y/o M s/p permacath placement for HD - permacath good to use until fistula matured - cont HD per Nephrology - pain management - no further surgical intervention at this time. Pt discussed w/ Dr. Edward Lemons DO PGY3
--- NOTE | 2018-04-21 08:25 | CARD ---
APPROVED REPORT Date of service: 04/21/2018 <Conclusion> Normal sinus rhythm Nonspecific T wave abnormality Abnormal ECG
[2018-04-21] MEDS: Metoprolol Succinate 100 mg XL Tab PO SCH (08:55)
[2018-04-21] MEDS: Patient's Own Med (Paricalcitol [Zemplar] 1 MCG) PO SCH (08:57)
[2018-04-21] MEDS: SEVELAMER CARBONATE 1600 MG PO SCH ×3 (08:57→17:39)
[2018-04-21] MEDS: Cholecalciferol 1,000 INTLU TAB PO SCH (08:58)
--- NOTE | 2018-04-21 09:06 | CP.PCM.PN ---
Subjective - Date & Time of Evaluation Date of Evaluation: 04/21/18 Time of Evaluation: 09:05 - Subjective Subjective: Pt is feeling much better since the dialysis was done. No more c/o shortness of breath. all his tests for multiple myeloma are negative and his hgb is stable. Would continue the po iron and procrit. Objective - Vital Signs/Intake and Output Vital Signs (last 24 hours): Temp Pulse Resp BP Pulse Ox 98.4 F 80 20 145/78 100 04/21/18 08:08 04/21/18 08:56 04/21/18 08:08 04/21/18 08:58 04/21/18 08:08 Intake and Output: 04/21/18 04/21/18 06:59 18:59 Intake Total 627 Balance 627 - Medications Medications: Current Medications Albuterol/Ipratropium (Duoneb 3 Mg/0.5 Mg (3 Ml) Ud) 3 ml INH RQ6 PRN PRN Reason: Shortness of Breath Last Admin: 04/18/18 20:30 Dose: 3 ml Allopurinol (Zyloprim) 200 mg PO DAILY [facility] Last Admin: 04/21/18 08:56 Dose: 200 mg Amlodipine Besylate (Norvasc) 10 mg PO DAILY [facility] Last Admin: 04/21/18 08:56 Dose: 10 mg Aspirin (Ecotrin) 81 mg PO DAILY [facility] Last Admin: 04/21/18 08:55 Dose: 81 mg Calcitriol (Rocaltrol) 0.25 mcg PO MWF [facility] Last Admin: 04/21/18 08:54 Dose: 0.25 mcg Cholecalciferol (Vitamin D) 5,000 intlu PO DAILY [facility] Last Admin: 04/21/18 08:58 Dose: 5,000 intlu Clopidogrel Bisulfate (Plavix) 75 mg PO DAILY [facility] Last Admin: 04/21/18 08:57 Dose: 75 mg Enalapril Maleate (Vasotec) 20 mg PO DAILY [facility] Last Admin: 04/21/18 08:55 Dose: 20 mg Epoetin Eddy (Procrit) 40,000 unit IV QWK [facility] Ferrous Sulfate (Feosol) 325 mg PO DAILY [facility] Last Admin: 04/21/18 08:54 Dose: 325 mg Furosemide (Lasix) 40 mg IVP DAILY [facility] Last Admin: 04/21/18 08:58 Dose: 40 mg Home Med (Paricalcitol [Zemplar]) 1 mcg PO DAILY [facility] Last Admin: 04/21/18 08:57 Dose: 1 mcg Home Med (Sevelamer Carbonate [Renvela]) 1,600 mg PO TID [facility] Last Admin: 04/21/18 08:57 Dose: 1,600 mg Hydralazine HCl (Apresoline) 50 mg PO Q8 [facility] Last Admin: 04/21/18 08:54 Dose: 50 mg Isosorbide Mononitrate (Imdur Er) 30 mg PO DAILY [facility] Last Admin: 04/21/18 08:54 Dose: 30 mg Metoprolol Succinate (Toprol Xl) 100 mg PO DAILY [facility] Last Admin: 04/21/18 08:55 Dose: 100 mg Oxycodone/Acetaminophen (Percocet 5/325 Mg Tab) 1 tab PO Q4 PRN PRN Reason: Pain, moderate (4-7) Stop: 04/22/18 14:39 Pravastatin Sodium (Pravachol) 40 mg PO HS [facility] Last Admin: 04/20/18 22:00 Dose: 40 mg Repaglinide (Prandin) 1 mg PO BRKDIN [facility] Last Admin: 04/21/18 08:54 Dose: 1 mg Repaglinide (Prandin) 2 mg PO ACL [facility] Last Admin: 04/20/18 12:29 Dose: Not Given Sitagliptin Phosphate (Januvia) 25 mg PO DAILY [facility] Last Admin: 04/21/18 08:55 Dose: 25 mg Sodium Bicarbonate (Sodium Bicarbonate Tab) 1,300 mg PO Q12 [facility] Last Admin: 04/21/18 08:57 Dose: 1,300 mg - Labs Labs: 04/21/18 02:15 04/21/18 02:15 PT 12.5 Seconds (9.8-13.1) 04/21/18 02:15 INR 1.1 04/21/18 02:15 APTT 28.0 Seconds (25.6-37.1) 04/18/18 11:15
--- NOTE | 2018-04-21 12:03 | CP.PCM.PN ---
Subjective - Date & Time of Evaluation Date of Evaluation: 04/21/18 Time of Evaluation: 12:01 - Subjective Subjective: patient feeling much better less shortness of breath. No nausea no vomiting. vital sign noted to be stable Objective - Vital Signs/Intake and Output Vital Signs (last 24 hours): Temp Pulse Resp BP Pulse Ox 98.4 F 80 20 145/78 100 04/21/18 08:08 04/21/18 09:00 04/21/18 08:08 04/21/18 08:58 04/21/18 08:08 Intake and Output: 04/21/18 04/21/18 06:59 18:59 Intake Total 627 Balance 627 - Medications Medications: Current Medications Albuterol/Ipratropium (Duoneb 3 Mg/0.5 Mg (3 Ml) Ud) 3 ml INH RQ6 PRN PRN Reason: Shortness of Breath Last Admin: 04/18/18 20:30 Dose: 3 ml Allopurinol (Zyloprim) 200 mg PO DAILY [facility] Last Admin: 04/21/18 08:56 Dose: 200 mg Amlodipine Besylate (Norvasc) 10 mg PO DAILY [facility] Last Admin: 04/21/18 08:56 Dose: 10 mg Aspirin (Ecotrin) 81 mg PO DAILY [facility] Last Admin: 04/21/18 08:55 Dose: 81 mg Calcitriol (Rocaltrol) 0.25 mcg PO MWF [facility] Last Admin: 04/21/18 08:54 Dose: 0.25 mcg Cholecalciferol (Vitamin D) 5,000 intlu PO DAILY [facility] Last Admin: 04/21/18 08:58 Dose: 5,000 intlu Clopidogrel Bisulfate (Plavix) 75 mg PO DAILY [facility] Last Admin: 04/21/18 08:57 Dose: 75 mg Enalapril Maleate (Vasotec) 20 mg PO DAILY [facility] Last Admin: 04/21/18 08:55 Dose: 20 mg Epoetin Eddy (Procrit) 40,000 unit IV QWK [facility] Ferrous Sulfate (Feosol) 325 mg PO DAILY [facility] Last Admin: 04/21/18 08:54 Dose: 325 mg Furosemide (Lasix) 40 mg IVP DAILY [facility] Last Admin: 04/21/18 08:58 Dose: 40 mg Home Med (Paricalcitol [Zemplar]) 1 mcg PO DAILY [facility] Last Admin: 04/21/18 08:57 Dose: 1 mcg Home Med (Sevelamer Carbonate [Renvela]) 1,600 mg PO TID [facility] Last Admin: 04/21/18 08:57 Dose: 1,600 mg Hydralazine HCl (Apresoline) 50 mg PO Q8 [facility] Last Admin: 04/21/18 08:54 Dose: 50 mg Isosorbide Mononitrate (Imdur Er) 30 mg PO DAILY [facility] Last Admin: 04/21/18 08:54 Dose: 30 mg Metoprolol Succinate (Toprol Xl) 100 mg PO DAILY [facility] Last Admin: 04/21/18 08:55 Dose: 100 mg Oxycodone/Acetaminophen (Percocet 5/325 Mg Tab) 1 tab PO Q4 PRN PRN Reason: Pain, moderate (4-7) Stop: 04/22/18 14:39 Pravastatin Sodium (Pravachol) 40 mg PO HS [facility] Last Admin: 04/20/18 22:00 Dose: 40 mg Repaglinide (Prandin) 1 mg PO BRKDIN [facility] Last Admin: 04/21/18 08:54 Dose: 1 mg Repaglinide (Prandin) 2 mg PO ACL [facility] Last Admin: 04/20/18 12:29 Dose: Not Given Sitagliptin Phosphate (Januvia) 25 mg PO DAILY [facility] Last Admin: 04/21/18 08:55 Dose: 25 mg Sodium Bicarbonate (Sodium Bicarbonate Tab) 1,300 mg PO Q12 [facility] Last Admin: 04/21/18 08:57 Dose: 1,300 mg - Labs Labs: 04/21/18 02:15 04/21/18 02:15 PT 12.5 Seconds (9.8-13.1) 04/21/18 02:15 INR 1.1 04/21/18 02:15 APTT 28.0 Seconds (25.6-37.1) 04/18/18 11:15 - Constitutional Appears: No Acute Distress - Eye Exam Eye Exam: Conjunctival injection - ENT Exam ENT Exam: absent: Mucous Membranes Moist - Neck Exam Neck Exam: absent: Lymphadenopathy - Respiratory Exam Respiratory Exam: NORMAL BREATHING PATTERN. absent: Chest Wall Tenderness - Cardiovascular Exam Cardiovascular Exam: REGULAR RHYTHM. absent: Gallop, JVD, Rubs - GI/Abdominal Exam GI & Abdominal Exam: Soft, Normal Bowel Sounds - Extremities Exam Extremities Exam: absent: Calf Tenderness - Back Exam Back Exam: absent: CVA tenderness (L), CVA tenderness (R) - Neurological Exam Neurological Exam: Alert - Psychiatric Exam Psychiatric exam: Normal Affect - Skin Skin Exam: absent: Cyanosis Assessment and Plan (1) CHF exacerbation Status: Acute (2) Chronic kidney disease, stage V Assessment & Plan: patient became end stage renal disease Completed his first hemodialysis yesterday Patient feeling much better Scheduled for more dialysis tomorrow and Tuesday next week Hypertension controlled diabetes mellitus as per primary team Hyperphosphatemia patient on phosphorus binder Secondary hyperparathyroidism on calcitriol Anemia patient receiving EPO Plan for outpatient dialysis at [facility] Status: Acute
--- NOTE | 2018-04-21 13:02 | RAD ---
Date of service: 04/20/2018 PROCEDURE: Fluoroscopy in excess of 1 hour. HISTORY: PERM A CATH INSERTION COMPARISON: None TECHNIQUE: Standard protocol for this study/examination. FINDINGS: Total fluoroscopic time (continuous mode) utilized during the procedure 79.6 (seconds). Total exam DLP: 12.26 (mGy) IMPRESSION: Submitted images from the current procedure: 4.0.
--- NOTE | 2018-04-21 13:07 | CP.PCM.PN ---
Subjective - Date & Time of Evaluation Date of Evaluation: 04/21/18 Time of Evaluation: 13:07 - Subjective Subjective: CLINICALLY IMPROVING WITH DIALYSIS AND TRANSFUSSION OF PRBCS Objective - Vital Signs/Intake and Output Vital Signs (last 24 hours): Temp Pulse Resp BP Pulse Ox 98.4 F 80 20 145/78 100 04/21/18 08:08 04/21/18 09:00 04/21/18 08:08 04/21/18 08:58 04/21/18 08:08 Intake and Output: 04/21/18 04/21/18 06:59 18:59 Intake Total 627 Balance 627 - Medications Medications: Current Medications Albuterol/Ipratropium (Duoneb 3 Mg/0.5 Mg (3 Ml) Ud) 3 ml INH RQ6 PRN PRN Reason: Shortness of Breath Last Admin: 04/18/18 20:30 Dose: 3 ml Allopurinol (Zyloprim) 200 mg PO DAILY [facility] Last Admin: 04/21/18 08:56 Dose: 200 mg Amlodipine Besylate (Norvasc) 10 mg PO DAILY [facility] Last Admin: 04/21/18 08:56 Dose: 10 mg Aspirin (Ecotrin) 81 mg PO DAILY [facility] Last Admin: 04/21/18 08:55 Dose: 81 mg Calcitriol (Rocaltrol) 0.25 mcg PO MWF [facility] Last Admin: 04/21/18 08:54 Dose: 0.25 mcg Cholecalciferol (Vitamin D) 5,000 intlu PO DAILY [facility] Last Admin: 04/21/18 08:58 Dose: 5,000 intlu Clopidogrel Bisulfate (Plavix) 75 mg PO DAILY [facility] Last Admin: 04/21/18 08:57 Dose: 75 mg Enalapril Maleate (Vasotec) 20 mg PO DAILY [facility] Last Admin: 04/21/18 08:55 Dose: 20 mg Epoetin Eddy (Procrit) 40,000 unit IV QWK [facility] Ferrous Sulfate (Feosol) 325 mg PO DAILY [facility] Last Admin: 04/21/18 08:54 Dose: 325 mg Furosemide (Lasix) 40 mg IVP DAILY [facility] Last Admin: 04/21/18 08:58 Dose: 40 mg Home Med (Paricalcitol [Zemplar]) 1 mcg PO DAILY [facility] Last Admin: 04/21/18 08:57 Dose: 1 mcg Home Med (Sevelamer Carbonate [Renvela]) 1,600 mg PO TID [facility] Last Admin: 04/21/18 12:54 Dose: 1,600 mg Hydralazine HCl (Apresoline) 50 mg PO Q8 [facility] Last Admin: 04/21/18 08:54 Dose: 50 mg Isosorbide Mononitrate (Imdur Er) 30 mg PO DAILY [facility] Last Admin: 04/21/18 08:54 Dose: 30 mg Metoprolol Succinate (Toprol Xl) 100 mg PO DAILY [facility] Last Admin: 04/21/18 08:55 Dose: 100 mg Oxycodone/Acetaminophen (Percocet 5/325 Mg Tab) 1 tab PO Q4 PRN PRN Reason: Pain, moderate (4-7) Stop: 04/22/18 14:39 Pravastatin Sodium (Pravachol) 40 mg PO HS [facility] Last Admin: 04/20/18 22:00 Dose: 40 mg Repaglinide (Prandin) 1 mg PO BRKDIN [facility] Last Admin: 04/21/18 08:54 Dose: 1 mg Repaglinide (Prandin) 2 mg PO ACL [facility] Last Admin: 04/21/18 12:54 Dose: 2 mg Sitagliptin Phosphate (Januvia) 25 mg PO DAILY [facility] Last Admin: 04/21/18 08:55 Dose: 25 mg Sodium Bicarbonate (Sodium Bicarbonate Tab) 1,300 mg PO Q12 [facility] Last Admin: 04/21/18 08:57 Dose: 1,300 mg - Labs Labs: 04/21/18 02:15 04/21/18 02:15 PT 12.5 Seconds (9.8-13.1) 04/21/18 02:15 INR 1.1 04/21/18 02:15 APTT 28.0 Seconds (25.6-37.1) 04/18/18 11:15 - Constitutional Appears: No Acute Distress - Head Exam Head Exam: ATRAUMATIC, NORMAL INSPECTION, NORMOCEPHALIC - Eye Exam Eye Exam: EOMI, Normal appearance, PERRL Pupil Exam: NORMAL ACCOMODATION, PERRL - ENT Exam ENT Exam: Mucous Membranes Moist, Normal Exam - Neck Exam Neck Exam: Full ROM, Normal Inspection. absent: Lymphadenopathy - Respiratory Exam Respiratory Exam: Clear to Ausculation Bilateral, NORMAL BREATHING PATTERN - Cardiovascular Exam Cardiovascular Exam: REGULAR RHYTHM, +S1, +S2. absent: Murmur - GI/Abdominal Exam GI & Abdominal Exam: Soft, Normal Bowel Sounds. absent: Tenderness - Rectal Exam Rectal Exam: NORMAL INSPECTION - Extremities Exam Extremities Exam: Full ROM, Normal Capillary Refill. absent: Joint Swelling, Pedal Edema - Back Exam Back Exam: NORMAL INSPECTION - Neurological Exam Neurological Exam: Alert, Awake, CN II-XII Intact, Normal Gait, Oriented x3 - Psychiatric Exam Psychiatric exam: Normal Affect, Normal Mood - Skin Skin Exam: Dry, Intact, Normal Color, Warm Assessment and Plan - Assessment and Plan (Free Text) Assessment: CHF--IMPROVING ESRD DM HTN Plan: CONTINUE CURRENT RX FOR DIALYSIS IN AM
[2018-04-21] MEDS: Pravastatin Sodium 40 MG TAB PO SCH (22:02)
[2018-04-22] MEDS: Metoprolol Succinate 100 mg XL Tab PO SCH (08:40)
[2018-04-22] MEDS: Cholecalciferol 1,000 INTLU TAB PO SCH (08:40)
[2018-04-22] MEDS: Patient's Own Med (Paricalcitol [Zemplar] 1 MCG) PO SCH (08:42)
[2018-04-22] MEDS: SEVELAMER CARBONATE 1600 MG PO SCH ×3 (08:44→16:23)
--- NOTE | 2018-04-22 11:14 | CP.PCM.PN ---
Subjective - Date & Time of Evaluation Date of Evaluation: 04/22/18 Time of Evaluation: 11:13 - Subjective Subjective: Pt is stable, hgb today is 9.5gms. Receiveing his dialysis treatment now. Will follow. Objective - Vital Signs/Intake and Output Vital Signs (last 24 hours): Temp Pulse Resp BP Pulse Ox 98.9 F 76 18 138/70 99 04/22/18 07:57 04/22/18 07:57 04/22/18 07:57 04/22/18 07:57 04/22/18 07:57 - Medications Medications: Current Medications Albuterol/Ipratropium (Duoneb 3 Mg/0.5 Mg (3 Ml) Ud) 3 ml INH RQ6 PRN PRN Reason: Shortness of Breath Last Admin: 04/18/18 20:30 Dose: 3 ml Allopurinol (Zyloprim) 200 mg PO DAILY [facility] Last Admin: 04/22/18 08:45 Dose: 200 mg Amlodipine Besylate (Norvasc) 10 mg PO DAILY [facility] Last Admin: 04/22/18 08:42 Dose: Not Given Aspirin (Ecotrin) 81 mg PO DAILY [facility] Last Admin: 04/22/18 08:41 Dose: 81 mg Calcitriol (Rocaltrol) 0.25 mcg PO MWF [facility] Last Admin: 04/21/18 08:54 Dose: 0.25 mcg Cholecalciferol (Vitamin D) 5,000 intlu PO DAILY [facility] Last Admin: 04/22/18 08:40 Dose: 5,000 intlu Clopidogrel Bisulfate (Plavix) 75 mg PO DAILY [facility] Last Admin: 04/22/18 08:42 Dose: 75 mg Enalapril Maleate (Vasotec) 20 mg PO DAILY [facility] Last Admin: 04/22/18 08:43 Dose: Not Given Epoetin Eddy (Procrit) 40,000 unit IV QWK [facility] Ferrous Sulfate (Feosol) 325 mg PO DAILY [facility] Last Admin: 04/22/18 08:41 Dose: 325 mg Furosemide (Lasix) 40 mg IVP DAILY [facility] Last Admin: 04/22/18 08:41 Dose: Not Given Home Med (Paricalcitol [Zemplar]) 1 mcg PO DAILY [facility] Last Admin: 04/22/18 08:42 Dose: 1 mcg Home Med (Sevelamer Carbonate [Renvela]) 1,600 mg PO TID [facility] Last Admin: 04/22/18 08:44 Dose: 1,600 mg Hydralazine HCl (Apresoline) 50 mg PO Q8 [facility] Last Admin: 04/22/18 08:40 Dose: Not Given Isosorbide Mononitrate (Imdur Er) 30 mg PO DAILY [facility] Last Admin: 04/22/18 08:41 Dose: Not Given Metoprolol Succinate (Toprol Xl) 100 mg PO DAILY [facility] Last Admin: 04/22/18 08:40 Dose: Not Given Oxycodone/Acetaminophen (Percocet 5/325 Mg Tab) 1 tab PO Q4 PRN PRN Reason: Pain, moderate (4-7) Stop: 04/22/18 14:39 Pravastatin Sodium (Pravachol) 40 mg PO HS [facility] Last Admin: 04/21/18 22:02 Dose: 40 mg Repaglinide (Prandin) 1 mg PO BRKDIN [facility] Last Admin: 04/22/18 08:43 Dose: 1 mg Repaglinide (Prandin) 2 mg PO ACL [facility] Last Admin: 04/21/18 12:54 Dose: 2 mg Sitagliptin Phosphate (Januvia) 25 mg PO DAILY [facility] Last Admin: 04/22/18 08:41 Dose: 25 mg Sodium Bicarbonate (Sodium Bicarbonate Tab) 1,300 mg PO Q12 [facility] Last Admin: 04/22/18 08:43 Dose: 1,300 mg - Labs Labs: 04/21/18 02:15 04/21/18 02:15 PT 12.5 Seconds (9.8-13.1) 04/21/18 02:15 INR 1.1 04/21/18 02:15 APTT 28.0 Seconds (25.6-37.1) 04/18/18 11:15
--- NOTE | 2018-04-22 12:05 | CP.PCM.PN ---
Subjective - Date & Time of Evaluation Date of Evaluation: 04/22/18 Time of Evaluation: 12:05 - Subjective Subjective: FEELS BETTER SOB IMPROVED DIALYSIS IN PROGRESS Objective - Vital Signs/Intake and Output Vital Signs (last 24 hours): Temp Pulse Resp BP Pulse Ox 98.9 F 76 18 138/70 99 04/22/18 07:57 04/22/18 07:57 04/22/18 07:57 04/22/18 07:57 04/22/18 07:57 - Medications Medications: Current Medications Albuterol/Ipratropium (Duoneb 3 Mg/0.5 Mg (3 Ml) Ud) 3 ml INH RQ6 PRN PRN Reason: Shortness of Breath Last Admin: 04/18/18 20:30 Dose: 3 ml Allopurinol (Zyloprim) 200 mg PO DAILY [facility] Last Admin: 04/22/18 08:45 Dose: 200 mg Amlodipine Besylate (Norvasc) 10 mg PO DAILY [facility] Last Admin: 04/22/18 08:42 Dose: Not Given Aspirin (Ecotrin) 81 mg PO DAILY [facility] Last Admin: 04/22/18 08:41 Dose: 81 mg Calcitriol (Rocaltrol) 0.25 mcg PO MWF [facility] Last Admin: 04/21/18 08:54 Dose: 0.25 mcg Cholecalciferol (Vitamin D) 5,000 intlu PO DAILY [facility] Last Admin: 04/22/18 08:40 Dose: 5,000 intlu Clopidogrel Bisulfate (Plavix) 75 mg PO DAILY [facility] Last Admin: 04/22/18 08:42 Dose: 75 mg Enalapril Maleate (Vasotec) 20 mg PO DAILY [facility] Last Admin: 04/22/18 08:43 Dose: Not Given Epoetin Eddy (Procrit) 40,000 unit IV QWK [facility] Ferrous Sulfate (Feosol) 325 mg PO DAILY [facility] Last Admin: 04/22/18 08:41 Dose: 325 mg Furosemide (Lasix) 40 mg IVP DAILY [facility] Last Admin: 04/22/18 08:41 Dose: Not Given Home Med (Paricalcitol [Zemplar]) 1 mcg PO DAILY [facility] Last Admin: 04/22/18 08:42 Dose: 1 mcg Home Med (Sevelamer Carbonate [Renvela]) 1,600 mg PO TID [facility] Last Admin: 04/22/18 08:44 Dose: 1,600 mg Hydralazine HCl (Apresoline) 50 mg PO Q8 [facility] Last Admin: 04/22/18 08:40 Dose: Not Given Isosorbide Mononitrate (Imdur Er) 30 mg PO DAILY [facility] Last Admin: 04/22/18 08:41 Dose: Not Given Metoprolol Succinate (Toprol Xl) 100 mg PO DAILY [facility] Last Admin: 04/22/18 08:40 Dose: Not Given Oxycodone/Acetaminophen (Percocet 5/325 Mg Tab) 1 tab PO Q4 PRN PRN Reason: Pain, moderate (4-7) Stop: 04/22/18 14:39 Pravastatin Sodium (Pravachol) 40 mg PO HS [facility] Last Admin: 04/21/18 22:02 Dose: 40 mg Repaglinide (Prandin) 1 mg PO BRKDIN [facility] Last Admin: 04/22/18 08:43 Dose: 1 mg Repaglinide (Prandin) 2 mg PO ACL [facility] Last Admin: 04/21/18 12:54 Dose: 2 mg Sitagliptin Phosphate (Januvia) 25 mg PO DAILY [facility] Last Admin: 04/22/18 08:41 Dose: 25 mg Sodium Bicarbonate (Sodium Bicarbonate Tab) 1,300 mg PO Q12 [facility] Last Admin: 04/22/18 08:43 Dose: 1,300 mg - Labs Labs: 04/21/18 02:15 04/21/18 02:15 PT 12.5 Seconds (9.8-13.1) 04/21/18 02:15 INR 1.1 04/21/18 02:15 APTT 28.0 Seconds (25.6-37.1) 04/18/18 11:15 - Constitutional Appears: No Acute Distress - Head Exam Head Exam: ATRAUMATIC, NORMAL INSPECTION, NORMOCEPHALIC - Eye Exam Eye Exam: EOMI, Normal appearance, PERRL Pupil Exam: NORMAL ACCOMODATION, PERRL - ENT Exam ENT Exam: Mucous Membranes Moist, Normal Exam - Neck Exam Neck Exam: Full ROM, Normal Inspection. absent: Lymphadenopathy - Respiratory Exam Respiratory Exam: Prolonged Expiratory Phase, NORMAL BREATHING PATTERN - Cardiovascular Exam Cardiovascular Exam: REGULAR RHYTHM, +S1, +S2. absent: Murmur - GI/Abdominal Exam GI & Abdominal Exam: Soft, Normal Bowel Sounds. absent: Tenderness - Rectal Exam Rectal Exam: NORMAL INSPECTION - Extremities Exam Extremities Exam: Full ROM, Normal Capillary Refill, Normal Inspection. absent : Joint Swelling, Pedal Edema - Back Exam Back Exam: NORMAL INSPECTION - Neurological Exam Neurological Exam: Alert, Awake, CN II-XII Intact, Normal Gait, Oriented x3 - Psychiatric Exam Psychiatric exam: Normal Affect, Normal Mood - Skin Skin Exam: Dry, Intact, Normal Color, Warm Assessment and Plan - Assessment and Plan (Free Text) Assessment: CHF--IMPROVED ESRD HTN DM S/P R BKA Plan: CONTINUE CURRENT RX AWAIT SPOT IN DIALYSIS UNIT
--- NOTE | 2018-04-22 16:16 | CP.PCM.PN ---
Subjective - Date & Time of Evaluation Date of Evaluation: 04/22/18 Time of Evaluation: 16:14 - Subjective Subjective: RENAL seen and examined feels ok no n/v o: vs: as below gen: nad sclera: anicteric op: clear neck: supple cv: +S1+s2 lungs: reduced at bases abd: soft nt/nd no organomegaly ext: trace edema neuro: A+ox3 psych: nml affect imp: esrd / anemia of renal disease/ secondary hyperpara/ hypertensive kidney disease plan: hd today on procrit continue calcitriol bp stable Objective - Vital Signs/Intake and Output Vital Signs (last 24 hours): Temp Pulse Resp BP Pulse Ox 99 F 79 18 140/71 98 04/22/18 12:15 04/22/18 12:15 04/22/18 12:15 04/22/18 12:15 04/22/18 12:15 - Medications Medications: Current Medications Albuterol/Ipratropium (Duoneb 3 Mg/0.5 Mg (3 Ml) Ud) 3 ml INH RQ6 PRN PRN Reason: Shortness of Breath Last Admin: 04/18/18 20:30 Dose: 3 ml Allopurinol (Zyloprim) 200 mg PO DAILY [facility] Last Admin: 04/22/18 08:45 Dose: 200 mg Amlodipine Besylate (Norvasc) 10 mg PO DAILY [facility] Last Admin: 04/22/18 08:42 Dose: Not Given Aspirin (Ecotrin) 81 mg PO DAILY [facility] Last Admin: 04/22/18 08:41 Dose: 81 mg Calcitriol (Rocaltrol) 0.25 mcg PO MWF [facility] Last Admin: 04/21/18 08:54 Dose: 0.25 mcg Cholecalciferol (Vitamin D) 5,000 intlu PO DAILY [facility] Last Admin: 04/22/18 08:40 Dose: 5,000 intlu Clopidogrel Bisulfate (Plavix) 75 mg PO DAILY [facility] Last Admin: 04/22/18 08:42 Dose: 75 mg Enalapril Maleate (Vasotec) 20 mg PO DAILY [facility] Last Admin: 04/22/18 08:43 Dose: Not Given Epoetin Eddy (Procrit) 40,000 unit IV QWK [facility] Ferrous Sulfate (Feosol) 325 mg PO DAILY [facility] Last Admin: 04/22/18 08:41 Dose: 325 mg Furosemide (Lasix) 40 mg IVP DAILY [facility] Last Admin: 04/22/18 08:41 Dose: Not Given Home Med (Paricalcitol [Zemplar]) 1 mcg PO DAILY [facility] Last Admin: 04/22/18 08:42 Dose: 1 mcg Home Med (Sevelamer Carbonate [Renvela]) 1,600 mg PO TID [facility] Last Admin: 04/22/18 12:51 Dose: 1,600 mg Hydralazine HCl (Apresoline) 50 mg PO Q8 [facility] Last Admin: 04/22/18 08:40 Dose: Not Given Isosorbide Mononitrate (Imdur Er) 30 mg PO DAILY [facility] Last Admin: 04/22/18 08:41 Dose: Not Given Metoprolol Succinate (Toprol Xl) 100 mg PO DAILY [facility] Last Admin: 04/22/18 08:40 Dose: Not Given Pravastatin Sodium (Pravachol) 40 mg PO HS [facility] Last Admin: 04/21/18 22:02 Dose: 40 mg Repaglinide (Prandin) 1 mg PO BRKDIN [facility] Last Admin: 04/22/18 08:43 Dose: 1 mg Repaglinide (Prandin) 2 mg PO ACL [facility] Last Admin: 04/22/18 12:52 Dose: 2 mg Sitagliptin Phosphate (Januvia) 25 mg PO DAILY [facility] Last Admin: 04/22/18 08:41 Dose: 25 mg Sodium Bicarbonate (Sodium Bicarbonate Tab) 1,300 mg PO Q12 [facility] Last Admin: 04/22/18 08:43 Dose: 1,300 mg - Labs Labs: 04/21/18 02:15 04/21/18 02:15 PT 12.5 Seconds (9.8-13.1) 04/21/18 02:15 INR 1.1 04/21/18 02:15 APTT 28.0 Seconds (25.6-37.1) 04/18/18 11:15
[2018-04-22] MEDS: Pravastatin Sodium 40 MG TAB PO SCH (21:28)
[2018-04-23 07:00] LABS: HEMOGLOBIN 8.9 g/dL (12.0-18.0); MEAN CELL VOLUME 95.2 fl (80.0-94.0); MEAN CORPUSCULAR HEMOGLOBIN 30.7 pg (27.0-31.0); MEAN CORPUSCULAR HGB CONC 32.2 g/dL (33.0-37.0); RBC 2.91 Mil/uL (4.40-5.90); RED CELL DISTRIBUTION WIDTH 15.5 % (11.5-14.5)
[2018-04-23] MEDS: Cholecalciferol 1,000 INTLU TAB PO SCH (09:21)
[2018-04-23] MEDS: Patient's Own Med (Paricalcitol [Zemplar] 1 MCG) PO SCH (09:23)
[2018-04-23] MEDS: SEVELAMER CARBONATE 1600 MG PO SCH ×4 (09:30→17:49)
[2018-04-23] MEDS: Metoprolol Succinate 100 mg XL Tab PO SCH (10:25)
--- NOTE | 2018-04-23 11:15 | CP.PCM.PN ---
Subjective - Date & Time of Evaluation Date of Evaluation: 04/23/18 Time of Evaluation: 11:15 - Subjective Subjective: FEELS BETTER SOB IMPROVED NO CHEST PAINS/SOB Objective - Vital Signs/Intake and Output Vital Signs (last 24 hours): Temp Pulse Resp BP Pulse Ox 98.4 F 84 18 142/76 100 04/23/18 08:10 04/23/18 10:25 04/23/18 08:10 04/23/18 10:25 04/23/18 08:10 - Medications Medications: Current Medications Albuterol/Ipratropium (Duoneb 3 Mg/0.5 Mg (3 Ml) Ud) 3 ml INH RQ6 PRN PRN Reason: Shortness of Breath Last Admin: 04/18/18 20:30 Dose: 3 ml Allopurinol (Zyloprim) 200 mg PO DAILY [facility] Last Admin: 04/23/18 09:22 Dose: 200 mg Amlodipine Besylate (Norvasc) 10 mg PO DAILY [facility] Last Admin: 04/23/18 09:28 Dose: 10 mg Aspirin (Ecotrin) 81 mg PO DAILY [facility] Last Admin: 04/23/18 10:28 Dose: 81 mg Calcitriol (Rocaltrol) 0.25 mcg PO MWF [facility] Last Admin: 04/21/18 08:54 Dose: 0.25 mcg Cholecalciferol (Vitamin D) 5,000 intlu PO DAILY [facility] Last Admin: 04/23/18 09:21 Dose: 5,000 intlu Clopidogrel Bisulfate (Plavix) 75 mg PO DAILY [facility] Last Admin: 04/23/18 09:22 Dose: 75 mg Enalapril Maleate (Vasotec) 20 mg PO DAILY [facility] Last Admin: 04/23/18 10:27 Dose: 20 mg Epoetin Eddy (Procrit) 40,000 unit IV QWK [facility] Last Admin: 04/23/18 10:20 Dose: 40,000 unit Ferrous Sulfate (Feosol) 325 mg PO DAILY [facility] Last Admin: 04/23/18 10:25 Dose: 325 mg Furosemide (Lasix) 40 mg IVP DAILY [facility] Last Admin: 04/23/18 10:24 Dose: 40 mg Home Med (Paricalcitol [Zemplar]) 1 mcg PO DAILY [facility] Last Admin: 04/23/18 09:23 Dose: 1 mcg Home Med (Sevelamer Carbonate [Renvela]) 1,600 mg PO TID [facility] Last Admin: 04/22/18 16:23 Dose: 1,600 mg Hydralazine HCl (Apresoline) 50 mg PO Q8 [facility] Last Admin: 04/23/18 09:50 Dose: 50 mg Isosorbide Mononitrate (Imdur Er) 30 mg PO DAILY [facility] Last Admin: 04/23/18 10:26 Dose: 30 mg Metoprolol Succinate (Toprol Xl) 100 mg PO DAILY [facility] Last Admin: 04/23/18 10:25 Dose: 100 mg Pravastatin Sodium (Pravachol) 40 mg PO HS [facility] Last Admin: 04/22/18 21:28 Dose: 40 mg Repaglinide (Prandin) 1 mg PO BRKDIN [facility] Last Admin: 04/23/18 08:24 Dose: 1 mg Repaglinide (Prandin) 2 mg PO ACL [facility] Last Admin: 04/22/18 12:52 Dose: 2 mg Sitagliptin Phosphate (Januvia) 25 mg PO DAILY [facility] Last Admin: 04/23/18 09:24 Dose: 25 mg Sodium Bicarbonate (Sodium Bicarbonate Tab) 1,300 mg PO Q12 [facility] Last Admin: 04/23/18 09:23 Dose: 1,300 mg - Labs Labs: 04/23/18 06:05 04/21/18 02:15 PT 12.5 Seconds (9.8-13.1) 04/21/18 02:15 INR 1.1 04/21/18 02:15 APTT 28.0 Seconds (25.6-37.1) 04/18/18 11:15 - Constitutional Appears: No Acute Distress - Head Exam Head Exam: ATRAUMATIC, NORMAL INSPECTION, NORMOCEPHALIC - Eye Exam Eye Exam: EOMI, Normal appearance, PERRL Pupil Exam: NORMAL ACCOMODATION, PERRL - ENT Exam ENT Exam: Mucous Membranes Moist, Normal Exam - Neck Exam Neck Exam: Full ROM, Normal Inspection. absent: Lymphadenopathy - Respiratory Exam Respiratory Exam: Clear to Ausculation Bilateral, NORMAL BREATHING PATTERN - Cardiovascular Exam Cardiovascular Exam: REGULAR RHYTHM, +S1, +S2. absent: Murmur - GI/Abdominal Exam GI & Abdominal Exam: Soft, Normal Bowel Sounds. absent: Tenderness - Rectal Exam Rectal Exam: NORMAL INSPECTION - Extremities Exam Extremities Exam: Full ROM, Normal Capillary Refill, Normal Inspection. absent : Joint Swelling, Pedal Edema Additional comments: S/P R BKA - Back Exam Back Exam: NORMAL INSPECTION - Neurological Exam Neurological Exam: Alert, Awake, CN II-XII Intact, Normal Gait, Oriented x3 - Psychiatric Exam Psychiatric exam: Normal Affect, Normal Mood - Skin Skin Exam: Dry, Intact, Normal Color, Warm Assessment and Plan - Assessment and Plan (Free Text) Assessment: ESRD CHF-IMPROVED HTN ASHD ANEMIA Plan: CONTINUE CURRENT RX
[2018-04-23] MEDS: Pravastatin Sodium 40 MG TAB PO SCH (21:40)
--- NOTE | 2018-04-24 08:37 | OP ---
Copied To: Cedrick Leon MD Attending MD: Cedrick Leon MD PROCEDURE DATE: 04/20/2018 PREOPERATIVE DIAGNOSIS: End-stage renal disease. POSTOPERATIVE DIAGNOSIS: End-stage renal disease. PROCEDURE: Insertion of Perm-A-Cath, left IJ. SURGEON: Cedrick Leon MD CUSHION MAKER HAND: Dr. eWlls. COMPLICATIONS: None. INDICATION: Mr. Villalta is a 62-year-old male patient with multiple medical problems including end-stage renal disease. The patient had right brachiocephalic AV fistula inserted less than two months ago. The fistula is growing nicely, but not ready for dialysis. The patient needs dialysis and he was brought for insertion of a Perm-A-Cath. Risks and benefits explained to the patient and he agreed to proceed. DESCRIPTION OF PROCEDURE: The patient came to the operating room, he was lying in supine position. He was prepped and draped in usual sterile fashion. Sedation was given for the patient and local anesthesia. We started with infiltrating the left side of the neck and ultrasound-guided access of the left IJ was done using micropuncture access needle. Wire was inserted through the needle and under fluoroscopy, we inserted the micropuncture sheath over the wire and we removed the dilator and the wire and inserted 0.035 J-wire through the sheath down to the superior vena cava. The sheath was dilated and after that we inserted the 16-Greenlandic sheath for the insertion of the catheter. Lidocaine 1% used to infiltrate the left side of the neck and left subclavicular area. A small incision was made in the left subclavicular area and a tunnel was inserted from this subclavicular incision to come out from the neck incision beside the sheath and we inserted the catheter through the tunnel and pulled it up by the tunnel. After we pulled it up, we inserted the wire through the catheter and we brought it from the outside and we started to spread the catheter through the dilator until the catheter went up to the superior vena cava. We filled the sheath over the catheter and we fixed the catheter in place and we pulled it from the other end down at subclavicular area. All of these procedures were done under fluoroscopy and we checked the position, there was no kinking of the catheter. We flushed it using heparinized saline and we cut the end of the catheter and fixed in place using 2-0 silk and we closed the neck incision using 4-0 Monocryl. No complications. The patient tolerated the procedure well, transferred to recovery room and after that will be transferred to the floor. No complications during the procedure. Cedrick Leon MD
[2018-04-24] MEDS: Patient's Own Med (Paricalcitol [Zemplar] 1 MCG) PO SCH (08:42)
[2018-04-24] MEDS: SEVELAMER CARBONATE 1600 MG PO SCH (08:42)
[2018-04-24] MEDS: Metoprolol Succinate 100 mg XL Tab PO SCH (08:43)
[2018-04-24] MEDS: Cholecalciferol 1,000 INTLU TAB PO SCH (08:43)
--- NOTE | 2018-04-24 09:16 | CP.PCM.PN ---
Subjective - Date & Time of Evaluation Date of Evaluation: 04/24/18 Time of Evaluation: 09:16 - Subjective Subjective: FEELS WELL NO APPARENT DISTRESS VSS OOB TO CHAIR Objective - Vital Signs/Intake and Output Vital Signs (last 24 hours): Temp Pulse Resp BP Pulse Ox 98.2 F 78 20 146/71 99 04/24/18 08:00 04/24/18 08:43 04/24/18 08:00 04/24/18 08:43 04/24/18 08:00 - Medications Medications: Current Medications Albuterol/Ipratropium (Duoneb 3 Mg/0.5 Mg (3 Ml) Ud) 3 ml INH RQ6 PRN PRN Reason: Shortness of Breath Last Admin: 04/18/18 20:30 Dose: 3 ml Allopurinol (Zyloprim) 200 mg PO DAILY [facility] Last Admin: 04/24/18 08:44 Dose: 200 mg Amlodipine Besylate (Norvasc) 10 mg PO DAILY [facility] Last Admin: 04/24/18 08:42 Dose: 10 mg Aspirin (Ecotrin) 81 mg PO DAILY [facility] Last Admin: 04/24/18 08:43 Dose: 81 mg Calcitriol (Rocaltrol) 0.25 mcg PO MWF [facility] Last Admin: 04/24/18 08:43 Dose: 0.25 mcg Cholecalciferol (Vitamin D) 5,000 intlu PO DAILY [facility] Last Admin: 04/24/18 08:43 Dose: 5,000 intlu Clopidogrel Bisulfate (Plavix) 75 mg PO DAILY [facility] Last Admin: 04/24/18 08:43 Dose: 75 mg Enalapril Maleate (Vasotec) 20 mg PO DAILY [facility] Last Admin: 04/24/18 08:44 Dose: 20 mg [facility]poetin Edd[facility] ([facility]) [facility] Sulfate (Feosol) 325 mg PO DAILY [facility] Last Admin: 04/24/18 08:44 Dose: 325 mg Home Med (Paricalcitol [Zemplar]) 1 mcg PO DAILY [facility] Last Admin: 04/24/18 08:42 Dose: 1 mcg Home Med (Sevelamer Carbonate [Renvela]) 1,600 mg PO TID [facility] Last Admin: 04/24/18 08:42 Dose: 1,600 mg Hydralazine HCl (Apresoline) 50 mg PO Q8 [facility] Last Admin: 04/24/18 08:43 Dose: 50 mg Isosorbide Mononitrate (Imdur Er) 30 mg PO DAILY [facility] Last Admin: 04/24/18 08:44 Dose: 30 mg Metoprolol Succinate (Toprol Xl) 100 mg PO DAILY [facility] Last Admin: 04/24/18 08:43 Dose: 100 mg Pravastatin Sodium (Pravachol) 40 mg PO HS [facility] Last Admin: 04/23/18 21:40 Dose: 40 mg Repaglinide (Prandin) 1 mg PO BRKDIN [facility] Last Admin: 04/24/18 08:44 Dose: 1 mg Repaglinide (Prandin) 2 mg PO ACL [facility] Last Admin: 04/23/18 12:20 Dose: 2 mg Sitagliptin Phosphate (Januvia) 25 mg PO DAILY [facility] Last Admin: 04/24/18 08:43 Dose: 25 mg - Labs Labs: 04/23/18 06:05 04/21/18 02:15 PT 12.5 Seconds (9.8-13.1) 04/21/18 02:15 INR 1.1 04/21/18 02:15 APTT 28.0 Seconds (25.6-37.1) 04/18/18 11:15 - Constitutional Appears: No Acute Distress - Head Exam Head Exam: ATRAUMATIC, NORMAL INSPECTION, NORMOCEPHALIC - Eye Exam Eye Exam: EOMI, Normal appearance, PERRL Pupil Exam: NORMAL ACCOMODATION, PERRL - ENT Exam ENT Exam: Mucous Membranes Moist, Normal Exam - Neck Exam Neck Exam: Full ROM, Normal Inspection. absent: Lymphadenopathy - Respiratory Exam Respiratory Exam: Clear to Ausculation Bilateral, NORMAL BREATHING PATTERN - Cardiovascular Exam Cardiovascular Exam: REGULAR RHYTHM, +S1, +S2. absent: Murmur - GI/Abdominal Exam GI & Abdominal Exam: Soft, Normal Bowel Sounds. absent: Tenderness - Rectal Exam Rectal Exam: NORMAL INSPECTION - Extremities Exam Extremities Exam: Full ROM, Normal Capillary Refill, Normal Inspection. absent : Joint Swelling, Pedal Edema Additional comments: R BKA - Back Exam Back Exam: NORMAL INSPECTION - Neurological Exam Neurological Exam: Alert, Awake, CN II-XII Intact, Normal Gait, Oriented x3 - Psychiatric Exam Psychiatric exam: Normal Affect, Normal Mood - Skin Skin Exam: Dry, Intact, Normal Color, Warm Assessment and Plan - Assessment and Plan (Free Text) Assessment: ESRD CHF--IMPROVED CHRONIC ANEMIA DM HTN Plan: CONTINUE PRESENT RX AWAIT BI TRI OPERATOR INTERVENTION RE-DISPOSITION
--- NOTE | 2018-04-24 09:51 | CP.PCM.PN ---
Subjective - Date & Time of Evaluation Date of Evaluation: 04/24/18 Time of Evaluation: 09:49 - Subjective Subjective: patient sitting up in the chair feeling much better no chest pain no shortness of breath. Objective - Vital Signs/Intake and Output Vital Signs (last 24 hours): Temp Pulse Resp BP Pulse Ox 98.2 F 78 20 146/71 99 04/24/18 08:00 04/24/18 08:43 04/24/18 08:00 04/24/18 08:43 04/24/18 08:00 - Medications Medications: Current Medications Albuterol/Ipratropium (Duoneb 3 Mg/0.5 Mg (3 Ml) Ud) 3 ml INH RQ6 PRN PRN Reason: Shortness of Breath Last Admin: 04/18/18 20:30 Dose: 3 ml Allopurinol (Zyloprim) 200 mg PO DAILY [facility] Last Admin: 04/24/18 08:44 Dose: 200 mg Amlodipine Besylate (Norvasc) 10 mg PO DAILY [facility] Last Admin: 04/24/18 08:42 Dose: 10 mg Aspirin (Ecotrin) 81 mg PO DAILY [facility] Last Admin: 04/24/18 08:43 Dose: 81 mg Calcitriol (Rocaltrol) 0.25 mcg PO MWF [facility] Last Admin: 04/24/18 08:43 Dose: 0.25 mcg Cholecalciferol (Vitamin D) 5,000 intlu PO DAILY [facility] Last Admin: 04/24/18 08:43 Dose: 5,000 intlu Clopidogrel Bisulfate (Plavix) 75 mg PO DAILY [facility] Last Admin: 04/24/18 08:43 Dose: 75 mg Enalapril Maleate (Vasotec) 20 mg PO DAILY [facility] Last Admin: 04/24/18 08:44 Dose: 20 mg Epoetin Eddy (Procrit) [facility] Ferrous Sulfate (Feosol) 325 mg PO DAILY [facility] Last Admin: 04/24/18 08:44 Dose: 325 mg Home Med (Paricalcitol [Zemplar]) 1 mcg PO DAILY [facility] Last Admin: 04/24/18 08:42 Dose: 1 mcg Home Med (Sevelamer Carbonate [Renvela]) 1,600 mg PO TID [facility] Last Admin: 04/24/18 08:42 Dose: 1,600 mg Hydralazine HCl (Apresoline) 50 mg PO Q8 [facility] Last Admin: 04/24/18 08:43 Dose: 50 mg Isosorbide Mononitrate (Imdur Er) 30 mg PO DAILY [facility] Last Admin: 04/24/18 08:44 Dose: 30 mg Metoprolol Succinate (Toprol Xl) 100 mg PO DAILY [facility] Last Admin: 04/24/18 08:43 Dose: 100 mg Pravastatin Sodium (Pravachol) 40 mg PO HS [facility] Last Admin: 04/23/18 21:40 Dose: 40 mg Repaglinide (Prandin) 1 mg PO BRKDIN [facility] Last Admin: 04/24/18 08:44 Dose: 1 mg Repaglinide (Prandin) 2 mg PO ACL [facility] Last Admin: 04/23/18 12:20 Dose: 2 mg Sitagliptin Phosphate (Januvia) 25 mg PO DAILY [facility] Last Admin: 04/24/18 08:43 Dose: 25 mg - Labs Labs: 04/23/18 06:05 04/21/18 02:15 PT 12.5 Seconds (9.8-13.1) 04/21/18 02:15 INR 1.1 04/21/18 02:15 APTT 28.0 Seconds (25.6-37.1) 04/18/18 11:15 - Constitutional Appears: No Acute Distress - ENT Exam ENT Exam: Mucous Membranes Moist - Neck Exam Neck Exam: absent: Lymphadenopathy - Respiratory Exam Respiratory Exam: NORMAL BREATHING PATTERN. absent: Chest Wall Tenderness - Cardiovascular Exam Cardiovascular Exam: absent: Rubs - GI/Abdominal Exam GI & Abdominal Exam: Normal Bowel Sounds - Extremities Exam Extremities Exam: absent: Calf Tenderness - Back Exam Back Exam: absent: CVA tenderness (L), CVA tenderness (R) - Neurological Exam Neurological Exam: Alert - Psychiatric Exam Psychiatric exam: Normal Affect - Skin Skin Exam: absent: Cyanosis Assessment and Plan (1) CHF exacerbation Status: Acute (2) Chronic kidney disease, stage V Assessment & Plan: patient became end stage renal disease Patient feeling much better Scheduled for more dialysis tomorrow and Tuesday next week Hypertension controlled diabetes mellitus as per primary team Hyperphosphatemia patient on phosphorus binder Secondary hyperparathyroidism on calcitriol Anemia patient receiving EPO no dialysis Tuesday DC Lasix DC EPO weekly to be given on dialysis only 4000 unit Status: Acute
[2018-04-24] MEDS: SEVELAMER CARBONATE 800 MG PO SCH ×2 (13:26→17:04)
[2018-04-24] MEDS: Pravastatin Sodium 40 MG TAB PO SCH (22:15)
[2018-04-25] MEDS: SEVELAMER CARBONATE 800 MG PO SCH ×3 (08:48→17:41)
[2018-04-25] MEDS: Patient's Own Med (Paricalcitol [Zemplar] 1 MCG) PO SCH (08:50)
[2018-04-25] MEDS: Cholecalciferol 1,000 INTLU TAB PO SCH (08:51)
--- NOTE | 2018-04-25 09:40 | CP.PCM.PN ---
Subjective - Date & Time of Evaluation Date of Evaluation: 04/25/18 Time of Evaluation: 09:40 - Subjective Subjective: NO NEW FINDINGS AWAIT PLACEMENT AT A DIALYSIS CENTER WILL CONTINUE CURRENT RX NO CHANGE IN CLINICAL FINDINGS Objective - Vital Signs/Intake and Output Vital Signs (last 24 hours): Temp Pulse Resp BP Pulse Ox 98.3 F 75 18 122/63 100 04/25/18 08:17 04/25/18 08:17 04/25/18 08:17 04/25/18 08:17 04/25/18 08:17 - Medications Medications: Current Medications Albuterol/Ipratropium (Duoneb 3 Mg/0.5 Mg (3 Ml) Ud) 3 ml INH RQ6 PRN PRN Reason: Shortness of Breath Last Admin: 04/18/18 20:30 Dose: 3 ml Allopurinol (Zyloprim) 200 mg PO DAILY [facility] Last Admin: 04/25/18 08:52 Dose: 200 mg Amlodipine Besylate (Norvasc) 10 mg PO DAILY [facility] Last Admin: 04/24/18 08:42 Dose: 10 mg Aspirin (Ecotrin) 81 mg PO DAILY [facility] Last Admin: 04/25/18 08:48 Dose: 81 mg Calcitriol (Rocaltrol) 0.25 mcg PO MWF [facility] Last Admin: 04/24/18 08:43 Dose: 0.25 mcg Cholecalciferol (Vitamin D) 5,000 intlu PO DAILY [facility] Last Admin: 04/25/18 08:51 Dose: 5,000 intlu Clopidogrel Bisulfate (Plavix) 75 mg PO DAILY [facility] Last Admin: 04/25/18 08:50 Dose: 75 mg Enalapril Maleate (Vasotec) 20 mg PO DAILY [facility] Last Admin: 04/24/18 08:44 Dose: 20 mg Epoetin Eddy (Procrit) 4,000 unit IV MWF [facility] Ferrous Sulfate (Feosol) 325 mg PO DAILY [facility] Last Admin: 04/25/18 08:49 Dose: 325 mg Home Med (Paricalcitol [Zemplar]) 1 mcg PO DAILY [facility] Last Admin: 04/25/18 08:50 Dose: 1 mcg Home Med (Patient's Own Medication) 1,600 unit PO TID [facility] Last Admin: 04/25/18 08:48 Dose: 1,600 unit Hydralazine HCl (Apresoline) 50 mg PO Q8 [facility] Last Admin: 04/25/18 01:01 Dose: 50 mg Isosorbide Mononitrate (Imdur Er) 30 mg PO DAILY [facility] Last Admin: 04/24/18 08:44 Dose: 30 mg Metoprolol Succinate (Toprol Xl) 100 mg PO DAILY [facility] Last Admin: 04/24/18 08:43 Dose: 100 mg Pravastatin Sodium (Pravachol) 40 mg PO HS [facility] Last Admin: 04/24/18 22:15 Dose: 40 mg Repaglinide (Prandin) 1 mg PO BRKDIN [facility] Last Admin: 04/25/18 08:48 Dose: 1 mg Repaglinide (Prandin) 2 mg PO ACL [facility] Last Admin: 04/24/18 12:15 Dose: 2 mg Sitagliptin Phosphate (Januvia) 25 mg PO DAILY [facility] Last Admin: 04/25/18 08:47 Dose: 25 mg - Labs Labs: 04/23/18 06:05 04/21/18 02:15 PT 12.5 Seconds (9.8-13.1) 04/21/18 02:15 INR 1.1 04/21/18 02:15 APTT 28.0 Seconds (25.6-37.1) 04/18/18 11:15
--- NOTE | 2018-04-25 10:49 | CP.PCM.PN ---
Subjective - Date & Time of Evaluation Date of Evaluation: 04/25/18 Time of Evaluation: 10:45 - Subjective Subjective: dialysis note he was seen on hemodialysis. Patient sitting up in bed. Receiving hemodialysis through the subclavian catheter. Vital signs stable Objective - Vital Signs/Intake and Output Vital Signs (last 24 hours): Temp Pulse Resp BP Pulse Ox 98.3 F 75 18 122/63 100 04/25/18 08:17 04/25/18 08:17 04/25/18 08:17 04/25/18 08:17 04/25/18 08:17 - Medications Medications: Current Medications Albuterol/Ipratropium (Duoneb 3 Mg/0.5 Mg (3 Ml) Ud) 3 ml INH RQ6 PRN PRN Reason: Shortness of Breath Last Admin: 04/18/18 20:30 Dose: 3 ml Allopurinol (Zyloprim) 200 mg PO DAILY [facility] Last Admin: 04/25/18 08:52 Dose: 200 mg Amlodipine Besylate (Norvasc) 10 mg PO DAILY [facility] Last Admin: 04/24/18 08:42 Dose: 10 mg Aspirin (Ecotrin) 81 mg PO DAILY [facility] Last Admin: 04/25/18 08:48 Dose: 81 mg Calcitriol (Rocaltrol) 0.25 mcg PO MWF [facility] Last Admin: 04/24/18 08:43 Dose: 0.25 mcg Cholecalciferol (Vitamin D) 5,000 intlu PO DAILY [facility] Last Admin: 04/25/18 08:51 Dose: 5,000 intlu Clopidogrel Bisulfate (Plavix) 75 mg PO DAILY [facility] Last Admin: 04/25/18 08:50 Dose: 75 mg Enalapril Maleate (Vasotec) 20 mg PO DAILY [facility] Last Admin: 04/24/18 08:44 Dose: 20 mg Epoetin Eddy (Procrit) 4,000 unit IV MWF [facility] Ferrous Sulfate (Feosol) 325 mg PO DAILY [facility] Last Admin: 04/25/18 08:49 Dose: 325 mg Home Med (Paricalcitol [Zemplar]) 1 mcg PO DAILY [facility] Last Admin: 04/25/18 08:50 Dose: 1 mcg Home Med (Patient's Own Medication) 1,600 unit PO TID [facility] Last Admin: 04/25/18 08:48 Dose: 1,600 unit Hydralazine HCl (Apresoline) 50 mg PO Q8 [facility] Last Admin: 04/25/18 01:01 Dose: 50 mg Isosorbide Mononitrate (Imdur Er) 30 mg PO DAILY [facility] Last Admin: 04/24/18 08:44 Dose: 30 mg Metoprolol Succinate (Toprol Xl) 100 mg PO DAILY [facility] Last Admin: 04/24/18 08:43 Dose: 100 mg Pravastatin Sodium (Pravachol) 40 mg PO HS [facility] Last Admin: 04/24/18 22:15 Dose: 40 mg Repaglinide (Prandin) 1 mg PO BRKDIN [facility] Last Admin: 04/25/18 08:48 Dose: 1 mg Repaglinide (Prandin) 2 mg PO ACL [facility] Last Admin: 04/24/18 12:15 Dose: 2 mg Sitagliptin Phosphate (Januvia) 25 mg PO DAILY [facility] Last Admin: 04/25/18 08:47 Dose: 25 mg - Labs Labs: 04/23/18 06:05 04/21/18 02:15 PT 12.5 Seconds (9.8-13.1) 04/21/18 02:15 INR 1.1 04/21/18 02:15 APTT 28.0 Seconds (25.6-37.1) 04/18/18 11:15 - Constitutional Appears: No Acute Distress - ENT Exam ENT Exam: Mucous Membranes Moist - Neck Exam Neck Exam: Lymphadenopathy - Respiratory Exam Respiratory Exam: NORMAL BREATHING PATTERN. absent: Chest Wall Tenderness - Cardiovascular Exam Cardiovascular Exam: absent: JVD, Rubs - GI/Abdominal Exam GI & Abdominal Exam: Soft, Normal Bowel Sounds - Extremities Exam Extremities Exam: absent: Calf Tenderness - Back Exam Back Exam: absent: CVA tenderness (L), CVA tenderness (R) - Neurological Exam Neurological Exam: Alert - Psychiatric Exam Psychiatric exam: Normal Affect - Skin Skin Exam: absent: Cyanosis Assessment and Plan (1) CHF exacerbation Status: Acute (2) Chronic kidney disease, stage V Assessment & Plan: end stage renal disease receiving hemodialysis now Patient feeling much better Hypertension controlled diabetes mellitus as per primary team Hyperphosphatemia patient on phosphorus binder Secondary hyperparathyroidism on calcitriol Anemia patient receiving EPO dialysis order discussed with the dialysis nurse at the bedside Ultrafiltration about 2500 mL Right below knee amputation Patient is going home today and also his going for outpatient dialysis at [place] Status: Acute
[2018-04-25] MEDS: Metoprolol Succinate 100 mg XL Tab PO SCH (13:43)
[2018-04-25] MEDS: Pravastatin Sodium 40 MG TAB PO SCH (22:39)
[2018-04-26] MEDS ORDERED: Epoetin Alfa 4000 UNIT/ML Inj IV SCH (09:00)
[2018-04-26] MEDS: SEVELAMER CARBONATE 800 MG PO SCH ×3 (09:05→17:11)
[2018-04-26] MEDS: Metoprolol Succinate 100 mg XL Tab PO SCH (09:05)
[2018-04-26] MEDS: Patient's Own Med (Paricalcitol [Zemplar] 1 MCG) PO SCH (09:06)
[2018-04-26] MEDS: Cholecalciferol 1,000 INTLU TAB PO SCH (09:07)
--- NOTE | 2018-04-26 09:27 | CP.PCM.PN ---
Subjective - Date & Time of Evaluation Date of Evaluation: 04/26/18 Time of Evaluation: 09:27 - Subjective Subjective: NO COMPLAINTS/DISTRESS VSS Objective - Vital Signs/Intake and Output Vital Signs (last 24 hours): Temp Pulse Resp BP Pulse Ox 98.2 F 71 18 136/70 97 04/26/18 08:05 04/26/18 09:07 04/26/18 08:05 04/26/18 09:07 04/26/18 08:05 - Medications Medications: Current Medications Allopurinol (Zyloprim) 200 mg PO DAILY [facility] Last Admin: 04/26/18 09:09 Dose: 200 mg Amlodipine Besylate (Norvasc) 10 mg PO DAILY [facility] Last Admin: 04/26/18 09:07 Dose: 10 mg Aspirin (Ecotrin) 81 mg PO DAILY [facility] Last Admin: 04/26/18 09:07 Dose: 81 mg Calcitriol (Rocaltrol) 0.25 mcg PO MWF [facility] Last Admin: 04/26/18 09:07 Dose: 0.25 mcg Cholecalciferol (Vitamin D) 5,000 intlu PO DAILY [facility] Last Admin: 04/26/18 09:07 Dose: 5,000 intlu Clopidogrel Bisulfate (Plavix) 75 mg PO DAILY [facility] Last Admin: 04/26/18 09:05 Dose: 75 mg Enalapril Maleate (Vasotec) 20 mg PO DAILY [facility] Last Admin: 04/26/18 09:09 Dose: 20 mg Epoetin Eddy (Procrit) 4,000 unit IV MWF [facility] Ferrous Sulfate (Feosol) 325 mg PO DAILY [facility] Last Admin: 04/26/18 09:08 Dose: 325 mg Home Med (Paricalcitol [Zemplar]) 1 mcg PO DAILY [facility] Last Admin: 04/26/18 09:06 Dose: 1 mcg Home Med (Patient's Own Medication) 1,600 unit PO TID [facility] Last Admin: 04/26/18 09:05 Dose: 1,600 unit Hydralazine HCl (Apresoline) 50 mg PO Q8 [facility] Last Admin: 04/26/18 09:04 Dose: 50 mg Isosorbide Mononitrate (Imdur Er) 30 mg PO DAILY [facility] Last Admin: 04/26/18 09:06 Dose: 30 mg Metoprolol Succinate (Toprol Xl) 100 mg PO DAILY [facility] Last Admin: 04/26/18 09:05 Dose: 100 mg Pravastatin Sodium (Pravachol) 40 mg PO HS [facility] Last Admin: 04/25/18 22:39 Dose: 40 mg Repaglinide (Prandin) 1 mg PO BRKDIN [facility] Last Admin: 04/26/18 09:04 Dose: 1 mg Repaglinide (Prandin) 2 mg PO ACL [facility] Last Admin: 04/25/18 12:10 Dose: 2 mg Sitagliptin Phosphate (Januvia) 25 mg PO DAILY [facility] Last Admin: 04/26/18 09:04 Dose: 25 mg - Labs Labs: 04/23/18 06:05 04/21/18 02:15 PT 12.5 Seconds (9.8-13.1) 04/21/18 02:15 INR 1.1 04/21/18 02:15 APTT 28.0 Seconds (25.6-37.1) 04/18/18 11:15 - Constitutional Appears: Well - Head Exam Head Exam: ATRAUMATIC, NORMAL INSPECTION, NORMOCEPHALIC - Eye Exam Eye Exam: EOMI, Normal appearance, PERRL Pupil Exam: NORMAL ACCOMODATION, PERRL - ENT Exam ENT Exam: Mucous Membranes Moist, Normal Exam - Neck Exam Neck Exam: Full ROM, Normal Inspection. absent: Lymphadenopathy - Respiratory Exam Respiratory Exam: Clear to Ausculation Bilateral, NORMAL BREATHING PATTERN - Cardiovascular Exam Cardiovascular Exam: REGULAR RHYTHM, +S1, +S2. absent: Murmur - GI/Abdominal Exam GI & Abdominal Exam: Soft, Normal Bowel Sounds. absent: Tenderness - Rectal Exam Rectal Exam: NORMAL INSPECTION - Extremities Exam Extremities Exam: Full ROM, Normal Capillary Refill, Normal Inspection. absent : Joint Swelling, Pedal Edema - Back Exam Back Exam: NORMAL INSPECTION - Neurological Exam Neurological Exam: Alert, Awake, CN II-XII Intact, Normal Gait, Oriented x3 - Psychiatric Exam Psychiatric exam: Normal Affect, Normal Mood - Skin Skin Exam: Dry, Intact, Normal Color, Warm Assessment and Plan - Assessment and Plan (Free Text) Assessment: ESRD DM HTN CHF Plan: AWAITING PLACEMENT AT AN OUT PATIENT DIALYSIS CTR
--- NOTE | 2018-04-26 12:15 | CP.PCM.PN ---
Subjective - Date & Time of Evaluation Date of Evaluation: 04/26/18 Time of Evaluation: 12:14 - Subjective Subjective: patient feeling much better Less shortness of breath no nausea no vomiting Objective - Vital Signs/Intake and Output Vital Signs (last 24 hours): Temp Pulse Resp BP Pulse Ox 99.2 F 73 18 117/58 L 100 04/26/18 12:10 04/26/18 12:10 04/26/18 12:10 04/26/18 12:10 04/26/18 12:10 Intake and Output: 04/26/18 04/26/18 06:59 18:59 Output Total 100 Balance -100 - Medications Medications: Current Medications Allopurinol (Zyloprim) 200 mg PO DAILY [facility] Last Admin: 04/26/18 09:09 Dose: 200 mg Amlodipine Besylate (Norvasc) 10 mg PO DAILY [facility] Last Admin: 04/26/18 09:07 Dose: 10 mg Aspirin (Ecotrin) 81 mg PO DAILY [facility] Last Admin: 04/26/18 09:07 Dose: 81 mg Calcitriol (Rocaltrol) 0.25 mcg PO MWF [facility] Last Admin: 04/26/18 09:07 Dose: 0.25 mcg Cholecalciferol (Vitamin D) 5,000 intlu PO DAILY [facility] Last Admin: 04/26/18 09:07 Dose: 5,000 intlu Clopidogrel Bisulfate (Plavix) 75 mg PO DAILY [facility] Last Admin: 04/26/18 09:05 Dose: 75 mg Enalapril Maleate (Vasotec) 20 mg PO DAILY [facility] Last Admin: 04/26/18 09:09 Dose: 20 mg Epoetin Eddy (Procrit) 4,000 unit IV MWF [facility] Last Admin: 04/26/18 11:20 Dose: 4,000 unit Ferrous Sulfate (Feosol) 325 mg PO DAILY [facility] Last Admin: 04/26/18 09:08 Dose: 325 mg Home Med (Paricalcitol [Zemplar]) 1 mcg PO DAILY [facility] Last Admin: 04/26/18 09:06 Dose: 1 mcg Home Med (Patient's Own Medication) 1,600 unit PO TID [facility] Last Admin: 04/26/18 09:05 Dose: 1,600 unit Hydralazine HCl (Apresoline) 50 mg PO Q8 [facility] Last Admin: 04/26/18 09:04 Dose: 50 mg Isosorbide Mononitrate (Imdur Er) 30 mg PO DAILY [facility] Last Admin: 04/26/18 09:06 Dose: 30 mg Metoprolol Succinate (Toprol Xl) 100 mg PO DAILY [facility] Last Admin: 04/26/18 09:05 Dose: 100 mg Pravastatin Sodium (Pravachol) 40 mg PO HS [facility] Last Admin: 04/25/18 22:39 Dose: 40 mg Repaglinide (Prandin) 1 mg PO BRKDIN [facility] Last Admin: 04/26/18 09:04 Dose: 1 mg Repaglinide (Prandin) 2 mg PO ACL [facility] Last Admin: 04/26/18 11:17 Dose: 2 mg Sitagliptin Phosphate (Januvia) 25 mg PO DAILY [facility] Last Admin: 04/26/18 09:04 Dose: 25 mg - Labs Labs: 04/23/18 06:05 04/21/18 02:15 PT 12.5 Seconds (9.8-13.1) 04/21/18 02:15 INR 1.1 04/21/18 02:15 APTT 28.0 Seconds (25.6-37.1) 04/18/18 11:15 - Constitutional Appears: No Acute Distress - ENT Exam ENT Exam: Mucous Membranes Moist - Neck Exam Neck Exam: absent: Lymphadenopathy - Respiratory Exam Respiratory Exam: NORMAL BREATHING PATTERN. absent: Chest Wall Tenderness - Cardiovascular Exam Cardiovascular Exam: absent: Gallop, JVD, Rubs - GI/Abdominal Exam GI & Abdominal Exam: Soft. absent: Guarding - Extremities Exam Extremities Exam: absent: Calf Tenderness - Back Exam Back Exam: absent: CVA tenderness (L), CVA tenderness (R) - Neurological Exam Neurological Exam: Alert Assessment and Plan (1) CHF exacerbation Status: Acute (2) Chronic kidney disease, stage V Assessment & Plan: end stage renal disease receiving hemodialysis TTS Patient feeling much better Hypertension controlled diabetes mellitus as per primary team Hyperphosphatemia patient on phosphorus binder Secondary hyperparathyroidism on calcitriol Anemia patient receiving EPO Ultrafiltration about 2500 mL Right below knee amputation Patient is going home today and also his going for outpatient dialysis at [facility] Status: Acute
[2018-04-26] MEDS: Pravastatin Sodium 40 MG TAB PO SCH (21:17)
--- NOTE | 2018-04-27 08:53 | CP.PCM.PN ---
Subjective - Date & Time of Evaluation Date of Evaluation: 04/27/18 Time of Evaluation: 08:52 - Subjective Subjective: dialysis note he was seen on hemodialysis. Sitting up in the bed. Patient is awake and conscious. Vital signs stable. Dialysis nurse at the bedside. Objective - Vital Signs/Intake and Output Vital Signs (last 24 hours): Temp Pulse Resp BP Pulse Ox 98.6 F 71 18 136/64 100 04/27/18 08:21 04/27/18 08:21 04/27/18 08:21 04/27/18 08:21 04/27/18 08:21 - Medications Medications: Current Medications Allopurinol (Zyloprim) 200 mg PO DAILY [facility] Last Admin: 04/26/18 09:09 Dose: 200 mg Amlodipine Besylate (Norvasc) 10 mg PO DAILY [facility] Last Admin: 04/26/18 09:07 Dose: 10 mg Aspirin (Ecotrin) 81 mg PO DAILY [facility] Last Admin: 04/26/18 09:07 Dose: 81 mg Calcitriol (Rocaltrol) 0.25 mcg PO MWF [facility] Last Admin: 04/26/18 09:07 Dose: 0.25 mcg Cholecalciferol (Vitamin D) 5,000 intlu PO DAILY [facility] Last Admin: 04/26/18 09:07 Dose: 5,000 intlu Clopidogrel Bisulfate (Plavix) 75 mg PO DAILY [facility] Last Admin: 04/26/18 09:05 Dose: 75 mg Enalapril Maleate (Vasotec) 20 mg PO DAILY [facility] Last Admin: 04/26/18 09:09 Dose: 20 mg Epoetin Eddy (Procrit) 4,000 unit IV MWF [facility] Last Admin: 04/26/18 11:20 Dose: 4,000 unit Ferrous Sulfate (Feosol) 325 mg PO DAILY [facility] Last Admin: 04/26/18 09:08 Dose: 325 mg Home Med (Paricalcitol [Zemplar]) 1 mcg PO DAILY [facility] Last Admin: 04/26/18 09:06 Dose: 1 mcg Home Med (Patient's Own Medication) 1,600 unit PO TID [facility] Last Admin: 04/26/18 17:11 Dose: 1,600 unit Hydralazine HCl (Apresoline) 50 mg PO Q8 [facility] Last Admin: 04/27/18 00:32 Dose: 50 mg Isosorbide Mononitrate (Imdur Er) 30 mg PO DAILY [facility] Last Admin: 04/26/18 09:06 Dose: 30 mg Metoprolol Succinate (Toprol Xl) 100 mg PO DAILY [facility] Last Admin: 04/26/18 09:05 Dose: 100 mg Pravastatin Sodium (Pravachol) 40 mg PO HS [facility] Last Admin: 04/26/18 21:17 Dose: 40 mg Repaglinide (Prandin) 1 mg PO BRKDIN [facility] Last Admin: 04/26/18 17:11 Dose: 1 mg Repaglinide (Prandin) 2 mg PO ACL [facility] Last Admin: 04/26/18 11:17 Dose: 2 mg Sitagliptin Phosphate (Januvia) 25 mg PO DAILY [facility] Last Admin: 04/26/18 09:04 Dose: 25 mg - Labs Labs: 04/23/18 06:05 04/21/18 02:15 PT 12.5 Seconds (9.8-13.1) 04/21/18 02:15 INR 1.1 04/21/18 02:15 APTT 28.0 Seconds (25.6-37.1) 04/18/18 11:15 - Constitutional Appears: No Acute Distress - Eye Exam Eye Exam: Conjunctival injection - ENT Exam ENT Exam: Mucous Membranes Moist - GI/Abdominal Exam GI & Abdominal Exam: Soft. absent: Distended - Extremities Exam Extremities Exam: absent: Calf Tenderness - Back Exam Back Exam: absent: CVA tenderness (L), CVA tenderness (R) - Neurological Exam Neurological Exam: Alert - Psychiatric Exam Psychiatric exam: Normal Mood - Skin Skin Exam: absent: Cyanosis Assessment and Plan (1) CHF exacerbation Status: Acute (2) Chronic kidney disease, stage V Assessment & Plan: end stage renal disease receiving hemodialysis now Patient feeling much better Hypertension controlled diabetes mellitus as per primary team Hyperphosphatemia patient on phosphorus binder Secondary hyperparathyroidism on calcitriol Anemia patient receiving EPO dialysis order discussed with the dialysis nurse at the bedside Ultrafiltration about 2500 mL S/P Right below knee amputation waiting for placement to go for outpatient dialysis Status: Acute
--- NOTE | 2018-04-27 09:02 | CP.PCM.PN ---
Subjective - Date & Time of Evaluation Date of Evaluation: 04/27/18 Time of Evaluation: 09:02 - Subjective Subjective: NO COMPLAINTS/DISTRESS DIALYSIS IN PROGRESS VSS Objective - Vital Signs/Intake and Output Vital Signs (last 24 hours): Temp Pulse Resp BP Pulse Ox 98.6 F 71 18 136/64 100 04/27/18 08:21 04/27/18 08:21 04/27/18 08:21 04/27/18 08:21 04/27/18 08:21 - Medications Medications: Current Medications Allopurinol (Zyloprim) 200 mg PO DAILY [facility] Last Admin: 04/26/18 09:09 Dose: 200 mg Amlodipine Besylate (Norvasc) 10 mg PO DAILY [facility] Last Admin: 04/26/18 09:07 Dose: 10 mg Aspirin (Ecotrin) 81 mg PO DAILY [facility] Last Admin: 04/26/18 09:07 Dose: 81 mg Calcitriol (Rocaltrol) 0.25 mcg PO MWF [facility] Last Admin: 04/26/18 09:07 Dose: 0.25 mcg Cholecalciferol (Vitamin D) 5,000 intlu PO DAILY [facility] Last Admin: 04/26/18 09:07 Dose: 5,000 intlu Clopidogrel Bisulfate (Plavix) 75 mg PO DAILY [facility] Last Admin: 04/26/18 09:05 Dose: 75 mg Enalapril Maleate (Vasotec) 20 mg PO DAILY [facility] Last Admin: 04/26/18 09:09 Dose: 20 mg Epoetin Eddy (Procrit) 4,000 unit IV MWF [facility] Last Admin: 04/26/18 11:20 Dose: 4,000 unit Ferrous Sulfate (Feosol) 325 mg PO DAILY [facility] Last Admin: 04/26/18 09:08 Dose: 325 mg Home Med (Paricalcitol [Zemplar]) 1 mcg PO DAILY [facility] Last Admin: 04/26/18 09:06 Dose: 1 mcg Home Med (Patient's Own Medication) 1,600 unit PO TID [facility] Last Admin: 04/26/18 17:11 Dose: 1,600 unit Hydralazine HCl (Apresoline) 50 mg PO Q8 [facility] Last Admin: 04/27/18 00:32 Dose: 50 mg Isosorbide Mononitrate (Imdur Er) 30 mg PO DAILY [facility] Last Admin: 04/26/18 09:06 Dose: 30 mg Metoprolol Succinate (Toprol Xl) 100 mg PO DAILY [facility] Last Admin: 04/26/18 09:05 Dose: 100 mg Pravastatin Sodium (Pravachol) 40 mg PO HS [facility] Last Admin: 04/26/18 21:17 Dose: 40 mg Repaglinide (Prandin) 1 mg PO BRKDIN [facility] Last Admin: 04/26/18 17:11 Dose: 1 mg Repaglinide (Prandin) 2 mg PO ACL [facility] Last Admin: 04/26/18 11:17 Dose: 2 mg Sitagliptin Phosphate (Januvia) 25 mg PO DAILY [facility] Last Admin: 04/26/18 09:04 Dose: 25 mg - Labs Labs: 04/23/18 06:05 04/21/18 02:15 PT 12.5 Seconds (9.8-13.1) 04/21/18 02:15 INR 1.1 04/21/18 02:15 APTT 28.0 Seconds (25.6-37.1) 04/18/18 11:15 - Constitutional Appears: Well - Head Exam Head Exam: ATRAUMATIC, NORMAL INSPECTION, NORMOCEPHALIC - Eye Exam Eye Exam: EOMI, Normal appearance, PERRL Pupil Exam: NORMAL ACCOMODATION, PERRL - ENT Exam ENT Exam: Mucous Membranes Moist, Normal Exam - Neck Exam Neck Exam: Full ROM, Normal Inspection. absent: Lymphadenopathy - Respiratory Exam Respiratory Exam: Clear to Ausculation Bilateral, NORMAL BREATHING PATTERN - Cardiovascular Exam Cardiovascular Exam: REGULAR RHYTHM, +S1, +S2. absent: Murmur - GI/Abdominal Exam GI & Abdominal Exam: Soft, Normal Bowel Sounds. absent: Tenderness - Rectal Exam Rectal Exam: NORMAL INSPECTION - Extremities Exam Extremities Exam: Full ROM, Normal Capillary Refill, Normal Inspection. absent : Joint Swelling, Pedal Edema Additional comments: S/P R BKA - Back Exam Back Exam: NORMAL INSPECTION - Neurological Exam Neurological Exam: Alert, Awake, CN II-XII Intact, Normal Gait, Oriented x3 - Psychiatric Exam Psychiatric exam: Normal Affect, Normal Mood - Skin Skin Exam: Dry, Intact, Normal Color, Warm Assessment and Plan - Assessment and Plan (Free Text) Assessment: CHF--IMPROVED ESRD DM HTN Plan: CONTINUE CURRENTB RX AWAIT INS AUTHORIZATION RE-DIALYSIS PLACEMENT
[2018-04-27] MEDS: Metoprolol Succinate 100 mg XL Tab PO SCH (09:19)
[2018-04-27] MEDS ORDERED: Epoetin Alfa 4000 UNIT/ML Inj IV SCH (10:15)
[2018-04-27] MEDS: Cholecalciferol 1,000 INTLU TAB PO SCH (11:00)
[2018-04-27] MEDS: SEVELAMER CARBONATE 800 MG PO SCH ×3 (11:03→17:23)
[2018-04-27] MEDS: Patient's Own Med (Paricalcitol [Zemplar] 1 MCG) PO SCH (11:05)
[2018-04-27] MEDS: Pravastatin Sodium 40 MG TAB PO SCH (21:50)
[2018-04-28 00:33] VITALS: RESP 18
[2018-04-28 08:21] VITALS: PULSE 79
[2018-04-28] MEDS: Cholecalciferol 1,000 INTLU TAB PO SCH (09:02)
[2018-04-28] MEDS: Metoprolol Succinate 100 mg XL Tab PO SCH (09:04)
[2018-04-28] MEDS: Patient's Own Med (Paricalcitol [Zemplar] 1 MCG) PO SCH (09:05)
[2018-04-28] MEDS: SEVELAMER CARBONATE 800 MG PO SCH ×2 (09:05→13:03)
--- NOTE | 2018-04-28 12:12 | CP.PCM.PN ---
Subjective - Date & Time of Evaluation Date of Evaluation: 04/28/18 Time of Evaluation: 12:11 - Subjective Subjective: patient is stable no chest pain no shortness of breath Objective - Vital Signs/Intake and Output Vital Signs (last 24 hours): Temp Pulse Resp BP Pulse Ox 98.4 F 79 18 134/64 100 04/28/18 08:21 04/28/18 09:06 04/28/18 08:21 04/28/18 09:06 04/28/18 08:21 - Medications Medications: Current Medications Allopurinol (Zyloprim) 200 mg PO DAILY [facility] Last Admin: 04/28/18 09:04 Dose: 200 mg Amlodipine Besylate (Norvasc) 10 mg PO DAILY [facility] Last Admin: 04/28/18 09:06 Dose: 10 mg Aspirin (Ecotrin) 81 mg PO DAILY [facility] Last Admin: 04/28/18 09:06 Dose: 81 mg Calcitriol (Rocaltrol) 0.25 mcg PO MWF [facility] Last Admin: 04/28/18 09:05 Dose: 0.25 mcg Cholecalciferol (Vitamin D) 5,000 intlu PO DAILY [facility] Last Admin: 04/28/18 09:02 Dose: 5,000 intlu Clopidogrel Bisulfate (Plavix) 75 mg PO DAILY [facility] Last Admin: 04/28/18 09:04 Dose: 75 mg Enalapril Maleate (Vasotec) 20 mg PO DAILY [facility] Last Admin: 04/28/18 09:04 Dose: 20 mg Epoetin Eddy (Procrit) 4,000 unit IV TTS [facility] Last Admin: 04/27/18 10:57 Dose: 4,000 unit Ferrous Sulfate (Feosol) 325 mg PO DAILY [facility] Last Admin: 04/28/18 09:03 Dose: 325 mg Home Med (Paricalcitol [Zemplar]) 1 mcg PO DAILY [facility] Last Admin: 04/28/18 09:05 Dose: 1 mcg Home Med (Patient's Own Medication) 1,600 unit PO TID [facility] Last Admin: 04/28/18 09:05 Dose: 1,600 unit Hydralazine HCl (Apresoline) 50 mg PO Q8 [facility] Last Admin: 04/28/18 09:04 Dose: 50 mg Isosorbide Mononitrate (Imdur Er) 30 mg PO DAILY [facility] Last Admin: 04/28/18 09:06 Dose: 30 mg Metoprolol Succinate (Toprol Xl) 100 mg PO DAILY [facility] Last Admin: 04/28/18 09:04 Dose: 100 mg Pravastatin Sodium (Pravachol) 40 mg PO HS [facility] Last Admin: 04/27/18 21:50 Dose: 40 mg Repaglinide (Prandin) 1 mg PO BRKDIN [facility] Last Admin: 04/28/18 09:03 Dose: 1 mg Repaglinide (Prandin) 2 mg PO ACL [facility] Last Admin: 04/27/18 10:59 Dose: 2 mg Sitagliptin Phosphate (Januvia) 25 mg PO DAILY [facility] Last Admin: 04/28/18 09:05 Dose: 25 mg - Labs Labs: 04/23/18 06:05 04/21/18 02:15 PT 12.5 Seconds (9.8-13.1) 04/21/18 02:15 INR 1.1 04/21/18 02:15 APTT 28.0 Seconds (25.6-37.1) 04/18/18 11:15 - Constitutional Appears: No Acute Distress - ENT Exam ENT Exam: absent: Mucous Membranes Moist - Neck Exam Neck Exam: absent: Lymphadenopathy - Respiratory Exam Respiratory Exam: NORMAL BREATHING PATTERN. absent: Rhonchi - Cardiovascular Exam Cardiovascular Exam: absent: Gallop, JVD, Rubs - GI/Abdominal Exam GI & Abdominal Exam: Soft, Normal Bowel Sounds - Extremities Exam Extremities Exam: absent: Calf Tenderness - Back Exam Back Exam: absent: CVA tenderness (L), CVA tenderness (R) - Neurological Exam Neurological Exam: Alert - Psychiatric Exam Psychiatric exam: Normal Affect - Skin Skin Exam: absent: Cyanosis Assessment and Plan (1) CHF exacerbation Status: Acute (2) Chronic kidney disease, stage V Assessment & Plan: end stage renal disease receiving hemodialysis TTS Patient feeling much better Hypertension controlled diabetes mellitus as per primary team Hyperphosphatemia patient on phosphorus binder Secondary hyperparathyroidism on calcitriol Anemia patient receiving EPO Ultrafiltration about 2500 mL S/P Right below knee amputation waiting for placement Status: Acute
[2018-04-28 12:31] VITALS: BP 145/74; TEMP 98.7; O2SAT 99
--- NOTE | 2018-04-28 13:15 | CP.PCM.DIS ---
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 Hospital Course - Lab Results Lab Results: Micro Results 04/18/18 11:15 Blood Blood Culture - Final NO GROWTH AFTER 5 DAYS 04/18/18 11:15 Blood Gram Stain - Final TEST NOT PERFORMED Most Recent Lab Values WBC 9.0 K/uL (4.8-10.8) 04/23/18 06:05 RBC 2.91 Mil/uL (4.40-5.90) L 04/23/18 06:05 Hgb 8.9 g/dL (12.0-18.0) L 04/23/18 06:05 Hct 27.7 % (35.0-51.0) L 04/23/18 06:05 MCV 95.2 fl (80.0-94.0) H 04/23/18 06:05 MCH 30.7 pg (27.0-31.0) 04/23/18 06:05 MCHC 32.2 g/dL (33.0-37.0) L 04/23/18 06:05 RDW 15.5 % (11.5-14.5) H 04/23/18 06:05 Plt Count 105 K/uL (130-400) L D 04/23/18 06:05 MPV 7.8 fl (7.2-11.7) 04/21/18 02:15 Neut % (Auto) 84.5 % (50.0-75.0) H 04/21/18 02:15 Lymph % (Auto) 5.3 % (20.0-40.0) L 04/21/18 02:15 Roberts % (Auto) 6.9 % (0.0-10.0) 04/21/18 02:15 Eos % (Auto) 2.9 % (0.0-4.0) 04/21/18 02:15 Baso % (Auto) 0.4 % (0.0-2.0) 04/21/18 02:15 Neut # (Auto) 8.5 K/uL (1.8-7.0) H 04/21/18 02:15 Lymph # (Auto) 0.5 K/uL (1.0-4.3) L 04/21/18 02:15 Roberts # (Auto) 0.7 K/uL (0.0-0.8) 04/21/18 02:15 Eos # (Auto) 0.3 K/uL (0.0-0.7) 04/21/18 02:15 Baso # (Auto) 0.0 K/uL (0.0-0.2) 04/21/18 02:15 Neutrophils % (Manual) 80 % (42-75) H 04/18/18 11:15 Lymphocytes % (Manual) 10 % (20-50) L 04/18/18 11:15 Monocytes % (Manual) 7 % (0-10) 04/18/18 11:15 Eosinophils % (Manual) 3 % (0-7) 04/18/18 11:15 Platelet Estimate Normal (NORMAL) 04/18/18 11:15 Hypochromasia (manual) Moderate 04/18/18 11:15 Anisocytosis (manual) Slight 04/18/18 11:15 Tear Drop Cells Slight 04/18/18 11:15 Ovalocytes Slight 04/18/18 11:15 Schistocytes Slight 04/18/18 11:15 Retic Count 5.9 % (0.5-1.5) H 04/19/18 11:28 PT 12.5 Seconds (9.8-13.1) 04/21/18 02:15 INR 1.1 04/21/18 02:15 APTT 28.0 Seconds (25.6-37.1) 04/18/18 11:15 pCO2 37 mm/Hg (35-45) 04/21/18 02:25 pO2 102 mm/Hg (80-100) H 04/21/18 02:25 HCO3 24.7 mmol/L (21-28) 04/21/18 02:25 ABG pH 7.42 (7.35-7.45) 04/21/18 02:25 ABG Total CO2 25.1 mmol/L (22-28) 04/21/18 02:25 ABG O2 Saturation 98.0 % (95-98) 04/21/18 02:25 ABG O2 Content 16.9 ML/dL (15-23) 04/21/18 02:25 ABG Base Excess -0.2 mmol/L (-2.0-3.0) 04/21/18 02:25 ABG Hemoglobin 12.5 g/dL (11.7-17.4) 04/21/18 02:25 ABG Carboxyhemoglobin 1.6 % (0.5-1.5) H 04/21/18 02:25 POC ABG HHb (Measured) 1.9 % (0.0-5.0) 04/21/18 02:25 ABG Methemoglobin 1.3 % (0.0-3.0) 04/21/18 02:25 ABG O2 Capacity 17.2 mL/dL (16-24) 04/21/18 02:25 Niraj Test Yes 04/21/18 02:25 ABG Potassium 4.2 mmol/L (3.6-5.2) 04/18/18 11:05 A-a O2 Difference 80.0 mm/Hg 04/21/18 02:25 Hgb O2 Saturation 95.3 % (95.0-98.0) 04/21/18 02:25 Sodium 138.0 mmol/L (132-148) 04/18/18 11:05 Chloride 109.0 mmol/L (98-107) H 04/18/18 11:05 Glucose 126 mg/dL (75-110) H 04/18/18 11:05 Lactate 0.6 mmol/L (0.7-2.1) L 04/18/18 11:05 FiO2 32.0 % 04/21/18 02:25 Sodium 140 mmol/l (132-148) 04/21/18 02:15 Potassium 4.0 MMOL/L (3.6-5.0) 04/21/18 02:15 Chloride 102 mmol/L (98-107) 04/21/18 02:15 Carbon Dioxide 23 mmol/L (22-30) 04/21/18 02:15 Anion Gap 19 (10-20) 04/21/18 02:15 BUN 64 mg/dl (9-20) H 04/21/18 02:15 Creatinine 5.4 mg/dl (0.8-1.5) H 04/21/18 02:15 Est GFR ( Amer) 13 04/21/18 02:15 Est GFR (Non-Af Amer) 11 04/21/18 02:15 POC Glucose (mg/dL) 159 mg/dL (65-110) H 04/28/18 11:27 Random Glucose 200 mg/dL (75-110) H 04/21/18 02:15 Calcium 8.4 mg/dL (8.4-10.2) 04/21/18 02:15 Phosphorus 4.9 mg/dl (2.5-4.5) H 04/21/18 02:15 Magnesium 1.4 MG/DL (1.6-2.3) L 04/21/18 02:15 Iron 27 ug/dL (49-181) L 04/19/18 14:30 TIBC 260 ug/dL (250-450) 04/19/18 14:30 % Saturation 10 % (20-55) L 04/19/18 14:30 Ferritin 250.0 ng/Ml (17.9-464) 04/19/18 11:28 Total Bilirubin 0.7 mg/dl (0.2-1.3) 04/21/18 02:15 AST 33 U/L (17-59) 04/21/18 02:15 ALT 29 U/L (21-72) 04/21/18 02:15 Alkaline Phosphatase 78 U/L (38-126) 04/21/18 02:15 Troponin I 0.1300 ng/mL (0.00-0.120) H* 04/21/18 02:15 NT-Pro-B Natriuret Pep 42833 pg/ml (0-900) H 04/18/18 17:39 Total Protein 6.8 G/DL (6.3-8.2) 04/21/18 02:15 Total Protein (PEP) 5.6 g/dL (6.1-8.1) L 04/19/18 14:30 Albumin 3.5 g/dL (3.5-5.0) 04/21/18 02:15 Albumin (PEP) 2.9 g/dL (3.8-4.8) L 04/19/18 14:30 Globulin 3.3 gm/dL (2.2-3.9) 04/21/18 02:15 Albumin/Globulin Ratio 1.1 (1.0-2.1) 04/21/18 02:15 Wezqd-8-Xlmfairya 0.3 g/dL (0.2-0.3) 04/19/18 14:30 Nqosy-0-Luhrhaitq 0.6 g/dL (0.5-0.9) 04/19/18 14:30 Wdnx-5-Binwcsyk 0.4 g/dL (0.4-0.6) 04/19/18 14:30 Dsyo-3-Xuosbvxb 0.3 g/dL (0.2-0.5) 04/19/18 14:30 Gamma Globulins 1.1 g/dL (0.8-1.7) 04/19/18 14:30 Abnorm Protein Band 1 TEST NOT PERFORMED 04/19/18 14:30 Abnorm Protein Band 2 TEST NOT PERFORMED 04/19/18 14:30 Abnorm Protein Band 3 TEST NOT PERFORMED 04/19/18 14:30 Vitamin B12 367 pg/mL (239-931) 04/19/18 11:28 Folate 12.9 ng/mL 04/19/18 11:28 Thyroxine (T4) 8.22 ug/dl (5.5-11.0) 04/18/18 17:39 TSH 3rd Generation 0.67 mIU/ML (0.46-4.68) 04/18/18 17:39 Arterial Blood Potassium 4.2 mmol/L (3.6-5.2) 04/18/18 11:05 Stool Occult Blood Negative (NEGATIVE) 04/19/18 22:00 IgG 1215 mg/dL (694-1618) 04/19/18 14:30 IgA 275 mg/dL (81-463) 04/19/18 14:30 IgM 11 mg/dL (48-271) L 04/19/18 14:30 LEXI & SPEP Interp See note 04/19/18 14:30 Serum Immunofixation Not detected (Not Detected) 04/19/18 14:30 Tony/Lambda Light Chain (()) 04/19/18 14:30 Free Tony Light Chains 152.3 mg/L (3.3-19.4) H 04/19/18 14:30 Free Lambda Light Chain 96.9 mg/L (5.7-26.3) H 04/19/18 14:30 Free Tony/Lambda Ratio 1.57 (0.26-1.65) 04/19/18 14:30 Hepatitis A IgM Ab Negative (NEGATIVE) 04/20/18 18:40 Hep Bs Antigen Negative (NEGATIVE) 04/20/18 18:40 Hep Bs Antibody Negative (NEGATIVE) 04/22/18 08:38 Hep B Core IgM Ab Negative (NEGATIVE) 04/20/18 18:40 Hepatitis C Antibody Negative (NEGATIVE) 04/20/18 18:40 Blood Type O POSITIVE 04/19/18 11:28 Antibody Screen Negative 04/19/18 11:28 Crossmatch See Detail 04/19/18 11:28 BBK History Checked Patient has bt 04/19/18 11:28 - Hospital Course Hospital Course: CLINICALLY IMPROVED WITH DIALYSIS AND TRANSFUSION OF PRBCS Discharge Exam - Head Exam Head Exam: ATRAUMATIC, NORMAL INSPECTION, NORMOCEPHALIC - Eye Exam Eye Exam: EOMI, Normal appearance, PERRL Pupil Exam: NORMAL ACCOMODATION, PERRL - GI/Abdominal Exam GI & Abdominal Exam: Normal Bowel Sounds - Rectal Exam Rectal Exam: NORMAL INSPECTION - Extremities Exam Additional comments: R BKA - Neurological Exam Neurological exam: Alert, CN II-XII Intact, Normal Gait, Oriented x3, Reflexes Normal - Psychiatric Exam Psychiatric exam: Normal Affect, Normal Mood - Skin Skin Exam: Dry, Intact, Normal Color, Warm Discharge Plan - Follow Up Plan Condition: FAIR Disposition: HOME/ ROUTINE Instructions: Heart Failure, Adult (DC), End Stage Kidney Disease (DC) Additional Instructions: follow up with police manager on tuesday05/03/18 10am [facility] [phone] Referrals: Cedrick Leon MD [Medical Doctor] - David Farooq MD [Medical Doctor] - Lauro Gambino MD [Staff Provider] - Una Morel MD [Staff Provider] -
== END 2018-04-28 15:20 | disposition home health service (06) | DRG 291 ==
LOC: H.ER 10:01 → H.ERHOLD 14:14 → H.TEL 20:46
PROVIDERS: ADMIT Internal Medicine Pulmonary Disease; ATTEND Internal Medicine Pulmonary Disease
PROC: 3E1M39Z Irrigation of Peritoneal Cavity using Dialysate, Percutaneous Approach (ICD-10-PCS; 2018-04-20)
PROC: 30233N1 Transfusion of Nonautologous Red Blood Cells into Peripheral Vein, Percutaneous Approach (ICD-10-PCS; 2018-04-20)
PROC: 0WHG33Z Insertion of Infusion Device into Peritoneal Cavity, Percutaneous Approach (ICD-10-PCS; principal; 2018-04-20 12:30)
DX: I13.2 Hypertensive heart and chronic kidney disease with heart failure and with stage 5 chronic kidney disease, or end stage renal disease (principal); N18.6 End stage renal disease; N25.81 Secondary hyperparathyroidism of renal origin; I50.9 Heart failure, unspecified; I25.10 Atherosclerotic heart disease of native coronary artery without angina pectoris; D63.1 Anemia in chronic kidney disease; E11.22 Type 2 diabetes mellitus with diabetic chronic kidney disease; E78.00 Pure hypercholesterolemia, unspecified; Z89.511 Acquired absence of right leg below knee; Z99.2 Dependence on renal dialysis; Z95.5 Presence of coronary angioplasty implant and graft; Z87.891 Personal history of nicotine dependence; Z87.01 Personal history of pneumonia (recurrent); Z79.02 Long term (current) use of antithrombotics/antiplatelets; Z79.82 Long term (current) use of aspirin; Z79.899 Other long term (current) drug therapy; Z79.84 Long term (current) use of oral hypoglycemic drugs

== ENCOUNTER 2018-05-04 08:36 | Inpatient (IN) | payer MEDICARE, MEDICAID ==
[2018-05-04 08:36] VITALS: BMI 30.4
--- NOTE | 2018-05-04 09:24 | ED PDOC ---
HPI: General Adult Time Seen by Provider: 05/04/18 08:54 Chief Complaint (Nursing): Fever History Per: Patient History/Exam Limitations: no limitations Onset/Duration Of Symptoms: Days Current Symptoms Are (Timing): Still Present Additional Complaint(s): 62 y/o male with a PMHx of HTN, DM, high cholesterol, heart conditions and right TKA presents to the ED for evaluation of a possible infection in his dialysis line. Patient finished dialysis (M,W,F) and was told yesterday that his dialysis line was infected. Patient was instructed to go to [place] by Dr. Leon but came here instead. Patient also reports of having a fever yesterday. Denies pain, nausea, vomiting, diarrhea, headache, throat pain and any other symptoms. PMD: Miesha Rudolph Nephologist: David Beatty Past Medical History Reviewed: Historical Data, Nursing Documentation, Vital Signs Vital Signs: Last Vital Signs Temp 98 F 05/04/18 08:47 Pulse 78 05/04/18 09:39 Resp 17 05/04/18 09:39 BP 146/72 05/04/18 09:39 Pulse Ox 100 05/04/18 12:34 - Medical History PMH: Anemia, CAD, Diabetes, HTN, Hypercholesterolemia, Pneumonia, Chronic Kidney Disease - Surgical History Surgical History: Coronary Stent (x 2) Denies: Pacemaker - Family History Family History: States: Unknown Family Hx - Home Medications Home Medications: Ambulatory Orders Medication Instructions Recorded Allopurinol [Zyloprim] 200 mg PO DAILY 10/23/17 Aspirin [Ecotrin] 81 mg PO DAILY 10/23/17 Isosorbide Mononitrate [Isosorbide 30 mg PO DAILY 10/23/17 Mononitrate ER] amLODIPine [Norvasc] 10 mg PO DAILY 10/23/17 Clopidogrel [Plavix] 75 mg PO DAILY 02/16/18 Ergocalciferol (Vitamin D2) 50,000 unit PO FR 02/16/18 [Vitamin D2] Sevelamer Carbonate [Renvela] 1,600 mg PO TID 02/16/18 Enalapril Maleate [Vasotec] 20 mg PO DAILY 02/20/18 Linagliptin [Tradjenta] 5 mg PO DAILY 02/20/18 Metoprolol Succinate XL [Toprol XL] 100 mg PO DAILY 02/20/18 Paricalcitol [Zemplar] 1 mcg PO DAILY 02/20/18 Repaglinide [Prandin] 1 mg PO BRKDIN 02/20/18 Calcitriol [Rocaltrol] 0.25 mcg PO MWF 04/18/18 Cholecalciferol (Vitamin D3) 5,000 unit PO DAILY 04/18/18 [Vitamin D3] Ferrous Sulfate [Feosol] 325 mg PO DAILY 04/18/18 Pravastatin Sodium [Pravachol] 40 mg PO HS 04/18/18 Repaglinide [Prandin] 2 mg PO ACL 04/18/18 hydrALAZINE [Apresoline] 50 mg PO Q8 04/18/18 Epoetin Eddy [Procrit] 4,000 unit IV MWF ml 04/25/18 Furosemide [Lasix] 20 mg PO DAILY #0 04/25/18 - Allergies Allergies/Adverse Reactions: Allergies Allergy/AdvReac Type Severity Reaction Status Date / Time No Known Allergies Allergy Unverified 02/20/18 08:26 Review of Systems ROS Statement: Except As Marked, All Systems Reviewed And Found Negative Constitutional: Positive for: Other (Possible infection in dialysis line) ENT: Negative for: Throat Pain Gastrointestinal: Negative for: Nausea, Vomiting, Diarrhea Neurological: Negative for: Headache Physical Exam - Reviewed Nursing Documentation Reviewed: Yes Vital Signs Reviewed: Yes - Physical Exam Appears: Positive for: Non-toxic, No Acute Distress Head Exam: Positive for: ATRAUMATIC, NORMOCEPHALIC Skin: Positive for: Normal Color, Warm, Dry Eye Exam: Positive for: Normal appearance, EOMI, PERRL ENT: Positive for: Normal ENT Inspection Neck: Positive for: Normal, Painless ROM, Supple Cardiovascular/Chest: Positive for: Regular Rate, Rhythm, Other (Minimal yellow discharge at the line; No erythema, tenderness, induration and fluctance.). Negative for: Murmur Respiratory: Positive for: Normal Breath Sounds. Negative for: Respiratory Distress Gastrointestinal/Abdominal: Positive for: Normal Exam, Soft. Negative for: Tenderness Back: Positive for: Normal Inspection. Negative for: L CVA Tenderness, R CVA Tenderness Extremity: Positive for: Deformity (Right BKA) Neurologic/Psych: Positive for: Alert, Oriented. Negative for: Motor/Sensory Deficits - Laboratory Results Result Diagrams: 05/04/18 09:55 05/04/18 09:55 Interpretation Of Abn Labs: 20/4.9 bun/cr - ECG O2 Sat by Pulse Oximetry: 100 (RA) Pulse Ox Interpretation: Normal - Radiology X-Ray: Interpreted by Me, Viewed By Me X-Ray Interpretation: No Acute Disease - Progress ED Course And Treament: 1244: Spoke with Dr. Leon. Wants pt. to be admitted. Dr. Gerard will admit and aware. Wants antibiotics started. AAOx3. Medical Decision Making Medical Decision Making: Time: 925 Plan: -- VBG -- CMP -- Troponin I -- CBC with Differentials -- PTT -- Prothrombin Time -- CXR Portable -- Sodium Chloride IV 100 mls/hr -- Blood Culture -- Wound Culture and Gram Stain Time: 1142 CXR RESULTS FINDINGS: LUNGS: No active pulmonary disease. Low lung volumes again identified. PLEURA: No significant pleural effusion identified, no pneumothorax apparent. CARDIOVASCULAR: No radiographic findings to suggest acute or significant cardiovascular disease. Venous access catheter in stable, satisfactory position. OSSEOUS STRUCTURES: No significant abnormalities. VISUALIZED UPPER ABDOMEN: Normal. OTHER FINDINGS: None. IMPRESSION: No active disease. No significant interval change compared to the prior examination(s). 1156 -- Call made to Dr. Leon for consultation. Scribe Attestation: Documented by Cecille Fisher acting as a scribe for Dr. Abhinav Guzman MD. Provider Scribe Attestation: All medical record entries made by the Scribe were at my direction and personally dictated by me. I have reviewed the chart and agree that the record accurately reflects my personal performance of the history, physical exam, medical decision making, and the department course for this patient. I have also personally directed, reviewed, and agree with the discharge instructions and disposition. Disposition - Clinical Impression Clinical Impression: Central line infection - Patient ED Disposition Is Patient to be Admitted: Yes Counseled Patient/Family Regarding: Studies Performed, Diagnosis - Disposition Disposition Time: 12:12 Condition: FAIR - Pt Status Changed To: Hospital Disposition Of: Observation - POA Present On Arrival: [facility], Surgical Site Infection
[2018-05-04] MEDS ORDERED: Sodium Chloride 0.9% 500 ML IV STA (09:25)
[2018-05-04 10:12] LABS: VENOUS BLOOD GAS BASE EXCESS 8.8 mmol/L (0.0-2.0); VENOUS BLOOD GAS PCO2 41 mmHg (40-60); VENOUS BLOOD GAS PO2 64 mm/Hg (30-55); VENOUS BLOOD PH 7.51 (7.32-7.43)
[2018-05-04 10:13] LABS: BASO # 0.1 K/uL (0.0-0.2); BASO % 0.8 % (0.0-2.0); EOS # 0.8 K/uL (0.0-0.7); EOS % 8.3 % (0.0-4.0); HEMOGLOBIN 10.9 g/dL (12.0-18.0); LYMPH # 0.9 K/uL (1.0-4.3); LYMPH % 9.4 % (20.0-40.0); MEAN CELL VOLUME 93.5 fl (80.0-94.0); MEAN CORPUSCULAR HEMOGLOBIN 31.4 pg (27.0-31.0); MEAN CORPUSCULAR HGB CONC 33.6 g/dL (33.0-37.0); MEAN PLATELET VOLUME 7.9 fl (7.2-11.7); MONO # 0.8 K/uL (0.0-0.8); MONO % 8.4 % (0.0-10.0); NEUT # 6.8 K/uL (1.8-7.0); NEUT % 73.1 % (50.0-75.0); PLATELET COUNT 160 K/uL (130-400); RBC 3.45 Mil/uL (4.40-5.90); RED CELL DISTRIBUTION WIDTH 15.4 % (11.5-14.5); WHITE BLOOD COUNT 9.3 K/uL (4.8-10.8)
[2018-05-04 10:20] LABS: PROTHROMBIN TIME 11.5 Seconds (9.8-13.1)
[2018-05-04 10:23] LABS: PARTIAL THROMBOPLASTIN TIME 28.3 Seconds (25.6-37.1)
[2018-05-04 10:38] LABS: TROPONIN I 0.029 ng/mL (0.00-0.120)
[2018-05-04 10:40] LABS: ALB/GLOB RATIO 1.3 (1.0-2.1); ALBUMIN 3.8 g/dL (3.5-5.0); CALCIUM 8.8 mg/dL (8.4-10.2)
[2018-05-04 11:20] LABS: ANISOCYTOSIS SLIGHT; EOSINOPHIL 6 % (0-7); LYMPHOCYTE 11 % (20-50); MONOCYTE 9 % (0-10); NEUTROPHIL 74 % (42-75); PLATELET ESTIMATE NORMAL (NORMAL); TOTAL CELLS COUNTED 100
[2018-05-04 11:21] LABS: LARGE PLATELETS PRESENT; POIKILOCYTOSIS SLIGHT; TEARDROP CELLS SLIGHT
--- NOTE | 2018-05-04 11:44 | RAD ---
Date of service: 05/04/2018 HISTORY: line infection COMPARISON: 04/20/2018. FINDINGS: LUNGS: No active pulmonary disease. Low lung volumes again identified. PLEURA: No significant pleural effusion identified, no pneumothorax apparent. CARDIOVASCULAR: No radiographic findings to suggest acute or significant cardiovascular disease. Venous access catheter in stable, satisfactory position. OSSEOUS STRUCTURES: No significant abnormalities. VISUALIZED UPPER ABDOMEN: Normal. OTHER FINDINGS: None. IMPRESSION: No active disease. No significant interval change compared to the prior examination(s).
[2018-05-04] MEDS ORDERED: Vancomycin 1 g Inj ONE (13:07)
[2018-05-04] MEDS ORDERED: Chlorhexidine Gluconate 1 APPL/PKT TP ONE (13:48)
--- NOTE | 2018-05-04 17:58 | CP.PCM.CON ---
History of Present Illness - History of Present Illness History of Present Illness: 62 y/o male with Hx CKD on HD presents to the ED for evaluation of a possible infection in his dialysis line. Patient finished dialysis (M,W,F) and was told yesterday that his dialysis line was infected. Patient also reports of having a fever yesterday. Denies pain, nausea, vomiting, diarrhea, headache, throat pain and any other symptoms. ID consulted for antibiotic management - Medical History PMH: Anemia, CAD, Diabetes, HTN, Hypercholesterolemia, Pneumonia, Chronic Kidney Disease - Surgical History Surgical History: Coronary Stent (x 2) BKA right Denies: Pacemaker Review of Systems - Constitutional Constitutional: As Per HPI - EENT Eyes: absent: As Per HPI, Blind Spots, Blurred Vision, Change in Vision, Decreased Night Vision, Diplopia, Discharge, Dry Eye, Exophthalmos, Floaters, Irritation, Itchy Eyes, Loss of Peripheral Vision, Pain, Photophobia, Requires Corrective Lenses, Sees Flashes, Spots in Vision, Tunnel Vision, Other Visual Disturbances, Loss of Vision, Other Ears: absent: As Per HPI, Decreased Hearing, Ear Discharge, Ear Pain, Tinnitus, Abnormal Hearing, Disequilibrium, Dizziness, Other Nose/Mouth/Throat: absent: As Per HPI, Epistaxis, Nasal Congestion, Nasal Discharge, Nasal Obstruction, Nasal Trauma, Nose Pain, Post Nasal Drip, Sinus Pain, Sinus Pressure, Bleeding Gums, Change in Voice, Dental Pain, Dry Mouth, Dysphagia, Halitosis, Hoarsness, Lip Swelling, Mouth Lesions, Mouth Pain, Odynophagia, Sore Throat, Throat Swelling, Tongue Swelling, Facial Pain, Neck Pain, Neck Mass, Other - Cardiovascular Cardiovascular: As Per HPI - Respiratory Respiratory: absent: As Per HPI, Cough, Dyspnea, Hemoptysis, Dyspnea on Exertion , Wheezing, Snoring, Stridor, Pain on Inspiration, Chest Congestion, Excessive Mucous Production, Change in Mucous Color, Pain with Coughing, Other - Gastrointestinal Gastrointestinal: absent: As Per HPI, Abdominal Pain, Belching, Bloating, Change in Bowel Habits, Change in Stool Character, Coffee Ground Emesis, Constipation, Cramping, Diarrhea, Dyspepsia, Dysphagia, Early Satiety, Excessive Flatus, Fecal Incontinence, Heartburn, Hematemesis, Hematochezia, Loose Stools, Melena, Nausea, Odynophagia, Temesmus, Vomiting, Other - Genitourinary Genitourinary: absent: As Per HPI, Change in Urinary Stream, Difficulty Urinating, Dysuria, Flank Pain, Hematuria, Pyuria, Nocturia, Urinary Incontinence, Urinary Frequency, Urinary Hesitance, Urinary Urgency, Voiding Freq/Small Amts, Freq UTI, Hx Renal/Bladder Calculi, Hx /Renal Surgery, Bladder Distension, Other - Musculoskeletal Musculoskeletal: As Per HPI - Integumentary Integumentary: As Per HPI, Skin Pain, Wounds - Neurological Neurological: absent: As Per HPI, Abnormal Gait, Abnormal Hearing, Abnormal Movements, Abnormal Speech, Behavioral Changes, Burning Sensations, Confusion, Convulsions, Disequilibrium, Dizziness, Numbness, Focal Weakness, Frequent Falls , Headaches, Lack of Coordination, Loss of Vision, Memory Loss, Paresthesias, Radicular Pain, Restless Legs, Sensory Deficit, Syncope, Tingling, Tremor, Vertigo, Weakness, Other Visual Disturbances, Other - Psychiatric Psychiatric: absent: As Per HPI, Abnormal Sleep Pattern, Anhedonia, Anxiety, Auditory Hallucinations, Behavioral Changes, Change in Appetite, Change in Libido, Confusion, Depression, Difficulty Concentrating, Hallucinations, Homicidal Ideation, Hopelessness, Irritability, Memory Loss, Mood Swings, Panic Attacks, Paranoia, Suicidal Ideation, Visual Hallucinations, Tactile Hallucinations, Other - Endocrine Endocrine: As Per HPI - Hematologic/Lymphatic Hematologic: absent: As Per HPI, Easy Bleeding, Easy Bruising, Lymphadenopathy, Other Past Patient History - Past Medical History & Family History Past Medical History?: Yes - Past Social History Smoking Status: Never Smoked - CARDIAC Hx Hypercholesterolemia: Yes Hx Hypertension: Yes Hx Pacemaker: No - PULMONARY Hx Pneumonia: Yes - NEUROLOGICAL Hx Neurological Disorder: No Hx Paralysis: No Other/Comment: mini-stroke 2010 - HEENT Hx HEENT Problems: Yes Hx Cataracts: Yes (extraction 2010) - RENAL Hx Chronic Kidney Disease: Yes - ENDOCRINE/METABOLIC Hx Endocrine Disorders: Yes Hx Diabetes Mellitus Type 2: Yes - HEMATOLOGICAL/ONCOLOGICAL Hx Anemia: Yes - INTEGUMENTARY Hx Dermatological Problems: No - MUSCULOSKELETAL/RHEUMATOLOGICAL Hx Falls: No - GASTROINTESTINAL Hx Gastrointestinal Disorders: No - GENITOURINARY/GYNECOLOGICAL Hx Genitourinary Disorders: No - PSYCHIATRIC Hx Emotional Abuse: No Hx Physical Abuse: No Hx Substance Use: No - SURGICAL HISTORY Hx Coronary Stent: Yes (x 2) - ANESTHESIA Hx Anesthesia: Yes Hx Anesthesia Reactions: No Hx Malignant Hyperthermia: No Meds Allergies/Adverse Reactions: Allergies Allergy/AdvReac Type Severity Reaction Status Date / Time No Known Allergies Allergy Unverified 02/20/18 08:26 - Medications Medications: Current Medications Allopurinol (Zyloprim) 200 mg PO DAILY [facility] Amlodipine Besylate (Norvasc) 10 mg PO DAILY [facility] Aspirin (Ecotrin) 81 mg PO DAILY [facility] Calcitriol (Rocaltrol) 0.25 mcg PO MWF [facility] Cholecalciferol (Vitamin D) 5,000 intlu PO DAILY [facility] Clopidogrel Bisulfate (Plavix) 75 mg PO DAILY [facility] Enalapril Maleate (Vasotec) 20 mg PO DAILY [facility] Epoetin Eddy (Procrit) 4,000 unit IV MWF [facility] Ferrous Sulfate (Feosol) 325 mg PO DAILY [facility] Furosemide (Lasix) 20 mg PO DAILY [facility] Home Med (Paricalcitol [Zemplar]) 1 mcg PO DAILY [facility] Hydralazine HCl (Apresoline) 50 mg PO Q8 [facility] Vancomycin HCl 1 gm/ Sodium (Chloride) 250 mls @ 166.667 mls/hr IVPB DAILY [facility] PRN Reason: Protocol Piperacillin Sod/Tazobactam (Sod 2.25 gm/ Sodium Chloride) 100 mls @ 100 mls/ hr IVPB Q8 [facility] PRN Reason: Protocol Isosorbide Mononitrate (Imdur Er) 30 mg PO DAILY [facility] Metoprolol Succinate (Toprol Xl) 100 mg PO DAILY [facility] Pravastatin Sodium (Pravachol) 40 mg PO HS [facility] Repaglinide (Prandin) 1 mg PO BRKDIN [facility] Repaglinide (Prandin) 2 mg PO ACL [facility] Sevelamer HCl (Renagel) 1,600 mg PO TID [facility] Sitagliptin Phosphate (Januvia) 25 mg PO DAILY [facility] Physical Exam - Constitutional Appears: Non-toxic, Chronically Ill - Head Exam Head Exam: NORMOCEPHALIC - Eye Exam Eye Exam: absent: Scleral icterus - ENT Exam ENT Exam: Mucous Membranes Dry, Normal External Ear Exam, Normal Oropharynx - Neck Exam Neck exam: Negative for: Lymphadenopathy, Thyromegaly - Respiratory Exam Respiratory Exam: Decreased Breath Sounds, Rhonchi - Cardiovascular Exam Cardiovascular Exam: REGULAR RHYTHM, +S1, +S2 - GI/Abdominal Exam GI & Abdominal Exam: Diminished Bowel Sounds, Soft. absent: Rebound, Rigid, Tenderness - Rectal Exam Rectal Exam: Deferred - Exam Exam: NORMAL INSPECTION - Extremities Exam Extremities exam: Positive for: pedal pulses present. Negative for: calf tenderness, pedal edema, tenderness Additional comments: right BKA - Back Exam Back exam: absent: CVA tenderness (L), CVA tenderness (R) - Neurological Exam Neurological exam: Alert, CN II-XII Intact, Oriented x3, Reflexes Normal - Psychiatric Exam Psychiatric exam: Normal Mood - Skin Skin Exam: Dry, Intact Results - Vital Signs Recent Vital Signs: Last Vital Signs Temp 98.8 F 05/04/18 16:44 Pulse 72 05/04/18 16:44 Resp 18 05/04/18 16:44 BP 153/71 H 05/04/18 16:44 Pulse Ox 98 05/04/18 16:44 - Labs Result Diagrams: 05/04/18 09:55 05/04/18 09:55 Labs: Laboratory Results - last 24 hr 05/04/18 05/04/18 05/04/18 09:55 09:55 09:55 WBC 9.3 RBC 3.45 L Hgb 10.9 L D Hct 32.3 L MCV 93.5 MCH 31.4 H MCHC 33.6 RDW 15.4 H Plt Count 160 MPV 7.9 Neut % (Auto) 73.1 Lymph % (Auto) 9.4 L Hayes % (Auto) 8.4 Eos % (Auto) 8.3 H Baso % (Auto) 0.8 Neut # (Auto) 6.8 Lymph # (Auto) 0.9 L Hayes # (Auto) 0.8 Eos # (Auto) 0.8 H Baso # (Auto) 0.1 Neutrophils % (Manual) 74 Lymphocytes % (Manual) 11 L Monocytes % (Manual) 9 Eosinophils % (Manual) 6 Platelet Estimate Normal Large Platelets Present Poikilocytosis (manual Slight Anisocytosis (manual) Slight Tear Drop Cells Slight PT 11.5 INR 1.0 APTT 28.3 pO2 VBG pH VBG pCO2 VBG HCO3 VBG Total CO2 VBG O2 Sat (Calc) VBG Base Excess VBG Potassium Glucose Lactate FiO2 Sodium 139 Potassium 4.6 Chloride 102 Carbon Dioxide 29 Anion Gap 13 BUN 29 H Creatinine 4.0 H Est GFR ( Amer) 19 Est GFR (Non-Af Amer) 15 POC Glucose (mg/dL) Random Glucose 210 H Calcium 8.8 Total Bilirubin 0.5 AST 20 ALT 20 L D Alkaline Phosphatase 86 Troponin I 0.0290 Total Protein 6.8 Albumin 3.8 Globulin 3.0 Albumin/Globulin Ratio 1.3 Venous Blood Potassium 05/04/18 05/04/18 10:07 16:12 WBC RBC Hgb Hct MCV MCH MCHC RDW Plt Count MPV Neut % (Auto) Lymph % (Auto) Hayes % (Auto) Eos % (Auto) Baso % (Auto) Neut # (Auto) Lymph # (Auto) Hayes # (Auto) Eos # (Auto) Baso # (Auto) Neutrophils % (Manual) Lymphocytes % (Manual) Monocytes % (Manual) Eosinophils % (Manual) Platelet Estimate Large Platelets Poikilocytosis (manual Anisocytosis (manual) Tear Drop Cells PT INR APTT pO2 64 H VBG pH 7.51 H VBG pCO2 41 VBG HCO3 31.7 VBG Total CO2 34.0 H VBG O2 Sat (Calc) 95.1 H VBG Base Excess 8.8 H VBG Potassium 4.7 Glucose 224 H Lactate 1.1 FiO2 21.0 Sodium 137.0 Potassium Chloride 103.0 Carbon Dioxide Anion Gap BUN Creatinine Est GFR ( Amer) Est GFR (Non-Af Amer) POC Glucose (mg/dL) 117 H Random Glucose Calcium Total Bilirubin AST ALT Alkaline Phosphatase Troponin I Total Protein Albumin Globulin Albumin/Globulin Ratio Venous Blood Potassium 4.7 Assessment & Plan (1) Central line infection Status: Acute - Assessment and Plan (Free Text) Assessment: for OR removal of line IV antibiotics new line polacement after line holiday
[2018-05-04] MEDS ORDERED: Dextrose 50% SYRINGE Inj (50 ml) IV PRN (18:14)
[2018-05-04] MEDS ORDERED: Glucagon Recombinant 1 mg Inj IM PRN (18:14)
--- NOTE | 2018-05-04 19:00 | CP.PCM.CON ---
History of Present Illness - History of Present Illness History of Present Illness: Vascular surgery consult note for Dr. Opal Kc, PGY-2 Pt S & E at bedside at 1830. Interpretor Bry #[id number] 62M w/PMH sig for ESRD on HD (MWF) via Left subclavian permacath infection. Pt reports HD on Tuesday, was told that his permacath was infected and required removal. 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 Denies chills, pain at insertion site, drainage from insertion site, changes to bowel or bladder habits, changes in eating habits, CP, SOB, ABERNATHY, dizziness, other complaints. PMH: HLD, DM, HTN, Anemia, CAD, ESRD on HD (MWF) PSH: RUE AVF, Left subclavian permacath, Right BKA, Left transmetatarsal amputations, PCI w/stents x 3 All: NKDA SH: Denies ETOH, tobacco or illicit drug use Review of Systems - Review of Systems All systems: reviewed and no additional remarkable complaints except - Constitutional Constitutional: absent: Chills, Fever, Headache, Weakness - EENT Eyes: Change in Vision (chronic) Ears: absent: Dizziness Nose/Mouth/Throat: absent: Sore Throat - Cardiovascular Cardiovascular: absent: Chest Pain - Respiratory Respiratory: absent: Cough - Gastrointestinal Gastrointestinal: absent: Abdominal Pain, Constipation, Diarrhea, Hematemesis, Hematochezia, Nausea, Vomiting - Genitourinary Genitourinary: absent: Difficulty Urinating, Dysuria, Hematuria - Musculoskeletal Musculoskeletal: absent: Numbness, Tingling - Integumentary Integumentary: absent: Rash - Neurological Neurological: absent: Dizziness - Psychiatric Psychiatric: absent: Change in Appetite Past Patient History - Past Medical History & Family History Past Medical History?: Yes - Past Social History Smoking Status: Never Smoked - CARDIAC Hx Hypercholesterolemia: Yes Hx Hypertension: Yes Hx Pacemaker: No - PULMONARY Hx Pneumonia: Yes - NEUROLOGICAL Hx Neurological Disorder: No Hx Paralysis: No Other/Comment: mini-stroke 2010 - HEENT Hx HEENT Problems: Yes Hx Cataracts: Yes (extraction 2010) - RENAL Hx Chronic Kidney Disease: Yes - ENDOCRINE/METABOLIC Hx Endocrine Disorders: Yes Hx Diabetes Mellitus Type 2: Yes - HEMATOLOGICAL/ONCOLOGICAL Hx Anemia: Yes - INTEGUMENTARY Hx Dermatological Problems: No - MUSCULOSKELETAL/RHEUMATOLOGICAL Hx Falls: No - GASTROINTESTINAL Hx Gastrointestinal Disorders: No - GENITOURINARY/GYNECOLOGICAL Hx Genitourinary Disorders: No - PSYCHIATRIC Hx Emotional Abuse: No Hx Physical Abuse: No Hx Substance Use: No - SURGICAL HISTORY Hx Coronary Stent: Yes (x 2) - ANESTHESIA Hx Anesthesia: Yes Hx Anesthesia Reactions: No Hx Malignant Hyperthermia: No Meds Allergies/Adverse Reactions: Allergies Allergy/AdvReac Type Severity Reaction Status Date / Time No Known Allergies Allergy Unverified 02/20/18 08:26 - Medications Medications: Current Medications Allopurinol (Zyloprim) 200 mg PO DAILY [facility] Amlodipine Besylate (Norvasc) 10 mg PO DAILY [facility] Aspirin (Ecotrin) 81 mg PO DAILY [facility] Calcitriol (Rocaltrol) 0.25 mcg PO MWF [facility] Cholecalciferol (Vitamin D) 5,000 intlu PO DAILY [facility] Clopidogrel Bisulfate (Plavix) 75 mg PO DAILY [facility] Dextrose (Dextrose 50% Inj) 0 ml IV STAT PRN; Protocol PRN Reason: Hypoglycemia Protocol Enalapril Maleate (Vasotec) 20 mg PO DAILY [facility] Epoetin Eddy (Procrit) 4,000 unit IV MWF [facility] Ferrous Sulfate (Feosol) 325 mg PO DAILY [facility] Furosemide (Lasix) 20 mg PO DAILY [facility] Glucagon (Glucagen Diagnostic Kit) 0 mg IM STAT PRN; Protocol PRN Reason: Hypoglycemia Protocol Home Med (Paricalcitol [Zemplar]) 1 mcg PO DAILY [facility] Hydralazine HCl (Apresoline) 50 mg PO Q8 [facility] Last Admin: 05/04/18 18:08 Dose: 50 mg Hydralazine HCl (Apresoline) 10 mg IV Q6 PRN PRN Reason: SBP>180; DBP>110 Vancomycin HCl 1 gm/ Sodium (Chloride) 250 mls @ 166.667 mls/hr IVPB DAILY [facility] PRN Reason: Protocol Piperacillin Sod/Tazobactam (Sod 2.25 gm/ Sodium Chloride) 100 mls @ 100 mls/ hr IVPB Q8 [facility] PRN Reason: Protocol Insulin Human Lispro (Humalog) 0 units SC Q6H [facility] PRN Reason: Protocol Isosorbide Mononitrate (Imdur Er) 30 mg PO DAILY [facility] Metoprolol Succinate (Toprol Xl) 100 mg PO DAILY [facility] Pravastatin Sodium (Pravachol) 40 mg PO HS [facility] Repaglinide (Prandin) 1 mg PO BRKDIN [facility] Last Admin: 05/04/18 18:09 Dose: 1 mg Repaglinide (Prandin) 2 mg PO ACL [facility] Sevelamer HCl (Renagel) 1,600 mg PO TID [facility] Last Admin: 05/04/18 18:09 Dose: 1,600 mg Sitagliptin Phosphate (Januvia) 25 mg PO DAILY [facility] Physical Exam - Constitutional Appears: Non-toxic, No Acute Distress - Head Exam Head Exam: ATRAUMATIC, NORMAL INSPECTION, NORMOCEPHALIC - Eye Exam Eye Exam: EOMI, Normal appearance - ENT Exam ENT Exam: Mucous Membranes Moist, Normal Exam - Neck Exam Neck exam: Positive for: Full Rom, Normal Inspection - Respiratory Exam Respiratory Exam: Clear to Auscultation Bilateral, NORMAL BREATHING PATTERN. absent: Chest Wall Tenderness, Prolonged Expiratory Phase, Rhonchi, Wheezes, Respiratory Distress Additional comments: Left chest wall with permacath, no drainage, erythema, fluctuance or induration at insertion site - Cardiovascular Exam Cardiovascular Exam: REGULAR RHYTHM, +S1, +S2 - GI/Abdominal Exam GI & Abdominal Exam: Normal Bowel Sounds, Soft. absent: Distended (obese), Guarding, Tenderness - Extremities Exam Extremities exam: Negative for: normal inspection (R BKA, left transmetatarsal amputation) - Neurological Exam Neurological exam: Alert, CN II-XII Intact, Oriented x3 - Psychiatric Exam Psychiatric exam: Normal Affect, Normal Mood - Skin Skin Exam: Dry, Intact, Normal Color, Warm Results - Vital Signs Recent Vital Signs: Last Vital Signs Temp 98.8 F 05/04/18 16:44 Pulse 72 05/04/18 18:08 Resp 18 05/04/18 16:44 BP 153/71 H 05/04/18 18:08 Pulse Ox 98 05/04/18 16:44 - Labs Result Diagrams: 05/04/18 09:55 05/04/18 09:55 Labs: Laboratory Results - last 24 hr 05/04/18 05/04/18 05/04/18 09:55 09:55 09:55 WBC 9.3 RBC 3.45 L Hgb 10.9 L D Hct 32.3 L MCV 93.5 MCH 31.4 H MCHC 33.6 RDW 15.4 H Plt Count 160 MPV 7.9 Neut % (Auto) 73.1 Lymph % (Auto) 9.4 L [place] % (Auto) 8.4 Eos % (Auto) 8.3 H Baso % (Auto) 0.8 Neut # (Auto) 6.8 Lymph # (Auto) 0.9 L [place] # (Auto) 0.8 Eos # (Auto) 0.8 H Baso # (Auto) 0.1 Neutrophils % (Manual) 74 Lymphocytes % (Manual) 11 L Monocytes % (Manual) 9 Eosinophils % (Manual) 6 Platelet Estimate Normal Large Platelets Present Poikilocytosis (manual Slight Anisocytosis (manual) Slight Tear Drop Cells Slight PT 11.5 INR 1.0 APTT 28.3 pO2 VBG pH VBG pCO2 VBG HCO3 VBG Total CO2 VBG O2 Sat (Calc) VBG Base Excess VBG Potassium Glucose Lactate FiO2 Sodium 139 Potassium 4.6 Chloride 102 Carbon Dioxide 29 Anion Gap 13 BUN 29 H Creatinine 4.0 H Est GFR ( Amer) 19 Est GFR (Non-Af Amer) 15 POC Glucose (mg/dL) Random Glucose 210 H Calcium 8.8 Total Bilirubin 0.5 AST 20 ALT 20 L D Alkaline Phosphatase 86 Troponin I 0.0290 Total Protein 6.8 Albumin 3.8 Globulin 3.0 Albumin/Globulin Ratio 1.3 Venous Blood Potassium 05/04/18 05/04/18 10:07 16:12 WBC RBC Hgb Hct MCV MCH MCHC RDW Plt Count MPV Neut % (Auto) Lymph % (Auto) [place] % (Auto) Eos % (Auto) Baso % (Auto) Neut # (Auto) Lymph # (Auto) [place] # (Auto) Eos # (Auto) Baso # (Auto) Neutrophils % (Manual) Lymphocytes % (Manual) Monocytes % (Manual) Eosinophils % (Manual) Platelet Estimate Large Platelets Poikilocytosis (manual Anisocytosis (manual) Tear Drop Cells PT INR APTT pO2 64 H VBG pH 7.51 H VBG pCO2 41 VBG HCO3 31.7 VBG Total CO2 34.0 H VBG O2 Sat (Calc) 95.1 H VBG Base Excess 8.8 H VBG Potassium 4.7 Glucose 224 H Lactate 1.1 FiO2 21.0 Sodium 137.0 Potassium Chloride 103.0 Carbon Dioxide Anion Gap BUN Creatinine Est GFR ( Amer) Est GFR (Non-Af Amer) POC Glucose (mg/dL) 117 H Random Glucose Calcium Total Bilirubin AST ALT Alkaline Phosphatase Troponin I Total Protein Albumin Globulin Albumin/Globulin Ratio Venous Blood Potassium 4.7 Assessment & Plan - Assessment and Plan (Free Text) Assessment: 62M w/Left subclavian permacath infection as per dialysis center Plan: NPO pMN Hold AM PO meds until after OR Plan for OR in AM Consent in chart Will KILLIAN attending Yamini, PGY-2 - Date & Time Date: 05/04/18 Time: 19:02
[2018-05-04] MEDS: Insulin Lispro (humaLOG) 100 Units/ml Inj SC SCH (19:54)
[2018-05-05] MEDS: Pravastatin Sodium 40 MG TAB PO SCH ×2 (00:22→22:11)
[2018-05-05] MEDS: Insulin Lispro (humaLOG) 100 Units/ml Inj SC SCH ×4 (00:24→19:49)
[2018-05-05] MEDS: Cholecalciferol 1,000 INTLU TAB PO SCH (08:33)
[2018-05-05] MEDS ORDERED: Lidocaine 2% MPF (5 ml) Inj ONE (08:41)
[2018-05-05] MEDS ORDERED: Patient's Own Med (Paricalcitol [Zemplar] 1 MCG) PO SCH (09:00)
[2018-05-05] MEDS: Metoprolol Succinate 100 mg XL Tab PO SCH (09:12)
[2018-05-05] MEDS ORDERED: Propofol 10 mg/ml Inj (20 ML) ONE (09:40)
[2018-05-05] MEDS ORDERED: Midazolam 2 MG/2 ML VIAL ONE (09:40)
[2018-05-05] MEDS ORDERED: Succinylcholine 200 mg/10 ml Inj IV ONE (09:40)
[2018-05-05] MEDS ORDERED: Sodium Chloride 0.9% 500 ML IV ONE (10:58)
--- NOTE | 2018-05-05 11:11 | PCM.SURG1 ---
Surgeon's Initial Post Op Note - Surgeon's Notes Surgeon: Edward Certified Fraud Examiner: PGY4 Type of Anesthesia: IV Sedation, Local Pre-Operative Diagnosis: Infected L IJ tunneled HD catheter Operative Findings: see op note Post-Operative Diagnosis: Infected L IJ tunneled HD catheter Operation Performed: 1. Removal of Infected L IJ tunneled HD catheter. 2. Insertion of new L IJ tunneled HD catheter Specimen/Specimens Removed: Infected L IJ tunneled HD catheter Estimated Blood Loss: EBL {In ML}: 50 Blood Products Given: N/A Drains Used: No Drains Post-Op Condition: Good Date of Surgery/Procedure: 05/05/18 Time of Surgery/Procedure: 09:45
--- NOTE | 2018-05-05 13:29 | RAD ---
Date of service: 05/05/2018 PROCEDURE: CHEST RADIOGRAPH, 1 VIEW HISTORY: s/p replacement of left subclavian PORT-a-cath COMPARISON: Multiple serial examinations preceding the most recent study: May 04, 2018. Time of the most recent examination: 09:30. FINDINGS: LUNGS: Clear. PLEURA: No pneumothorax or pleural fluid seen. CARDIOVASCULAR: Satisfactory position of recently replaced Port-A-Cath. OSSEOUS STRUCTURES: No significant abnormalities. VISUALIZED UPPER ABDOMEN: Normal. OTHER FINDINGS: None. IMPRESSION: No active disease. Venous access catheter is in good position replacing the venous access catheter identified on the prior study May 04, 2018.
--- NOTE | 2018-05-05 13:49 | RAD ---
Date of service: 05/05/2018 PROCEDURE: Intraoperative fluoroscopy HISTORY: PERM A CATH INSERTION COMPARISON: Not available TECHNIQUE: Intraoperative fluoroscopy was provided for Permacath insertion. Total time of fluoroscopy was 94.7 seconds. FINDINGS: Multiple fluoroscopic spot films are submitted. IMPRESSION: Fluoroscopy provided.
--- NOTE | 2018-05-05 14:44 | CP.PCM.HP ---
History of Present Illness - History of Present Illness History of Present Illness: CC: HD line infection. 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 Worsening symptoms: Chronic anemia, coronary stent x2. Pt denied: Chills, n/v/d, abdominal pain, urinary symptoms, CP, palpitations , SOB, cough, sick contact, recent travel out of [place]. CXR: No active disease. Present on Admission - Present on Admission Any Indicators Present on Admission: No Review of Systems - Constitutional Constitutional: Other (negative) - EENT Eyes: Other (negative) Ears: Other (negative) Nose/Mouth/Throat: Other (negative) - Cardiovascular Cardiovascular: Other (negative) - Respiratory Respiratory: Other (negative) - Gastrointestinal Gastrointestinal: Other (negative) - Genitourinary Genitourinary: Other (negative) - Integumentary Integumentary: Wounds - Neurological Neurological: Other (negative) - Psychiatric Psychiatric: Other (negative) - Endocrine Endocrine: Other (negative) - Hematologic/Lymphatic Hematologic: Other (anemia) Past Patient History - Past Medical History & Family History Past Medical History?: Yes Pertinent Family History: Unknown - Past Social History Smoking Status: Never Smoked Alcohol: None Drugs: Denies Home Situation {Lives}: With Family - CARDIAC Hx Cardiac Disorders: Yes Hx Hypercholesterolemia: Yes Hx Hypertension: Yes Hx Pacemaker: No - PULMONARY Hx Respiratory Disorders: Yes Hx Pneumonia: Yes - NEUROLOGICAL Hx Neurological Disorder: No Hx Paralysis: No Other/Comment: mini-stroke 2010 - HEENT Hx HEENT Problems: Yes Hx Cataracts: Yes (extraction 2010) - RENAL Hx Chronic Kidney Disease: Yes - ENDOCRINE/METABOLIC Hx Endocrine Disorders: Yes Hx Diabetes Mellitus Type 2: Yes - HEMATOLOGICAL/ONCOLOGICAL Hx Blood Disorders: Yes Hx Anemia: Yes - INTEGUMENTARY Hx Dermatological Problems: No - MUSCULOSKELETAL/RHEUMATOLOGICAL Hx Musculoskeletal Disorders: No Hx Falls: No - GASTROINTESTINAL Hx Gastrointestinal Disorders: No - GENITOURINARY/GYNECOLOGICAL Hx Genitourinary Disorders: No - PSYCHIATRIC Hx Psychophysiologic Disorder: No Hx Emotional Abuse: No Hx Physical Abuse: No Hx Substance Use: No - SURGICAL HISTORY Hx Surgeries: Yes Hx Coronary Stent: Yes (x 2) - ANESTHESIA Hx Anesthesia: Yes Hx Anesthesia Reactions: No Hx Malignant Hyperthermia: No Meds Allergies/Adverse Reactions: Allergies Allergy/AdvReac Type Severity Reaction Status Date / Time No Known Allergies Allergy Unverified 02/20/18 08:26 Physical Exam - Constitutional Appears: No Acute Distress - Head Exam Head Exam: NORMAL INSPECTION - Eye Exam Eye Exam: PERRL - ENT Exam ENT Exam: Normal Oropharynx - Neck Exam Neck exam: Positive for: Normal Inspection - Respiratory Exam Respiratory Exam: NORMAL BREATHING PATTERN - Cardiovascular Exam Cardiovascular Exam: REGULAR RHYTHM - GI/Abdominal Exam GI & Abdominal Exam: Normal Bowel Sounds, Soft - Extremities Exam Additional comments: R AV shunt with bruit and thrill, open wound R lateral knee, R BKA. - Back Exam Back exam: NORMAL INSPECTION - Neurological Exam Neurological exam: Alert, Oriented x3 Additional comments: No focal motor/sensory deficit. - Psychiatric Exam Psychiatric exam: Normal Mood - Skin Skin Exam: Warm Results - Vital Signs Recent Vital Signs: Last Vital Signs Temp 98 F 05/05/18 13:10 Pulse 70 05/05/18 13:10 Resp 19 05/05/18 13:10 BP 173/82 H 05/05/18 13:10 Pulse Ox 97 05/05/18 13:10 reviewed J.P. - Labs Result Diagrams: 05/04/18 09:55 05/04/18 09:55 Labs: Laboratory Results - last 24 hr 05/04/18 05/04/18 05/05/18 16:12 22:06 06:13 POC Glucose (mg/dL) 117 H 157 H 84 05/05/18 11:01 POC Glucose (mg/dL) 92 reviewed J.P. - Imaging and Cardiology Chest x-ray Status: Report reviewed by me (J.P.) Assessment & Plan (1) Central line infection Status: Acute Priority: High (2) ESRD on hemodialysis Status: Acute Priority: High (3) Fever Status: Acute Priority: Medium (4) CAD (coronary artery disease) Status: Chronic Priority: Medium (5) HTN (hypertension) Status: Chronic Priority: Medium (6) Type 2 diabetes mellitus with diabetic chronic kidney disease Status: Chronic Priority: High (7) Chronic anemia Status: Chronic Priority: High - Assessment and Plan (Free Text) Plan: F/U C-S, Continue Zosyn IV and rest of Tx, Surgical and ID consult appreciated. OT,PT - Date & Time Date: 05/05/18
[2018-05-05] MEDS: Epoetin Alfa 4000 UNIT/ML Inj IV SCH (16:41)
--- NOTE | 2018-05-05 17:18 | CP.PCM.CON ---
History of Present Illness - History of Present Illness History of Present Illness: Nephrology Consultation Note: Assessment: Stable permacath sepsis Diabetic chronic Kidney Disease (E11.22) Hypertensive Chronic Kidney Disease (I12.0) End stage renal disease (N18.6) dependence on hemodialysis (Z99.2) (MWF) via PC Anemia (D64.9), Hyperphosphatemia (E83.39), Secondary Hyperparathyroidism (E21.1 ), HTN (I12.0) Plan: Will plan for HD today as ordered. Continue with Nephrovite 1 tab/day. PRBC as needed for anemia. on [facility]ANCE with dialysis as last Hb10.9 Continue with phos binders Continue with calcitriol. BP control with meds as ordered. Patient on RAAS oliva as enalapril Glycemic control, Dialysis consistent diet Further work up/management as per primary team Dose meds/antibiotics (if needed) for ESRD status. Avoid fleets enema/magnesium based laxatives. Thanks for allowing me to participate in care of your patient. Will follow patient with you. Please call if any Qs Dr Nolan Rodriguez Office: [phone] Chief Complaint; catheter infection HPI: Pt is a 62 M with hx of ESRD on hemodialysis (MWF) via PC , last dialysis wed , chronic anemia, hyperphosphatemia, secondary hyperparathyroidism, Diabetes Mellitus, hypertension presented with complaints of fever. pt was found to have discharge from exite site and had blood/exit site cultures done both of which grew staph epi. pt was given 2 dose of IV vanco 1 gram post HD and initially 100 mg genta 1 dose. pt was advised to go for permacath change, he went to his vascular surgeon and pt was admitted for further management Renal consult requested for ESRD management. he feels in good health now. no complaints. no chills/fever ROS: Cardiovascular: No chest pain. Pulmonary: No shortness of breath Gastrointestinal: denies abdominal pain No nausea. No vomiting. Genitourinary: No pain while urinating. Denies blood in urine. All other negative except as mentioned in HPI Physical Examination: General Appearance: Comfortable, in no acute respiratory distress, co-operative . Vitals reviewed and noted as below Head; Atraumatic, normocephalic ENT: no ulcers no thrush. Tongue is midline. Oropharynx: no rash or ulcers. EYES: Pupils are equal, round and reactive to light accommodation. Eye muscles and extraocular movement intact. Sclera is anicteric. Neck; supple no lymphadenopathy, no thyromegaly or bruit Lungs: Normal respiratory rate/effort. Breath sounds bilateral equal and clear Heart: Normal rate. s1s2 normal. No rub or gallop. Extremities: no edema. No varicose veins Neurological: Patient is alert, awake and oriented to person, place and time. No focal deficit. Strength bilateral appropriate and equal Skin: Warm and dry. Normal turgor. No rash. Palpitation: Normal elasticity for age Abdomen: Abdomen is soft. Bowel sounds +. There is no abdominal tenderness, no guarding/rigidity or organomegaly Psych: normal insight and normal affect/mood MSK: no joint tenderness or swelling. Digits and nails normal, no deformity : kidney or bladder not palpable Access: left PC. Rt AVF maturing Labs/imaging reviewed. Past medical history, past surgical history, family history, social history, allergy reviewed and noted as below Family Hx: no hx of CKD. Non contributory Past Patient History - Past Medical History & Family History Past Medical History?: Yes - Past Social History Smoking Status: Never Smoked - CARDIAC Hx Hypercholesterolemia: Yes Hx Hypertension: Yes Hx Pacemaker: No - PULMONARY Hx Pneumonia: Yes - NEUROLOGICAL Hx Neurological Disorder: No Hx Paralysis: No Other/Comment: mini-stroke 2010 - HEENT Hx HEENT Problems: Yes Hx Cataracts: Yes (extraction 2010) - RENAL Hx Chronic Kidney Disease: Yes - ENDOCRINE/METABOLIC Hx Endocrine Disorders: Yes Hx Diabetes Mellitus Type 2: Yes - HEMATOLOGICAL/ONCOLOGICAL Hx Anemia: Yes - INTEGUMENTARY Hx Dermatological Problems: No - MUSCULOSKELETAL/RHEUMATOLOGICAL Hx Falls: No - GASTROINTESTINAL Hx Gastrointestinal Disorders: No - GENITOURINARY/GYNECOLOGICAL Hx Genitourinary Disorders: No - PSYCHIATRIC Hx Emotional Abuse: No Hx Physical Abuse: No Hx Substance Use: No - SURGICAL HISTORY Hx Coronary Stent: Yes (x 2) - ANESTHESIA Hx Anesthesia: Yes Hx Anesthesia Reactions: No Hx Malignant Hyperthermia: No Meds Allergies/Adverse Reactions: Allergies Allergy/AdvReac Type Severity Reaction Status Date / Time No Known Allergies Allergy Unverified 02/20/18 08:26 - Medications Medications: Current Medications Allopurinol (Zyloprim) 200 mg PO DAILY [facility] Last Admin: 05/05/18 08:33 Dose: Not Given Amlodipine Besylate (Norvasc) 10 mg PO DAILY [facility] Last Admin: 05/05/18 08:32 Dose: Not Given Aspirin (Ecotrin) 81 mg PO DAILY [facility] Last Admin: 05/05/18 08:31 Dose: Not Given Calcitriol (Rocaltrol) 0.25 mcg PO MWF [facility] Last Admin: 05/05/18 08:32 Dose: Not Given Cholecalciferol (Vitamin D) 5,000 intlu PO DAILY [facility] Last Admin: 05/05/18 08:33 Dose: Not Given Clopidogrel Bisulfate (Plavix) 75 mg PO DAILY [facility] Last Admin: 05/05/18 08:32 Dose: Not Given Dextrose (Dextrose 50% Inj) 0 ml IV STAT PRN; Protocol PRN Reason: Hypoglycemia Protocol Enalapril Maleate (Vasotec) 20 mg PO DAILY [facility] Last Admin: 05/05/18 08:33 Dose: Not Given Epoetin Edyd (Procrit) 4,000 unit IV [facility] [place] Last Admin: 05/05/18 16:41 Dose: 4,000 unit Ferrous Sulfate (Feosol) 325 mg PO DAILY [facility] Last Admin: 05/05/18 08:31 Dose: Not Given Furosemide (Lasix) 20 mg PO DAILY [facility] Last Admin: 05/05/18 08:31 Dose: Not Given Glucagon (Glucagen Diagnostic Kit) 0 mg IM STAT PRN; Protocol PRN Reason: Hypoglycemia Protocol Hydralazine HCl (Apresoline) 50 mg PO Q8 [facility] Last Admin: 05/05/18 16:37 Dose: Not Given Hydralazine HCl (Apresoline) 10 mg IV Q6 PRN PRN Reason: SBP>180; DBP>110 Piperacillin Sod/Tazobactam (Sod 2.25 gm/ Sodium Chloride) 100 mls @ 100 mls/ hr IVPB Q8 [facility] PRN Reason: Protocol Last Admin: 05/05/18 08:33 Dose: Not Given Vancomycin HCl 500 mg/ Sodium (Chloride) 100 mls @ 100 mls/hr IVPB MWF [facility] PRN Reason: Protocol Insulin Human Lispro (Humalog) 0 units SC Q6H [facility] PRN Reason: Protocol Last Admin: 05/05/18 11:56 Dose: Not Given Isosorbide Mononitrate (Imdur Er) 30 mg PO DAILY [facility] Last Admin: 05/05/18 08:31 Dose: Not Given Metoprolol Succinate (Toprol Xl) 100 mg PO DAILY [facility] Last Admin: 05/05/18 09:12 Dose: 100 mg Pravastatin Sodium (Pravachol) 40 mg PO HS [facility] Last Admin: 05/05/18 00:22 Dose: 40 mg Repaglinide (Prandin) 1 mg PO BRKDIN [facility] Last Admin: 05/05/18 16:43 Dose: Not Given Repaglinide (Prandin) 2 mg PO ACL [facility] Last Admin: 05/05/18 11:56 Dose: Not Given Sevelamer HCl (Renagel) 1,600 mg PO TID [facility] Last Admin: 05/05/18 16:42 Dose: Not Given Sitagliptin Phosphate (Januvia) 25 mg PO DAILY [facility] Last Admin: 05/05/18 08:31 Dose: Not Given Results - Vital Signs Recent Vital Signs: Last Vital Signs Temp 98.7 F 05/05/18 16:25 Pulse 73 05/05/18 16:25 Resp 20 05/05/18 16:25 BP 174/74 H 05/05/18 16:25 Pulse Ox 96 05/05/18 16:25 - Labs Result Diagrams: 05/04/18 09:55 05/04/18 09:55 Labs: Laboratory Results - last 24 hr 05/04/18 05/05/18 05/05/18 22:06 06:13 11:01 POC Glucose (mg/dL) 157 H 84 92 05/05/18 16:13 POC Glucose (mg/dL) 174 H
--- NOTE | 2018-05-05 17:51 | CP.PCM.PN ---
Subjective - Date & Time of Evaluation Date of Evaluation: 05/05/18 Time of Evaluation: 09:00 - Subjective Subjective: new catheter placed iv rx in progress await culture Objective - Vital Signs/Intake and Output Vital Signs (last 24 hours): Temp Pulse Resp BP Pulse Ox 98.7 F 73 20 174/74 H 96 05/05/18 16:25 05/05/18 16:25 05/05/18 16:25 05/05/18 16:25 05/05/18 16:25 Intake and Output: 05/05/18 05/05/18 06:59 18:59 Intake Total 225 Balance 225 - Medications Medications: Current Medications Allopurinol (Zyloprim) 200 mg PO DAILY [facility] Last Admin: 05/05/18 08:33 Dose: Not Given Amlodipine Besylate (Norvasc) 10 mg PO DAILY [facility] Last Admin: 05/05/18 08:32 Dose: Not Given Aspirin (Ecotrin) 81 mg PO DAILY [facility] Last Admin: 05/05/18 08:31 Dose: Not Given Calcitriol (Rocaltrol) 0.25 mcg PO MWF [facility] Last Admin: 05/05/18 08:32 Dose: Not Given Cholecalciferol (Vitamin D) 5,000 intlu PO DAILY [facility] Last Admin: 05/05/18 08:33 Dose: Not Given Clopidogrel Bisulfate (Plavix) 75 mg PO DAILY [facility] Last Admin: 05/05/18 08:32 Dose: Not Given Dextrose (Dextrose 50% Inj) 0 ml IV STAT PRN; Protocol PRN Reason: Hypoglycemia Protocol Enalapril Maleate (Vasotec) 20 mg PO DAILY [facility] Last Admin: 05/05/18 08:33 Dose: Not Given Epoetin Eddy (Procrit) 4,000 unit IV [facility] Last Admin: 05/05/18 16:41 Dose: 4,000 unit Ferrous Sulfate (Feosol) 325 mg PO DAILY [facility] Last Admin: 05/05/18 08:31 Dose: Not Given Furosemide (Lasix) 20 mg PO DAILY [facility] Last Admin: 05/05/18 08:31 Dose: Not Given Glucagon (Glucagen Diagnostic Kit) 0 mg IM STAT PRN; Protocol PRN Reason: Hypoglycemia Protocol Hydralazine HCl (Apresoline) 50 mg PO Q8 [facility] Last Admin: 05/05/18 16:37 Dose: Not Given Hydralazine HCl (Apresoline) 10 mg IV Q6 PRN PRN Reason: SBP>180; DBP>110 Piperacillin Sod/Tazobactam (Sod 2.25 gm/ Sodium Chloride) 100 mls @ 100 mls/ hr IVPB Q8 [facility] PRN Reason: Protocol Last Admin: 05/05/18 08:33 Dose: Not Given Vancomycin HCl 500 mg/ Sodium (Chloride) 100 mls @ 100 mls/hr IVPB MWF [facility] PRN Reason: Protocol Insulin Human Lispro (Humalog) 0 units SC Q6H [facility] PRN Reason: Protocol Last Admin: 05/05/18 11:56 Dose: Not Given Isosorbide Mononitrate (Imdur Er) 30 mg PO DAILY [facility] Last Admin: 05/05/18 08:31 Dose: Not Given Metoprolol Succinate (Toprol Xl) 100 mg PO DAILY [facility] Last Admin: 05/05/18 09:12 Dose: 100 mg Pravastatin Sodium (Pravachol) 40 mg PO HS [facility] Last Admin: 05/05/18 00:22 Dose: 40 mg Repaglinide (Prandin) 1 mg PO BRKDIN [facility] Last Admin: 05/05/18 16:43 Dose: Not Given Repaglinide (Prandin) 2 mg PO ACL [facility] Last Admin: 05/05/18 11:56 Dose: Not Given Sevelamer HCl (Renagel) 1,600 mg PO TID [facility] Last Admin: 05/05/18 16:42 Dose: Not Given Sitagliptin Phosphate (Januvia) 25 mg PO DAILY [facility] Last Admin: 05/05/18 08:31 Dose: Not Given - Labs Labs: 05/04/18 09:55 05/04/18 09:55 PT 11.5 Seconds (9.8-13.1) 05/04/18 09:55 INR 1.0 05/04/18 09:55 APTT 28.3 Seconds (25.6-37.1) 05/04/18 09:55 - Constitutional Appears: Non-toxic, Chronically Ill - Head Exam Head Exam: NORMOCEPHALIC - Eye Exam Eye Exam: PERRL - ENT Exam ENT Exam: Mucous Membranes Dry - Neck Exam Neck Exam: absent: Lymphadenopathy - Respiratory Exam Respiratory Exam: Decreased Breath Sounds - Cardiovascular Exam Cardiovascular Exam: REGULAR RHYTHM - GI/Abdominal Exam GI & Abdominal Exam: Distended, Soft - Rectal Exam Rectal Exam: Deferred - Exam Exam: NORMAL INSPECTION - Extremities Exam Extremities Exam: absent: Pedal Edema - Back Exam Back Exam: absent: CVA tenderness (L), CVA tenderness (R) Assessment and Plan (1) Central line infection Status: Acute - Assessment and Plan (Free Text) Assessment: cont iv rx as ordered await cultures
[2018-05-05] MEDS: SEVELAMER CARBONATE 800 MG PO SCH (22:10)
[2018-05-06] MEDS: Insulin Lispro (humaLOG) 100 Units/ml Inj SC SCH ×4 (00:06→17:52)
[2018-05-06] MEDS ORDERED: Oxycodone/Acetaminophen 5/325 mg Tab PO PRN (00:10)
[2018-05-06 07:38] LABS: SQUAMOUS EPITHIAL < 1 /hpf (0-5); URINE BACTERIA RARE (<OCC); URINE BILIRUBIN NEGATIVE (NEGATIVE); URINE BLOOD NEGATIVE (NEGATIVE); URINE CLARITY SLIGHTY-CLOUDY (Clear); URINE COLOR YELLOW (YELLOW); URINE GLUCOSE (UA) 150 mg/dL (Normal); URINE LEUKOCYTE ESTERASE NEG Leu/uL (Negative); URINE PROTEIN >=500 mg/dL (NEGATIVE); URINE UROBILINOGEN 0.2-1.0 mg/dL (0.2-1.0)
[2018-05-06] MEDS: SEVELAMER CARBONATE 800 MG PO SCH ×3 (08:44→17:06)
[2018-05-06] MEDS: Cholecalciferol 1,000 INTLU TAB PO SCH (08:45)
[2018-05-06] MEDS: Metoprolol Succinate 100 mg XL Tab PO SCH (08:45)
--- NOTE | 2018-05-06 08:54 | CP.PCM.PN ---
Subjective - Date & Time of Evaluation Date of Evaluation: 05/06/18 Time of Evaluation: 07:15 - Subjective Subjective: Vascular surgery- Dr. Leon Pt seen and examined. Afebrile. No pain at insertion site. Complaining of difficulty with urination making him unable to sleep. No other complaints. Had HD yesterday without issue. Objective - Vital Signs/Intake and Output Vital Signs (last 24 hours): Temp Pulse Resp BP Pulse Ox 98.1 F 73 19 156/64 H 97 05/06/18 07:32 05/06/18 08:45 05/06/18 07:32 05/06/18 08:45 05/06/18 07:32 - Medications Medications: Current Medications Acetaminophen (Tylenol 325mg Tab) 650 mg PO Q6H PRN PRN Reason: Pain, Mild (1-3) Allopurinol (Zyloprim) 200 mg PO DAILY [facility] Last Admin: 05/06/18 08:46 Dose: 200 mg Amlodipine Besylate (Norvasc) 10 mg PO DAILY [facility] Last Admin: 05/06/18 08:44 Dose: 10 mg Aspirin (Ecotrin) 81 mg PO DAILY [facility] Last Admin: 05/06/18 08:43 Dose: 81 mg Calcitriol (Rocaltrol) 0.25 mcg PO MWF [facility] Last Admin: 05/05/18 08:32 Dose: Not Given Cholecalciferol (Vitamin D) 5,000 intlu PO DAILY [facility] Last Admin: 05/06/18 08:45 Dose: 5,000 intlu Clopidogrel Bisulfate (Plavix) 75 mg PO DAILY [facility] Last Admin: 05/06/18 08:44 Dose: 75 mg Dextrose (Dextrose 50% Inj) 0 ml IV STAT PRN; Protocol PRN Reason: Hypoglycemia Protocol Enalapril Maleate (Vasotec) 20 mg PO DAILY [facility] Last Admin: 05/06/18 08:45 Dose: 20 mg Epoetin Eddy (Procrit) 4,000 unit [place] [facility] Last Admin: 05/05/18 16:41 Dose: 4,000 unit Ferrous Sulfate (Feosol) 325 mg PO DAILY [facility] Last Admin: 05/06/18 08:43 Dose: 325 mg Furosemide (Lasix) 20 mg PO DAILY [facility] Last Admin: 05/06/18 08:43 Dose: 20 mg Glucagon (Glucagen Diagnostic Kit) 0 mg IM STAT PRN; Protocol PRN Reason: Hypoglycemia Protocol Home Med (Patient's Own Medication) 1,600 unit PO TID [facility] Last Admin: 05/06/18 08:44 Dose: 1,600 unit Hydralazine HCl (Apresoline) 50 mg PO Q8 [facility] Last Admin: 05/06/18 08:42 Dose: 50 mg Hydralazine HCl (Apresoline) 10 mg IV Q6 PRN PRN Reason: SBP>180; DBP>110 Vancomycin HCl 500 mg/ Sodium (Chloride) 100 mls @ 100 mls/hr IVPB MWF [facility] PRN Reason: Protocol Piperacillin Sod/Tazobactam (Sod 2.25 gm/ Sodium Chloride) 100 mls @ 100 mls/ hr IVPB Q8H [facility] PRN Reason: Protocol Last Admin: 05/06/18 06:05 Dose: 100 mls/hr Insulin Human Lispro (Humalog) 0 units SC Q6H [facility] PRN Reason: Protocol Last Admin: 05/06/18 06:02 Dose: Not Given Isosorbide Mononitrate (Imdur Er) 30 mg PO DAILY [facility] Last Admin: 05/06/18 08:43 Dose: 30 mg Metoprolol Succinate (Toprol Xl) 100 mg PO DAILY [facility] Last Admin: 05/06/18 08:45 Dose: 100 mg Oxycodone/Acetaminophen (Percocet 5/325 Mg Tab) 1 tab PO Q4 PRN PRN Reason: Pain, severe (8-10) Stop: 05/09/18 00:11 Last Admin: 05/06/18 00:16 Dose: 1 tab Pravastatin Sodium (Pravachol) 40 mg PO HS [facility] Last Admin: 05/05/18 22:11 Dose: 40 mg Repaglinide (Prandin) 1 mg PO BRKDIN [facility] Last Admin: 05/06/18 08:44 Dose: 1 mg Repaglinide (Prandin) 2 mg PO ACL [facility] Last Admin: 05/05/18 11:56 Dose: Not Given Sitagliptin Phosphate (Januvia) 25 mg PO DAILY [facility] Last Admin: 05/06/18 08:43 Dose: 25 mg - Labs Labs: 05/04/18 09:55 05/04/18 09:55 PT 11.5 Seconds (9.8-13.1) 05/04/18 09:55 INR 1.0 05/04/18 09:55 APTT 28.3 Seconds (25.6-37.1) 05/04/18 09:55 - Constitutional Appears: Non-toxic, No Acute Distress - Head Exam Head Exam: ATRAUMATIC, NORMOCEPHALIC - Eye Exam Eye Exam: EOMI. absent: Scleral icterus - Respiratory Exam Respiratory Exam: NORMAL BREATHING PATTERN. absent: Respiratory Distress Additional comments: L IJ permacath dressing C/D/I, no bleeding, no erythema, no swelling - GI/Abdominal Exam GI & Abdominal Exam: Soft. absent: Distended, Tenderness - Neurological Exam Neurological Exam: Alert, Awake, Oriented x3 - Skin Skin Exam: Dry, Warm Assessment and Plan - Assessment and Plan (Free Text) Assessment: 62M POD#1 s/p Left subclavian permacath exchange and retunneling Plan: F/U on catheter tip cx Cath functioning well. Will need reevaluation of his fistula for use as access at a later time. No further surgical intervention at this time. PGY4
--- NOTE | 2018-05-06 13:28 | CP.PCM.PN ---
Subjective - Date & Time of Evaluation Date of Evaluation: 05/06/18 Time of Evaluation: 13:27 - Subjective Subjective: Nephrology Consultation Note: Assessment: Stable permacath sepsis Diabetic chronic Kidney Disease (E11.22) Hypertensive Chronic Kidney Disease (I12.0) End stage renal disease (N18.6) dependence on hemodialysis (Z99.2) (MWF) via PC Anemia (D64.9), Hyperphosphatemia (E83.39), Secondary Hyperparathyroidism (E21.1 ), HTN (I12.0) Plan: HD MWF [facility] as needed for anemia. on CHANCE with dialysis Continue with phos binders Continue with calcitriol. BP stable Glycemic control, Dialysis consistent diet S: seen and examined complains of dysuria Physical Examination: General Appearance: Comfortable, in no acute respiratory distress, co-operative . Vitals reviewed and noted as below Head; Atraumatic, normocephalic ENT: no ulcers no thrush. Tongue is midline. Oropharynx: no rash or ulcers. EYES: Pupils are equal, round and reactive to light accommodation. Eye muscles and extraocular movement intact. Sclera is anicteric. Neck; supple no lymphadenopathy, no thyromegaly or bruit Lungs: Normal respiratory rate/effort. Breath sounds bilateral equal and clear Heart: Normal rate. s1s2 normal. No rub or gallop. Extremities: no edema. No varicose veins Neurological: Patient is alert, awake and oriented to person, place and time. No focal deficit. Strength bilateral appropriate and equal Skin: Warm and dry. Normal turgor. No rash. Palpitation: Normal elasticity for age Abdomen: Abdomen is soft. Bowel sounds +. There is no abdominal tenderness, no guarding/rigidity or organomegaly Psych: normal insight and normal affect/mood MSK: no joint tenderness or swelling. Digits and nails normal, no deformity : kidney or bladder not palpable Access: left PC. Rt AVF maturing Objective - Vital Signs/Intake and Output Vital Signs (last 24 hours): Temp Pulse Resp BP Pulse Ox 98.1 F 73 19 156/64 H 97 05/06/18 07:32 05/06/18 08:45 05/06/18 07:32 05/06/18 08:45 05/06/18 07:32 - Medications Medications: Current Medications Acetaminophen (Tylenol 325mg Tab) 650 mg PO Q6H PRN PRN Reason: Pain, Mild (1-3) Allopurinol (Zyloprim) 200 mg PO DAILY [facility] Last Admin: 05/06/18 08:46 Dose: 200 mg Amlodipine Besylate (Norvasc) 10 mg PO DAILY [facility] Last Admin: 05/06/18 08:44 Dose: 10 mg Aspirin (Ecotrin) 81 mg PO DAILY [facility] Last Admin: 05/06/18 08:43 Dose: 81 mg Calcitriol (Rocaltrol) 0.25 mcg PO MWF [facility] Last Admin: 05/05/18 08:32 Dose: Not Given Cholecalciferol (Vitamin D) 5,000 intlu PO DAILY [facility] Last Admin: 05/06/18 08:45 Dose: 5,000 intlu Clopidogrel Bisulfate (Plavix) 75 mg PO DAILY [facility] Last Admin: 05/06/18 08:44 Dose: 75 mg Dextrose (Dextrose 50% Inj) 0 ml IV STAT PRN; Protocol PRN Reason: Hypoglycemia Protocol Enalapril Maleate (Vasotec) 20 mg PO DAILY [facility] Last Admin: 05/06/18 08:45 Dose: 20 mg [facility]poetin [facility] ([facility] Last Admin: 05/05/18 16:41 Dose: 4,000 unit Ferrous Sulfate (Feosol) 325 mg PO DAILY [facility] Last Admin: 05/06/18 08:43 Dose: 325 mg Furosemide (Lasix) 20 mg PO DAILY [facility] Last Admin: 05/06/18 08:43 Dose: 20 mg Glucagon (Glucagen Diagnostic Kit) 0 mg IM STAT PRN; Protocol PRN Reason: Hypoglycemia Protocol Home Med (Patient's Own Medication) 1,600 unit PO TID [facility] Last Admin: 05/06/18 12:36 Dose: 1,600 unit Hydralazine HCl (Apresoline) 50 mg PO Q8 [facility] Last Admin: 05/06/18 08:42 Dose: 50 mg Hydralazine HCl (Apresoline) 10 mg IV Q6 PRN PRN Reason: SBP>180; DBP>110 Vancomycin HCl 500 mg/ Sodium (Chloride) 100 mls @ 100 mls/hr IVPB MWF [facility] PRN Reason: Protocol Piperacillin Sod/Tazobactam (Sod 2.25 gm/ Sodium Chloride) 100 mls @ 100 mls/ hr IVPB Q8H [facility] PRN Reason: Protocol Last Admin: 05/06/18 13:13 Dose: 100 mls/hr Insulin Human Lispro (Humalog) 0 units SC Q6H [facility] PRN Reason: Protocol Last Admin: 05/06/18 12:36 Dose: 2 units Isosorbide Mononitrate (Imdur Er) 30 mg PO DAILY [facility] Last Admin: 05/06/18 08:43 Dose: 30 mg Metoprolol Succinate (Toprol Xl) 100 mg PO DAILY [facility] Last Admin: 05/06/18 08:45 Dose: 100 mg Oxycodone/Acetaminophen (Percocet 5/325 Mg Tab) 1 tab PO Q4 PRN PRN Reason: Pain, severe (8-10) Stop: 05/09/18 00:11 Last Admin: 05/06/18 00:16 Dose: 1 tab Pravastatin Sodium (Pravachol) 40 mg PO HS [facility] Last Admin: 05/05/18 22:11 Dose: 40 mg Repaglinide (Prandin) 1 mg PO BRKDIN [facility] Last Admin: 05/06/18 08:44 Dose: 1 mg Repaglinide (Prandin) 2 mg PO ACL [facility] Last Admin: 05/06/18 13:13 Dose: 2 mg Sitagliptin Phosphate (Januvia) 25 mg PO DAILY [facility] Last Admin: 05/06/18 08:43 Dose: 25 mg - Labs Labs: 05/04/18 09:55 05/04/18 09:55 PT 11.5 Seconds (9.8-13.1) 05/04/18 09:55 INR 1.0 05/04/18 09:55 APTT 28.3 Seconds (25.6-37.1) 05/04/18 09:55
--- NOTE | 2018-05-06 16:13 | CP.PCM.PN ---
Subjective - Date & Time of Evaluation Date of Evaluation: 05/06/18 Time of Evaluation: 14:30 - Subjective Subjective: F/U Central line infection. N/C, no pain in L Perma Cath Objective - Vital Signs/Intake and Output Vital Signs (last 24 hours): Temp Pulse Resp BP Pulse Ox 98.1 F 73 19 156/64 H 97 05/06/18 07:32 05/06/18 08:45 05/06/18 07:32 05/06/18 08:45 05/06/18 07:32 - Medications Medications: Current Medications Acetaminophen (Tylenol 325mg Tab) 650 mg PO Q6H PRN PRN Reason: Pain, Mild (1-3) Allopurinol (Zyloprim) 200 mg PO DAILY [facility] Last Admin: 05/06/18 08:46 Dose: 200 mg Amlodipine Besylate (Norvasc) 10 mg PO DAILY [facility] Last Admin: 05/06/18 08:44 Dose: 10 mg Aspirin (Ecotrin) 81 mg PO DAILY [facility] Last Admin: 05/06/18 08:43 Dose: 81 mg Calcitriol (Rocaltrol) 0.25 mcg PO MWF [facility] Last Admin: 05/05/18 08:32 Dose: Not Given Cholecalciferol (Vitamin D) 5,000 intlu PO DAILY [facility] Last Admin: 05/06/18 08:45 Dose: 5,000 intlu Clopidogrel Bisulfate (Plavix) 75 mg PO DAILY [facility] Last Admin: 05/06/18 08:44 Dose: 75 mg Dextrose (Dextrose 50% Inj) 0 ml IV STAT PRN; Protocol PRN Reason: Hypoglycemia Protocol Enalapril Maleate (Vasotec) 20 mg PO DAILY [facility] Last Admin: 05/06/18 08:45 Dose: 20 mg Epoetin Eddy (Procrit) 4,000 unit IV MWF [facility] Last Admin: 05/05/18 16:41 Dose: 4,000 unit Ferrous Sulfate (Feosol) 325 mg PO DAILY [facility] Last Admin: 05/06/18 08:43 Dose: 325 mg Furosemide (Lasix) 20 mg PO DAILY [facility] Last Admin: 05/06/18 08:43 Dose: 20 mg Glucagon (Glucagen Diagnostic Kit) 0 mg IM STAT PRN; Protocol PRN Reason: Hypoglycemia Protocol Home Med (Patient's Own Medication) 1,600 unit PO TID [facility] Last Admin: 05/06/18 12:36 Dose: 1,600 unit Hydralazine HCl (Apresoline) 50 mg PO Q8 [facility] Last Admin: 05/06/18 08:42 Dose: 50 mg Hydralazine HCl (Apresoline) 10 mg IV Q6 PRN PRN Reason: SBP>180; DBP>110 Vancomycin HCl 500 mg/ Sodium (Chloride) 100 mls @ 100 mls/hr IVPB MWF [facility] PRN Reason: Protocol Piperacillin Sod/Tazobactam (Sod 2.25 gm/ Sodium Chloride) 100 mls @ 100 mls/ hr IVPB Q8H [facility] PRN Reason: Protocol Last Admin: 05/06/18 13:13 Dose: 100 mls/hr Insulin Human Lispro (Humalog) 0 units SC Q6H [facility] PRN Reason: Protocol Last Admin: 05/06/18 12:36 Dose: 2 units Isosorbide Mononitrate (Imdur Er) 30 mg PO DAILY [facility] Last Admin: 05/06/18 08:43 Dose: 30 mg Metoprolol Succinate (Toprol Xl) 100 mg PO DAILY [facility] Last Admin: 05/06/18 08:45 Dose: 100 mg Oxycodone/Acetaminophen (Percocet 5/325 Mg Tab) 1 tab PO Q4 PRN PRN Reason: Pain, severe (8-10) Stop: 05/09/18 00:11 Last Admin: 05/06/18 00:16 Dose: 1 tab Pravastatin Sodium (Pravachol) 40 mg PO HS [facility] Last Admin: 05/05/18 22:11 Dose: 40 mg Repaglinide (Prandin) 1 mg PO BRKDIN [facility] Last Admin: 05/06/18 08:44 Dose: 1 mg Repaglinide (Prandin) 2 mg PO ACL [facility] Last Admin: 05/06/18 13:13 Dose: 2 mg Sitagliptin Phosphate (Januvia) 25 mg PO DAILY [facility] Last Admin: 05/06/18 08:43 Dose: 25 mg - Labs Labs: 05/04/18 09:55 05/04/18 09:55 PT 11.5 Seconds (9.8-13.1) 05/04/18 09:55 INR 1.0 05/04/18 09:55 APTT 28.3 Seconds (25.6-37.1) 05/04/18 09:55 - Constitutional Appears: No Acute Distress - Head Exam Head Exam: NORMAL INSPECTION - Eye Exam Eye Exam: PERRL - ENT Exam ENT Exam: Normal Oropharynx - Neck Exam Neck Exam: Normal Inspection - Respiratory Exam Respiratory Exam: Clear to Ausculation Bilateral Additional comments: Chest: L Perma Cath - Cardiovascular Exam Cardiovascular Exam: REGULAR RHYTHM - GI/Abdominal Exam GI & Abdominal Exam: Soft, Normal Bowel Sounds - Extremities Exam Additional comments: R arm AV fistula with bruit and thrill, R BKA - Back Exam Back Exam: NORMAL INSPECTION - Neurological Exam Neurological Exam: Alert, CN II-XII Intact - Psychiatric Exam Psychiatric exam: Normal Affect, Normal Mood - Skin Skin Exam: Warm Assessment and Plan (1) Central line infection Status: Acute (2) ESRD on hemodialysis Status: Acute (3) Fever Status: Acute (4) CAD (coronary artery disease) Status: Chronic (5) HTN (hypertension) Status: Chronic (6) Type 2 diabetes mellitus with diabetic chronic kidney disease Status: Chronic (7) Chronic anemia Status: Chronic - Assessment and Plan (Free Text) Plan: continue Vanco, Zosyn x 14 days and rest of treatment
[2018-05-06] MEDS: Pravastatin Sodium 40 MG TAB PO SCH (21:46)
[2018-05-07] MEDS: Insulin Lispro (humaLOG) 100 Units/ml Inj SC SCH ×4 (00:15→17:15)
--- NOTE | 2018-05-07 02:17 | CARD ---
APPROVED REPORT Date of service: 05/05/2018 <Conclusion> Normal sinus rhythm Nonspecific ST and T wave abnormality Abnormal ECG
[2018-05-07] MEDS: SEVELAMER CARBONATE 800 MG PO SCH ×3 (08:58→17:15)
[2018-05-07] MEDS: Cholecalciferol 1,000 INTLU TAB PO SCH (08:59)
[2018-05-07] MEDS: Metoprolol Succinate 100 mg XL Tab PO SCH (08:59)
--- NOTE | 2018-05-07 13:44 | CP.PCM.PN ---
Subjective - Date & Time of Evaluation Date of Evaluation: 05/07/18 Time of Evaluation: 13:44 - Subjective Subjective: Nephrology Consultation Note: Assessment: Stable permacath sepsis Diabetic chronic Kidney Disease (E11.22) Hypertensive Chronic Kidney Disease (I12.0) End stage renal disease (N18.6) dependence on hemodialysis (Z99.2) (MWF) via PC Anemia (D64.9), Hyperphosphatemia (E83.39), Secondary Hyperparathyroidism (E21.1 ), HTN (I12.0) Plan: HD MWF [facility] as needed for anemia. on CHANCE with dialysis Continue with phos binders Continue with calcitriol. BP stable Glycemic control, Dialysis consistent diet S: seen and examined feels good today Physical Examination: General Appearance: Comfortable, in no acute respiratory distress, co-operative . Vitals reviewed and noted as below Head; Atraumatic, normocephalic ENT: no ulcers no thrush. Tongue is midline. Oropharynx: no rash or ulcers. EYES: Pupils are equal, round and reactive to light accommodation. Eye muscles and extraocular movement intact. Sclera is anicteric. Neck; supple no lymphadenopathy, no thyromegaly or bruit Lungs: Normal respiratory rate/effort. Breath sounds bilateral equal and clear Heart: Normal rate. s1s2 normal. No rub or gallop. Extremities: no edema. No varicose veins Neurological: Patient is alert, awake and oriented to person, place and time. No focal deficit. Strength bilateral appropriate and equal Skin: Warm and dry. Normal turgor. No rash. Palpitation: Normal elasticity for age Abdomen: Abdomen is soft. Bowel sounds +. There is no abdominal tenderness, no guarding/rigidity or organomegaly Psych: normal insight and normal affect/mood MSK: no joint tenderness or swelling. : kidney or bladder not palpable Access: left PC. Rt AVF maturing Objective - Vital Signs/Intake and Output Vital Signs (last 24 hours): Temp Pulse Resp BP Pulse Ox 98.3 F 77 19 148/65 99 05/07/18 07:50 05/07/18 08:59 05/07/18 07:50 05/07/18 08:59 05/07/18 07:50 - Medications Medications: Current Medications Acetaminophen (Tylenol 325mg Tab) 650 mg PO Q6H PRN PRN Reason: Pain, Mild (1-3) Allopurinol (Zyloprim) 200 mg PO DAILY [facility] Last Admin: 05/07/18 09:00 Dose: 200 mg Amlodipine Besylate (Norvasc) 10 mg PO DAILY [facility] Last Admin: 05/07/18 08:58 Dose: 10 mg Aspirin (Ecotrin) 81 mg PO DAILY [facility] Last Admin: 05/07/18 08:56 Dose: 81 mg Calcitriol (Rocaltrol) 0.25 mcg PO MWF [facility] Last Admin: 05/05/18 08:32 Dose: Not Given Cholecalciferol (Vitamin D) 5,000 intlu PO DAILY [facility] Last Admin: 05/07/18 08:59 Dose: 5,000 intlu Clopidogrel Bisulfate (Plavix) 75 mg PO DAILY [facility] Last Admin: 05/07/18 08:58 Dose: 75 mg Dextrose (Dextrose 50% Inj) 0 ml IV STAT PRN; Protocol PRN Reason: Hypoglycemia Protocol Enalapril Maleate (Vasotec) 20 mg PO DAILY [facility] Last Admin: 05/07/18 08:59 Dose: 20 mg Epoetin Eddy (Procrit) 4,000 unit IV [facility] [place] Last Admin: 05/05/18 16:41 Dose: 4,000 unit Ferrous Sulfate (Feosol) 325 mg PO DAILY [facility] Last Admin: 05/07/18 08:57 Dose: 325 mg Furosemide (Lasix) 20 mg PO DAILY [facility] Last Admin: 05/07/18 08:58 Dose: 20 mg Glucagon (Glucagen Diagnostic Kit) 0 mg IM STAT PRN; Protocol PRN Reason: Hypoglycemia Protocol Home Med (Patient's Own Medication) 1,600 unit PO TID [facility] Last Admin: 05/07/18 13:09 Dose: 1,600 unit Hydralazine HCl (Apresoline) 50 mg PO Q8 [facility] Last Admin: 05/07/18 08:56 Dose: 50 mg Hydralazine HCl (Apresoline) 10 mg IV Q6 PRN PRN Reason: SBP>180; DBP>110 Vancomycin HCl 500 mg/ Sodium (Chloride) 100 mls @ 100 mls/hr IVPB MWF [facility] PRN Reason: Protocol Piperacillin Sod/Tazobactam (Sod 2.25 gm/ Sodium Chloride) 100 mls @ 100 mls/ hr IVPB Q8H [facility] PRN Reason: Protocol Last Admin: 05/07/18 13:08 Dose: 100 mls/hr Insulin Human Lispro (Humalog) 0 units SC Q6H [facility] PRN Reason: Protocol Last Admin: 05/07/18 13:02 Dose: Not Given Isosorbide Mononitrate (Imdur Er) 30 mg PO DAILY [facility] Last Admin: 05/07/18 08:57 Dose: 30 mg Metoprolol Succinate (Toprol Xl) 100 mg PO DAILY [facility] Last Admin: 05/07/18 08:59 Dose: 100 mg Oxycodone/Acetaminophen (Percocet 5/325 Mg Tab) 1 tab PO Q4 PRN PRN Reason: Pain, severe (8-10) Stop: 05/09/18 00:11 Last Admin: 05/06/18 00:16 Dose: 1 tab Pravastatin Sodium (Pravachol) 40 mg PO HS [facility] Last Admin: 05/06/18 21:46 Dose: 40 mg Repaglinide (Prandin) 1 mg PO BRKDIN [facility] Last Admin: 05/07/18 08:59 Dose: 1 mg Repaglinide (Prandin) 2 mg PO ACL [facility] Last Admin: 05/07/18 13:09 Dose: 2 mg Sitagliptin Phosphate (Januvia) 25 mg PO DAILY [facility] Last Admin: 05/07/18 08:57 Dose: 25 mg - Labs Labs: 05/04/18 09:55 05/04/18 09:55 PT 11.5 Seconds (9.8-13.1) 05/04/18 09:55 INR 1.0 05/04/18 09:55 APTT 28.3 Seconds (25.6-37.1) 05/04/18 09:55
--- NOTE | 2018-05-07 13:48 | CP.PCM.PN ---
Subjective - Date & Time of Evaluation Date of Evaluation: 05/07/18 Time of Evaluation: 08:00 - Subjective Subjective: afeb nad Objective - Vital Signs/Intake and Output Vital Signs (last 24 hours): Temp Pulse Resp BP Pulse Ox 98.3 F 77 19 148/65 99 05/07/18 07:50 05/07/18 08:59 05/07/18 07:50 05/07/18 08:59 05/07/18 07:50 - Medications Medications: Current Medications Acetaminophen (Tylenol 325mg Tab) 650 mg PO Q6H PRN PRN Reason: Pain, Mild (1-3) Allopurinol (Zyloprim) 200 mg PO DAILY [facility] Last Admin: 05/07/18 09:00 Dose: 200 mg Amlodipine Besylate (Norvasc) 10 mg PO DAILY [facility] Last Admin: 05/07/18 08:58 Dose: 10 mg Aspirin (Ecotrin) 81 mg PO DAILY [facility] Last Admin: 05/07/18 08:56 Dose: 81 mg Calcitriol (Rocaltrol) 0.25 mcg PO MWF [facility] Last Admin: 05/05/18 08:32 Dose: Not Given Cholecalciferol (Vitamin D) 5,000 intlu PO DAILY [facility] Last Admin: 05/07/18 08:59 Dose: 5,000 intlu Clopidogrel Bisulfate (Plavix) 75 mg PO DAILY [facility] Last Admin: 05/07/18 08:58 Dose: 75 mg Dextrose (Dextrose 50% Inj) 0 ml IV STAT PRN; Protocol PRN Reason: Hypoglycemia Protocol Enalapril Maleate (Vasotec) 20 mg PO DAILY [facility] Last Admin: 05/07/18 08:59 Dose: 20 mg Epoetin Eddy (Procrit) 4,000 unit IV MWF [facility] Last Admin: 05/05/18 16:41 Dose: 4,000 unit Ferrous Sulfate (Feosol) 325 mg PO DAILY [facility] Last Admin: 05/07/18 08:57 Dose: 325 mg Furosemide (Lasix) 20 mg PO DAILY [facility] Last Admin: 05/07/18 08:58 Dose: 20 mg Glucagon (Glucagen Diagnostic Kit) 0 mg IM STAT PRN; Protocol PRN Reason: Hypoglycemia Protocol Home Med (Patient's Own Medication) 1,600 unit PO TID [facility] Last Admin: 05/07/18 13:09 Dose: 1,600 unit Hydralazine HCl (Apresoline) 50 mg PO Q8 [facility] Last Admin: 05/07/18 08:56 Dose: 50 mg Hydralazine HCl (Apresoline) 10 mg IV Q6 PRN PRN Reason: SBP>180; DBP>110 Vancomycin HCl 500 mg/ Sodium (Chloride) 100 mls @ 100 mls/hr IVPB MWF [facility] PRN Reason: Protocol Piperacillin Sod/Tazobactam (Sod 2.25 gm/ Sodium Chloride) 100 mls @ 100 mls/ hr IVPB Q8H [facility] PRN Reason: Protocol Last Admin: 05/07/18 13:08 Dose: 100 mls/hr Insulin Human Lispro (Humalog) 0 units SC Q6H [facility] PRN Reason: Protocol Last Admin: 05/07/18 13:02 Dose: Not Given Isosorbide Mononitrate (Imdur Er) 30 mg PO DAILY [facility] Last Admin: 05/07/18 08:57 Dose: 30 mg Metoprolol Succinate (Toprol Xl) 100 mg PO DAILY [facility] Last Admin: 05/07/18 08:59 Dose: 100 mg Oxycodone/Acetaminophen (Percocet 5/325 Mg Tab) 1 tab PO Q4 PRN PRN Reason: Pain, severe (8-10) Stop: 05/09/18 00:11 Last Admin: 05/06/18 00:16 Dose: 1 tab Pravastatin Sodium (Pravachol) 40 mg PO HS [facility] Last Admin: 05/06/18 21:46 Dose: 40 mg Repaglinide (Prandin) 1 mg PO BRKDIN [facility] Last Admin: 05/07/18 08:59 Dose: 1 mg Repaglinide (Prandin) 2 mg PO ACL [facility] Last Admin: 05/07/18 13:09 Dose: 2 mg Sitagliptin Phosphate (Januvia) 25 mg PO DAILY [facility] Last Admin: 05/07/18 08:57 Dose: 25 mg - Labs Labs: 05/04/18 09:55 05/04/18 09:55 PT 11.5 Seconds (9.8-13.1) 05/04/18 09:55 INR 1.0 05/04/18 09:55 APTT 28.3 Seconds (25.6-37.1) 05/04/18 09:55 - Constitutional Appears: Non-toxic, Chronically Ill - Head Exam Head Exam: NORMOCEPHALIC - Eye Exam Eye Exam: PERRL - ENT Exam ENT Exam: Mucous Membranes Dry - Neck Exam Neck Exam: absent: Lymphadenopathy - Respiratory Exam Respiratory Exam: Decreased Breath Sounds - Cardiovascular Exam Cardiovascular Exam: REGULAR RHYTHM - GI/Abdominal Exam GI & Abdominal Exam: Distended, Diminished Bowel Sounds - Rectal Exam Rectal Exam: Deferred - Exam Exam: NORMAL INSPECTION - Extremities Exam Extremities Exam: absent: Pedal Edema - Back Exam Back Exam: absent: CVA tenderness (L), CVA tenderness (R) - Neurological Exam Neurological Exam: Alert, Awake, CN II-XII Intact, Oriented x3 Assessment and Plan (1) Central line infection Status: Acute - Assessment and Plan (Free Text) Assessment: cont iv antibiotics as ordered for 14 days
--- NOTE | 2018-05-07 15:46 | CP.PCM.PN ---
Subjective - Date & Time of Evaluation Date of Evaluation: 05/07/18 Time of Evaluation: 15:00 - Subjective Subjective: F/U Central line infection. No A/D, no pain in Perma Cath, no fever. Objective - Vital Signs/Intake and Output Vital Signs (last 24 hours): Temp Pulse Resp BP Pulse Ox 98.2 F 72 19 131/67 99 05/07/18 15:43 05/07/18 15:43 05/07/18 15:43 05/07/18 15:43 05/07/18 15:43 - Medications Medications: Current Medications Acetaminophen (Tylenol 325mg Tab) 650 mg PO Q6H PRN PRN Reason: Pain, Mild (1-3) Allopurinol (Zyloprim) 200 mg PO DAILY [facility] Last Admin: 05/07/18 09:00 Dose: 200 mg Amlodipine Besylate (Norvasc) 10 mg PO DAILY [facility] Last Admin: 05/07/18 08:58 Dose: 10 mg Aspirin (Ecotrin) 81 mg PO DAILY [facility] Last Admin: 05/07/18 08:56 Dose: 81 mg Calcitriol (Rocaltrol) 0.25 mcg PO MWF [facility] Last Admin: 05/05/18 08:32 Dose: Not Given Cholecalciferol (Vitamin D) 5,000 intlu PO DAILY [facility] Last Admin: 05/07/18 08:59 Dose: 5,000 intlu Clopidogrel Bisulfate (Plavix) 75 mg PO DAILY [facility] Last Admin: 05/07/18 08:58 Dose: 75 mg Dextrose (Dextrose 50% Inj) 0 ml IV STAT PRN; Protocol PRN Reason: Hypoglycemia Protocol Enalapril Maleate (Vasotec) 20 mg PO DAILY [facility] Last Admin: 05/07/18 08:59 Dose: 20 mg Epoetin Eddy (Procrit) 4,000 unit IV MWF [facility] Last Admin: 05/05/18 16:41 Dose: 4,000 unit Ferrous Sulfate (Feosol) 325 mg PO DAILY [facility] Last Admin: 05/07/18 08:57 Dose: 325 mg Furosemide (Lasix) 20 mg PO DAILY [facility] Last Admin: 05/07/18 08:58 Dose: 20 mg Glucagon (Glucagen Diagnostic Kit) 0 mg IM STAT PRN; Protocol PRN Reason: Hypoglycemia Protocol Home Med (Patient's Own Medication) 1,600 unit PO TID [facility] Last Admin: 05/07/18 13:09 Dose: 1,600 unit Hydralazine HCl (Apresoline) 50 mg PO Q8 [facility] Last Admin: 05/07/18 08:56 Dose: 50 mg Hydralazine HCl (Apresoline) 10 mg IV Q6 PRN PRN Reason: SBP>180; DBP>110 Vancomycin HCl 500 mg/ Sodium (Chloride) 100 mls @ 100 mls/hr IVPB MWF [facility] PRN Reason: Protocol Piperacillin Sod/Tazobactam (Sod 2.25 gm/ Sodium Chloride) 100 mls @ 100 mls/ hr IVPB Q8H [facility] PRN Reason: Protocol Last Admin: 05/07/18 13:08 Dose: 100 mls/hr Insulin Human Lispro (Humalog) 0 units SC Q6H [facility] PRN Reason: Protocol Last Admin: 05/07/18 13:02 Dose: Not Given Isosorbide Mononitrate (Imdur Er) 30 mg PO DAILY [facility] Last Admin: 05/07/18 08:57 Dose: 30 mg Metoprolol Succinate (Toprol Xl) 100 mg PO DAILY [facility] Last Admin: 05/07/18 08:59 Dose: 100 mg Oxycodone/Acetaminophen (Percocet 5/325 Mg Tab) 1 tab PO Q4 PRN PRN Reason: Pain, severe (8-10) Stop: 05/09/18 00:11 Last Admin: 05/06/18 00:16 Dose: 1 tab Pravastatin Sodium (Pravachol) 40 mg PO HS [facility] Last Admin: 05/06/18 21:46 Dose: 40 mg Repaglinide (Prandin) 1 mg PO BRKDIN [facility] Last Admin: 05/07/18 08:59 Dose: 1 mg Repaglinide (Prandin) 2 mg PO ACL [facility] Last Admin: 05/07/18 13:09 Dose: 2 mg Sitagliptin Phosphate (Januvia) 25 mg PO DAILY [facility] Last Admin: 05/07/18 08:57 Dose: 25 mg - Labs Labs: 05/04/18 09:55 05/04/18 09:55 PT 11.5 Seconds (9.8-13.1) 05/04/18 09:55 INR 1.0 05/04/18 09:55 APTT 28.3 Seconds (25.6-37.1) 05/04/18 09:55 - Constitutional Appears: No Acute Distress - Head Exam Head Exam: NORMAL INSPECTION - Eye Exam Eye Exam: PERRL - ENT Exam ENT Exam: Normal Oropharynx - Neck Exam Neck Exam: Normal Inspection - Respiratory Exam Respiratory Exam: Clear to Ausculation Bilateral - Cardiovascular Exam Cardiovascular Exam: REGULAR RHYTHM - GI/Abdominal Exam GI & Abdominal Exam: Soft, Normal Bowel Sounds - Extremities Exam Additional comments: R arm AV fistula with bruit and thrill, R BKA - Back Exam Back Exam: NORMAL INSPECTION - Neurological Exam Neurological Exam: Alert, CN II-XII Intact, Oriented x3 - Psychiatric Exam Psychiatric exam: Normal Affect, Normal Mood - Skin Skin Exam: Warm Assessment and Plan (1) Central line infection Status: Acute (2) ESRD on hemodialysis Status: Acute (3) Fever Status: Acute (4) CAD (coronary artery disease) Status: Chronic (5) HTN (hypertension) Status: Chronic (6) Type 2 diabetes mellitus with diabetic chronic kidney disease Status: Chronic (7) Chronic anemia Status: Chronic - Assessment and Plan (Free Text) Plan: Continue abx coverage, Percocet, Lasix, Plavix, Zyloprim and rest of Tx. and rest of Tx.
[2018-05-07] MEDS: Pravastatin Sodium 40 MG TAB PO SCH (21:30)
[2018-05-08] MEDS: Insulin Lispro (humaLOG) 100 Units/ml Inj SC SCH ×3 (00:30→13:09)
--- NOTE | 2018-05-08 07:53 | OP ---
Copied To: Cedrick Leon MD Attending MD: Cedrick Leon MD PROCEDURE DATE: 05/05/18 PREOPERATIVE DIAGNOSES: End-stage renal disease and Lyme infection. POSTOPERATIVE DIAGNOSES: End-stage renal disease and Lyme infection. PROCEDURE: Removal of Permcath and insertion of new Permcath over the wire. SURGEON: Cedrick Leon MD FURNITURE ASSEMBLY SUPERVISOR: Dr. Valdivia COMPLICATIONS: None. DESCRIPTION OF PROCEDURE: Mr. Markham is a 62-year-old male patient with multiple medical problems including end-stage renal disease. The patient had Permcath inserted for dialysis and also he has a new AV fistula in the right upper extremity which has not matured yet for dialysis. The patient has purulent discharge around skin and culture was done which showed . He was sent for hemodialysis catheter insertion new one. I examined the wound. There is no sign of any infection inside and the patient had no signs of sepsis. Consent was obtained from the patient. The patient had sedation and local anesthesia with 1% lidocaine . Anesthesia was given in the lower part of the neck. A transverse incision was made along the old incision and we dissected until we identified the catheter. We pulled the catheter outside of the skin and we held the distal part with a clamp and we cut the proximal part. We moved a wire in it and we sent the tip of the catheter for culture. We removed the catheter out. Over the wire, we inserted a sheath and through the sheath, we inserted the catheter. Before we moved the catheter in, we started with infiltrating the left side of the subclavicular area and we made a small incision and we made a new tunnel away from the old tunnel and we passed the catheter in there catheter over the wire down to the superior vena cava. The wire was pulled and the catheter was repositioned. We flushed . There was no problem and with good flow. We checked the catheter under x-ray. There is no kinking and we irrigated with saline solution and fixed in place using 3-0 nylon and closed the neck incision using 4-0 Monocryl. No complications. The patient tolerated the procedure well, transferred to the recovery room and after that will be transferred to the floor. Cedrick Leon MD [facility] # [id number]
[2018-05-08 08:21] VITALS: O2SAT 99
[2018-05-08] MEDS: Metoprolol Succinate 100 mg XL Tab PO SCH (08:56)
[2018-05-08] MEDS: Cholecalciferol 1,000 INTLU TAB PO SCH (09:15)
[2018-05-08] MEDS: SEVELAMER CARBONATE 800 MG PO SCH ×2 (09:26→13:12)
[2018-05-08] MEDS: Epoetin Alfa 4000 UNIT/ML Inj IV SCH (11:14)
--- NOTE | 2018-05-08 12:37 | CP.PCM.PN ---
Subjective - Date & Time of Evaluation Date of Evaluation: 05/08/18 Time of Evaluation: 08:00 - Subjective Subjective: improving afeb for d/c on IV Vanco Objective - Vital Signs/Intake and Output Vital Signs (last 24 hours): Temp Pulse Resp BP Pulse Ox 97.9 F 74 19 143/69 99 05/08/18 08:20 05/08/18 08:20 05/08/18 08:20 05/08/18 08:20 05/08/18 08:20 - Medications Medications: Current Medications Acetaminophen (Tylenol 325mg Tab) 650 mg PO Q6H PRN PRN Reason: Pain, Mild (1-3) Allopurinol (Zyloprim) 200 mg PO DAILY [facility] Last Admin: 05/08/18 09:21 Dose: 200 mg Amlodipine Besylate (Norvasc) 10 mg PO DAILY [facility] Last Admin: 05/08/18 08:55 Dose: Not Given Aspirin (Ecotrin) 81 mg PO DAILY [facility] Last Admin: 05/08/18 09:15 Dose: 81 mg Calcitriol (Rocaltrol) 0.25 mcg PO MWF [facility] Last Admin: 05/08/18 09:14 Dose: 0.25 mcg Cholecalciferol (Vitamin D) 5,000 intlu PO DAILY [facility] Last Admin: 05/08/18 09:15 Dose: 5,000 intlu Clopidogrel Bisulfate (Plavix) 75 mg PO DAILY [facility] Last Admin: 05/08/18 09:15 Dose: 75 mg Dextrose (Dextrose 50% Inj) 0 ml IV STAT PRN; Protocol PRN Reason: Hypoglycemia Protocol Enalapril Maleate (Vasotec) 20 mg PO DAILY [facility] Last Admin: 05/08/18 09:17 Dose: 20 mg Epoetin Eddy (Procrit) 4,000 unit IV MWF [facility] Last Admin: 05/08/18 11:14 Dose: 4,000 unit Ferrous Sulfate (Feosol) 325 mg PO DAILY [facility] Last Admin: 05/08/18 09:15 Dose: 325 mg Furosemide (Lasix) 20 mg PO DAILY [facility] Last Admin: 05/08/18 08:55 Dose: Not Given Glucagon (Glucagen Diagnostic Kit) 0 mg IM STAT PRN; Protocol PRN Reason: Hypoglycemia Protocol Home Med (Patient's Own Medication) 1,600 unit PO TID [facility] Last Admin: 05/08/18 09:26 Dose: 1,600 unit Hydralazine HCl (Apresoline) 50 mg PO Q8 [facility] Last Admin: 05/08/18 08:54 Dose: Not Given Hydralazine HCl (Apresoline) 10 mg IV Q6 PRN PRN Reason: SBP>180; DBP>110 Vancomycin HCl 500 mg/ Sodium (Chloride) 100 mls @ 100 mls/hr IVPB MWF [facility] PRN Reason: Protocol Piperacillin Sod/Tazobactam (Sod 2.25 gm/ Sodium Chloride) 100 mls @ 100 mls/ hr IVPB Q8H [facility] PRN Reason: Protocol Last Admin: 05/08/18 06:04 Dose: 100 mls/hr Insulin Human Lispro (Humalog) 0 units SC Q6H [facility] PRN Reason: Protocol Last Admin: 05/08/18 08:11 Dose: Not Given Isosorbide Mononitrate (Imdur Er) 30 mg PO DAILY [facility] Last Admin: 05/08/18 09:15 Dose: 30 mg Metoprolol Succinate (Toprol Xl) 100 mg PO DAILY [facility] Last Admin: 05/08/18 08:56 Dose: Not Given Oxycodone/Acetaminophen (Percocet 5/325 Mg Tab) 1 tab PO Q4 PRN PRN Reason: Pain, severe (8-10) Stop: 05/09/18 00:11 Last Admin: 05/06/18 00:16 Dose: 1 tab Pravastatin Sodium (Pravachol) 40 mg PO HS [facility] Last Admin: 05/07/18 21:30 Dose: 40 mg Repaglinide (Prandin) 1 mg PO BRKDIN [facility] Last Admin: 05/08/18 09:14 Dose: 1 mg Repaglinide (Prandin) 2 mg PO ACL [facility] Last Admin: 05/07/18 13:09 Dose: 2 mg Sitagliptin Phosphate (Januvia) 25 mg PO DAILY [facility] Last Admin: 05/08/18 09:14 Dose: 25 mg - Labs Labs: 05/04/18 09:55 05/04/18 09:55 PT 11.5 Seconds (9.8-13.1) 05/04/18 09:55 INR 1.0 05/04/18 09:55 APTT 28.3 Seconds (25.6-37.1) 05/04/18 09:55 - Constitutional Appears: Non-toxic, Chronically Ill - Head Exam Head Exam: NORMOCEPHALIC - Eye Exam Eye Exam: PERRL - ENT Exam ENT Exam: Mucous Membranes Dry - Neck Exam Neck Exam: absent: Lymphadenopathy - Respiratory Exam Respiratory Exam: Decreased Breath Sounds - Cardiovascular Exam Cardiovascular Exam: REGULAR RHYTHM - GI/Abdominal Exam GI & Abdominal Exam: Distended - Rectal Exam Rectal Exam: Deferred - Exam Exam: NORMAL INSPECTION Assessment and Plan (1) Central line infection Status: Acute - Assessment and Plan (Free Text) Assessment: cont iv rx
--- NOTE | 2018-05-08 15:03 | CP.PCM.DIS ---
Provider - Provider Date of Admission: 05/05/18 13:44 Attending physician: Basim Gerard MD Diagnosis - Discharge Diagnosis (1) Central line infection Status: Acute Priority: High (2) ESRD on hemodialysis Status: Acute Priority: High (3) Fever Status: Acute Priority: Medium (4) CAD (coronary artery disease) Status: Chronic Priority: Medium (5) HTN (hypertension) Status: Chronic Priority: Medium (6) Type 2 diabetes mellitus with diabetic chronic kidney disease Status: Chronic Priority: High (7) Chronic anemia Status: Chronic Priority: High Hospital Course - Lab Results Lab Results: Micro Results 05/04/18 09:58 Blood-Venous Blood Culture - Preliminary NO GROWTH AFTER 4 DAYS 05/05/18 10:39 Other: Please Indicate Gram Stain - Final 05/05/18 10:39 Other: Please Indicate Wound Culture - Final Staphylococcus Sp Coag Neg 05/04/18 10:39 Drainage Gram Stain - Final 05/04/18 10:39 Drainage Wound Culture - Final No growth. Most Recent Lab Values WBC 9.3 K/uL (4.8-10.8) 05/04/18 09:55 RBC 3.45 Mil/uL (4.40-5.90) L 05/04/18 09:55 Hgb 10.9 g/dL (12.0-18.0) L D 05/04/18 09:55 Hct 32.3 % (35.0-51.0) L 05/04/18 09:55 MCV 93.5 fl (80.0-94.0) 05/04/18 09:55 MCH 31.4 pg (27.0-31.0) H 05/04/18 09:55 MCHC 33.6 g/dL (33.0-37.0) 05/04/18 09:55 RDW 15.4 % (11.5-14.5) H 05/04/18 09:55 Plt Count 160 K/uL (130-400) 05/04/18 09:55 MPV 7.9 fl (7.2-11.7) 05/04/18 09:55 Neut % (Auto) 73.1 % (50.0-75.0) 05/04/18 09:55 Lymph % (Auto) 9.4 % (20.0-40.0) L 05/04/18 09:55 [place] % (Auto) 8.4 % (0.0-10.0) 05/04/18 09:55 Eos % (Auto) 8.3 % (0.0-4.0) H 05/04/18 09:55 Baso % (Auto) 0.8 % (0.0-2.0) 05/04/18 09:55 Neut # (Auto) 6.8 K/uL (1.8-7.0) 05/04/18 09:55 Lymph # (Auto) 0.9 K/uL (1.0-4.3) L 05/04/18 09:55 [place] # (Auto) 0.8 K/uL (0.0-0.8) 05/04/18 09:55 Eos # (Auto) 0.8 K/uL (0.0-0.7) H 05/04/18 09:55 Baso # (Auto) 0.1 K/uL (0.0-0.2) 05/04/18 09:55 Neutrophils % (Manual) 74 % (42-75) 05/04/18 09:55 Lymphocytes % (Manual) 11 % (20-50) L 05/04/18 09:55 Monocytes % (Manual) 9 % (0-10) 05/04/18 09:55 Eosinophils % (Manual) 6 % (0-7) 05/04/18 09:55 Platelet Estimate Normal (NORMAL) 05/04/18 09:55 Large Platelets Present 05/04/18 09:55 Poikilocytosis (manual Slight 05/04/18 09:55 Anisocytosis (manual) Slight 05/04/18 09:55 Tear Drop Cells Slight 05/04/18 09:55 PT 11.5 Seconds (9.8-13.1) 05/04/18 09:55 INR 1.0 05/04/18 09:55 APTT 28.3 Seconds (25.6-37.1) 05/04/18 09:55 pO2 64 mm/Hg (30-55) H 05/04/18 10:07 VBG pH 7.51 (7.32-7.43) H 05/04/18 10:07 VBG pCO2 41 mmHg (40-60) 05/04/18 10:07 VBG HCO3 31.7 mmol/L 05/04/18 10:07 VBG Total CO2 34.0 mmol/L (22-28) H 05/04/18 10:07 VBG O2 Sat (Calc) 95.1 % (40-65) H 05/04/18 10:07 VBG Base Excess 8.8 mmol/L (0.0-2.0) H 05/04/18 10:07 VBG Potassium 4.7 mmol/L (3.6-5.2) 05/04/18 10:07 Sodium 137.0 mmol/L (132-148) 05/04/18 10:07 Chloride 103.0 mmol/L (98-107) 05/04/18 10:07 Glucose 224 mg/dL (75-110) H 05/04/18 10:07 Lactate 1.1 mmol/L (0.7-2.1) 05/04/18 10:07 FiO2 21.0 % 05/04/18 10:07 Sodium 139 mmol/l (132-148) 05/04/18 09:55 Potassium 4.6 MMOL/L (3.6-5.0) 05/04/18 09:55 Chloride 102 mmol/L (98-107) 05/04/18 09:55 Carbon Dioxide 29 mmol/L (22-30) 05/04/18 09:55 Anion Gap 13 (10-20) 05/04/18 09:55 BUN 29 mg/dl (9-20) H 05/04/18 09:55 Creatinine 4.0 mg/dl (0.8-1.5) H 05/04/18 09:55 Est GFR ( Amer) 19 05/04/18 09:55 Est GFR (Non-Af Amer) 15 05/04/18 09:55 POC Glucose (mg/dL) 160 mg/dL (65-110) H 05/08/18 11:03 Random Glucose 210 mg/dL (75-110) H 05/04/18 09:55 Calcium 8.8 mg/dL (8.4-10.2) 05/04/18 09:55 Total Bilirubin 0.5 mg/dl (0.2-1.3) 05/04/18 09:55 AST 20 U/L (17-59) 05/04/18 09:55 ALT 20 U/L (21-72) L D 05/04/18 09:55 Alkaline Phosphatase 86 U/L (38-126) 05/04/18 09:55 Troponin I 0.0290 ng/mL (0.00-0.120) 05/04/18 09:55 Total Protein 6.8 G/DL (6.3-8.2) 05/04/18 09:55 Albumin 3.8 g/dL (3.5-5.0) 05/04/18 09:55 Globulin 3.0 gm/dL (2.2-3.9) 05/04/18 09:55 Albumin/Globulin Ratio 1.3 (1.0-2.1) 05/04/18 09:55 Venous Blood Potassium 4.7 mmol/L (3.6-5.2) 05/04/18 10:07 Urine Color Yellow (YELLOW) 05/06/18 07:26 Urine Clarity Slighty-cloudy (Clear) 05/06/18 07:26 Urine pH 8.0 (5.0-8.0) 05/06/18 07:26 Ur Specific [place] 1.015 (1.003-1.030) 05/06/18 07:26 Urine Protein >=500 mg/dL (NEGATIVE) 05/06/18 07:26 Urine Glucose (UA) 150 mg/dL (Normal) 05/06/18 07:26 Urine Ketones Negative mg/dL (NEGATIVE) 05/06/18 07:26 Urine Blood Negative (NEGATIVE) 05/06/18 07:26 Urine Nitrate Negative (NEGATIVE) 05/06/18 07:26 Urine Bilirubin Negative (NEGATIVE) 05/06/18 07:26 Urine Urobilinogen 0.2-1.0 mg/dL (0.2-1.0) 05/06/18 07:26 Ur Leukocyte Esterase Neg Michelle/uL (Negative) 05/06/18 07:26 Urine RBC (Auto) 2 /hpf (0-3) 05/06/18 07:26 Urine Microscopic WBC 1 /hpf (0-5) 05/06/18 07:26 Ur Squamous Epith Cells < 1 /hpf (0-5) 05/06/18 07:26 Urine Bacteria Rare (<OCC) 05/06/18 07:26 Discharge Exam - Head Exam Head Exam: NORMOCEPHALIC Discharge Plan - Discharge Medications Prescriptions: Vancomycin 500mg in NS 500 mg IVPB MWF #14 bag - Follow Up Plan Condition: FAIR Disposition: HOME/ ROUTINE Instructions: Central Line Infections (DC), End Stage Kidney Disease (DC) Additional Instructions: hacer eileen con lopez primario dentro de 1 semana Referrals: Basim Gerard MD [Staff Provider] - Miesha Rudolph MD [Family Provider] -
[2018-05-08 15:45] VITALS: BP 151/74; PULSE 75; RESP 18; TEMP 98
--- NOTE | 2018-05-08 16:51 | CP.PCM.PN ---
Subjective - Date & Time of Evaluation Date of Evaluation: 05/08/18 Time of Evaluation: 16:50 - Subjective Subjective: Nephrology Consultation Note: Assessment: Stable permacath sepsis Diabetic chronic Kidney Disease (E11.22) Hypertensive Chronic Kidney Disease (I12.0) End stage renal disease (N18.6) dependence on hemodialysis (Z99.2) (MWF) via PC Anemia (D64.9), Hyperphosphatemia (E83.39), Secondary Hyperparathyroidism (E21.1 ), HTN (I12.0) Plan: Will plan for HD today as ordered. Continue with Nephrovite 1 tab/day. PRBC as needed for anemia. on CHANCE with dialysis as last Hb10.9 Continue with phos binders Continue with calcitriol. BP control with meds as ordered. Patient on RAAS oliva as enalapril Glycemic control, Dialysis consistent diet Further work up/management as per primary team Dose meds/antibiotics (if needed) for ESRD status. Avoid fleets enema/magnesium based laxatives. Thanks for allowing me to participate in care of your patient. Will follow patient with you. Please call if any Qs Dr Nolan Rodriguez Office: [phone] Chief Complaint; catheter infection HPI: Pt is a 62 M with hx of ESRD on hemodialysis (MWF) via PC , last dialysis wed , chronic anemia, hyperphosphatemia, secondary hyperparathyroidism, Diabetes Mellitus, hypertension presented with complaints of fever. pt was found to have discharge from exite site and had blood/exit site cultures done both of which grew staph epi. pt was given 2 dose of IV vanco 1 gram post HD and initially 100 mg genta 1 dose. pt was advised to go for permacath change, he went to his vascular surgeon and pt was admitted for further management Renal consult requested for ESRD management. he feels in good health now. no complaints. no chills/fever ROS: Cardiovascular: No chest pain. Pulmonary: No shortness of breath Gastrointestinal: denies abdominal pain No nausea. No vomiting. Genitourinary: No pain while urinating. Denies blood in urine. All other negative except as mentioned in HPI Physical Examination: seen on HD General Appearance: Comfortable, in no acute respiratory distress, co-operative . Vitals reviewed and noted as below Head; Atraumatic, normocephalic ENT: no ulcers no thrush. Tongue is midline. Oropharynx: no rash or ulcers. EYES: Pupils are equal, round and reactive to light accommodation. Eye muscles and extraocular movement intact. Sclera is anicteric. Neck; supple no lymphadenopathy, no thyromegaly or bruit Lungs: Normal respiratory rate/effort. Breath sounds bilateral equal and clear Heart: Normal rate. s1s2 normal. No rub or gallop. Extremities: no edema. No varicose veins Neurological: Patient is alert, awake and oriented to person, place and time. No focal deficit. Strength bilateral appropriate and equal Skin: Warm and dry. Normal turgor. No rash. Palpitation: Normal elasticity for age Abdomen: Abdomen is soft. Bowel sounds +. There is no abdominal tenderness, no guarding/rigidity or organomegaly Psych: normal insight and normal affect/mood MSK: no joint tenderness or swelling. Digits and nails normal, no deformity : kidney or bladder not palpable Access: left PC. Rt AVF maturing Labs/imaging reviewed. Past medical history, past surgical history, family history, social history, allergy reviewed and noted as below Family Hx: no hx of CKD. Non contributory Objective - Vital Signs/Intake and Output Vital Signs (last 24 hours): Temp Pulse Resp BP Pulse Ox 98 F 75 18 151/74 H 99 05/08/18 15:44 05/08/18 15:44 05/08/18 15:44 05/08/18 15:44 05/08/18 08:20 - Medications Medications: Current Medications Acetaminophen (Tylenol 325mg Tab) 650 mg PO Q6H PRN PRN Reason: Pain, Mild (1-3) Allopurinol (Zyloprim) 200 mg PO DAILY [facility] Last Admin: 05/08/18 09:21 Dose: 200 mg Amlodipine Besylate (Norvasc) 10 mg PO DAILY [facility] Last Admin: 05/08/18 08:55 Dose: Not Given Aspirin (Ecotrin) 81 mg PO DAILY [facility] Last Admin: 05/08/18 09:15 Dose: 81 mg Calcitriol (Rocaltrol) 0.25 mcg PO MWF [facility] Last Admin: 05/08/18 09:14 Dose: 0.25 mcg Cholecalciferol (Vitamin D) 5,000 intlu PO DAILY [facility] Last Admin: 05/08/18 09:15 Dose: 5,000 intlu Clopidogrel Bisulfate (Plavix) 75 mg PO DAILY [facility] Last Admin: 05/08/18 09:15 Dose: 75 mg Dextrose (Dextrose 50% Inj) 0 ml IV STAT PRN; Protocol PRN Reason: Hypoglycemia Protocol Enalapril Maleate (Vasotec) 20 mg PO DAILY [facility] Last Admin: 05/08/18 09:17 Dose: 20 mg Epoetin Eddy (Procrit) [facility] Last Admin: 05/08/18 11:14 Dose: 4,000 unit Ferrous Sulfate (Feosol) 325 mg PO DAILY [facility] Last Admin: 05/08/18 09:15 Dose: 325 mg Furosemide (Lasix) 20 mg PO DAILY [facility] Last Admin: 05/08/18 08:55 Dose: Not Given Glucagon (Glucagen Diagnostic Kit) 0 mg IM STAT PRN; Protocol PRN Reason: Hypoglycemia Protocol Home Med (Patient's Own Medication) 1,600 unit PO TID [facility] Last Admin: 05/08/18 13:12 Dose: 1,600 unit Hydralazine HCl (Apresoline) 50 mg PO Q8 [facility] Last Admin: 05/08/18 08:54 Dose: Not Given Hydralazine HCl (Apresoline) 10 mg IV Q6 PRN PRN Reason: SBP>180; DBP>110 Vancomycin HCl 500 mg/ Sodium (Chloride) 100 mls @ 100 mls/hr IVPB MWF [facility] PRN Reason: Protocol Last Admin: 05/08/18 14:44 Dose: 100 mls/hr Piperacillin Sod/Tazobactam (Sod 2.25 gm/ Sodium Chloride) 100 mls @ 100 mls/ hr IVPB Q8H [facility] PRN Reason: Protocol Last Admin: 05/08/18 14:00 Dose: Not Given Insulin Human Lispro (Humalog) 0 units SC Q6H [facility] PRN Reason: Protocol Last Admin: 05/08/18 13:09 Dose: 2 units Isosorbide Mononitrate (Imdur Er) 30 mg PO DAILY [facility] Last Admin: 05/08/18 09:15 Dose: 30 mg Metoprolol Succinate (Toprol Xl) 100 mg PO DAILY [facility] Last Admin: 05/08/18 08:56 Dose: Not Given Oxycodone/Acetaminophen (Percocet 5/325 Mg Tab) 1 tab PO Q4 PRN PRN Reason: Pain, severe (8-10) Stop: 05/09/18 00:11 Last Admin: 05/06/18 00:16 Dose: 1 tab Pravastatin Sodium (Pravachol) 40 mg PO HS [facility] Last Admin: 05/07/18 21:30 Dose: 40 mg Repaglinide (Prandin) 1 mg PO BRKDIN LIZETH Last Admin: 05/08/18 09:14 Dose: 1 mg Repaglinide (Prandin) 2 mg PO ACL [facility] Last Admin: 05/08/18 13:13 Dose: 2 mg Sitagliptin Phosphate (Januvia) 25 mg PO DAILY [facility] Last Admin: 05/08/18 09:14 Dose: 25 mg - Labs Labs: 05/04/18 09:55 05/04/18 09:55 PT 11.5 Seconds (9.8-13.1) 05/04/18 09:55 INR 1.0 05/04/18 09:55 APTT 28.3 Seconds (25.6-37.1) 05/04/18 09:55
[2018-05-08 20:14] LABS: HEMOGLOBIN 9.9 g/dL (12.0-18.0); MEAN CELL VOLUME 92.3 fl (80.0-94.0); MEAN CORPUSCULAR HEMOGLOBIN 30.9 pg (27.0-31.0); MEAN CORPUSCULAR HGB CONC 33.4 g/dL (33.0-37.0); RBC 3.21 Mil/uL (4.40-5.90); RED CELL DISTRIBUTION WIDTH 14.9 % (11.5-14.5); WHITE BLOOD COUNT 9.8 K/uL (4.8-10.8)
== END 2018-05-08 16:25 | disposition home or self-care (01) | DRG 314 ==
LOC: H.ER 08:36 → H.ERHOLD 12:42 → H.MEDSURG1 15:58 → OBSVTOIN 05-05 13:44
PROVIDERS: ADMIT Internal Medicine Pulmonary Disease; ATTEND Internal Medicine Pulmonary Disease
PROC: 02HV33Z Insertion of Infusion Device into Superior Vena Cava, Percutaneous Approach (ICD-10-PCS; 2018-05-05)
PROC: B548ZZA Ultrasonography of Superior Vena Cava, Guidance (ICD-10-PCS; 2018-05-05)
PROC: 5A1D70Z Performance of Urinary Filtration, Intermittent, Less than 6 Hours Per Day (ICD-10-PCS; 2018-05-05)
PROC: 02PY33Z Removal of Infusion Device from Great Vessel, Percutaneous Approach (ICD-10-PCS; principal; 2018-05-05 09:30)
PROC: 5A1D70Z Performance of Urinary Filtration, Intermittent, Less than 6 Hours Per Day (ICD-10-PCS; 2018-05-08)
DX: T80.211A Bloodstream infection due to central venous catheter, initial encounter (principal); N18.6 End stage renal disease; A41.9 Sepsis, unspecified organism; I12.0 Hypertensive chronic kidney disease with stage 5 chronic kidney disease or end stage renal disease; N25.81 Secondary hyperparathyroidism of renal origin; B95.7 Other staphylococcus as the cause of diseases classified elsewhere; Y83.8 Other surgical procedures as the cause of abnormal reaction of the patient, or of later complication, without mention of misadventure at the time of the procedure; E11.22 Type 2 diabetes mellitus with diabetic chronic kidney disease; I25.10 Atherosclerotic heart disease of native coronary artery without angina pectoris; E83.39 Other disorders of phosphorus metabolism; E78.5 Hyperlipidemia, unspecified; E78.00 Pure hypercholesterolemia, unspecified; D63.1 Anemia in chronic kidney disease; Z89.511 Acquired absence of right leg below knee; Z89.422 Acquired absence of other left toe(s); Z99.2 Dependence on renal dialysis; Z95.5 Presence of coronary angioplasty implant and graft; Z79.02 Long term (current) use of antithrombotics/antiplatelets; Z79.82 Long term (current) use of aspirin; Z87.01 Personal history of pneumonia (recurrent); Z79.84 Long term (current) use of oral hypoglycemic drugs; Y92.89 Other specified places as the place of occurrence of the external cause

== ENCOUNTER 2018-11-09 10:10 | Inpatient (IN) | payer MEDICARE, MEDICAID ==
[2018-11-09 10:10] VITALS: BMI 30.4
--- NOTE | 2018-11-09 10:58 | ED PDOC ---
HPI: Fever <Rodriguez Charles III - Last Filed: 11/09/18 14:51> Fever Onset Was: 10/29/18 The Fever Was Measured: Oral What Antipyretic Given Prior To Arrival: Acetaminophen Symptoms Associated With Fever: Runny Nose Additional Comments: 63 yo M with hx HTN, DM2, ESRD (HD MWF at [facility]), CAD (coronary stent x2), Right AKA w current prosthesis, left transmetatarsal amputation, presents to ED with fevers x 12 days. T max 101.9 last night; took 650 tylenol. Saw PMD 2 days ago and given rx for CXR but had not gone yet. Associated w/ rhinorrhea; no cough, no abdominal pain, no vomitting, no dysuria (produces small amt of urine). Recently had permacath removal 1 month ago, end of Sep. Has been on HD since April 2018. PMD: [facility]. Miesha Cherry. Nephro - used to see Dr. Beatty, now seen by nephro at HD center <Jodee Roberto - Last Filed: 11/09/18 15:09> Time Seen by Provider: 11/09/18 10:45 Supervising Attending Note - Attestation: I have personally seen and examined this patient.: Yes I have fully participated in the care of the patient.: Yes I have reviewed all pertinent clinical information, including history, physical exam and plan: Yes - Notes: Notes:: pt seen/examined w resident agree w finding 63yo male reports daily fevers recurrent over last 2 weeks. Had HD port removed end Sep. No focal abdominal pain, has mild cough/malaise CXR reviewed, read as neg by radioloigist WBC elevated, lactate <2 thus not severe sepsis, BP adequate Caution w IVF given ESRD, last HD yesterday due again tomr. Start empiric Abx given elev WBC, [place] culture, Urine cath ordered for UCx ID Dr Bar aware, agrees w plan, nephrology consult for HD tomr and admit supervisor [employer] medicine Dr Gambino <Rodriguez Charles III - Last Filed: 11/09/18 14:51> Past Medical History Vital Signs: Last Vital Signs Temp 99.7 F H 11/09/18 11:45 Pulse 85 11/09/18 10:28 Resp 18 11/09/18 10:28 BP 160/87 H 11/09/18 10:28 Pulse Ox 98 11/09/18 14:08 <Rodriguez Charles III - Last Filed: 11/09/18 14:51> Reviewed: Historical Data, Vital Signs Vital Signs: Last Vital Signs Temp 99.1 F 11/09/18 10:28 Pulse 85 11/09/18 10:28 Resp 18 11/09/18 10:28 BP 160/87 H 11/09/18 10:28 Pulse Ox 98 11/09/18 10:28 - Medical History PMH: Anemia, CAD, Diabetes, HTN, Hypercholesterolemia, Pneumonia, End Stage Renal Disease, Chronic Kidney Disease - Surgical History Surgical History: Coronary Stent (x 2) Denies: Pacemaker - Family History Family History: States: Unknown Family Hx - Immunization History Hx Tetanus Toxoid Vaccination: Yes Hx Influenza Vaccination: Yes Hx Pneumococcal Vaccination: Yes <Jodee Roberto - Last Filed: 11/09/18 15:09> - Home Medications Home Medications: Ambulatory Orders Medication Instructions Recorded Allopurinol [Zyloprim] 200 mg PO DAILY 10/23/17 Aspirin [Ecotrin] 81 mg PO DAILY 10/23/17 Isosorbide Mononitrate [Isosorbide 30 mg PO DAILY 10/23/17 Mononitrate ER] amLODIPine [Norvasc] 10 mg PO DAILY 10/23/17 Clopidogrel [Plavix] 75 mg PO DAILY 02/16/18 Sevelamer Carbonate [Renvela] 2,400 mg PO TID 02/16/18 Enalapril Maleate [Vasotec] 20 mg PO DAILY 02/20/18 Linagliptin [Tradjenta] 5 mg PO DAILY 02/20/18 Metoprolol Succinate XL [Toprol XL] 100 mg PO Q12 02/20/18 Repaglinide [Prandin] 1 mg PO BRKDIN 02/20/18 Pravastatin Sodium [Pravachol] 40 mg PO HS 04/18/18 Repaglinide [Prandin] 2 mg PO ACL 04/18/18 Furosemide [Lasix] 40 mg PO DAILY 11/09/18 Gabapentin [Neurontin] 100 mg PO Q12 11/09/18 Hydralazine HCl 100 mg PO Q12 11/09/18 Patiromer Calcium Sorbitex 8.4 gm PO DAILY 11/09/18 [Veltassa] Vitamin B Complex/Vit C/Folic 1 tab PO DAILY 11/09/18 [Nephro-Govind] - Allergies Allergies/Adverse Reactions: Allergies Allergy/AdvReac Type Severity Reaction Status Date / Time No Known Allergies Allergy Unverified 11/09/18 10:35 Review of Systems Constitutional: Positive for: Fever, Chills Eyes: Negative for: Vision Change ENT: Positive for: Nose Discharge. Negative for: Ear Pain, Throat Pain Cardiovascular: Negative for: Chest Pain, Palpitations Respiratory: Negative for: Cough, Shortness of Breath Gastrointestinal: Negative for: Nausea, Vomiting, Abdominal Pain, Diarrhea, Constipation Genitourinary Male: Negative for: Dysuria <Jodee Roberto - Last Filed: 11/09/18 15:09> Physical Exam - Reviewed Vital Signs Reviewed: Yes - Physical Exam Appears: Positive for: Non-toxic Head Exam: Positive for: NORMAL INSPECTION Skin: Positive for: Normal Color, Warm, Dry. Negative for: Diaphoresis Eye Exam: Positive for: EOMI ENT: Positive for: Pharynx Is (clear of exudates) Neck: Positive for: Painless ROM Cardiovascular/Chest: Positive for: Regular Rate, Rhythm. Negative for: Murmur Respiratory: Positive for: Normal Breath Sounds. Negative for: Accessory Muscle Use Gastrointestinal/Abdominal: Positive for: Normal Exam, Bowel Sounds, Soft. Negative for: Tenderness Back: Positive for: Normal Inspection Rectal: Positive for: Deferred Extremity: Positive for: Other (R AKA with prosthesis in place; no edema of LLE; no ulcers on L foot) <Jodee Roberto - Last Filed: 11/09/18 15:09> - Laboratory Results Result Diagrams: 11/09/18 11:15 11/09/18 11:50 Lab Results: pO2 51 mm/Hg (30-55) 11/09/18 11:18 VBG pH 7.48 (7.32-7.43) H 11/09/18 11:18 VBG pCO2 39 mmHg (40-60) L 11/09/18 11:18 VBG HCO3 28.7 mmol/L 11/09/18 11:18 VBG Total CO2 30.2 mmol/L (22-28) H 11/09/18 11:18 VBG O2 Sat (Calc) 91.1 % (40-65) H 11/09/18 11:18 VBG Base Excess 5.2 mmol/L (0.0-2.0) H 11/09/18 11:18 VBG Potassium 4.3 mmol/L (3.6-5.2) 11/09/18 11:18 Sodium 131.0 mmol/L (132-148) L 11/09/18 11:18 Chloride 98.0 mmol/L (98-107) 11/09/18 11:18 Glucose 299 mg/dL (75-110) H 11/09/18 11:18 Lactate 1.2 mmol/L (0.7-2.1) 11/09/18 11:18 FiO2 21.0 % 11/09/18 11:18 PT 12.5 Seconds (9.8-13.1) 11/09/18 11:50 INR 1.1 11/09/18 11:50 APTT 31.8 Seconds (25.6-37.1) 11/09/18 11:50 Total Bilirubin 0.4 mg/dl (0.2-1.3) 11/09/18 11:50 AST 25 U/L (17-59) 11/09/18 11:50 ALT 25 U/L (21-72) 11/09/18 11:50 Alkaline Phosphatase 105 U/L (38-126) 11/09/18 11:50 Total Protein 6.8 G/DL (6.3-8.2) 11/09/18 11:50 Albumin 3.5 g/dL (3.5-5.0) 11/09/18 11:50 Globulin 3.3 gm/dL (2.2-3.9) 11/09/18 11:50 Albumin/Globulin Ratio 1.1 (1.0-2.1) 11/09/18 11:50 Lipase 159 U/L (23-300) 11/09/18 11:50 <Rodriguez Charles III - Last Filed: 11/09/18 14:51> - Laboratory Results Result Diagrams: 11/09/18 11:15 11/09/18 11:50 - ECG O2 Sat by Pulse Oximetry: 98 <Jodee Roberto - Last Filed: 11/09/18 15:09> Medical Decision Making Medical Decision Makin yo M with ESRD, CAD, HTN, DM2; with hx fever 12 days; recent permacath removal 1 mo ago. -- Sepsis workup - VBG - EKG - CMP - Lipase - Mag - Phos - CBC w/ diff - PT - PTT - CXR - Blood culture - Urine culture - Urinalysis - Influenza swab 1400 WBC elevated 14.9 Rectal temp was 99.7 Will admit pt for suspected bacteremia, SIRS. Straight cath for urine sample. 1 renal dose zosyn 2.25 g 1 dose 1g vancomycin Called Dr. Gambino and notified of admission; requested ID and nephro consults. Dr. Bar, ID, notified of consult Call placed out to nephro Dr. Love. <Jodee Roberto - Last Filed: 11/09/18 15:09> Disposition <Rodriguez Charles III - Last Filed: 11/09/18 14:51> - Patient ED Disposition Is Patient to be Admitted: Yes - Disposition Disposition Time: 14:30 - Pt Status Changed To: Hospital Disposition Of: Inpatient - Admit Certification Admit to Inpatient:: After my assessment, the patient will require hospitalization for at least two midnights. This is because of the severity of symptoms shown, intensity of services needed, and/or the medical risk in this patient being treated as an outpatient. <Jodee Roberto - Last Filed: 11/09/18 15:09> - Clinical Impression Clinical Impression: ESRD on hemodialysis, Fever in adult, SIRS (systemic inflammatory response syndrome) - Disposition Condition: STABLE Forms: [facility] ([place] Citizen)
[2018-11-09 11:23] LABS: VENOUS BLOOD GAS BASE EXCESS 5.2 mmol/L (0.0-2.0); VENOUS BLOOD GAS PCO2 39 mmHg (40-60); VENOUS BLOOD GAS PO2 51 mm/Hg (30-55); VENOUS BLOOD PH 7.48 (7.32-7.43)
[2018-11-09 11:29] LABS: BASO # 0.1 K/uL (0.0-0.2); BASO % 0.4 % (0.0-2.0); EOS # 0.2 K/uL (0.0-0.7); EOS % 1.3 % (0.0-4.0); HEMOGLOBIN 10.3 g/dL (12.0-18.0); LYMPH # 0.8 K/uL (1.0-4.3); LYMPH % 5.6 % (20.0-40.0); MEAN CELL VOLUME 93.7 fl (80.0-94.0); MEAN CORPUSCULAR HEMOGLOBIN 31.1 pg (27.0-31.0); MEAN CORPUSCULAR HGB CONC 33.2 g/dL (33.0-37.0); MEAN PLATELET VOLUME 8.8 fl (7.2-11.7); MONO # 1.1 K/uL (0.0-0.8); NEUT # 12.8 K/uL (1.8-7.0); NEUT % 85.7 % (50.0-75.0); PLATELET COUNT 218 K/uL (130-400); RBC 3.32 Mil/uL (4.40-5.90); RED CELL DISTRIBUTION WIDTH 14.7 % (11.5-14.5); WHITE BLOOD COUNT 14.9 K/uL (4.8-10.8)
[2018-11-09 12:06] LABS: LYMPHOCYTE 3 % (20-50); MONOCYTE 4 % (0-10); NEUTROPHIL 93 % (42-75); PLATELET ESTIMATE NORMAL (NORMAL); TOTAL CELLS COUNTED 100
[2018-11-09 12:07] LABS: ANISOCYTOSIS SLIGHT; HYPOCHROMIC SLIGHT; TEARDROP CELLS SLIGHT
[2018-11-09 12:17] LABS: INR 1.1; PROTHROMBIN TIME 12.5 Seconds (9.8-13.1)
[2018-11-09 12:19] LABS: PARTIAL THROMBOPLASTIN TIME 31.8 Seconds (25.6-37.1)
[2018-11-09 12:20] LABS: ALBUMIN 3.5 g/dL (3.5-5.0); CALCIUM 8.6 mg/dL (8.4-10.2)
[2018-11-09 12:45] LABS: ALB/GLOB RATIO 1.1 (1.0-2.1)
--- NOTE | 2018-11-09 13:00 | RAD ---
Date of service: 11/09/2018 HISTORY: Fever COMPARISON: 05/05/2018 FINDINGS: LUNGS: No active pulmonary disease. Persistent low lung volumes, elevated right hemidiaphragm. PLEURA: No significant pleural effusion identified, no pneumothorax apparent. CARDIOVASCULAR: No atherosclerotic calcification present No radiographic findings to suggest acute or significant cardiovascular disease. OSSEOUS STRUCTURES: No significant abnormalities. VISUALIZED UPPER ABDOMEN: Normal. OTHER FINDINGS: Removal of support apparatus since the prior study: Dialysis catheter. IMPRESSION: No active disease. No significant interval change compared to the prior examination(s).
[2018-11-09] MEDS ORDERED: Vancomycin 1 g Inj ONE (14:45)
[2018-11-09 16:16] LABS: SQUAMOUS EPITHIAL < 1 /hpf (0-5); URINE BACTERIA RARE (<OCC); URINE BILIRUBIN NEGATIVE (NEGATIVE); URINE BLOOD NEGATIVE (NEGATIVE); URINE CLARITY SLIGHTY-CLOUDY (Clear); URINE COLOR YELLOW (YELLOW); URINE GLUCOSE (UA) >=500 mg/dL (NEGATIVE); URINE LEUKOCYTE ESTERASE NEG Leu/uL (Negative); URINE PROTEIN >=500 mg/dL (NEGATIVE); URINE UROBILINOGEN 0.2-1.0 mg/dL (0.2-1.0)
--- NOTE | 2018-11-09 17:22 | CP.PCM.CON ---
History of Present Illness - History of Present Illness History of Present Illness: 63 yo M presents to ED with fevers x several days . T max 101.9 last night; Saw PMD 2 days ago and given rx for CXR but had not gone yet. Associated w/ rhinorrhea; no cough, no abdominal pain, no vomitting, no dysuria (produces small amt of urine). Recently had permacath removal 1 month ago, end of Sep. PMH HTN, DM2, ESRD (HD MWF at [facility]), CAD (coronary stent x2), Right AKA w current prosthesis, left transmetatarsal amputation,[facility] Past Patient History - Past Medical History & Family History Past Medical History?: Yes - Past Social History Smoking Status: Never Smoked - CARDIAC Hx Cardiac Disorders: Yes (CAD,STENTX2,HTN,HLD) - PULMONARY Hx Respiratory Disorders: Yes (PNA) - NEUROLOGICAL Hx Neurological Disorder: No - HEENT Hx HEENT Problems: No - RENAL Hx Chronic Kidney Disease: Yes (ESRD - HD MWF) - ENDOCRINE/METABOLIC Hx Endocrine Disorders: Yes (DM2) - HEMATOLOGICAL/ONCOLOGICAL Hx Blood Disorders: Yes (ANEMIA) - INTEGUMENTARY Hx Dermatological Problems: No - MUSCULOSKELETAL/RHEUMATOLOGICAL Hx Musculoskeletal Disorders: Yes (RT LE PROSTHETICS) - GASTROINTESTINAL Hx Gastrointestinal Disorders: No - GENITOURINARY/GYNECOLOGICAL Hx Genitourinary Disorders: Yes (ESRD) - PSYCHIATRIC Hx Psychophysiologic Disorder: No - SURGICAL HISTORY Hx Coronary Stent: Yes (x 2) - ANESTHESIA Hx Anesthesia: Yes Hx Anesthesia Reactions: No Hx Malignant Hyperthermia: No Meds Allergies/Adverse Reactions: Allergies Allergy/AdvReac Type Severity Reaction Status Date / Time No Known Allergies Allergy Unverified 11/09/18 10:35 Results - Vital Signs Recent Vital Signs: Last Vital Signs Temp 99.6 F 11/09/18 16:20 Pulse 72 11/09/18 16:20 Resp 16 11/09/18 16:20 BP 200/88 H 11/09/18 16:20 Pulse Ox 97 11/09/18 16:20 - Labs Result Diagrams: 11/09/18 11:15 11/09/18 11:50 Labs: Laboratory Results - last 24 hr 11/09/18 11/09/18 11/09/18 11:15 11:15 11:18 WBC 14.9 H D RBC 3.32 L Hgb 10.3 L Hct 31.1 L MCV 93.7 MCH 31.1 H MCHC 33.2 RDW 14.7 H Plt Count 218 MPV 8.8 Neut % (Auto) 85.7 H Lymph % (Auto) 5.6 L [place] % (Auto) 7.0 Eos % (Auto) 1.3 Baso % (Auto) 0.4 Neut # (Auto) 12.8 H Lymph # (Auto) 0.8 L [place] # (Auto) 1.1 H Eos # (Auto) 0.2 Baso # (Auto) 0.1 Neutrophils % (Manual) 93 H Lymphocytes % (Manual) 3 L Monocytes % (Manual) 4 Platelet Estimate Normal Hypochromasia (manual) Slight Anisocytosis (manual) Slight Tear Drop Cells Slight PT INR APTT pO2 51 VBG pH 7.48 H VBG pCO2 39 L VBG HCO3 28.7 VBG Total CO2 30.2 H VBG O2 Sat (Calc) 91.1 H VBG Base Excess 5.2 H VBG Potassium 4.3 Sodium 131.0 L Chloride 98.0 Glucose 299 H Lactate 1.2 FiO2 21.0 Potassium Carbon Dioxide Anion Gap BUN Creatinine Est GFR ( Amer) Est GFR (Non-Af Amer) Random Glucose Calcium Phosphorus Magnesium Total Bilirubin AST ALT Alkaline Phosphatase Total Protein Albumin Globulin Albumin/Globulin Ratio Lipase Venous Blood Potassium 4.3 Urine Color Urine Clarity Urine pH Ur Specific [place] Urine Protein Urine Glucose (UA) Urine Ketones Urine Blood Urine Nitrate Urine Bilirubin Urine Urobilinogen Ur Leukocyte Esterase Urine RBC (Auto) Urine Microscopic WBC Ur Squamous Epith Cells Urine Bacteria Influenza Typ A,B (EIA) Negative for flu a/b 11/09/18 11/09/18 11/09/18 11:50 11:50 15:45 WBC RBC Hgb Hct MCV MCH MCHC RDW Plt Count MPV Neut % (Auto) Lymph % (Auto) [place] % (Auto) Eos % (Auto) Baso % (Auto) Neut # (Auto) Lymph # (Auto) [place] # (Auto) Eos # (Auto) Baso # (Auto) Neutrophils % (Manual) Lymphocytes % (Manual) Monocytes % (Manual) Platelet Estimate Hypochromasia (manual) Anisocytosis (manual) Tear Drop Cells PT 12.5 INR 1.1 APTT 31.8 pO2 VBG pH VBG pCO2 VBG HCO3 VBG Total CO2 VBG O2 Sat (Calc) VBG Base Excess VBG Potassium Sodium 133 Chloride 93 L Glucose Lactate FiO2 Potassium 4.2 Carbon Dioxide 26 Anion Gap 18 BUN 33 H Creatinine 5.5 H Est GFR ( Amer) 13 Est GFR (Non-Af Amer) 11 Random Glucose 282 H Calcium 8.6 Phosphorus 3.8 Magnesium 1.8 Total Bilirubin 0.4 AST 25 ALT 25 Alkaline Phosphatase 105 Total Protein 6.8 Albumin 3.5 Globulin 3.3 Albumin/Globulin Ratio 1.1 Lipase 159 Venous Blood Potassium Urine Color Yellow Urine Clarity Slighty-cloudy Urine pH 7.0 Ur Specific [place] 1.022 Urine Protein >=500 Urine Glucose (UA) >=500 Urine Ketones Negative Urine Blood Negative Urine Nitrate Negative Urine Bilirubin Negative Urine Urobilinogen 0.2-1.0 Ur Leukocyte Esterase Neg Urine RBC (Auto) 3 Urine Microscopic WBC 2 Ur Squamous Epith Cells < 1 Urine Bacteria Rare Influenza Typ A,B (EIA)
[2018-11-09] MEDS ORDERED: Dextrose 50% SYRINGE Inj (50 ml) IV PRN (19:44)
[2018-11-09] MEDS ORDERED: Metoprolol Succinate 100 mg XL Tab PO SCH (21:00)
[2018-11-09] MEDS: Insulin Regular 100 units/ml SC SCH (21:11)
[2018-11-09] MEDS: Pravastatin Sodium 40 MG TAB PO SCH (21:43)
[2018-11-10] MEDS: Insulin Regular 100 units/ml SC SCH ×4 (06:32→21:07)
--- NOTE | 2018-11-10 08:14 | CP.PCM.CON ---
History of Present Illness - History of Present Illness History of Present Illness: This patient who is 63 years of age presented to the emergency room with a fever and some discomfort abdominal pain mild short of breath but no difficulty breathing and no chest pain minimal coughing. Fever apparently has been going o n for a while and not sure when he notices it. Patient has multitude of medical problem related to diabetes mellitus and chronic kidney disease on dialysis and related complication was previous admiss ions back in April 2018 when he started on dialysis around that time. His past medical and surgical history Diabetes mellitus End-stage renal disease on dialysis Tuesday was Tuesday Below-knee amputation on the right Transmetatarsal amputation on the left Permacath apparently was removed about a month ago or so Social history not contributory Review of system as below Review of Systems - Constitutional Constitutional: Anorexia. absent: Chills - EENT Eyes: absent: Exophthalmos Nose/Mouth/Throat: absent: Epistaxis - Cardiovascular Cardiovascular: Edema. absent: Acrocyanosis - Respiratory Respiratory: Cough - Gastrointestinal Gastrointestinal: absent: Abdominal Pain, Coffee Ground Emesis, Nausea, Vomiting - Genitourinary Genitourinary: Nocturia - Musculoskeletal Musculoskeletal: Muscle Weakness. absent: Numbness - Neurological Neurological: absent: Confusion, Focal Weakness, Syncope - Endocrine Endocrine: Fatigue - Hematologic/Lymphatic Hematologic: absent: Easy Bleeding Past Patient History - Past Medical History & Family History Past Medical History?: Yes - Past Social History Smoking Status: Never Smoked - CARDIAC Hx Cardiac Disorders: Yes (CAD,STENTX2,HTN,HLD) - PULMONARY Hx Respiratory Disorders: Yes (PNA) - NEUROLOGICAL Hx Neurological Disorder: No - HEENT Hx HEENT Problems: No - RENAL Hx Chronic Kidney Disease: Yes (ESRD - HD MWF) - ENDOCRINE/METABOLIC Hx Endocrine Disorders: Yes (DM2) - HEMATOLOGICAL/ONCOLOGICAL Hx Blood Disorders: Yes (ANEMIA) - INTEGUMENTARY Hx Dermatological Problems: No - MUSCULOSKELETAL/RHEUMATOLOGICAL Hx Musculoskeletal Disorders: Yes (RT LE PROSTHETICS) - GASTROINTESTINAL Hx Gastrointestinal Disorders: No - GENITOURINARY/GYNECOLOGICAL Hx Genitourinary Disorders: Yes (ESRD) - PSYCHIATRIC Hx Psychophysiologic Disorder: No - SURGICAL HISTORY Hx Coronary Stent: Yes (x 2) - ANESTHESIA Hx Anesthesia: Yes Hx Anesthesia Reactions: No Hx Malignant Hyperthermia: No Meds Allergies/Adverse Reactions: Allergies Allergy/AdvReac Type Severity Reaction Status Date / Time No Known Allergies Allergy Unverified 02/21/19 10:35 - Medications Medications: Current Medications Acetaminophen (Tylenol 325mg Tab) 650 mg PO Q6 PRN PRN Reason: Fever >100.4 F Allopurinol (Zyloprim) 200 mg PO DAILY [facility] Amlodipine Besylate (Norvasc) 10 mg PO DAILY [facility] Aspirin (Ecotrin) 81 mg PO DAILY [facility] Clopidogrel Bisulfate (Plavix) 75 mg PO DAILY [facility] Dextrose (Dextrose 50% Inj) 0 ml IV STAT PRN; Protocol PRN Reason: Hypoglycemia Protocol Dextrose (Glutose 15) 0 gm PO ONCE PRN; Protocol PRN Reason: Hypoglycemia Protocol Enalapril Maleate (Vasotec) 20 mg PO DAILY [facility] Furosemide (Lasix) 40 mg PO DAILY [facility] Gabapentin (Neurontin) 100 mg PO Q12 [facility] Last Admin: 11/09/18 21:43 Dose: 100 mg Hydralazine HCl (Apresoline) 100 mg PO Q12 [facility] Piperacillin Sod/Tazobactam (Sod 2.25 gm/ Sodium Chloride) 100 mls @ 100 mls/hr IVPB Q8 [facility]; Protocol Last Admin: 11/10/18 00:31 Dose: 100 mls/hr Vancomycin HCl 1 gm/ Sodium (Chloride) 250 mls @ 166.667 mls/hr IVPB MWF [facility]; Protocol Insulin Human Regular (Humulin R) 0 units SC ACHS [facility]; Protocol Last Admin: 11/10/18 06:32 Dose: Not Given Isosorbide Mononitrate (Imdur Er) 30 mg PO DAILY [facility] Metoprolol Succinate (Toprol Xl) 100 mg PO Q12 [facility] Last Admin: 11/09/18 21:43 Dose: 100 mg Pravastatin Sodium (Pravachol) 40 mg PO HS [facility] Last Admin: 11/09/18 21:43 Dose: 40 mg Repaglinide (Prandin) 1 mg PO BRKDIN [facility] Repaglinide (Prandin) 2 mg PO ACL [facility] Sevelamer Carbonate (Renvela) 2,400 mg PO TID [facility] Sitagliptin Phosphate (Januvia) 25 mg PO DAILY [facility] Vitamin B Complex/Vit C/Folic Acid (Nephro-Govind) 1 tab PO DAILY [facility] Physical Exam - Constitutional Appears: No Acute Distress - Eye Exam Eye Exam: Conjunctival injection - ENT Exam ENT Exam: Mucous Membranes Moist - Neck Exam Neck exam: Negative for: Lymphadenopathy - Respiratory Exam Respiratory Exam: Rhonchi, NORMAL BREATHING PATTERN. absent: Chest Wall Tenderness - Cardiovascular Exam Cardiovascular Exam: absent: Gallop, JVD, Rubs - GI/Abdominal Exam GI & Abdominal Exam: Normal Bowel Sounds. absent: Guarding - Extremities Exam Extremities exam: Negative for: calf tenderness - Back Exam Back exam: absent: CVA tenderness (L), CVA tenderness (R) - Neurological Exam Neurological exam: Alert - Psychiatric Exam Psychiatric exam: Normal Affect Results - Vital Signs Recent Vital Signs: Last Vital Signs Temp 97.8 F 11/10/18 07:58 Pulse 61 11/10/18 07:58 Resp 18 11/10/18 07:58 BP 177/78 H 11/10/18 07:58 Pulse Ox 98 11/10/18 07:58 - Labs Result Diagrams: 11/09/18 11:15 11/09/18 11:50 Labs: Laboratory Results - last 24 hr 11/09/18 11/09/18 11/09/18 11:15 11:15 11:18 WBC 14.9 H D RBC 3.32 L Hgb 10.3 L Hct 31.1 L MCV 93.7 MCH 31.1 H MCHC 33.2 RDW 14.7 H Plt Count 218 MPV 8.8 Neut % (Auto) 85.7 H Lymph % (Auto) 5.6 L Sutton % (Auto) 7.0 Eos % (Auto) 1.3 Baso % (Auto) 0.4 Neut # (Auto) 12.8 H Lymph # (Auto) 0.8 L [place] # (Auto) 1.1 H Eos # (Auto) 0.2 Baso # (Auto) 0.1 Neutrophils % (Manual) 93 H Lymphocytes % (Manual) 3 L Monocytes % (Manual) 4 Platelet Estimate Normal Hypochromasia (manual) Slight Anisocytosis (manual) Slight Tear Drop Cells Slight PT INR APTT pO2 51 VBG pH 7.48 H VBG pCO2 39 L VBG HCO3 28.7 VBG Total CO2 30.2 H VBG O2 Sat (Calc) 91.1 H VBG Base Excess 5.2 H VBG Potassium 4.3 Sodium 131.0 L Chloride 98.0 Glucose 299 H Lactate 1.2 FiO2 21.0 Potassium Carbon Dioxide Anion Gap BUN Creatinine Est GFR ( Amer) Est GFR (Non-Af Amer) POC Glucose (mg/dL) Random Glucose Calcium Phosphorus Magnesium Total Bilirubin AST ALT Alkaline Phosphatase Total Protein Albumin Globulin Albumin/Globulin Ratio Lipase Procalcitonin Venous Blood Potassium 4.3 Urine Color Urine Clarity Urine pH Ur Specific [place] Urine Protein Urine Glucose (UA) Urine Ketones Urine Blood Urine Nitrate Urine Bilirubin Urine Urobilinogen Ur Leukocyte Esterase Urine RBC (Auto) Urine Microscopic WBC Ur Squamous Epith Cells Urine Bacteria Influenza Typ A,B (EIA) Negative for flu a/b 11/09/18 11/09/18 11/09/18 11:50 11:50 15:45 WBC RBC Hgb Hct MCV MCH MCHC RDW Plt Count MPV Neut % (Auto) Lymph % (Auto) Sutton % (Auto) Eos % (Auto) Baso % (Auto) Neut # (Auto) Lymph # (Auto) Sutton # (Auto) Eos # (Auto) Baso # (Auto) Neutrophils % (Manual) Lymphocytes % (Manual) Monocytes % (Manual) Platelet Estimate Hypochromasia (manual) Anisocytosis (manual) Tear Drop Cells PT 12.5 INR 1.1 APTT 31.8 pO2 VBG pH VBG pCO2 VBG HCO3 VBG Total CO2 VBG O2 Sat (Calc) VBG Base Excess VBG Potassium Sodium 133 Chloride 93 L Glucose Lactate FiO2 Potassium 4.2 Carbon Dioxide 26 Anion Gap 18 BUN 33 H Creatinine 5.5 H Est GFR ( Amer) 13 Est GFR (Non-Af Amer) 11 POC Glucose (mg/dL) Random Glucose 282 H Calcium 8.6 Phosphorus 3.8 Magnesium 1.8 Total Bilirubin 0.4 AST 25 ALT 25 Alkaline Phosphatase 105 Total Protein 6.8 Albumin 3.5 Globulin 3.3 Albumin/Globulin Ratio 1.1 Lipase 159 Procalcitonin Venous Blood Potassium Urine Color Yellow Urine Clarity Slighty-cloudy Urine pH 7.0 Ur Specific [place] 1.022 Urine Protein >=500 Urine Glucose (UA) >=500 Urine Ketones Negative Urine Blood Negative Urine Nitrate Negative Urine Bilirubin Negative Urine Urobilinogen 0.2-1.0 Ur Leukocyte Esterase Neg Urine RBC (Auto) 3 Urine Microscopic WBC 2 Ur Squamous Epith Cells < 1 Urine Bacteria Rare Influenza Typ A,B (EIA) 11/09/18 11/09/18 11/09/18 16:52 17:56 21:10 WBC RBC Hgb Hct MCV MCH MCHC RDW Plt Count MPV Neut % (Auto) Lymph % (Auto) Sutton % (Auto) Eos % (Auto) Baso % (Auto) Neut # (Auto) Lymph # (Auto) Sutton # (Auto) Eos # (Auto) Baso # (Auto) Neutrophils % (Manual) Lymphocytes % (Manual) Monocytes % (Manual) Platelet Estimate Hypochromasia (manual) Anisocytosis (manual) Tear Drop Cells PT INR APTT pO2 VBG pH VBG pCO2 VBG HCO3 VBG Total CO2 VBG O2 Sat (Calc) VBG Base Excess VBG Potassium Sodium Chloride Glucose Lactate FiO2 Potassium Carbon Dioxide Anion Gap BUN Creatinine Est GFR ( Amer) Est GFR (Non-Af Amer) POC Glucose (mg/dL) 208 H 224 H Random Glucose Calcium Phosphorus Magnesium Total Bilirubin AST ALT Alkaline Phosphatase Total Protein Albumin Globulin Albumin/Globulin Ratio Lipase Procalcitonin 4.61 H Venous Blood Potassium Urine Color Urine Clarity Urine pH Ur Specific [place] Urine Protein Urine Glucose (UA) Urine Ketones Urine Blood Urine Nitrate Urine Bilirubin Urine Urobilinogen Ur Leukocyte Esterase Urine RBC (Auto) Urine Microscopic WBC Ur Squamous Epith Cells Urine Bacteria Influenza Typ A,B (EIA) 11/10/18 05:17 WBC RBC Hgb Hct MCV MCH MCHC RDW Plt Count MPV Neut % (Auto) Lymph % (Auto) Sutton % (Auto) Eos % (Auto) Baso % (Auto) Neut # (Auto) Lymph # (Auto) Sutton # (Auto) Eos # (Auto) Baso # (Auto) Neutrophils % (Manual) Lymphocytes % (Manual) Monocytes % (Manual) Platelet Estimate Hypochromasia (manual) Anisocytosis (manual) Tear Drop Cells PT INR APTT pO2 VBG pH VBG pCO2 VBG HCO3 VBG Total CO2 VBG O2 Sat (Calc) VBG Base Excess VBG Potassium Sodium Chloride Glucose Lactate FiO2 Potassium Carbon Dioxide Anion Gap BUN Creatinine Est GFR ( Amer) Est GFR (Non-Af Amer) POC Glucose (mg/dL) 120 H Random Glucose Calcium Phosphorus Magnesium Total Bilirubin AST ALT Alkaline Phosphatase Total Protein Albumin Globulin Albumin/Globulin Ratio Lipase Procalcitonin Venous Blood Potassium Urine Color Urine Clarity Urine pH Ur Specific [place] Urine Protein Urine Glucose (UA) Urine Ketones Urine Blood Urine Nitrate Urine Bilirubin Urine Urobilinogen Ur Leukocyte Esterase Urine RBC (Auto) Urine Microscopic WBC Ur Squamous Epith Cells Urine Bacteria Influenza Typ A,B (EIA) Assessment & Plan (1) ESRD on hemodialysis Assessment and Plan: End-stage renal disease on hemodialysis Tuesday Fever etiology not clear at this point Diabetic kidney disease Diabetes mellitus Hypertension Hyperphosphatemia Secondary hyperparathyroidism Recommendation Hemodialysis shortly consent was taken. Antibiotics empirically started patient receiving Vanco and Zosyn Glycemic control Antihypertensive medications Phosphorus binders PTH and serum phosphorus Status: Acute Priority: High (2) Fever Status: Acute Priority: Medium
[2018-11-10] MEDS: Multivitamin Vitamin B Complex (Nephro-Vite) Tab PO SCH (09:04)
--- NOTE | 2018-11-10 14:24 | CP.PCM.CON ---
History of Present Illness - History of Present Illness History of Present Illness: 63 yo M presents to ED with fevers x several days . T max 101.9 last night; Associated w/ rhinorrhea; no cough, no abdominal pain, no vomitting, no dysuria (produces small amt of urine). Recently had permacath removal 1 month ago,. PMH HTN, DM2, ESRD (HD MWF at [facility]), CAD (coronary stent x2), Right AKA w current prosthesis, left transmetatarsal amputation,MH Review of Systems - Review of Systems All systems: reviewed and no additional remarkable complaints except - Constitutional Constitutional: As Per HPI - EENT Eyes: absent: As Per HPI, Blind Spots, Blurred Vision, Change in Vision, Decreased Night Vision, Diplopia, Discharge, Dry Eye, Exophthalmos, Floaters, Irritation, Itchy Eyes, Loss of Peripheral Vision, Pain, Photophobia, Requires Corrective Lenses, Sees Flashes, Spots in Vision, Tunnel Vision, Other Visual Disturbances, Loss of Vision, Other Ears: absent: As Per HPI, Decreased Hearing, Ear Discharge, Ear Pain, Tinnitus, Abnormal Hearing, Disequilibrium, Dizziness, Other Nose/Mouth/Throat: absent: As Per HPI, Epistaxis, Nasal Congestion, Nasal Discharge, Nasal Obstruction, Nasal Trauma, Nose Pain, Post Nasal Drip, Sinus Pain, Sinus Pressure, Bleeding Gums, Change in Voice, Dental Pain, Dry Mouth, Dysphagia, Halitosis, Hoarsness, Lip Swelling, Mouth Lesions, Mouth Pain, Odynophagia, Sore Throat, Throat Swelling, Tongue Swelling, Facial Pain, Neck Pain, Neck Mass, Other - Cardiovascular Cardiovascular: As Per HPI - Respiratory Respiratory: As Per HPI - Gastrointestinal Gastrointestinal: absent: As Per HPI, Abdominal Pain, Belching, Bloating, Change in Bowel Habits, Change in Stool Character, Coffee Ground Emesis, Constipation, Cramping, Diarrhea, Dyspepsia, Dysphagia, Early Satiety, Excessive Flatus, Fecal Incontinence, Heartburn, Hematemesis, Hematochezia, Loose Stools, Melena, Nausea, Odynophagia, Temesmus, Vomiting, Other - Genitourinary Genitourinary: absent: As Per HPI, Change in Urinary Stream, Difficulty Urinating, Dysuria, Flank Pain, Hematuria, Pyuria, Nocturia, Urinary Incontinence, Urinary Frequency, Urinary Hesitance, Urinary Urgency, Voiding Freq/Small Amts, Freq UTI, Hx Renal/Bladder Calculi, Hx /Renal Surgery, Bladder Distension, Other - Musculoskeletal Musculoskeletal: absent: As Per HPI, Abnormal Gait, Arthralgias, Atrophy, Back Pain, Deformity, Joint Swelling, Limited Range of Motion, Loss of Height, Muscle Cramps, Muscle Weakness, Myalgias, Neck Pain, Numbness, Radiating Pain into Limb, Stiffness, Tingling, Other - Integumentary Integumentary: absent: As Per HPI, Acne, Alopecia, Bleeding Lesions, Change in Hair, Change in Nails, Change in Pigmentation, Changing Lesions, Dry Skin, Erythema, Furuncle, Hirsutism, Lesions, New Lesions, Non-Healing Lesions, Photosensitivity, Pruritus, Rash, Skin Pain, Skin Ulcer, Sores, Striae, Swelling, Unusual Bruising, Wounds, Jaundice, Other - Neurological Neurological: As Per HPI - Psychiatric Psychiatric: absent: As Per HPI, Abnormal Sleep Pattern, Anhedonia, Anxiety, Auditory Hallucinations, Behavioral Changes, Change in Appetite, Change in Libido, Confusion, Depression, Difficulty Concentrating, Hallucinations, Homicidal Ideation, Hopelessness, Irritability, Memory Loss, Mood Swings, Panic Attacks, Paranoia, Suicidal Ideation, Visual Hallucinations, Tactile Hallucinations, Other - Endocrine Endocrine: As Per HPI - Hematologic/Lymphatic Hematologic: absent: As Per HPI, Easy Bleeding, Easy Bruising, Lymphadenopathy, Other Past Patient History - Past Medical History & Family History Past Medical History?: Yes - Past Social History Smoking Status: Never Smoked - CARDIAC Hx Cardiac Disorders: Yes (CAD,STENTX2,HTN,HLD) - PULMONARY Hx Respiratory Disorders: Yes (PNA) - NEUROLOGICAL Hx Neurological Disorder: No - HEENT Hx HEENT Problems: No - RENAL Hx Chronic Kidney Disease: Yes (ESRD - HD MWF) - ENDOCRINE/METABOLIC Hx Endocrine Disorders: Yes (DM2) - HEMATOLOGICAL/ONCOLOGICAL Hx Blood Disorders: Yes (ANEMIA) - INTEGUMENTARY Hx Dermatological Problems: No - MUSCULOSKELETAL/RHEUMATOLOGICAL Hx Musculoskeletal Disorders: Yes (RT LE PROSTHETICS) - GASTROINTESTINAL Hx Gastrointestinal Disorders: No - GENITOURINARY/GYNECOLOGICAL Hx Genitourinary Disorders: Yes (ESRD) - PSYCHIATRIC Hx Psychophysiologic Disorder: No - SURGICAL HISTORY Hx Coronary Stent: Yes (x 2) - ANESTHESIA Hx Anesthesia: Yes Hx Anesthesia Reactions: No Hx Malignant Hyperthermia: No Meds Allergies/Adverse Reactions: Allergies Allergy/AdvReac Type Severity Reaction Status Date / Time No Known Allergies Allergy Unverified 11/09/18 10:35 - Medications Medications: Current Medications Acetaminophen (Tylenol 325mg Tab) 650 mg PO Q6 PRN PRN Reason: Fever >100.4 F Allopurinol (Zyloprim) 200 mg PO DAILY [facility] Last Admin: 11/10/18 09:08 Dose: 200 mg Amlodipine Besylate (Norvasc) 10 mg PO DAILY [facility] Aspirin (Ecotrin) 81 mg PO DAILY [facility] Last Admin: 11/10/18 09:08 Dose: 81 mg Clopidogrel Bisulfate (Plavix) 75 mg PO DAILY [facility] Last Admin: 11/10/18 09:03 Dose: 75 mg Dextrose (Dextrose 50% Inj) 0 ml IV STAT PRN; Protocol PRN Reason: Hypoglycemia Protocol Dextrose (Glutose 15) 0 gm PO ONCE PRN; Protocol PRN Reason: Hypoglycemia Protocol Enalapril Maleate (Vasotec) 20 mg PO DAILY [facility] Furosemide (Lasix) 40 mg PO DAILY [facility] Gabapentin (Neurontin) 100 mg PO Q12 [facility] Last Admin: 11/10/18 09:04 Dose: 100 mg Hydralazine HCl (Apresoline) 100 mg PO Q12 [facility] Last Admin: 11/10/18 09:06 Dose: 100 mg Piperacillin Sod/Tazobactam (Sod 2.25 gm/ Sodium Chloride) 100 mls @ 100 mls/hr IVPB Q8 [facility]; Protocol Last Admin: 11/10/18 09:09 Dose: 100 mls/hr Vancomycin HCl 1 gm/ Sodium (Chloride) 250 mls @ 166.667 mls/hr IVPB MWF [facility]; Protocol Last Admin: 11/10/18 11:58 Dose: 166.667 mls/hr Insulin Human Regular (Humulin R) 0 units SC ACHS [facility]; Protocol Last Admin: 11/10/18 12:12 Dose: 3 units Isosorbide Mononitrate (Imdur Er) 30 mg PO DAILY [facility] Last Admin: 11/10/18 09:05 Dose: 30 mg Metoprolol Succinate (Toprol Xl) 100 mg PO DAILY [facility] Pravastatin Sodium (Pravachol) 40 mg PO HS [facility] Last Admin: 11/09/18 21:43 Dose: 40 mg Repaglinide (Prandin) 1 mg PO BRKDIN [facility] Last Admin: 11/10/18 09:03 Dose: 1 mg Repaglinide (Prandin) 2 mg PO ACL [facility] Last Admin: 11/10/18 11:57 Dose: 2 mg Sevelamer Carbonate (Renvela) 2,400 mg PO TID [facility] Last Admin: 11/10/18 12:13 Dose: 2,400 mg Sitagliptin Phosphate (Januvia) 25 mg PO DAILY [facility] Last Admin: 11/10/18 09:07 Dose: 25 mg Vitamin B Complex/Vit C/Folic Acid (Nephro-Govind) 1 tab PO DAILY [facility] Last Admin: 11/10/18 09:04 Dose: 1 tab Physical Exam - Constitutional Appears: No Acute Distress, Chronically Ill - Head Exam Head Exam: ATRAUMATIC, NORMOCEPHALIC - Eye Exam Eye Exam: absent: Scleral icterus - ENT Exam ENT Exam: Mucous Membranes Dry, Normal External Ear Exam - Neck Exam Neck exam: Negative for: Lymphadenopathy - Respiratory Exam Respiratory Exam: Decreased Breath Sounds, Clear to Auscultation Bilateral - Cardiovascular Exam Cardiovascular Exam: REGULAR RHYTHM, +S1, +S2 - GI/Abdominal Exam GI & Abdominal Exam: Diminished Bowel Sounds, Soft. absent: Tenderness - Rectal Exam Rectal Exam: Deferred - Exam Exam: NORMAL INSPECTION - Extremities Exam Extremities exam: Negative for: calf tenderness, joint swelling, pedal pulses present Additional comments: left TMA right BKA - Back Exam Back exam: absent: CVA tenderness (L), CVA tenderness (R) - Neurological Exam Neurological exam: Alert, CN II-XII Intact, Oriented x3, Reflexes Normal - Psychiatric Exam Psychiatric exam: Depressed - Skin Skin Exam: Dry, Intact Results - Vital Signs Recent Vital Signs: Last Vital Signs Temp 98 F 11/10/18 12:29 Pulse 66 11/10/18 12:29 Resp 18 11/10/18 12:29 BP 160/71 H 11/10/18 12:29 Pulse Ox 94 L 11/10/18 12:29 - Labs Result Diagrams: 11/09/18 11:15 11/09/18 11:50 Labs: Laboratory Results - last 24 hr 11/09/18 11/09/18 11/09/18 15:45 16:52 17:56 POC Glucose (mg/dL) 208 H Procalcitonin 4.61 H Urine Color Yellow Urine Clarity Slighty-cloudy Urine pH 7.0 Ur Specific [place] 1.022 Urine Protein >=500 Urine Glucose (UA) >=500 Urine Ketones Negative Urine Blood Negative Urine Nitrate Negative Urine Bilirubin Negative Urine Urobilinogen 0.2-1.0 Ur Leukocyte Esterase Neg Urine RBC (Auto) 3 Urine Microscopic WBC 2 Ur Squamous Epith Cells < 1 Urine Bacteria Rare 11/09/18 11/10/18 11/10/18 21:10 05:17 11:00 POC Glucose (mg/dL) 224 H 120 H 263 H Procalcitonin Urine Color Urine Clarity Urine pH Ur Specific [place] Urine Protein Urine Glucose (UA) Urine Ketones Urine Blood Urine Nitrate Urine Bilirubin Urine Urobilinogen Ur Leukocyte Esterase Urine RBC (Auto) Urine Microscopic WBC Ur Squamous Epith Cells Urine Bacteria Assessment & Plan (1) ESRD on hemodialysis Status: Acute Priority: High (2) Fever in adult Status: Acute (3) SIRS (systemic inflammatory response syndrome) Status: Acute - Assessment and Plan (Free Text) Assessment: fever and bacteremia in a 63 yo male with AV fistula for HD had catheter removed recently at HD- possibility of endocarditis and or shunt infection to be considered IV antibiotics ordered empirically
--- NOTE | 2018-11-10 19:46 | HP ---
HISTORY OF PRESENT ILLNESS: Mr. Rashi Chen is a 63-year-old male who was admitted via the emergency room because of fever for the past two weeks prior to presentation. He denies chest pains, cough or shortness of breath. He had seen his primary care physician two days prior to presentation and was referred for a chest x-ray but had not gone for it. He has a history of hypertension; diabetes mellitus; end-stage renal disease, on hemodialysis; and he also has right leg amputation (AKA) and left transmetatarsal amputation. He recently had a PermCath removed one month ago and has been on hemodialysis since April 2018, has not been compliant to follow up with his manager front but goes to dialysis center. FAMILY HISTORY: Non-revealing. SOCIAL HISTORY: Socially, he denies smoking and alcohol use. REVIEW OF SYSTEMS: Essentially unremarkable. He has been admitted to [facility] on multiple occasions. PHYSICAL EXAMINATION: GENERAL: The patient is alert and oriented, appears to be comfortable this morning. VITAL SIGNS: On admission, blood pressure 160/87 with a pulse of 85, respiratory rate is 18, temperature maximum 99.7 degrees Fahrenheit, but the patient has had a temperature of about 101 degrees Fahrenheit at home. SKIN: Shows fair turgor. NECK: JVP flat. HEENT: Mouth shows fair hygiene. LUNGS: Clear. HEART: Regular. No murmurs or gallop. ABDOMEN: Soft, nontender. No organomegaly. EXTREMITIES: There is right above-knee amputation and left transmetatarsal amputation. CENTRAL NERVOUS SYSTEM: Exam is grossly intact. LABORATORY DATA: Already reviewed. IMPRESSION: Sepsis, questionable etiology. The dialysis shunt area does not appear infected, but one has to rule out shunt infection too. Status post right above-knee amputation, status post left transmetatarsal amputation, chronic anemia, history of coronary artery disease, history of hypertension, history of hyperlipidemia and history of end-stage renal disease. PLAN: Septic workup. IV antibiotics. Infectious Disease and Nephrology evaluation. Would continue therapy as ordered. Further therapy will depend on clinical findings. Case was explained to the patient, and he indicates that he understands. Lauro Gambino MD
[2018-11-10] MEDS: Pravastatin Sodium 40 MG TAB PO SCH (21:09)
--- NOTE | 2018-11-10 23:57 | CARD ---
APPROVED REPORT Date of service: 11/10/2018 EKG Measurement Heart [id number] <Conclusion> Normal sinus rhythm Nonspecific ST and T wave abnormality Prolonged QT Abnormal ECG
[2018-11-11 06:02] LABS: HEMOGLOBIN 10.2 g/dL (12.0-18.0); MEAN CELL VOLUME 94.3 fl (80.0-94.0); MEAN CORPUSCULAR HEMOGLOBIN 30.9 pg (27.0-31.0); MEAN CORPUSCULAR HGB CONC 32.7 g/dL (33.0-37.0); RBC 3.29 Mil/uL (4.40-5.90); RED CELL DISTRIBUTION WIDTH 14.5 % (11.5-14.5); WHITE BLOOD COUNT 12.9 K/uL (4.8-10.8)
[2018-11-11 06:24] LABS: CALCIUM 8.6 mg/dL (8.4-10.2)
[2018-11-11] MEDS: Insulin Regular 100 units/ml SC SCH ×4 (06:37→21:39)
[2018-11-11] MEDS: Metoprolol Succinate 100 mg XL Tab PO SCH (09:11)
[2018-11-11] MEDS: Multivitamin Vitamin B Complex (Nephro-Vite) Tab PO SCH (09:13)
--- NOTE | 2018-11-11 10:41 | CP.PCM.PN ---
Subjective - Date & Time of Evaluation Date of Evaluation: 11/11/18 Time of Evaluation: 10:42 - Subjective Subjective: NO COMPLAINTS AFEBRILE NO COUGH/CHEST P[AINS OR SOB Objective - Vital Signs/Intake and Output Vital Signs (last 24 hours): Temp Pulse Resp BP Pulse Ox 98.5 F 75 18 133/71 98 11/11/18 08:05 11/11/18 09:14 11/11/18 08:05 11/11/18 09:14 11/11/18 08:05 - Medications Medications: Current Medications Acetaminophen (Tylenol 325mg Tab) 650 mg PO Q6 PRN PRN Reason: Fever >100.4 F Allopurinol (Zyloprim) 200 mg PO DAILY [facility] Last Admin: 11/11/18 09:14 Dose: 200 mg Amlodipine Besylate (Norvasc) 10 mg PO DAILY [facility] Last Admin: 11/11/18 09:14 Dose: 10 mg Aspirin (Ecotrin) 81 mg PO DAILY [facility] Last Admin: 11/11/18 09:12 Dose: 81 mg Clopidogrel Bisulfate (Plavix) 75 mg PO DAILY [facility] Last Admin: 11/11/18 09:14 Dose: 75 mg Dextrose (Dextrose 50% Inj) 0 ml IV STAT PRN; Protocol PRN Reason: Hypoglycemia Protocol Dextrose (Glutose 15) 0 gm PO ONCE PRN; Protocol PRN Reason: Hypoglycemia Protocol Enalapril Maleate (Vasotec) 20 mg PO DAILY [facility] Last Admin: 11/11/18 09:10 Dose: 20 mg Furosemide (Lasix) 40 mg PO DAILY [facility] Last Admin: 11/11/18 09:13 Dose: 40 mg Gabapentin (Neurontin) 100 mg PO Q12 [facility] Last Admin: 11/11/18 09:13 Dose: 100 mg Hydralazine HCl (Apresoline) 100 mg PO Q12 [facility] Last Admin: 11/11/18 09:12 Dose: 100 mg Piperacillin Sod/Tazobactam (Sod 2.25 gm/ Sodium Chloride) 100 mls @ 100 mls/hr IVPB Q8 [facility]; Protocol Last Admin: 11/11/18 09:10 Dose: 100 mls/hr Vancomycin HCl 1 gm/ Sodium (Chloride) 250 mls @ 166.667 mls/hr IVPB MWF [facility]; Protocol Last Admin: 11/10/18 11:58 Dose: 166.667 mls/hr Insulin Human Regular (Humulin R) 0 units SC [facility]; Protocol Last Admin: 11/11/18 06:37 Dose: Not Given Isosorbide Mononitrate (Imdur Er) 30 mg PO DAILY [facility] Last Admin: 11/11/18 09:12 Dose: 30 mg Metoprolol Succinate (Toprol Xl) 100 mg PO DAILY [facility] Last Admin: 11/11/18 09:11 Dose: 100 mg Pravastatin Sodium (Pravachol) 40 mg PO HS [facility] Last Admin: 11/10/18 21:09 Dose: 40 mg Repaglinide (Prandin) 1 mg PO BRKDIN [facility] Last Admin: 11/11/18 09:14 Dose: 1 mg Repaglinide (Prandin) 2 mg PO ACL [facility] Last Admin: 11/10/18 11:57 Dose: 2 mg Sevelamer Carbonate (Renvela) 2,400 mg PO TID [facility] Last Admin: 11/11/18 09:11 Dose: 2,400 mg Sitagliptin Phosphate (Januvia) 25 mg PO DAILY [facility] Last Admin: 11/11/18 09:13 Dose: 25 mg Vitamin B Complex/Vit C/Folic Acid (Nephro-Govind) 1 tab PO DAILY [facility] Last Admin: 11/11/18 09:13 Dose: 1 tab - Labs Labs: 11/11/18 04:30 11/11/18 04:30 PT 12.5 Seconds (9.8-13.1) 11/09/18 11:50 INR 1.1 11/09/18 11:50 APTT 31.8 Seconds (25.6-37.1) 11/09/18 11:50 - Constitutional Appears: No Acute Distress - Head Exam Head Exam: ATRAUMATIC, NORMAL INSPECTION, NORMOCEPHALIC - Eye Exam Eye Exam: EOMI, Normal appearance, PERRL Pupil Exam: NORMAL ACCOMODATION, PERRL - ENT Exam ENT Exam: Mucous Membranes Moist, Normal Exam - Neck Exam Neck Exam: Full ROM, Normal Inspection. absent: Lymphadenopathy - Respiratory Exam Respiratory Exam: Clear to Ausculation Bilateral, NORMAL BREATHING PATTERN - Cardiovascular Exam Cardiovascular Exam: REGULAR RHYTHM, +S1, +S2. absent: Murmur - GI/Abdominal Exam GI & Abdominal Exam: Soft, Normal Bowel Sounds. absent: Tenderness - Rectal Exam Rectal Exam: NORMAL INSPECTION - Extremities Exam Extremities Exam: Full ROM, Normal Capillary Refill. absent: Joint Swelling, Pedal Edema - Back Exam Back Exam: NORMAL INSPECTION - Neurological Exam Neurological Exam: Alert, Awake, CN II-XII Intact, Normal Gait, Oriented x3 - Psychiatric Exam Psychiatric exam: Normal Affect, Normal Mood - Skin Skin Exam: Dry, Intact, Normal Color, Warm Assessment and Plan - Assessment and Plan (Free Text) Assessment: SEPSIS ESRD S/P AMPUTATION OF LOWER EXTREMITIES DM HTN ASHD Plan: CONTINUE CURRENT RX
[2018-11-11] MEDS: Pravastatin Sodium 40 MG TAB PO SCH (21:38)
[2018-11-12] MEDS: Insulin Regular 100 units/ml SC SCH ×4 (07:30→21:25)
[2018-11-12] MEDS: Multivitamin Vitamin B Complex (Nephro-Vite) Tab PO SCH (10:39)
--- NOTE | 2018-11-12 11:07 | CP.PCM.PN ---
Subjective - Date & Time of Evaluation Date of Evaluation: 11/12/18 Time of Evaluation: 11:07 - Subjective Subjective: FEELS BETTER NO CHEST PAINS/SOB VSS AFEBRILE Objective - Vital Signs/Intake and Output Vital Signs (last 24 hours): Temp Pulse Resp BP Pulse Ox 98.6 F 73 18 125/73 96 11/12/18 08:03 11/12/18 08:03 11/12/18 08:03 11/12/18 10:38 11/12/18 08:03 - Medications Medications: Current Medications Acetaminophen (Tylenol 325mg Tab) 650 mg PO Q6 PRN PRN Reason: Fever >100.4 F Allopurinol (Zyloprim) 200 mg PO DAILY [facility] Last Admin: 11/11/18 09:14 Dose: 200 mg Amlodipine Besylate (Norvasc) 10 mg PO DAILY [facility] Last Admin: 11/12/18 10:40 Dose: 10 mg Aspirin (Ecotrin) 81 mg PO DAILY [facility] Last Admin: 11/12/18 10:36 Dose: 81 mg Clopidogrel Bisulfate (Plavix) 75 mg PO DAILY [facility] Last Admin: 11/12/18 10:40 Dose: 75 mg Dextrose (Dextrose 50% Inj) 0 ml IV STAT PRN; Protocol PRN Reason: Hypoglycemia Protocol Dextrose (Glutose 15) 0 gm PO ONCE PRN; Protocol PRN Reason: Hypoglycemia Protocol Enalapril Maleate (Vasotec) 20 mg PO DAILY [facility] Last Admin: 11/12/18 10:42 Dose: 20 mg Furosemide (Lasix) 40 mg PO DAILY [facility] Last Admin: 11/12/18 10:38 Dose: 40 mg Gabapentin (Neurontin) 100 mg PO Q12 [facility] Last Admin: 11/12/18 10:39 Dose: 100 mg Hydralazine HCl (Apresoline) 100 mg PO Q12 [facility] Last Admin: 11/12/18 10:34 Dose: 100 mg Piperacillin Sod/Tazobactam (Sod 2.25 gm/ Sodium Chloride) 100 mls @ 100 mls/hr IVPB Q8 [facility]; Protocol Last Admin: 11/12/18 10:45 Dose: 100 mls/hr Vancomycin HCl 1 gm/ Sodium (Chloride) 250 mls @ 166.667 mls/hr IVPB MWF [facility]; Protocol Last Admin: 11/10/18 11:58 Dose: 166.667 mls/hr Insulin Human Regular (Humulin R) 0 units SC [facility]; Protocol Last Admin: 11/11/18 21:39 Dose: Not Given Isosorbide Mononitrate (Imdur Er) 30 mg PO DAILY [facility] Last Admin: 11/12/18 10:36 Dose: 30 mg Metoprolol Succinate (Toprol Xl) 100 mg PO DAILY [facility] Last Admin: 11/11/18 09:11 Dose: 100 mg Pravastatin Sodium (Pravachol) 40 mg PO HS [facility] Last Admin: 11/11/18 21:38 Dose: 40 mg Repaglinide (Prandin) 1 mg PO BRKDIN [facility] Last Admin: 11/12/18 10:40 Dose: 1 mg Repaglinide (Prandin) 2 mg PO ACL [facility] Last Admin: 11/11/18 12:54 Dose: 2 mg Sevelamer Carbonate (Renvela) 2,400 mg PO TID [facility] Last Admin: 11/12/18 10:41 Dose: 2,400 mg Sitagliptin Phosphate (Januvia) 25 mg PO DAILY [facility] Last Admin: 11/12/18 10:37 Dose: 25 mg Vitamin B Complex/Vit C/Folic Acid (Nephro-Govind) 1 tab PO DAILY [facility] Last Admin: 11/12/18 10:39 Dose: 1 tab - Labs Labs: 11/11/18 04:30 11/11/18 04:30 PT 12.5 Seconds (9.8-13.1) 11/09/18 11:50 INR 1.1 11/09/18 11:50 APTT 31.8 Seconds (25.6-37.1) 11/09/18 11:50 - Constitutional Appears: No Acute Distress, Chronically Ill - Head Exam Head Exam: ATRAUMATIC, NORMAL INSPECTION, NORMOCEPHALIC - Eye Exam Eye Exam: EOMI, Normal appearance, PERRL Pupil Exam: NORMAL ACCOMODATION, PERRL - ENT Exam ENT Exam: Mucous Membranes Moist, Normal Exam - Neck Exam Neck Exam: Full ROM, Normal Inspection. absent: Lymphadenopathy - Respiratory Exam Respiratory Exam: Clear to Ausculation Bilateral, NORMAL BREATHING PATTERN - Cardiovascular Exam Cardiovascular Exam: REGULAR RHYTHM, +S1, +S2. absent: Murmur - GI/Abdominal Exam GI & Abdominal Exam: Soft, Normal Bowel Sounds. absent: Tenderness - Rectal Exam Rectal Exam: NORMAL INSPECTION - Extremities Exam Extremities Exam: Full ROM, Normal Capillary Refill. absent: Joint Swelling, Pedal Edema - Back Exam Back Exam: NORMAL INSPECTION - Neurological Exam Neurological Exam: Alert, Awake, CN II-XII Intact, Normal Gait, Oriented x3 - Psychiatric Exam Psychiatric exam: Normal Affect, Normal Mood - Skin Skin Exam: Dry, Intact, Normal Color, Warm Assessment and Plan - Assessment and Plan (Free Text) Assessment: SEPSIS--STAPH ESRD DM HTN Plan: CONTINUE DIALYSIS AND IV ANTIBIOTIC RX WILL DISCUS DISPOSITION WITH ID AND TOOL LAP[facility] HAND IN AM
[2018-11-12] MEDS: Metoprolol Succinate 100 mg XL Tab PO SCH (13:20)
--- NOTE | 2018-11-12 15:43 | CP.PCM.PN ---
Subjective - Date & Time of Evaluation Date of Evaluation: 11/12/18 Time of Evaluation: 09:00 - Subjective Subjective: 63 yo M presents to ED with fevers x several days . T max 101.9 last night; Associated w/ rhinorrhea; no cough, no abdominal pain, no vomitting, no dysuria (produces small amt of urine). Recently had permacath removal 1 month ago,. PMH HTN, DM2, ESRD (HD MWF at [facility]), CAD (coronary stent x2), Right AKA w current prosthesis, left transmetatarsal amputation,MH Objective - Vital Signs/Intake and Output Vital Signs (last 24 hours): Temp Pulse Resp BP Pulse Ox 98.5 F 77 18 120/66 95 11/12/18 12:41 11/12/18 12:41 11/12/18 12:41 11/12/18 12:41 11/12/18 12:41 - Medications Medications: Current Medications Acetaminophen (Tylenol 325mg Tab) 650 mg PO Q6 PRN PRN Reason: Fever >100.4 F Allopurinol (Zyloprim) 200 mg PO DAILY [facility] Last Admin: 11/12/18 13:21 Dose: 200 mg Amlodipine Besylate (Norvasc) 10 mg PO DAILY [facility] Last Admin: 11/12/18 10:40 Dose: 10 mg Aspirin (Ecotrin) 81 mg PO DAILY [facility] Last Admin: 11/12/18 10:36 Dose: 81 mg Clopidogrel Bisulfate (Plavix) 75 mg PO DAILY [facility] Last Admin: 11/12/18 10:40 Dose: 75 mg Dextrose (Dextrose 50% Inj) 0 ml IV STAT PRN; Protocol PRN Reason: Hypoglycemia Protocol Dextrose (Glutose 15) 0 gm PO ONCE PRN; Protocol PRN Reason: Hypoglycemia Protocol Enalapril Maleate (Vasotec) 20 mg PO DAILY [facility] Last Admin: 11/12/18 10:42 Dose: 20 mg Furosemide (Lasix) 40 mg PO DAILY [facility] Last Admin: 11/12/18 10:38 Dose: 40 mg Gabapentin (Neurontin) 100 mg PO Q12 [facility] Last Admin: 11/12/18 10:39 Dose: 100 mg Hydralazine HCl (Apresoline) 100 mg PO Q12 [facility] Last Admin: 11/12/18 10:34 Dose: 100 mg Piperacillin Sod/Tazobactam (Sod 2.25 gm/ Sodium Chloride) 100 mls @ 100 mls/hr IVPB Q8 [facility]; Protocol Last Admin: 11/12/18 10:45 Dose: 100 mls/hr Vancomycin HCl 1 gm/ Sodium (Chloride) 250 mls @ 166.667 mls/hr IVPB MWF [facility]; Protocol Last Admin: 11/10/18 11:58 Dose: 166.667 mls/hr Insulin Human Regular (Humulin R) 0 units SC ACHS [facility]; Protocol Last Admin: 11/12/18 13:16 Dose: 3 units Isosorbide Mononitrate (Imdur Er) 30 mg PO DAILY [facility] Last Admin: 11/12/18 10:36 Dose: 30 mg Metoprolol Succinate (Toprol Xl) 100 mg PO DAILY [facility] Last Admin: 11/12/18 13:20 Dose: 100 mg Pravastatin Sodium (Pravachol) 40 mg PO HS [facility] Last Admin: 11/11/18 21:38 Dose: 40 mg Repaglinide (Prandin) 1 mg PO BRKDIN [facility] Last Admin: 11/12/18 10:40 Dose: 1 mg Repaglinide (Prandin) 2 mg PO ACL [facility] Last Admin: 11/12/18 13:19 Dose: 2 mg Sevelamer Carbonate (Renvela) 2,400 mg PO TID [facility] Last Admin: 11/12/18 13:19 Dose: 2,400 mg Sitagliptin Phosphate (Januvia) 25 mg PO DAILY [facility] Last Admin: 11/12/18 10:37 Dose: 25 mg Vitamin B Complex/Vit C/Folic Acid (Nephro-Govind) 1 tab PO DAILY [facility] Last Admin: 11/12/18 10:39 Dose: 1 tab - Labs Labs: 11/11/18 04:30 11/11/18 04:30 PT 12.5 Seconds (9.8-13.1) 11/09/18 11:50 INR 1.1 11/09/18 11:50 APTT 31.8 Seconds (25.6-37.1) 11/09/18 11:50 - Constitutional Appears: Non-toxic, Chronically Ill - Head Exam Head Exam: NORMOCEPHALIC - Eye Exam Eye Exam: absent: Scleral icterus Pupil Exam: NORMAL ACCOMODATION - ENT Exam ENT Exam: Mucous Membranes Dry - Neck Exam Neck Exam: absent: Lymphadenopathy - Respiratory Exam Respiratory Exam: Decreased Breath Sounds, Clear to Ausculation Bilateral - Cardiovascular Exam Cardiovascular Exam: REGULAR RHYTHM, +S1, +S2 - GI/Abdominal Exam GI & Abdominal Exam: Distended, Soft. absent: Tenderness - Rectal Exam Rectal Exam: Deferred - Exam Exam: NORMAL INSPECTION - Extremities Exam Extremities Exam: absent: Calf Tenderness Additional comments: left TMA right BKA right AV fistula functions well - Back Exam Back Exam: absent: CVA tenderness (L), CVA tenderness (R) - Neurological Exam Neurological Exam: Alert, Awake, CN II-XII Intact, Oriented x3 Neuro motor strength exam: Left Upper Extremity: 4, Right Upper Extremity: 4, Left Lower Extremity: 4, Right Lower Extremity: 4 - Psychiatric Exam Psychiatric exam: Depressed - Skin Skin Exam: Dry Assessment and Plan (1) ESRD on hemodialysis Status: Acute (2) Fever in adult Status: Acute (3) SIRS (systemic inflammatory response syndrome) Status: Acute - Assessment and Plan (Free Text) Assessment: 63 yo M presents to ED with fevers x several days . T max 101.9 last night; Associated w/ rhinorrhea; no cough, no abdominal pain, no vomitting, no dysuria (produces small amt of urine). Recently had permacath removal 1 month ago,. PMH HTN, DM2, ESRD (HD MWF at [facility]), CAD (coronary stent x2), Right AKA w current prosthesis, left transmetatarsal amputation, consider nuclear scan to r/o occult shunt infection as well as echo / GARRISON may need empiric treatment
[2018-11-12] MEDS: Pravastatin Sodium 40 MG TAB PO SCH (21:41)
--- NOTE | 2018-11-12 22:00 | CP.PCM.PN ---
Subjective - Date & Time of Evaluation Date of Evaluation: 11/12/18 Time of Evaluation: 13:00 - Subjective Subjective: renal note no events overnight vitals reviewed heent normal no jvd s1s2 present no resp distress abd soft nt nd no edema ao times 3 cooperative End-stage renal disease on hemodialysis Tuesday Fever etiology not clear at this point Diabetic kidney disease Diabetes mellitus Hypertension Hyperphosphatemia Secondary hyperparathyroidism hd mwf continue per schedule lytes stable bp continue current meds continue binders and monitor phos levevls abx per primary team dose for reduced gfr Objective - Vital Signs/Intake and Output Vital Signs (last 24 hours): Temp Pulse Resp BP Pulse Ox 98.7 F 88 20 118/70 97 11/12/18 20:07 11/12/18 21:28 11/12/18 20:07 11/12/18 21:28 11/12/18 20:07 Intake and Output: 11/12/18 11/13/18 18:59 06:59 Intake Total 900 Output Total 150 Balance 750 - Medications Medications: Current Medications Acetaminophen (Tylenol 325mg Tab) 650 mg PO Q6 PRN PRN Reason: Fever >100.4 F Allopurinol (Zyloprim) 200 mg PO DAILY [facility] Last Admin: 11/12/18 13:21 Dose: 200 mg Amlodipine Besylate (Norvasc) 10 mg PO DAILY [facility] Last Admin: 11/12/18 10:40 Dose: 10 mg Aspirin (Ecotrin) 81 mg PO DAILY [facility] Last Admin: 11/12/18 10:36 Dose: 81 mg Clopidogrel Bisulfate (Plavix) 75 mg PO DAILY [facility] Last Admin: 11/12/18 10:40 Dose: 75 mg Dextrose (Dextrose 50% Inj) 0 ml IV STAT PRN; Protocol PRN Reason: Hypoglycemia Protocol Dextrose (Glutose 15) 0 gm PO ONCE PRN; Protocol PRN Reason: Hypoglycemia Protocol Enalapril Maleate (Vasotec) 20 mg PO DAILY [facility] Last Admin: 11/12/18 10:42 Dose: 20 mg Furosemide (Lasix) 40 mg PO DAILY [facility] Last Admin: 11/12/18 10:38 Dose: 40 mg Gabapentin (Neurontin) 100 mg PO Q12 [facility] Last Admin: 11/12/18 21:28 Dose: 100 mg Hydralazine HCl (Apresoline) 100 mg PO Q12 [facility] Last Admin: 11/12/18 21:28 Dose: 100 mg Piperacillin Sod/Tazobactam (Sod 2.25 gm/ Sodium Chloride) 100 mls @ 100 mls/hr IVPB Q8 [facility]; Protocol Last Admin: 11/12/18 17:36 Dose: 100 mls/hr Vancomycin HCl 1 gm/ Sodium (Chloride) 250 mls @ 166.667 mls/hr IVPB MWF [facility]; Protocol Last Admin: 11/10/18 11:58 Dose: 166.667 mls/hr Insulin Human Regular (Humulin R) 0 units SC ACHS [facility]; Protocol Last Admin: 11/12/18 21:25 Dose: Not Given Isosorbide Mononitrate (Imdur Er) 30 mg PO DAILY [facility] Last Admin: 11/12/18 10:36 Dose: 30 mg Metoprolol Succinate (Toprol Xl) 100 mg PO DAILY [facility] Last Admin: 11/12/18 13:20 Dose: 100 mg Pravastatin Sodium (Pravachol) 40 mg PO HS [facility] Last Admin: 11/12/18 21:41 Dose: 40 mg Repaglinide (Prandin) 1 mg PO BRKDIN [facility] Last Admin: 11/12/18 17:40 Dose: 1 mg Repaglinide (Prandin) 2 mg PO ACL [facility] Last Admin: 11/12/18 13:19 Dose: 2 mg Sevelamer Carbonate (Renvela) 2,400 mg PO TID [facility] Last Admin: 11/12/18 17:41 Dose: 2,400 mg Sitagliptin Phosphate (Januvia) 25 mg PO DAILY [facility] Last Admin: 11/12/18 10:37 Dose: 25 mg Vitamin B Complex/Vit C/Folic Acid (Nephro-Govind) 1 tab PO DAILY [facility] Last Admin: 11/12/18 10:39 Dose: 1 tab - Labs Labs: 11/11/18 04:30 11/11/18 04:30 PT 12.5 Seconds (9.8-13.1) 11/09/18 11:50 INR 1.1 11/09/18 11:50 APTT 31.8 Seconds (25.6-37.1) 11/09/18 11:50
[2018-11-13 06:04] LABS: BASO # 0.1 K/uL (0.0-0.2); BASO % 0.4 % (0.0-2.0); EOS # 0.8 K/uL (0.0-0.7); EOS % 5.6 % (0.0-4.0); LYMPH # 1.8 K/uL (1.0-4.3); LYMPH % 12.7 % (20.0-40.0); MEAN CELL VOLUME 94.5 fl (80.0-94.0); MEAN CORPUSCULAR HEMOGLOBIN 31.2 pg (27.0-31.0); MEAN CORPUSCULAR HGB CONC 33.1 g/dL (33.0-37.0); MEAN PLATELET VOLUME 7.8 fl (7.2-11.7); MONO # 1.1 K/uL (0.0-0.8); MONO % 7.7 % (0.0-10.0); NEUT # 10.2 K/uL (1.8-7.0); NEUT % 73.6 % (50.0-75.0); RBC 3.19 Mil/uL (4.40-5.90); RED CELL DISTRIBUTION WIDTH 14.7 % (11.5-14.5); WHITE BLOOD COUNT 13.9 K/uL (4.8-10.8)
[2018-11-13 06:17] LABS: CALCIUM 8.8 mg/dL (8.4-10.2)
--- NOTE | 2018-11-13 09:08 | CP.PCM.PN ---
Subjective - Date & Time of Evaluation Date of Evaluation: 11/13/18 Time of Evaluation: 09:09 - Subjective Subjective: CLINICALLY IMPROVING NO CHEST PAINS/SOB VSS Objective - Vital Signs/Intake and Output Vital Signs (last 24 hours): Temp Pulse Resp BP Pulse Ox 98.2 F 87 18 126/60 97 11/13/18 07:52 11/13/18 07:52 11/13/18 07:52 11/13/18 07:52 11/13/18 07:52 - Medications Medications: Current Medications Acetaminophen (Tylenol 325mg Tab) 650 mg PO Q6 PRN PRN Reason: Fever >100.4 F Allopurinol (Zyloprim) 200 mg PO DAILY [facility] Last Admin: 11/12/18 13:21 Dose: 200 mg Amlodipine Besylate (Norvasc) 10 mg PO DAILY [facility] Last Admin: 11/12/18 10:40 Dose: 10 mg Aspirin (Ecotrin) 81 mg PO DAILY [facility] Last Admin: 11/12/18 10:36 Dose: 81 mg Clopidogrel Bisulfate (Plavix) 75 mg PO DAILY [facility] Last Admin: 11/12/18 10:40 Dose: 75 mg Dextrose (Dextrose 50% Inj) 0 ml IV STAT PRN; Protocol PRN Reason: Hypoglycemia Protocol Dextrose (Glutose 15) 0 gm PO ONCE PRN; Protocol PRN Reason: Hypoglycemia Protocol Enalapril Maleate (Vasotec) 20 mg PO DAILY [facility] Last Admin: 11/12/18 10:42 Dose: 20 mg Furosemide (Lasix) 40 mg PO DAILY [facility] Last Admin: 11/12/18 10:38 Dose: 40 mg Gabapentin (Neurontin) 100 mg PO Q12 [facility] Last Admin: 11/12/18 21:28 Dose: 100 mg Hydralazine HCl (Apresoline) 100 mg PO Q12 [facility] Last Admin: 11/12/18 21:28 Dose: 100 mg Piperacillin Sod/Tazobactam (Sod 2.25 gm/ Sodium Chloride) 100 mls @ 100 mls/hr IVPB Q8 [facility]; Protocol Last Admin: 11/13/18 00:22 Dose: 100 mls/hr Vancomycin HCl 1 gm/ Sodium (Chloride) 250 mls @ 166.667 mls/hr IVPB MWF [facility]; Protocol Last Admin: 11/10/18 11:58 Dose: 166.667 mls/hr Insulin Human Regular (Humulin R) 0 units SC ACHS [facility]; Protocol Last Admin: 11/12/18 21:25 Dose: Not Given Isosorbide Mononitrate (Imdur Er) 30 mg PO DAILY [facility] Last Admin: 11/12/18 10:36 Dose: 30 mg Metoprolol Succinate (Toprol Xl) 100 mg PO DAILY [facility] Last Admin: 11/12/18 13:20 Dose: 100 mg Pravastatin Sodium (Pravachol) 40 mg PO HS [facility] Last Admin: 11/12/18 21:41 Dose: 40 mg Repaglinide (Prandin) 1 mg PO BRKDIN [facility] Last Admin: 11/12/18 17:40 Dose: 1 mg Repaglinide (Prandin) 2 mg PO ACL [facility] Last Admin: 11/12/18 13:19 Dose: 2 mg Sevelamer Carbonate (Renvela) 2,400 mg PO TID [facility] Last Admin: 11/12/18 17:41 Dose: 2,400 mg Sitagliptin Phosphate (Januvia) 25 mg PO DAILY [facility] Last Admin: 11/12/18 10:37 Dose: 25 mg Vitamin B Complex/Vit C/Folic Acid (Nephro-Govind) 1 tab PO DAILY [facility] Last Admin: 11/12/18 10:39 Dose: 1 tab - Labs Labs: 11/13/18 05:25 11/13/18 05:25 PT 12.5 Seconds (9.8-13.1) 11/09/18 11:50 INR 1.1 11/09/18 11:50 APTT 31.8 Seconds (25.6-37.1) 11/09/18 11:50 - Constitutional Appears: Chronically Ill - Head Exam Head Exam: ATRAUMATIC, NORMAL INSPECTION, NORMOCEPHALIC - Eye Exam Eye Exam: EOMI, Normal appearance, PERRL Pupil Exam: NORMAL ACCOMODATION, PERRL - ENT Exam ENT Exam: Mucous Membranes Moist, Normal Exam - Neck Exam Neck Exam: Full ROM, Normal Inspection. absent: Lymphadenopathy - Respiratory Exam Respiratory Exam: Clear to Ausculation Bilateral, NORMAL BREATHING PATTERN - Cardiovascular Exam Cardiovascular Exam: REGULAR RHYTHM, +S1, +S2. absent: Murmur - GI/Abdominal Exam GI & Abdominal Exam: Soft, Normal Bowel Sounds. absent: Tenderness - Rectal Exam Rectal Exam: NORMAL INSPECTION - Extremities Exam Extremities Exam: Full ROM, Normal Capillary Refill. absent: Joint Swelling, Pedal Edema - Back Exam Back Exam: NORMAL INSPECTION - Neurological Exam Neurological Exam: Alert, Awake, CN II-XII Intact, Normal Gait, Oriented x3 - Psychiatric Exam Psychiatric exam: Normal Affect, Normal Mood - Skin Skin Exam: Dry, Intact, Normal Color, Warm Assessment and Plan - Assessment and Plan (Free Text) Assessment: SEPSIS ESRD DM HTN Plan: CONTINUE CURRENT RX PAUNCH TRIMMER AND ID FOR D/C PLANNING
[2018-11-13] MEDS: Multivitamin Vitamin B Complex (Nephro-Vite) Tab PO SCH (09:47)
[2018-11-13] MEDS: Metoprolol Succinate 100 mg XL Tab PO SCH (09:51)
[2018-11-13] MEDS: Insulin Regular 100 units/ml SC SCH ×4 (09:53→21:58)
--- NOTE | 2018-11-13 10:02 | CP.PCM.PN ---
Subjective - Date & Time of Evaluation Date of Evaluation: 11/13/18 Time of Evaluation: 10:01 - Subjective Subjective: Patient doing much better Awake and conscious Vital signs stable Objective - Vital Signs/Intake and Output Vital Signs (last 24 hours): Temp Pulse Resp BP Pulse Ox 98.2 F 87 18 126/60 97 11/13/18 07:52 11/13/18 07:52 11/13/18 07:52 11/13/18 09:48 11/13/18 07:52 - Medications Medications: Current Medications Acetaminophen (Tylenol 325mg Tab) 650 mg PO Q6 PRN PRN Reason: Fever >100.4 F Allopurinol (Zyloprim) 200 mg PO DAILY [facility] Last Admin: 11/13/18 09:49 Dose: 200 mg Amlodipine Besylate (Norvasc) 10 mg PO DAILY [facility] Last Admin: 11/13/18 09:46 Dose: 10 mg Aspirin (Ecotrin) 81 mg PO DAILY [facility] Last Admin: 11/13/18 09:44 Dose: 81 mg Clopidogrel Bisulfate (Plavix) 75 mg PO DAILY [facility] Last Admin: 11/13/18 09:47 Dose: 75 mg Dextrose (Dextrose 50% Inj) 0 ml IV STAT PRN; Protocol PRN Reason: Hypoglycemia Protocol Dextrose (Glutose 15) 0 gm PO ONCE PRN; Protocol PRN Reason: Hypoglycemia Protocol Enalapril Maleate (Vasotec) 20 mg PO DAILY [facility] Last Admin: 11/13/18 09:50 Dose: 20 mg Furosemide (Lasix) 40 mg PO DAILY [facility] Last Admin: 11/13/18 09:48 Dose: 40 mg Gabapentin (Neurontin) 100 mg PO Q12 [facility] Last Admin: 11/13/18 09:51 Dose: 100 mg Hydralazine HCl (Apresoline) 100 mg PO Q12 [facility] Last Admin: 11/13/18 09:43 Dose: 100 mg Piperacillin Sod/Tazobactam (Sod 2.25 gm/ Sodium Chloride) 100 mls @ 100 mls/hr IVPB Q8 [facility]; Protocol Last Admin: 11/13/18 09:51 Dose: 100 mls/hr Vancomycin HCl 1 gm/ Sodium (Chloride) 250 mls @ 166.667 mls/hr IVPB MWF [facility]; Protocol Last Admin: 11/13/18 09:52 Dose: 166.667 mls/hr Insulin Human Regular (Humulin R) 0 units SC ACHS [facility]; Protocol Last Admin: 11/13/18 09:53 Dose: Not Given Isosorbide Mononitrate (Imdur Er) 30 mg PO DAILY [facility] Last Admin: 11/13/18 09:54 Dose: 30 mg Metoprolol Succinate (Toprol Xl) 100 mg PO DAILY [facility] Last Admin: 11/13/18 09:51 Dose: 100 mg Pravastatin Sodium (Pravachol) 40 mg PO HS [facility] Last Admin: 11/12/18 21:41 Dose: 40 mg Repaglinide (Prandin) 1 mg PO BRKDIN [facility] Last Admin: 11/13/18 09:45 Dose: 1 mg Repaglinide (Prandin) 2 mg PO ACL [facility] Last Admin: 11/12/18 13:19 Dose: 2 mg Sevelamer Carbonate (Renvela) 2,400 mg PO TID [facility] Last Admin: 11/13/18 09:45 Dose: 2,400 mg Sitagliptin Phosphate (Januvia) 25 mg PO DAILY [facility] Last Admin: 11/13/18 09:49 Dose: 25 mg Vitamin B Complex/Vit C/Folic Acid (Nephro-Govind) 1 tab PO DAILY [facility] Last Admin: 11/13/18 09:47 Dose: 1 tab - Labs Labs: 11/13/18 05:25 11/13/18 05:25 PT 12.5 Seconds (9.8-13.1) 11/09/18 11:50 INR 1.1 11/09/18 11:50 APTT 31.8 Seconds (25.6-37.1) 11/09/18 11:50 - Constitutional Appears: No Acute Distress - Eye Exam Eye Exam: Conjunctival injection - ENT Exam ENT Exam: Mucous Membranes Moist - Neck Exam Neck Exam: absent: Lymphadenopathy - Respiratory Exam Respiratory Exam: NORMAL BREATHING PATTERN. absent: Rales - GI/Abdominal Exam GI & Abdominal Exam: Soft, Normal Bowel Sounds - Extremities Exam Extremities Exam: absent: Calf Tenderness - Back Exam Back Exam: absent: CVA tenderness (L), CVA tenderness (R) - Neurological Exam Neurological Exam: Alert - Psychiatric Exam Psychiatric exam: Normal Affect - Skin Skin Exam: absent: Cyanosis Assessment and Plan (1) ESRD on hemodialysis Assessment & Plan: End-stage renal disease on hemodialysis Tuesday Fever etiology not clear at this point Diabetic kidney disease Diabetes mellitus Hypertension Hyperphosphatemia Secondary hyperparathyroidism Positive blood culture for coagulase-negative Recommendation Hemodialysis shortly as scheduled Antibiotics empirically started patient receiving Vanco and Zosyn Glycemic control Antihypertensive medications Phosphorus binders PTH and serum phosphorus Status: Acute (2) Fever Status: Acute
--- NOTE | 2018-11-13 11:33 | CP.PCM.PN ---
Subjective - Date & Time of Evaluation Date of Evaluation: 11/13/18 Time of Evaluation: 08:00 - Subjective Subjective: comfortable IV rx renewed + blood c/s Objective - Vital Signs/Intake and Output Vital Signs (last 24 hours): Temp Pulse Resp BP Pulse Ox 98.2 F 87 18 126/60 97 11/13/18 07:52 11/13/18 07:52 11/13/18 07:52 11/13/18 09:48 11/13/18 07:52 - Medications Medications: Current Medications Acetaminophen (Tylenol 325mg Tab) 650 mg PO Q6 PRN PRN Reason: Fever >100.4 F Allopurinol (Zyloprim) 200 mg PO DAILY [facility] Last Admin: 11/13/18 09:49 Dose: 200 mg Amlodipine Besylate (Norvasc) 10 mg PO DAILY [facility] Last Admin: 11/13/18 09:46 Dose: 10 mg Aspirin (Ecotrin) 81 mg PO DAILY [facility] Last Admin: 11/13/18 09:44 Dose: 81 mg Clopidogrel Bisulfate (Plavix) 75 mg PO DAILY [facility] Last Admin: 11/13/18 09:47 Dose: 75 mg Dextrose (Dextrose 50% Inj) 0 ml IV STAT PRN; Protocol PRN Reason: Hypoglycemia Protocol Dextrose (Glutose 15) 0 gm PO ONCE PRN; Protocol PRN Reason: Hypoglycemia Protocol Enalapril Maleate (Vasotec) 20 mg PO DAILY [facility] Last Admin: 11/13/18 09:50 Dose: 20 mg Furosemide (Lasix) 40 mg PO DAILY [facility] Last Admin: 11/13/18 09:48 Dose: 40 mg Gabapentin (Neurontin) 100 mg PO Q12 [facility] Last Admin: 11/13/18 09:51 Dose: 100 mg Hydralazine HCl (Apresoline) 100 mg PO Q12 [facility] Last Admin: 11/13/18 09:43 Dose: 100 mg Piperacillin Sod/Tazobactam (Sod 2.25 gm/ Sodium Chloride) 100 mls @ 100 mls/hr IVPB Q8 [facility]; Protocol Last Admin: 11/13/18 09:51 Dose: 100 mls/hr Vancomycin HCl 1 gm/ Sodium (Chloride) 250 mls @ 166.667 mls/hr IVPB MWF [facility]; Protocol Last Admin: 11/13/18 09:52 Dose: 166.667 mls/hr Insulin Human Regular (Humulin R) 0 units SC ACHS [facility]; Protocol Last Admin: 11/13/18 09:53 Dose: Not Given Isosorbide Mononitrate (Imdur Er) 30 mg PO DAILY [facility] Last Admin: 11/13/18 09:54 Dose: 30 mg Metoprolol Succinate (Toprol Xl) 100 mg PO DAILY [facility] Last Admin: 11/13/18 09:51 Dose: 100 mg Pravastatin Sodium (Pravachol) 40 mg PO HS [facility] Last Admin: 11/12/18 21:41 Dose: 40 mg Repaglinide (Prandin) 1 mg PO BRKDIN [facility] Last Admin: 11/13/18 09:45 Dose: 1 mg Repaglinide (Prandin) 2 mg PO ACL [facility] Last Admin: 11/12/18 13:19 Dose: 2 mg Sevelamer Carbonate (Renvela) 2,400 mg PO TID [facility] Last Admin: 11/13/18 09:45 Dose: 2,400 mg Sitagliptin Phosphate (Januvia) 25 mg PO DAILY [facility] Last Admin: 11/13/18 09:49 Dose: 25 mg Vitamin B Complex/Vit C/Folic Acid (Nephro-Govind) 1 tab PO DAILY [facility] Last Admin: 11/13/18 09:47 Dose: 1 tab - Labs Labs: 11/13/18 05:25 11/13/18 05:25 PT 12.5 Seconds (9.8-13.1) 11/09/18 11:50 INR 1.1 11/09/18 11:50 APTT 31.8 Seconds (25.6-37.1) 11/09/18 11:50 - Constitutional Appears: Well - Head Exam Head Exam: ATRAUMATIC, NORMAL INSPECTION, NORMOCEPHALIC - Eye Exam Eye Exam: EOMI, Normal appearance, PERRL Pupil Exam: NORMAL ACCOMODATION, PERRL - ENT Exam ENT Exam: Mucous Membranes Moist, Normal Exam - Neck Exam Neck Exam: Full ROM, Normal Inspection. absent: Lymphadenopathy - Respiratory Exam Respiratory Exam: Clear to Ausculation Bilateral, NORMAL BREATHING PATTERN - Cardiovascular Exam Cardiovascular Exam: REGULAR RHYTHM, +S1, +S2. absent: Murmur - GI/Abdominal Exam GI & Abdominal Exam: Soft, Normal Bowel Sounds. absent: Tenderness - Rectal Exam Rectal Exam: Deferred - Exam Exam: NORMAL INSPECTION - Extremities Exam Extremities Exam: Full ROM, Normal Capillary Refill. absent: Joint Swelling, Pedal Edema Additional comments: + L TMA R BKA - Back Exam Back Exam: NORMAL INSPECTION - Neurological Exam Neurological Exam: Alert, Awake, CN II-XII Intact, Normal Gait, Oriented x3 - Psychiatric Exam Psychiatric exam: Normal Affect, Normal Mood - Skin Skin Exam: Dry, Intact, Normal Color, Warm Assessment and Plan (1) ESRD on hemodialysis Status: Acute (2) Fever in adult Status: Acute (3) SIRS (systemic inflammatory response syndrome) Status: Acute - Assessment and Plan (Free Text) Assessment: renew Vanco may need 6 weeks consider [facility]
--- NOTE | 2018-11-13 17:46 | CARD ---
APPROVED REPORT Date of service: 11/13/2018 EXAM: Two-dimensional and M-mode echocardiogram with Doppler and color Doppler. Other Information Quality : GoodRhythm : NSR INDICATION Infection: Bacteremia 2D DIMENSIONS IVSd1.64 (0.7-1.1cm)LVDd3.59 (3.9-5.9cm) LVOT Diameter2.30 (1.8-2.4cm)PWd1.45 (0.7-1.1cm) IVSs1.84 (0.8-1.2cm)LVDs2.75 (2.5-4.0cm) FS (%) 23.4 %PWs1.55 (0.8-1.2cm) M-Mode DIMENSIONS Left Atrium (MM)5.22 (2.5-4.0cm)IVSd1.28 (0.7-1.1cm) Aortic Root3.53 (2.2-3.7cm)LVDd5.78 (4.0-5.6cm) Aortic Cusp Exc.1.34 (1.5-2.0cm)PWd1.44 (0.7-1.1cm) IVSs1.88 cmFS (%) 38 % LVDs3.56 (2.0-3.8cm)PWs1.69 cm Aortic Valve AoV Peak Hiwfhlcx308.7cm/sAoV VTI55.6cmAO Peak GR.29mmHg LVOT Peak Dinhokml457.5cm/sLVOT VTI26.86cmAO Mean GR.15mmHg NADINE (VMAX)1.84ik7PXE (VTI)1.09cm2 Mitral Valve MV E Fcqyrrmy117.3cm/sMV DECEL GQBW802grNP A Zurbxgrf019.8cm/s MV TEZ83kzP/A ratio1.0MVA (PHT)3.33cm2 TDI Lateral E' Peak V9.58cm/sMedial E' Peak V8.07cm/sE/Lateral E'12.8 E/Medial E'15.2 LEFT VENTRICLE The left ventricle is normal size. There is mild to moderate concentric left ventricular hypertrophy. The left ventricular systolic function is normal. The estimated ejection fraction is 55-60% No regional wall motion abnormalities noted.. Transmitral Doppler flow pattern is Grade I-abnormal relaxation pattern. No left ventricle thrombus noted on this study. There is no ventricular septal defect visualized. There is no left ventricular aneurysm. There is no mass noted in the left ventricle. RIGHT VENTRICLE The right ventricle is normal size. There is normal right ventricular wall thickness. The right ventricular systolic function is normal. ATRIA The left atrium is severely dilated. The right atrium size is normal. The interatrial septum is intact with no evidence for an atrial septal defect. AORTIC VALVE The aortic valve is normal in structure. Mild aortic regurgitation is present. There is mild aortic valvular stenosis. Peak velocity across the AV is - 3.0 m/sec. There is no aortic valvular vegetation. MITRAL VALVE The mitral valve is normal in structure. There is no evidence of mitral valve prolapse. There is no mitral valve stenosis. There is mild mitral valve regurgitation noted. TRICUSPID VALVE The tricuspid valve is normal in structure. There is mild tricuspid valve regurgitation noted. RVSP is calculated at 20 mm Hg. There is no tricuspid valve prolapse or vegetation. There is no tricuspid valve stenosis. PULMONIC VALVE The pulmonary valve is normal in structure. There is no pulmonic valvular regurgitation. There is no pulmonic valvular stenosis. GREAT VESSELS The aortic root is normal in size. The ascending aorta is normal in size. The pulmonary artery is normal. The IVC is normal in size and collapses >50% with inspiration. PERICARDIAL EFFUSION There is no pericardial effusion. There is no pleural effusion. <Conclusion> There is mild to moderate concentric left ventricular hypertrophy. The estimated ejection fraction is 55-60% Transmitral Doppler flow pattern is Grade I-abnormal relaxation pattern. The left atrium is severely dilated. There is mild aortic valvular stenosis. Peak velocity across the AV is - 3.0 m/sec. There is mild mitral valve regurgitation noted. There is mild tricuspid valve regurgitation noted. RVSP is calculated at 20 mm Hg. No evidence of vegetations on this study. Correlate clinically.
[2018-11-14] MEDS: Pravastatin Sodium 40 MG TAB PO SCH (01:39)
[2018-11-14 07:54] VITALS: RESP 18
--- NOTE | 2018-11-14 07:56 | CP.PCM.CON ---
History of Present Illness - History of Present Illness History of Present Illness: patient seen examined full consult to follow echocardiogram reviewed by me. The patient has calcific aortic stenosis (mild to moderate) and calfication on the posterior leaflet of the mitral valve with mild mitral annular calfication. These findings are high risk for the development of endocarditis. The patient should be treated with 6 weeks of antibiotics. Past Patient History - Past Medical History & Family History Past Medical History?: Yes - Past Social History Smoking Status: Never Smoked - CARDIAC Hx Cardiac Disorders: Yes (CAD,STENTX2,HTN,HLD) - PULMONARY Hx Respiratory Disorders: Yes (PNA) - NEUROLOGICAL Hx Neurological Disorder: No - HEENT Hx HEENT Problems: No - RENAL Hx Chronic Kidney Disease: Yes (ESRD - HD MWF) - ENDOCRINE/METABOLIC Hx Endocrine Disorders: Yes (DM2) - HEMATOLOGICAL/ONCOLOGICAL Hx Blood Disorders: Yes (ANEMIA) - INTEGUMENTARY Hx Dermatological Problems: No - MUSCULOSKELETAL/RHEUMATOLOGICAL Hx Musculoskeletal Disorders: Yes (RT LE PROSTHETICS) - GASTROINTESTINAL Hx Gastrointestinal Disorders: No - GENITOURINARY/GYNECOLOGICAL Hx Genitourinary Disorders: Yes (ESRD) - PSYCHIATRIC Hx Psychophysiologic Disorder: No - SURGICAL HISTORY Hx Coronary Stent: Yes (x 2) - ANESTHESIA Hx Anesthesia: Yes Hx Anesthesia Reactions: No Hx Malignant Hyperthermia: No Meds Allergies/Adverse Reactions: Allergies Allergy/AdvReac Type Severity Reaction Status Date / Time No Known Allergies Allergy Unverified 11/09/18 10:35 - Medications Medications: Current Medications Acetaminophen (Tylenol 325mg Tab) 650 mg PO Q6 PRN PRN Reason: Fever >100.4 F Allopurinol (Zyloprim) 200 mg PO DAILY [facility] Last Admin: 11/13/18 09:49 Dose: 200 mg Amlodipine Besylate (Norvasc) 10 mg PO DAILY [facility] Last Admin: 11/13/18 09:46 Dose: 10 mg Aspirin (Ecotrin) 81 mg PO DAILY [facility] Last Admin: 11/13/18 09:44 Dose: 81 mg Clopidogrel Bisulfate (Plavix) 75 mg PO DAILY [facility] Last Admin: 11/13/18 09:47 Dose: 75 mg Dextrose (Dextrose 50% Inj) 0 ml IV STAT PRN; Protocol PRN Reason: Hypoglycemia Protocol Dextrose (Glutose 15) 0 gm PO ONCE PRN; Protocol PRN Reason: Hypoglycemia Protocol Enalapril Maleate (Vasotec) 20 mg PO DAILY [facility] Last Admin: 11/13/18 09:50 Dose: 20 mg Furosemide (Lasix) 40 mg PO DAILY [facility] Last Admin: 11/13/18 09:48 Dose: 40 mg Gabapentin (Neurontin) 100 mg PO Q12 [facility] Last Admin: 11/14/18 01:40 Dose: 100 mg Hydralazine HCl (Apresoline) 100 mg PO Q12 [facility] Last Admin: 11/14/18 01:38 Dose: 100 mg Piperacillin Sod/Tazobactam (Sod 2.25 gm/ Sodium Chloride) 100 mls @ 100 mls/hr IVPB Q8 [facility]; Protocol Last Admin: 11/14/18 01:40 Dose: 100 mls/hr Vancomycin HCl 1 gm/ Sodium (Chloride) 250 mls @ 166.667 mls/hr IVPB MWF [facility]; Protocol Last Admin: 11/13/18 09:52 Dose: 166.667 mls/hr Insulin Human Regular (Humulin R) 0 units SC ACHS [facility]; Protocol Last Admin: 11/13/18 21:58 Dose: Not Given Isosorbide Mononitrate (Imdur Er) 30 mg PO DAILY [facility] Last Admin: 11/13/18 09:54 Dose: 30 mg Metoprolol Succinate (Toprol Xl) 100 mg PO DAILY [facility] Last Admin: 11/13/18 09:51 Dose: 100 mg Pravastatin Sodium (Pravachol) 40 mg PO HS [facility] Last Admin: 11/14/18 01:39 Dose: 40 mg Repaglinide (Prandin) 1 mg PO BRKDIN [facility] Last Admin: 11/13/18 17:19 Dose: 1 mg Repaglinide (Prandin) 2 mg PO ACL [facility] Last Admin: 11/13/18 13:26 Dose: 2 mg Sevelamer Carbonate (Renvela) 2,400 mg PO TID [facility] Last Admin: 11/13/18 17:19 Dose: 2,400 mg Sitagliptin Phosphate (Januvia) 25 mg PO DAILY [facility] Last Admin: 11/13/18 09:49 Dose: 25 mg Vitamin B Complex/Vit C/Folic Acid (Nephro-Govind) 1 tab PO DAILY [facility] Last Admin: 11/13/18 09:47 Dose: 1 tab Results - Vital Signs Recent Vital Signs: Last Vital Signs Temp 98.5 F 11/14/18 04:50 Pulse 87 11/14/18 04:50 Resp 20 11/14/18 04:50 BP 140/71 11/14/18 04:50 Pulse Ox 97 11/14/18 04:50 - Labs Result Diagrams: 11/13/18 05:25 11/13/18 05:25 Labs: Laboratory Results - last 24 hr 11/13/18 11/13/18 11/13/18 11:04 15:39 21:25 POC Glucose (mg/dL) 186 H 146 H 197 H 11/14/18 06:03 POC Glucose (mg/dL) 152 H
--- NOTE | 2018-11-14 07:56 | CP.PCM.CON ---
Past Patient History - Past Medical History & Family History Past Medical History?: Yes - Past Social History Smoking Status: Never Smoked - CARDIAC Hx Cardiac Disorders: Yes (CAD,STENTX2,HTN,HLD) - PULMONARY Hx Respiratory Disorders: Yes (PNA) - NEUROLOGICAL Hx Neurological Disorder: No - HEENT Hx HEENT Problems: No - RENAL Hx Chronic Kidney Disease: Yes (ESRD - HD MWF) - ENDOCRINE/METABOLIC Hx Endocrine Disorders: Yes (DM2) - HEMATOLOGICAL/ONCOLOGICAL Hx Blood Disorders: Yes (ANEMIA) - INTEGUMENTARY Hx Dermatological Problems: No - MUSCULOSKELETAL/RHEUMATOLOGICAL Hx Musculoskeletal Disorders: Yes (RT LE PROSTHETICS) - GASTROINTESTINAL Hx Gastrointestinal Disorders: No - GENITOURINARY/GYNECOLOGICAL Hx Genitourinary Disorders: Yes (ESRD) - PSYCHIATRIC Hx Psychophysiologic Disorder: No - SURGICAL HISTORY Hx Coronary Stent: Yes (x 2) - ANESTHESIA Hx Anesthesia: Yes Hx Anesthesia Reactions: No Hx Malignant Hyperthermia: No Meds Allergies/Adverse Reactions: Allergies Allergy/AdvReac Type Severity Reaction Status Date / Time No Known Allergies Allergy Unverified 11/09/18 10:35 - Medications Medications: Current Medications Acetaminophen (Tylenol 325mg Tab) 650 mg PO Q6 PRN PRN Reason: Fever >100.4 F Allopurinol (Zyloprim) 200 mg PO DAILY [facility] Last Admin: 11/13/18 09:49 Dose: 200 mg Amlodipine Besylate (Norvasc) 10 mg PO DAILY [facility] Last Admin: 11/13/18 09:46 Dose: 10 mg Aspirin (Ecotrin) 81 mg PO DAILY [facility] Last Admin: 11/13/18 09:44 Dose: 81 mg Clopidogrel Bisulfate (Plavix) 75 mg PO DAILY [facility] Last Admin: 11/13/18 09:47 Dose: 75 mg Dextrose (Dextrose 50% Inj) 0 ml IV STAT PRN; Protocol PRN Reason: Hypoglycemia Protocol Dextrose (Glutose 15) 0 gm PO ONCE PRN; Protocol PRN Reason: Hypoglycemia Protocol Enalapril Maleate (Vasotec) 20 mg PO DAILY [facility] Last Admin: 11/13/18 09:50 Dose: 20 mg Furosemide (Lasix) 40 mg PO DAILY [facility] Last Admin: 11/13/18 09:48 Dose: 40 mg Gabapentin (Neurontin) 100 mg PO Q12 [facility] Last Admin: 11/14/18 01:40 Dose: 100 mg Hydralazine HCl (Apresoline) 100 mg PO Q12 [facility] Last Admin: 11/14/18 01:38 Dose: 100 mg Piperacillin Sod/Tazobactam (Sod 2.25 gm/ Sodium Chloride) 100 mls @ 100 mls/hr IVPB Q8 [facility]; Protocol Last Admin: 11/14/18 01:40 Dose: 100 mls/hr Vancomycin HCl 1 gm/ Sodium (Chloride) 250 mls @ 166.667 mls/hr IVPB MWF [facility]; Protocol Last Admin: 11/13/18 09:52 Dose: 166.667 mls/hr Insulin Human Regular (Humulin R) 0 units SC ACHS [facility]; Protocol Last Admin: 11/13/18 21:58 Dose: Not Given Isosorbide Mononitrate (Imdur Er) 30 mg PO DAILY [facility] Last Admin: 11/13/18 09:54 Dose: 30 mg Metoprolol Succinate (Toprol Xl) 100 mg PO DAILY [facility] Last Admin: 11/13/18 09:51 Dose: 100 mg Pravastatin Sodium (Pravachol) 40 mg PO HS [facility] Last Admin: 11/14/18 01:39 Dose: 40 mg Repaglinide (Prandin) 1 mg PO BRKDIN [facility] Last Admin: 11/13/18 17:19 Dose: 1 mg Repaglinide (Prandin) 2 mg PO ACL [facility] Last Admin: 11/13/18 13:26 Dose: 2 mg Sevelamer Carbonate (Renvela) 2,400 mg PO TID [facility] Last Admin: 11/13/18 17:19 Dose: 2,400 mg Sitagliptin Phosphate (Januvia) 25 mg PO DAILY [facility] Last Admin: 11/13/18 09:49 Dose: 25 mg Vitamin B Complex/Vit C/Folic Acid (Nephro-Govind) 1 tab PO DAILY [facility] Last Admin: 11/13/18 09:47 Dose: 1 tab Results - Vital Signs Recent Vital Signs: Last Vital Signs Temp 98.3 F 11/14/18 07:53 Pulse 92 H 11/14/18 07:53 Resp 18 11/14/18 07:53 BP 158/81 H 11/14/18 07:53 Pulse Ox 98 11/14/18 07:53 - Labs Result Diagrams: 11/13/18 05:25 11/13/18 05:25 Labs: Laboratory Results - last 24 hr 11/13/18 11/13/18 11/13/18 11:04 15:39 21:25 POC Glucose (mg/dL) 186 H 146 H 197 H 11/14/18 06:03 POC Glucose (mg/dL) 152 H
--- NOTE | 2018-11-14 08:35 | CP.PCM.PN ---
Subjective - Date & Time of Evaluation Date of Evaluation: 11/14/18 Time of Evaluation: 08:35 - Subjective Subjective: AFEBRILE CLINICALLY IMPROVING Objective - Vital Signs/Intake and Output Vital Signs (last 24 hours): Temp Pulse Resp BP Pulse Ox 98.3 F 92 H 18 158/81 H 98 11/14/18 07:53 11/14/18 07:53 11/14/18 07:53 11/14/18 07:53 11/14/18 07:53 - Medications Medications: Current Medications Acetaminophen (Tylenol 325mg Tab) 650 mg PO Q6 PRN PRN Reason: Fever >100.4 F Allopurinol (Zyloprim) 200 mg PO DAILY [facility] Last Admin: 11/13/18 09:49 Dose: 200 mg Amlodipine Besylate (Norvasc) 10 mg PO DAILY [facility] Last Admin: 11/13/18 09:46 Dose: 10 mg Aspirin (Ecotrin) 81 mg PO DAILY [facility] Last Admin: 11/13/18 09:44 Dose: 81 mg Clopidogrel Bisulfate (Plavix) 75 mg PO DAILY [facility] Last Admin: 11/13/18 09:47 Dose: 75 mg Dextrose (Dextrose 50% Inj) 0 ml IV STAT PRN; Protocol PRN Reason: Hypoglycemia Protocol Dextrose (Glutose 15) 0 gm PO ONCE PRN; Protocol PRN Reason: Hypoglycemia Protocol Enalapril Maleate (Vasotec) 20 mg PO DAILY [facility] Last Admin: 11/13/18 09:50 Dose: 20 mg Furosemide (Lasix) 40 mg PO DAILY [facility] Last Admin: 11/13/18 09:48 Dose: 40 mg Gabapentin (Neurontin) 100 mg PO Q12 [facility] Last Admin: 11/14/18 01:40 Dose: 100 mg Hydralazine HCl (Apresoline) 100 mg PO Q12 [facility] Last Admin: 11/14/18 01:38 Dose: 100 mg Piperacillin Sod/Tazobactam (Sod 2.25 gm/ Sodium Chloride) 100 mls @ 100 mls/hr IVPB Q8 [facility]; Protocol Last Admin: 11/14/18 01:40 Dose: 100 mls/hr Vancomycin HCl 1 gm/ Sodium (Chloride) 250 mls @ 166.667 mls/hr IVPB MWF [facility]; Protocol Last Admin: 11/13/18 09:52 Dose: 166.667 mls/hr Insulin Human Regular (Humulin R) 0 units SC ACHS [facility]; Protocol Last Admin: 11/13/18 21:58 Dose: Not Given Isosorbide Mononitrate (Imdur Er) 30 mg PO DAILY [facility] Last Admin: 11/13/18 09:54 Dose: 30 mg Metoprolol Succinate (Toprol Xl) 100 mg PO DAILY [facility] Last Admin: 11/13/18 09:51 Dose: 100 mg Pravastatin Sodium (Pravachol) 40 mg PO HS [facility] Last Admin: 11/14/18 01:39 Dose: 40 mg Repaglinide (Prandin) 1 mg PO BRKDIN [facility] Last Admin: 11/13/18 17:19 Dose: 1 mg Repaglinide (Prandin) 2 mg PO ACL [facility] Last Admin: 11/13/18 13:26 Dose: 2 mg Sevelamer Carbonate (Renvela) 2,400 mg PO TID [facility] Last Admin: 11/13/18 17:19 Dose: 2,400 mg Sitagliptin Phosphate (Januvia) 25 mg PO DAILY [facility] Last Admin: 11/13/18 09:49 Dose: 25 mg Vitamin B Complex/Vit C/Folic Acid (Nephro-Govind) 1 tab PO DAILY [facility] Last Admin: 11/13/18 09:47 Dose: 1 tab - Labs Labs: 11/13/18 05:25 11/13/18 05:25 PT 12.5 Seconds (9.8-13.1) 11/09/18 11:50 INR 1.1 11/09/18 11:50 APTT 31.8 Seconds (25.6-37.1) 11/09/18 11:50 - Constitutional Appears: No Acute Distress, Chronically Ill - Head Exam Head Exam: ATRAUMATIC, NORMAL INSPECTION, NORMOCEPHALIC - Eye Exam Eye Exam: EOMI, Normal appearance, PERRL Pupil Exam: NORMAL ACCOMODATION, PERRL - ENT Exam ENT Exam: Mucous Membranes Moist, Normal Exam - Neck Exam Neck Exam: Full ROM, Normal Inspection. absent: Lymphadenopathy - Respiratory Exam Respiratory Exam: Clear to Ausculation Bilateral, NORMAL BREATHING PATTERN - Cardiovascular Exam Cardiovascular Exam: REGULAR RHYTHM, +S1, +S2. absent: Murmur - GI/Abdominal Exam GI & Abdominal Exam: Soft, Normal Bowel Sounds. absent: Tenderness - Rectal Exam Rectal Exam: NORMAL INSPECTION - Extremities Exam Extremities Exam: Full ROM. 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
[2018-11-14] MEDS: Multivitamin Vitamin B Complex (Nephro-Vite) Tab PO SCH (08:38)
[2018-11-14] MEDS: Metoprolol Succinate 100 mg XL Tab PO SCH (08:40)
[2018-11-14] MEDS: Insulin Regular 100 units/ml SC SCH ×2 (08:43→12:36)
--- NOTE | 2018-11-14 11:36 | CP.PCM.PN ---
Subjective - Date & Time of Evaluation Date of Evaluation: 11/14/18 Time of Evaluation: 11:35 - Subjective Subjective: Patient awake and conscious sitting up in the chair. Patient feeling much better no fever no chills Appetite is okay no nausea no vomiting. Vital signs noted to be stable. Objective - Vital Signs/Intake and Output Vital Signs (last 24 hours): Temp Pulse Resp BP Pulse Ox 98.3 F 92 H 18 158/81 H 98 11/14/18 07:53 11/14/18 09:00 11/14/18 07:53 11/14/18 08:41 11/14/18 07:53 - Medications Medications: Current Medications Acetaminophen (Tylenol 325mg Tab) 650 mg PO Q6 PRN PRN Reason: Fever >100.4 F Allopurinol (Zyloprim) 200 mg PO DAILY [facility] Last Admin: 11/14/18 08:41 Dose: 200 mg Amlodipine Besylate (Norvasc) 10 mg PO DAILY [facility] Last Admin: 11/14/18 08:39 Dose: 10 mg Aspirin (Ecotrin) 81 mg PO DAILY [facility] Last Admin: 11/14/18 08:39 Dose: 81 mg Clopidogrel Bisulfate (Plavix) 75 mg PO DAILY [facility] Last Admin: 11/14/18 08:40 Dose: 75 mg Dextrose (Dextrose 50% Inj) 0 ml IV STAT PRN; Protocol PRN Reason: Hypoglycemia Protocol Dextrose (Glutose 15) 0 gm PO ONCE PRN; Protocol PRN Reason: Hypoglycemia Protocol Enalapril Maleate (Vasotec) 20 mg PO DAILY [facility] Last Admin: 11/14/18 08:41 Dose: 20 mg Furosemide (Lasix) 40 mg PO DAILY [facility] Last Admin: 11/14/18 08:39 Dose: 40 mg Gabapentin (Neurontin) 100 mg PO Q12 [facility] Last Admin: 11/14/18 08:39 Dose: 100 mg Hydralazine HCl (Apresoline) 100 mg PO Q12 [facility] Last Admin: 11/14/18 08:41 Dose: 100 mg Piperacillin Sod/Tazobactam (Sod 2.25 gm/ Sodium Chloride) 100 mls @ 100 mls/hr IVPB Q8 [facility]; Protocol Last Admin: 11/14/18 08:38 Dose: 100 mls/hr Vancomycin HCl 1 gm/ Sodium (Chloride) 250 mls @ 166.667 mls/hr IVPB MWF [facility]; Protocol Last Admin: 11/13/18 09:52 Dose: 166.667 mls/hr Insulin Human Regular (Humulin R) 0 units SC ACHS [facility]; Protocol Last Admin: 11/14/18 08:43 Dose: 1 units Isosorbide Mononitrate (Imdur Er) 30 mg PO DAILY [facility] Last Admin: 11/14/18 08:38 Dose: 30 mg Metoprolol Succinate (Toprol Xl) 100 mg PO DAILY [facility] Last Admin: 11/14/18 08:40 Dose: 100 mg Pravastatin Sodium (Pravachol) 40 mg PO HS [facility] Last Admin: 11/14/18 01:39 Dose: 40 mg Repaglinide (Prandin) 1 mg PO BRKDIN [facility] Last Admin: 11/14/18 08:40 Dose: 1 mg Repaglinide (Prandin) 2 mg PO ACL [facility] Last Admin: 11/13/18 13:26 Dose: 2 mg Sevelamer Carbonate (Renvela) 2,400 mg PO TID [facility] Last Admin: 11/14/18 08:40 Dose: 2,400 mg Sitagliptin Phosphate (Januvia) 25 mg PO DAILY [facility] Last Admin: 11/14/18 08:39 Dose: 25 mg Vitamin B Complex/Vit C/Folic Acid (Nephro-Govind) 1 tab PO DAILY [facility] Last Admin: 11/14/18 08:38 Dose: 1 tab - Labs Labs: 11/13/18 05:25 11/13/18 05:25 PT 12.5 Seconds (9.8-13.1) 11/09/18 11:50 INR 1.1 11/09/18 11:50 APTT 31.8 Seconds (25.6-37.1) 11/09/18 11:50 - Constitutional Appears: No Acute Distress - Eye Exam Eye Exam: Conjunctival injection - ENT Exam ENT Exam: Mucous Membranes Moist - Neck Exam Neck Exam: absent: Lymphadenopathy - Respiratory Exam Respiratory Exam: NORMAL BREATHING PATTERN. absent: Rales - Cardiovascular Exam Cardiovascular Exam: absent: Gallop, JVD, Rubs - Extremities Exam Extremities Exam: absent: Calf Tenderness - Back Exam Back Exam: absent: CVA tenderness (L), CVA tenderness (R) - Neurological Exam Neurological Exam: Alert - Psychiatric Exam Psychiatric exam: Normal Affect - Skin Skin Exam: absent: Cyanosis Assessment and Plan (1) ESRD on hemodialysis Assessment & Plan: End-stage renal disease on hemodialysis Tuesday sepsis Diabetic kidney disease Diabetes mellitus Hypertension Hyperphosphatemia Secondary hyperparathyroidism Positive blood culture for coagulase-negative Recommendation Continue antibiotics as noted by infectious disease. Continue hemodialysis Tuesday Phosphorus binder EPO for anemia Patient continued to improve. Status: Acute (2) Fever Status: Acute
--- NOTE | 2018-11-14 12:02 | CP.PCM.PN ---
Subjective - Date & Time of Evaluation Date of Evaluation: 11/14/18 Time of Evaluation: 08:00 - Subjective Subjective: seen on rounds wiill need 6-8 weeks iv rx Objective - Vital Signs/Intake and Output Vital Signs (last 24 hours): Temp Pulse Resp BP Pulse Ox 98.3 F 92 H 18 158/81 H 98 11/14/18 07:53 11/14/18 09:00 11/14/18 07:53 11/14/18 08:41 11/14/18 07:53 - Medications Medications: Current Medications Acetaminophen (Tylenol 325mg Tab) 650 mg PO Q6 PRN PRN Reason: Fever >100.4 F Allopurinol (Zyloprim) 200 mg PO DAILY [facility] Last Admin: 11/14/18 08:41 Dose: 200 mg Amlodipine Besylate (Norvasc) 10 mg PO DAILY [facility] Last Admin: 11/14/18 08:39 Dose: 10 mg Aspirin (Ecotrin) 81 mg PO DAILY [facility] Last Admin: 11/14/18 08:39 Dose: 81 mg Clopidogrel Bisulfate (Plavix) 75 mg PO DAILY [facility] Last Admin: 11/14/18 08:40 Dose: 75 mg Dextrose (Dextrose 50% Inj) 0 ml IV STAT PRN; Protocol PRN Reason: Hypoglycemia Protocol Dextrose (Glutose 15) 0 gm PO ONCE PRN; Protocol PRN Reason: Hypoglycemia Protocol Enalapril Maleate (Vasotec) 20 mg PO DAILY [facility] Last Admin: 11/14/18 08:41 Dose: 20 mg Furosemide (Lasix) 40 mg PO DAILY [facility] Last Admin: 11/14/18 08:39 Dose: 40 mg Gabapentin (Neurontin) 100 mg PO Q12 [facility] Last Admin: 11/14/18 08:39 Dose: 100 mg Hydralazine HCl (Apresoline) 100 mg PO Q12 [facility] Last Admin: 11/14/18 08:41 Dose: 100 mg Piperacillin Sod/Tazobactam (Sod 2.25 gm/ Sodium Chloride) 100 mls @ 100 mls/hr IVPB Q8 [facility]; Protocol Last Admin: 11/14/18 08:38 Dose: 100 mls/hr Vancomycin HCl 1 gm/ Sodium (Chloride) 250 mls @ 166.667 mls/hr IVPB MWF [facility]; Protocol Last Admin: 11/13/18 09:52 Dose: 166.667 mls/hr Insulin Human Regular (Humulin R) 0 units SC ACHS [facility]; Protocol Last Admin: 11/14/18 08:43 Dose: 1 units Isosorbide Mononitrate (Imdur Er) 30 mg PO DAILY [facility] Last Admin: 11/14/18 08:38 Dose: 30 mg Metoprolol Succinate (Toprol Xl) 100 mg PO DAILY [facility] Last Admin: 11/14/18 08:40 Dose: 100 mg Pravastatin Sodium (Pravachol) 40 mg PO HS [facility] Last Admin: 11/14/18 01:39 Dose: 40 mg Repaglinide (Prandin) 1 mg PO BRKDIN [facility] Last Admin: 11/14/18 08:40 Dose: 1 mg Repaglinide (Prandin) 2 mg PO ACL [facility] Last Admin: 11/13/18 13:26 Dose: 2 mg Sevelamer Carbonate (Renvela) 2,400 mg PO TID [facility] Last Admin: 11/14/18 08:40 Dose: 2,400 mg Sitagliptin Phosphate (Januvia) 25 mg PO DAILY [facility] Last Admin: 11/14/18 08:39 Dose: 25 mg Vitamin B Complex/Vit C/Folic Acid (Nephro-Govind) 1 tab PO DAILY [facility] Last Admin: 11/14/18 08:38 Dose: 1 tab - Labs Labs: 11/13/18 05:25 11/13/18 05:25 PT 12.5 Seconds (9.8-13.1) 11/09/18 11:50 INR 1.1 11/09/18 11:50 APTT 31.8 Seconds (25.6-37.1) 11/09/18 11:50 - Constitutional Appears: Non-toxic, Chronically Ill - Head Exam Head Exam: NORMOCEPHALIC - Eye Exam Eye Exam: absent: Scleral icterus - ENT Exam ENT Exam: Mucous Membranes Dry - Neck Exam Neck Exam: absent: Lymphadenopathy - Respiratory Exam Respiratory Exam: Decreased Breath Sounds - Cardiovascular Exam Cardiovascular Exam: REGULAR RHYTHM - GI/Abdominal Exam GI & Abdominal Exam: Distended - Rectal Exam Rectal Exam: Deferred - Extremities Exam Extremities Exam: absent: Calf Tenderness Additional comments: left tma right bka - Back Exam Back Exam: absent: CVA tenderness (L), CVA tenderness (R) - Neurological Exam Neurological Exam: Alert, Awake, Oriented x3 - Psychiatric Exam Psychiatric exam: Depressed Assessment and Plan (1) ESRD on hemodialysis Status: Acute (2) Fever in adult Status: Acute (3) SIRS (systemic inflammatory response syndrome) Status: Acute - Assessment and Plan (Free Text) Assessment: cont vanco with HD x 6 weeks
[2018-11-14 12:20] VITALS: BP 129/71; PULSE 75; TEMP 98.2; O2SAT 94
--- NOTE | 2018-11-15 09:00 | CP.PCM.DIS ---
Provider - Provider Date of Admission: 11/09/18 14:51 Attending physician: Lauro Gambino MD Consults: 11/09/18 13:59 Infectious Disease Consult Routine Comment: intermittent fevers x 12 days, ESRD Consulting Provider: Joseph Bar Consulting Physician: Joseph Bar Reason for Consult: intermittent fevers x 12 days, ESRD 11/09/18 14:00 Nephrology Consult Stat Comment: ESRD, HD MWF Consulting Provider: Dung Love Consulting Physician: Dung Love Reason for Consult: ESRD, HD MWF 11/10/18 10:00 Social Work Referral Routine Comment: HD MWF Physician Instructions: Reason For Exam: Hemodialysis patient 11/13/18 09:16 Cardiology Consult Routine Comment: Consulting Provider: Una Morel Consulting Physician: Una Morel Reason for Consult: bacteremia, fevers Time Spent in preparation of Discharge (in minutes): 30 Diagnosis - Discharge Diagnosis (1) Valvular heart disease Status: Acute Comment: CONTINUE IV ANTIBIOTICS FOR EMPERIC RX OF PRESUMED ENDOCARDITIS CAUSE OF FEVE. RX IS FOR 6-8 WEEKS. REPEAT CULTURES OUT PT (2) Chronic kidney disease, stage V Status: Chronic (3) ESRD on hemodialysis Status: Chronic Priority: High (4) Fever Status: Acute Priority: Medium (5) Fever in adult Status: Acute Comment: CONTINUE IV ANTIBIOTIC RX (6) SIRS (systemic inflammatory response syndrome) Status: Acute (7) Anemia Status: Chronic (8) CAD (coronary artery disease) Status: Chronic Priority: Medium (9) Chronic anemia Status: Chronic Priority: High (10) HTN (hypertension) Status: Chronic Priority: Medium (11) Type 2 diabetes mellitus with diabetic chronic kidney disease Status: Chronic Priority: High (12) Sepsis Status: Acute Hospital Course - Lab Results Lab Results: Micro Results 11/13/18 12:32 Blood-During Dialysis Blood Culture - Preliminary NO GROWTH AFTER 24 HOURS 11/13/18 12:32 Blood-During Dialysis Blood Culture - Preliminary NO GROWTH AFTER 24 HOURS 11/09/18 11:15 Blood S.aureus & Coag-Neg Staph PNA FISH - Final 11/09/18 11:15 Blood Blood Culture - Final Coagulase Neg Staphylococcus 11/09/18 11:15 Blood Gram Stain - Final 11/09/18 15:45 Urine,Clean Catch Urine Culture - Final No Growth (<1,000 CFU/ML) Most Recent Lab Values WBC 13.9 K/uL (4.8-10.8) H 11/13/18 05:25 RBC 3.19 Mil/uL (4.40-5.90) L 11/13/18 05:25 Hgb 10.0 g/dL (12.0-18.0) L 11/13/18 05:25 Hct 30.1 % (35.0-51.0) L 11/13/18 05:25 MCV 94.5 fl (80.0-94.0) H 11/13/18 05:25 MCH 31.2 pg (27.0-31.0) H 11/13/18 05:25 MCHC 33.1 g/dL (33.0-37.0) 11/13/18 05:25 RDW 14.7 % (11.5-14.5) H 11/13/18 05:25 Plt Count 228 K/uL (130-400) 11/13/18 05:25 MPV 7.8 fl (7.2-11.7) 11/13/18 05:25 Neut % (Auto) 73.6 % (50.0-75.0) 11/13/18 05:25 Lymph % (Auto) 12.7 % (20.0-40.0) L 11/13/18 05:25 [place] % (Auto) 7.7 % (0.0-10.0) 11/13/18 05:25 Eos % (Auto) 5.6 % (0.0-4.0) H 11/13/18 05:25 Baso % (Auto) 0.4 % (0.0-2.0) 11/13/18 05:25 Neut # (Auto) 10.2 K/uL (1.8-7.0) H 11/13/18 05:25 Lymph # (Auto) 1.8 K/uL (1.0-4.3) 11/13/18 05:25 [place] # (Auto) 1.1 K/uL (0.0-0.8) H 11/13/18 05:25 Eos # (Auto) 0.8 K/uL (0.0-0.7) H 11/13/18 05:25 Baso # (Auto) 0.1 K/uL (0.0-0.2) 11/13/18 05:25 Neutrophils % (Manual) 93 % (42-75) H 11/09/18 11:15 Lymphocytes % (Manual) 3 % (20-50) L 11/09/18 11:15 Monocytes % (Manual) 4 % (0-10) 11/09/18 11:15 Platelet Estimate Normal (NORMAL) 11/09/18 11:15 Hypochromasia (manual) Slight 11/09/18 11:15 Anisocytosis (manual) Slight 11/09/18 11:15 Tear Drop Cells Slight 11/09/18 11:15 PT 12.5 Seconds (9.8-13.1) 11/09/18 11:50 INR 1.1 11/09/18 11:50 APTT 31.8 Seconds (25.6-37.1) 11/09/18 11:50 pO2 51 mm/Hg (30-55) 11/09/18 11:18 VBG pH 7.48 (7.32-7.43) H 11/09/18 11:18 VBG pCO2 39 mmHg (40-60) L 11/09/18 11:18 VBG HCO3 28.7 mmol/L 11/09/18 11:18 VBG Total CO2 30.2 mmol/L (22-28) H 11/09/18 11:18 VBG O2 Sat (Calc) 91.1 % (40-65) H 11/09/18 11:18 VBG Base Excess 5.2 mmol/L (0.0-2.0) H 11/09/18 11:18 VBG Potassium 4.3 mmol/L (3.6-5.2) 11/09/18 11:18 Sodium 131.0 mmol/L (132-148) L 11/09/18 11:18 Chloride 98.0 mmol/L (98-107) 11/09/18 11:18 Glucose 299 mg/dL (75-110) H 11/09/18 11:18 Lactate 1.2 mmol/L (0.7-2.1) 11/09/18 11:18 FiO2 21.0 % 11/09/18 11:18 Sodium 136 mmol/l (132-148) 11/13/18 05:25 Potassium 3.7 MMOL/L (3.6-5.0) 11/13/18 05:25 Chloride 97 mmol/L (98-107) L 11/13/18 05:25 Carbon Dioxide 22 mmol/L (22-30) 11/13/18 05:25 Anion Gap 21 (10-20) H 11/13/18 05:25 BUN 45 mg/dl (9-20) H 11/13/18 05:25 Creatinine 8.9 mg/dl (0.8-1.5) H* D 11/13/18 05:25 Est GFR ( Amer) 7 11/13/18 05:25 Est GFR (Non-Af Amer) 6 11/13/18 05:25 POC Glucose (mg/dL) 189 mg/dL (65-110) H 11/14/18 10:58 Random Glucose 100 mg/dL (75-110) 11/13/18 05:25 Calcium 8.8 mg/dL (8.4-10.2) 11/13/18 05:25 Phosphorus 3.8 mg/dl (2.5-4.5) 11/09/18 11:50 Magnesium 1.8 MG/DL (1.6-2.3) 11/09/18 11:50 Total Bilirubin 0.4 mg/dl (0.2-1.3) 11/09/18 11:50 AST 25 U/L (17-59) 11/09/18 11:50 ALT 25 U/L (21-72) 11/09/18 11:50 Alkaline Phosphatase 105 U/L (38-126) 11/09/18 11:50 Total Protein 6.8 G/DL (6.3-8.2) 11/09/18 11:50 Albumin 3.5 g/dL (3.5-5.0) 11/09/18 11:50 Globulin 3.3 gm/dL (2.2-3.9) 11/09/18 11:50 Albumin/Globulin Ratio 1.1 (1.0-2.1) 11/09/18 11:50 Lipase 159 U/L (23-300) 11/09/18 11:50 Procalcitonin 4.61 NG/ML (0.19-0.49) H 11/09/18 17:56 Venous Blood Potassium 4.3 mmol/L (3.6-5.2) 11/09/18 11:18 Urine Color Yellow (YELLOW) 11/09/18 15:45 Urine Clarity Slighty-cloudy (Clear) 11/09/18 15:45 Urine pH 7.0 (5.0-8.0) 11/09/18 15:45 Ur Specific [place] 1.022 (1.003-1.030) 11/09/18 15:45 Urine Protein >=500 mg/dL (NEGATIVE) 11/09/18 15:45 Urine Glucose (UA) >=500 mg/dL (NEGATIVE) 11/09/18 15:45 Urine Ketones Negative mg/dL (NEGATIVE) 11/09/18 15:45 Urine Blood Negative (NEGATIVE) 11/09/18 15:45 Urine Nitrate Negative (NEGATIVE) 11/09/18 15:45 Urine Bilirubin Negative (NEGATIVE) 11/09/18 15:45 Urine Urobilinogen 0.2-1.0 mg/dL (0.2-1.0) 11/09/18 15:45 Ur Leukocyte Esterase Neg Michelle/uL (Negative) 11/09/18 15:45 Urine RBC (Auto) 3 /hpf (0-3) 11/09/18 15:45 Urine Microscopic WBC 2 /hpf (0-5) 11/09/18 15:45 Ur Squamous Epith Cells < 1 /hpf (0-5) 11/09/18 15:45 Urine Bacteria Rare (<OCC) 11/09/18 15:45 Random Vancomycin 9.9 ug/mL 11/13/18 05:25 Influenza Typ A,B (EIA) Negative for flu a/b (NEGATIVE) 11/09/18 11:15 - Hospital Course Hospital Course: FEVER RESOLVED WITH IV ANTIBIOTICS Discharge Exam - Head Exam Head Exam: NORMOCEPHALIC - Eye Exam Eye Exam: EOMI, Normal appearance, PERRL Pupil Exam: NORMAL ACCOMODATION, PERRL - GI/Abdominal Exam GI & Abdominal Exam: Normal Bowel Sounds - Rectal Exam Rectal Exam: NORMAL INSPECTION - Exam Speculum exam: NORMAL SPECULUM EXAM - Extremities Exam Additional comments: L AKA R TRANSMET AMPUTATION - Neurological Exam Neurological exam: Alert, CN II-XII Intact, Normal Gait, Oriented x3, Reflexes Normal - Psychiatric Exam Psychiatric exam: Normal Affect, Normal Mood - Skin Skin Exam: Dry, Intact, Normal Color, Warm Discharge Plan - Discharge Medications Prescriptions: ceFAZolin IV 2 gm in Dextrose [Ancef IV 2 gm DUPLEX] 2 gm IV MWF #18 bag - Follow Up Plan Condition: FAIR Disposition: HOME/ ROUTINE Instructions: Sepsis, Adult (DC), End Stage Kidney Disease (DC) Additional Instructions: follow up with primary doctor in 1 week continue dialysis mwf 6 weeks of iv antibiotic with dialysis Referrals: Joseph Bar MD [Staff Provider] - Miesha Rudolph MD [Family Provider] - Lauro Gambino MD [Staff Provider] -
--- NOTE | 2018-11-22 11:14 | PQF ---
PROVIDER RESPONSE TEXT: SEPSOS DUE TO STAPH--?SOURCE PLACED ON IV ANTIBIOTICS X SEVERAL WEEKS REVIEWER QUERY TEXT: Rule Out Sepsis Clarification Sepsis is documented in the Medical Record. Please clarify whether: -- Patient has sepsis - Please document confirmed, suspected or probable localized infection - Please clarify if sepsis is related to a device -- Sepsis was ruled out (include corresponding diagnosis for patient?s clinical picture and treatment ) -- Patient had sepsis which is resolved -- Other, please specify The patient's Clinical Indicators include: xxx Query created by: Mayela Kelley on 11/15/2018 1:43 PM Electronically signed by: Lauro Gambino MD 11/22/2018 11:10 AM
== END 2018-11-14 14:40 | disposition home or self-care (01) | DRG 871 ==
LOC: H.ER 10:10 → H.ERHOLD 14:51 → H.TEL 15:50
PROVIDERS: ADMIT Internal Medicine Pulmonary Disease; ATTEND Internal Medicine Pulmonary Disease
DX: A41.1 Sepsis due to other specified staphylococcus (principal); N18.6 End stage renal disease; N25.81 Secondary hyperparathyroidism of renal origin; I12.0 Hypertensive chronic kidney disease with stage 5 chronic kidney disease or end stage renal disease; I38 Endocarditis, valve unspecified; Z99.2 Dependence on renal dialysis; I25.10 Atherosclerotic heart disease of native coronary artery without angina pectoris; Z95.5 Presence of coronary angioplasty implant and graft; Z91.19 Patient's noncompliance with other medical treatment and regimen; I35.0 Nonrheumatic aortic (valve) stenosis; E78.5 Hyperlipidemia, unspecified; E11.22 Type 2 diabetes mellitus with diabetic chronic kidney disease; E78.00 Pure hypercholesterolemia, unspecified; E83.39 Other disorders of phosphorus metabolism; Z89.611 Acquired absence of right leg above knee; Z79.82 Long term (current) use of aspirin; Z79.02 Long term (current) use of antithrombotics/antiplatelets; Z89.432 Acquired absence of left foot; D64.9 Anemia, unspecified

== ENCOUNTER 2018-12-25 03:21 | Observation (INO) | payer MEDICARE, MEDICAID ==
[2018-12-25 03:21] VITALS: BMI 30.4
[2018-12-25] MEDS ORDERED: Albuterol-Ipratrop 3 mg / 0.5 (3 ml) UD INH STA (04:08)
[2018-12-25] MEDS ORDERED: Albuterol-Ipratrop 3 mg / 0.5 (3 ml) UD ONE (04:34)
--- NOTE | 2018-12-25 05:31 | ED PDOC ---
HPI: SOB/CHF/COPD Time Seen by Provider: 12/25/18 03:44 Chief Complaint (Nursing): Shortness Of Breath Chief Complaint (Provider): Shortness Of Breath History Per: Patient History/Exam Limitations: no limitations Onset/Duration Of Symptoms: Hrs Additional Complaint(s): Pawan Chen is a 63 year old male with a past medical history of end stage renal disease, HTN, and diabetes, who presents to the emergency department complaining of awakening with acute shortness of breath last night. Patient does have a history of pulmonary edema and is due for dialysis today at approximately noon. Patient has dialysis on Tuesday, Tuesday, and Tuesday. He currently denies any chest pain, nausea, vomiting or diaphoresis. Patient does have an AV shunt for his dialysis. PMD: Miesha Rudolph Past Medical History Reviewed: Historical Data, Nursing Documentation, Vital Signs Vital Signs: Last Vital Signs Temp 100.0 F H 12/25/18 03:31 Pulse 85 12/25/18 04:31 Resp 16 12/25/18 03:31 BP 147/73 12/25/18 03:31 Pulse Ox 90 L 12/25/18 03:31 - Medical History PMH: Anemia, CAD, Diabetes, HTN, Hypercholesterolemia, Pneumonia, End Stage Renal Disease, Chronic Kidney Disease (ESRD - HD MWF) - Surgical History Surgical History: Coronary Stent (x 2) Denies: Pacemaker - Family History Family History: States: Unknown Family Hx - Immunization History Hx Tetanus Toxoid Vaccination: Yes Hx Influenza Vaccination: Yes Hx Pneumococcal Vaccination: Yes - Home Medications Home Medications: Ambulatory Orders Medication Instructions Recorded Allopurinol [Zyloprim] 200 mg PO DAILY 10/23/17 Aspirin [Ecotrin] 81 mg PO DAILY 10/23/17 Isosorbide Mononitrate [Isosorbide 30 mg PO DAILY 10/23/17 Mononitrate ER] amLODIPine [Norvasc] 10 mg PO DAILY 10/23/17 Clopidogrel [Plavix] 75 mg PO DAILY 02/16/18 Sevelamer Carbonate [Renvela] 2,400 mg PO TID 02/16/18 Enalapril Maleate [Vasotec] 20 mg PO DAILY 02/20/18 Linagliptin [Tradjenta] 5 mg PO DAILY 02/20/18 Metoprolol Succinate XL [Toprol XL] 100 mg PO Q12 02/20/18 Repaglinide [Prandin] 1 mg PO BRKDIN 02/20/18 Pravastatin Sodium [Pravachol] 40 mg PO HS 04/18/18 Furosemide [Lasix] 40 mg PO DAILY 11/09/18 Gabapentin [Neurontin] 100 mg PO Q12 11/09/18 Hydralazine HCl 100 mg PO Q12 11/09/18 Vitamin B Complex/Vit C/Folic 1 tab PO DAILY 11/09/18 [Nephro-Govind] - Allergies Allergies/Adverse Reactions: Allergies Allergy/AdvReac Type Severity Reaction Status Date / Time No Known Allergies Allergy Unverified 11/09/18 10:35 Review of Systems ROS Statement: Except As Marked, All Systems Reviewed And Found Negative Constitutional: Negative for: Sweats Cardiovascular: Negative for: Chest Pain Respiratory: Positive for: Shortness of Breath Gastrointestinal: Negative for: Nausea, Vomiting Physical Exam - Reviewed Nursing Documentation Reviewed: Yes Vital Signs Reviewed: Yes - Physical Exam Appears: Positive for: Non-toxic Head Exam: Positive for: ATRAUMATIC, NORMOCEPHALIC Skin: Positive for: Normal Color, Warm, Dry Eye Exam: Positive for: Normal appearance, EOMI, PERRL ENT: Positive for: Normal ENT Inspection Cardiovascular/Chest: Positive for: Regular Rate, Rhythm. Negative for: Murmur Respiratory: Positive for: Rales (bilateral), Respiratory Distress (mild) Neurological/Psych: Positive for: Awake, Alert, Oriented - Laboratory Results Result Diagrams: 12/25/18 08:15 12/25/18 07:20 - ECG O2 Sat by Pulse Oximetry: 90 (RA) Pulse Ox Interpretation: Abnormal - Critical Care Total Time (In Min): 20 Medical Decision Making Medical Decision Making: Time: 0345 Impression: 63 year old male presenting with acute CHF, in setting of ESRD. Will order labs, EKG, chest xray, and a trial of bipap. Plan: --EKG --CMP --Troponin I --Nephrology Consult --CBC with differential --PTT --PT --Chest xray protable --Albuterol 3 ml INH --Lasix 40 mg IV --Blood culture --Heplock Insertion --Peak flow pre/post treatment --Bipap procedure --Influenza A B Time: 0500 --Case discussed with Dr. Freire for admission --Chest xray read by me: cardiomegaly and bilateral pulmonary vascular congestion --Consultation will be placed with Dr. Palmer, Nephrology. --Diagnosis: Pulmonary edema, CHF, End Stage Renal Disease and Respiratory failure. Time: 609 --Spoke with Dr. Abdul, who is covering DR. Palmer, who has arranged for dialysis. Scribe Attestation: Documented by Hitesh Singh, acting as a scribe Saulo Sanchez MD. Provider Scribe Attestation: All medical record entries made by the Scribe were at my direction and personally dictated by me. I have reviewed the chart and agree that the record accurately reflects my personal performance of the history, physical exam, medical decision making, and the department course for this patient. I have also personally directed, reviewed, and agree with the discharge instructions and disposition. Disposition - Clinical Impression Clinical Impression: CHF exacerbation, ESRD on hemodialysis - Disposition Disposition Time: 06:00 Condition: FAIR
--- NOTE | 2018-12-25 06:54 | CP.PCM.HP ---
<GutierrezKennyo - Last Filed: 12/25/18 06:58> History of Present Illness - History of Present Illness History of Present Illness: 63 y/o M with a PMHx of ESRD on HD on , HTN and DM2 presented to ED c/o SOB and non-productive cough since last night. Pt reports that he was unable to sle ep due to worsening dyspnea. Pt adherent with HD sessions. No ill contacts. No recent travel. Pt denies fever, chills, headache, severe chest pain, nausea, vomiting PMD: Miesha Chadwick NKDA Meds: as per EMR PMHx: DM2, HTN, HLD, CAD (coronary stent x2), chronic anemia, ESRD. PSHx: Right BKA. Left transmetatarsal amputation, SHx: denies alcohol, tobacco or rec drugs. ED Course: --VS: O2 sat of 90% at RA. HR 95-slightly high. --Blood analysis still pending. --Albuterol neb and Furosemide were administered. --BiPAP was initiated Present on Admission - Present on Admission Any Indicators Present on Admission: No Review of Systems - Constitutional Constitutional: absent: Fever - EENT Ears: absent: Decreased Hearing, Ear Pain, Tinnitus Nose/Mouth/Throat: absent: Neck Pain, Neck Mass - Cardiovascular Cardiovascular: Dyspnea. absent: Chest Pain, Leg Edema, Palpitations - Respiratory Respiratory: Cough, Dyspnea. absent: Hemoptysis - Gastrointestinal Gastrointestinal: absent: Abdominal Pain, Cramping, Diarrhea, Nausea, Vomiting - Genitourinary Genitourinary: absent: Dysuria, Flank Pain, Hematuria Past Patient History - Past Medical History & Family History Past Medical History?: Yes - Past Social History Smoking Status: Never Smoked - CARDIAC Hx Hypercholesterolemia: Yes Hx Hypertension: Yes Hx Pacemaker: No - PULMONARY Hx Pneumonia: Yes - NEUROLOGICAL Hx Neurological Disorder: No - HEENT Hx HEENT Problems: No - RENAL Hx Chronic Kidney Disease: Yes (ESRD - HD MWF) - ENDOCRINE/METABOLIC Hx Endocrine Disorders: Yes (DM2) - HEMATOLOGICAL/ONCOLOGICAL Hx Anemia: Yes - INTEGUMENTARY Hx Dermatological Problems: No - MUSCULOSKELETAL/RHEUMATOLOGICAL Hx Musculoskeletal Disorders: Yes (RT LE PROSTHETICS) - GASTROINTESTINAL Hx Gastrointestinal Disorders: No - GENITOURINARY/GYNECOLOGICAL Hx Genitourinary Disorders: Yes (ESRD) - PSYCHIATRIC Hx Psychophysiologic Disorder: No - SURGICAL HISTORY Hx Coronary Stent: Yes (x 2) - ANESTHESIA Hx Anesthesia: Yes Hx Anesthesia Reactions: No Hx Malignant Hyperthermia: No Meds Allergies/Adverse Reactions: Allergies Allergy/AdvReac Type Severity Reaction Status Date / Time No Known Allergies Allergy Unverified 11/09/18 10:35 Physical Exam - Constitutional Appears: No Acute Distress - Head Exam Head Exam: ATRAUMATIC, NORMAL INSPECTION, NORMOCEPHALIC - Eye Exam Eye Exam: EOMI - ENT Exam ENT Exam: Mucous Membranes Moist - Neck Exam Neck exam: Positive for: Full Rom, Normal Inspection. Negative for: Meningismus - Respiratory Exam Respiratory Exam: NORMAL BREATHING PATTERN. absent: Rales, Rhonchi, Wheezes, Respiratory Distress - Cardiovascular Exam Cardiovascular Exam: REGULAR RHYTHM, +S1, +S2 - GI/Abdominal Exam GI & Abdominal Exam: Soft. absent: Distended, Guarding, Rebound, Tenderness - Extremities Exam Additional comments: Bilateral lower extremities: ortho protesis on R lower leg (BKA). No edema on left lower leg. No cyanosis - Neurological Exam Neurological exam: Alert, Oriented x3 Results - Vital Signs Recent Vital Signs: Last Vital Signs Temp 100.0 F H 12/25/18 03:31 Pulse 85 12/25/18 04:31 Resp 16 12/25/18 03:31 BP 147/73 12/25/18 03:31 Pulse Ox 90 L 12/25/18 06:11 - Labs Labs: Laboratory Results - last 24 hr 12/25/18 12/25/18 05:07 05:56 POC Glucose (mg/dL) 184 H Influenza Typ A,B (EIA) Negative for flu a/b Assessment & Plan - Assessment and Plan (Free Text) Assessment: 63 y/o M with a PMHx of ESRD on HD on , CAD, HTN and DM2 is admitted for evaluation of and management of acute respiratory failure. PLAN: >Acute respiratory failure --Likely acute CHF exacerbation or fluid overload. --Hemodialysis to be performed today. --Continue with BiPAP --Monitor vitals and O2 sat. --Labs pending >ESRD --HD on --Hemodialysis today --Nephrology consult, Dr Palmer. >DM2 --Home meds resumed --ISS and hypoglycemia protocol >CAD --Home meds resumed >Chronic anemia --Anemia of chronic disease --F/U labs. >DVT Prophylaxis --SCD's --COnsidering Heparin as ESRD. Case discussed with Lisa Urbina PGY-2. - Date & Time Date: 12/25/18 Time: 06:30 <Tito Freire - Last Filed: 12/25/18 10:15> Results - Vital Signs Recent Vital Signs: Last Vital Signs Temp 98.5 F 12/25/18 09:49 Pulse 81 12/25/18 09:49 Resp 18 12/25/18 09:49 BP 158/73 H 12/25/18 09:49 Pulse Ox 100 12/25/18 09:49 - Labs Result Diagrams: 12/25/18 08:15 12/25/18 07:20 Labs: Laboratory Results - last 24 hr 12/25/18 12/25/18 12/25/18 05:07 05:56 07:20 WBC RBC Hgb Hct MCV MCH MCHC RDW Plt Count PT 10.9 INR 1.0 APTT 30.3 Sodium Potassium Chloride Carbon Dioxide Anion Gap BUN Creatinine Est GFR ( Amer) Est GFR (Non-Af Amer) POC Glucose (mg/dL) 184 H Random Glucose Calcium Total Bilirubin AST ALT Alkaline Phosphatase Troponin I Total Protein Albumin Globulin Albumin/Globulin Ratio Influenza Typ A,B (EIA) Negative for flu a/b 12/25/18 12/25/18 07:20 08:15 WBC 12.7 H RBC 3.27 L Hgb 10.2 L Hct 31.0 L MCV 94.8 H MCH 31.3 H MCHC 33.0 RDW 14.1 Plt Count 162 PT INR APTT Sodium 136 Potassium 5.9 H Chloride 102 Carbon Dioxide 20 L Anion Gap 20 BUN 62 H Creatinine 8.5 H* Est GFR ( Amer) 8 Est GFR (Non-Af Amer) 6 POC Glucose (mg/dL) Random Glucose 154 H Calcium 9.2 Total Bilirubin 0.5 AST 35 ALT 28 Alkaline Phosphatase 97 Troponin I 0.0320 Total Protein 7.8 Albumin 4.2 Globulin 3.7 Albumin/Globulin Ratio 1.1 Influenza Typ A,B (EIA) Attending/Attestation - Attestation I have personally seen and examined this patient.: Yes I have fully participated in the care of the patient.: Yes I have reviewed all pertinent clinical information: Yes Notes (Text): 12/25/18 10:05 i saw, examined and discussed this patient with Dr Gutierrez. I agree with the Assessment and plan outlined. This is a 63 years old male with hx of ESRD on hemodialysis who comes with Sudden unset of Severe SOB waking him from sleep.Chest X raay shows signs of Pulmonary edema. We will treat for fluid overload with respiratory distress with BIPAP.. Consult the Entrance Guard for Hemodialysis. The hyperkalemia also will be treated with dialysis. Continue treatment for Diabetes Mellitus and hyperglycemia. Tito Freire MD
[2018-12-25] MEDS ORDERED: Dextrose 50% SYRINGE Inj (50 ml) IV PRN (07:11)
[2018-12-25] MEDS ORDERED: Glucagon Recombinant 1 mg Inj IM PRN (07:11)
[2018-12-25 07:54] LABS: PROTHROMBIN TIME 10.9 Seconds (9.8-13.1)
[2018-12-25 07:57] LABS: PARTIAL THROMBOPLASTIN TIME 30.3 Seconds (25.6-37.1)
[2018-12-25] MEDS ORDERED: levoFLOXacin 500 mg in D5W 500 MG/100 ML BAG IVPB ONE (08:00)
[2018-12-25 08:09] LABS: TROPONIN I 0.032 ng/mL (0.00-0.120)
[2018-12-25 08:28] LABS: HEMOGLOBIN 10.2 g/dL (12.0-18.0); MEAN CELL VOLUME 94.8 fl (80.0-94.0); MEAN CORPUSCULAR HEMOGLOBIN 31.3 pg (27.0-31.0); RBC 3.27 Mil/uL (4.40-5.90); RED CELL DISTRIBUTION WIDTH 14.1 % (11.5-14.5); WHITE BLOOD COUNT 12.7 K/uL (4.8-10.8)
[2018-12-25 08:32] LABS: ALB/GLOB RATIO 1.1 (1.0-2.1); ALBUMIN 4.2 g/dL (3.5-5.0); CALCIUM 9.2 mg/dL (8.4-10.2)
[2018-12-25] MEDS ORDERED: levoFLOXacin 750 mg in D5W 150 ML BAG IVPB SCH (09:00)
--- NOTE | 2018-12-25 09:14 | CARD ---
APPROVED REPORT Date of service: 12/25/2018 EKG Measurement Heart [id number] <Conclusion> Normal sinus rhythm ST & T wave abnormality, consider inferolateral ischemia Abnormal ECG
--- NOTE | 2018-12-25 09:36 | RAD ---
Date of service: 12/25/2018 HISTORY: chest pain COMPARISON: 11/09/2018 FINDINGS: LUNGS: The lungs are well inflated. There is interval development of consolidation in the right upper lobe. The left lung is clear. PLEURA: No pleural effusions or pneumothorax. CARDIOVASCULAR: The heart is normal in size. There are aortic atherosclerotic calcifications present. OSSEOUS STRUCTURES: Within normal limits for the patient's age. VISUALIZED UPPER ABDOMEN: Normal. OTHER FINDINGS: There is chronic elevation of the right hemidiaphragm. IMPRESSION: Findings are compatible with right upper lobe pneumonia. Follow-up after medical management is recommended to ensure complete resolution. The final report is tagged to the PA review folder.
--- NOTE | 2018-12-25 10:26 | CP.PCM.CON ---
History of Present Illness - History of Present Illness History of Present Illness: This patient who is 63 years of age male who has been on dialysis for about 1 year and who presented to the emergency room complaining with cough and shortness of breath and unable to sleep the patient has been receiving dialysis Tuesday. Chest x-ray showed right upper lobe pneumonia in the emergency room. Patient has multiple admission in the past and he is diabetic and hypertension in addition to end-stage renal disease. PMHx: DM2, HTN, HLD, CAD (coronary stent x2), chronic anemia, ESRD. PSHx: Right BKA. Left transmetatarsal amputation, SHx: denies alcohol, tobacco or rec drugs. Review of Systems - Review of Systems Systems not reviewed;Unavailable: Respiratory Distress - Constitutional Constitutional: Anorexia, Malaise. absent: Chills - EENT Nose/Mouth/Throat: absent: Epistaxis - Cardiovascular Cardiovascular: Dyspnea. absent: Acrocyanosis, Edema - Respiratory Respiratory: Cough, Dyspnea. absent: Hemoptysis - Gastrointestinal Gastrointestinal: Nausea. absent: Abdominal Pain, Bloating, Coffee Ground Emesis - Genitourinary Genitourinary: Nocturia - Musculoskeletal Musculoskeletal: Muscle Weakness. absent: Atrophy, Myalgias, Numbness - Neurological Neurological: absent: Confusion, Disequilibrium, Focal Weakness, Headaches, Memory Loss, Syncope - Psychiatric Psychiatric: absent: Anxiety, Depression - Endocrine Endocrine: Fatigue - Hematologic/Lymphatic Hematologic: absent: Easy Bleeding Past Patient History - Past Medical History & Family History Past Medical History?: Yes - Past Social History Smoking Status: Never Smoked - CARDIAC Hx Hypercholesterolemia: Yes Hx Hypertension: Yes Hx Pacemaker: No - PULMONARY Hx Pneumonia: Yes - NEUROLOGICAL Hx Neurological Disorder: No - HEENT Hx HEENT Problems: No - RENAL Hx Chronic Kidney Disease: Yes (ESRD - HD MWF) - ENDOCRINE/METABOLIC Hx Endocrine Disorders: Yes (DM2) - HEMATOLOGICAL/ONCOLOGICAL Hx AIDS: No Hx Anemia: Yes Hx Human Immunodeficiency Virus (HIV): No - INTEGUMENTARY Hx Dermatological Problems: No - MUSCULOSKELETAL/RHEUMATOLOGICAL Hx Musculoskeletal Disorders: Yes (RT LE PROSTHETICS) Hx Falls: No - GASTROINTESTINAL Hx Gastrointestinal Disorders: No - GENITOURINARY/GYNECOLOGICAL Hx Genitourinary Disorders: Yes (ESRD) - PSYCHIATRIC Hx Psychophysiologic Disorder: No Hx Substance Use: No - SURGICAL HISTORY Hx Coronary Stent: Yes (x 2) - ANESTHESIA Hx Anesthesia: Yes Hx Anesthesia Reactions: No Hx Malignant Hyperthermia: No Meds Allergies/Adverse Reactions: Allergies Allergy/AdvReac Type Severity Reaction Status Date / Time No Known Allergies Allergy Unverified 11/09/18 10:35 - Medications Medications: Current Medications Allopurinol (Zyloprim) 200 mg PO DAILY [facility] Amlodipine Besylate (Norvasc) 10 mg PO DAILY [facility] Aspirin (Ecotrin) 81 mg PO DAILY [facility] Clopidogrel Bisulfate (Plavix) 75 mg PO DAILY [facility] Dextrose (Dextrose 50% Inj) 0 ml IV STAT PRN; Protocol PRN Reason: Hypoglycemia Protocol Dextrose (Glutose 15) 0 gm PO ONCE PRN; Protocol PRN Reason: Hypoglycemia Protocol Enalapril Maleate (Vasotec) 20 mg PO DAILY [facility] Furosemide (Lasix) 40 mg PO DAILY [facility] Gabapentin (Neurontin) 100 mg PO Q12 [facility] Glucagon (Glucagen Diagnostic Kit) 0 mg IM STAT PRN; Protocol PRN Reason: Hypoglycemia Protocol Home Med (Linagliptin [Tradjenta]) 5 mg PO DAILY [facility] Home Med (Patiromer Calcium Sorbitex [Veltassa]) 8.4 gm PO DAILY [facility] Hydralazine HCl (Apresoline) 100 mg PO Q12 [facility] Insulin Human Lispro (Humalog) 0 units SC ACCU-CHECK [facility]; Protocol Isosorbide Mononitrate (Imdur Er) 30 mg PO DAILY [facility] Metoprolol Succinate (Toprol Xl) 100 mg PO Q12 [facility] Pravastatin Sodium (Pravachol) 40 mg PO HS [facility] Repaglinide (Prandin) 1 mg PO BRKDIN [facility] Repaglinide (Prandin) 2 mg PO ACL [facility] Sevelamer Carbonate (Renvela) 2,400 mg PO TID [facility] Vitamin B Complex/Vit C/Folic Acid (Nephro-Govind) 1 tab PO DAILY [facility] Physical Exam - Constitutional Appears: No Acute Distress - Eye Exam Eye Exam: Conjunctival injection - ENT Exam ENT Exam: Mucous Membranes Moist - Neck Exam Neck exam: Negative for: Lymphadenopathy - Respiratory Exam Respiratory Exam: Rales, Rhonchi, Respiratory Distress. absent: Chest Wall Tenderness - Cardiovascular Exam Cardiovascular Exam: RRR. absent: Gallop, JVD, Rubs - GI/Abdominal Exam GI & Abdominal Exam: absent: Guarding, Normal Bowel Sounds - Extremities Exam Extremities exam: Negative for: calf tenderness - Back Exam Back exam: absent: CVA tenderness (L), CVA tenderness (R) - Neurological Exam Neurological exam: Alert - Psychiatric Exam Psychiatric exam: Normal Affect Results - Vital Signs Recent Vital Signs: Last Vital Signs Temp 98.5 F 12/25/18 09:49 Pulse 81 12/25/18 09:49 Resp 18 12/25/18 09:49 BP 158/73 H 12/25/18 09:49 Pulse Ox 100 12/25/18 09:49 - Labs Result Diagrams: 12/25/18 08:15 12/25/18 07:20 Labs: Laboratory Results - last 24 hr 12/25/18 12/25/18 12/25/18 05:07 05:56 07:20 WBC RBC Hgb Hct MCV MCH MCHC RDW Plt Count PT 10.9 INR 1.0 APTT 30.3 Sodium Potassium Chloride Carbon Dioxide Anion Gap BUN Creatinine Est GFR ( Amer) Est GFR (Non-Af Amer) POC Glucose (mg/dL) 184 H Random Glucose Calcium Total Bilirubin AST ALT Alkaline Phosphatase Troponin I Total Protein Albumin Globulin Albumin/Globulin Ratio Influenza Typ A,B (EIA) Negative for flu a/b 12/25/18 12/25/18 07:20 08:15 WBC 12.7 H RBC 3.27 L Hgb 10.2 L Hct 31.0 L MCV 94.8 H MCH 31.3 H MCHC 33.0 RDW 14.1 Plt Count 162 PT INR APTT Sodium 136 Potassium 5.9 H Chloride 102 Carbon Dioxide 20 L Anion Gap 20 BUN 62 H Creatinine 8.5 H* Est GFR ( Amer) 8 Est GFR (Non-Af Amer) 6 POC Glucose (mg/dL) Random Glucose 154 H Calcium 9.2 Total Bilirubin 0.5 AST 35 ALT 28 Alkaline Phosphatase 97 Troponin I 0.0320 Total Protein 7.8 Albumin 4.2 Globulin 3.7 Albumin/Globulin Ratio 1.1 Influenza Typ A,B (EIA) Assessment & Plan (1) CHF exacerbation Status: Acute (2) Pneumonia Assessment and Plan: End-stage renal disease on dialysis Tuesday patient scheduled to have dialysis shortly arrangement has been made order was given consent was taken spoke to the nurse. Patient admitted with right upper lobe pneumonia presented with shortness of breath Volume overload History of diabetes mellitus Hyperphosphatemia Secondary hyperparathyroidism Recommendation Scheduled to have dialysis shortly arrangement underway. Antibiotics as per primary team considering GFR. Oxygen. Continue phosphorus binders. Status: Acute
[2018-12-25] MEDS: Metoprolol Succinate 100 mg XL Tab PO SCH ×2 (10:40→22:00)
[2018-12-25] MEDS: Multivitamin Vitamin B Complex (Nephro-Vite) Tab PO SCH (10:40)
[2018-12-25] MEDS: Insulin Lispro (humaLOG) 100 Units/ml Inj SC SCH ×2 (12:08→22:09)
[2018-12-25 20:45] LABS: HEPATITIS B SURFACE AG Negative (NEGATIVE)
[2018-12-25 20:50] LABS: HEPATITIS B CORE AB NEGATIVE (NEGATIVE)
[2018-12-25] MEDS: Pravastatin Sodium 40 MG TAB PO SCH (22:00)
[2018-12-26 05:28] LABS: MEAN CELL VOLUME 94.1 fl (80.0-94.0); MEAN CORPUSCULAR HEMOGLOBIN 31.3 pg (27.0-31.0); MEAN CORPUSCULAR HGB CONC 33.3 g/dL (33.0-37.0); RBC 3.19 Mil/uL (4.40-5.90); RED CELL DISTRIBUTION WIDTH 14.1 % (11.5-14.5); WHITE BLOOD COUNT 10.4 K/uL (4.8-10.8)
[2018-12-26] MEDS: Insulin Lispro (humaLOG) 100 Units/ml Inj SC SCH ×5 (06:37→22:00)
[2018-12-26] MEDS: Metoprolol Succinate 100 mg XL Tab PO SCH ×2 (08:42→21:12)
[2018-12-26] MEDS: Multivitamin Vitamin B Complex (Nephro-Vite) Tab PO SCH (08:42)
--- NOTE | 2018-12-26 11:33 | CP.PCM.PN ---
Subjective - Date & Time of Evaluation Date of Evaluation: 12/26/18 Time of Evaluation: 11:00 - Subjective Subjective: Patient in bed awake and conscious Less coughing Feeling much better Vital signs noted to be stable Objective - Vital Signs/Intake and Output Vital Signs (last 24 hours): Temp Pulse Resp BP Pulse Ox 98.7 F 61 20 113/62 100 12/26/18 08:12 12/26/18 08:44 12/26/18 08:12 12/26/18 08:47 12/26/18 08:12 - Medications Medications: Current Medications Allopurinol (Zyloprim) 200 mg PO DAILY [facility] Last Admin: 12/26/18 08:41 Dose: 200 mg Amlodipine Besylate (Norvasc) 10 mg PO DAILY [facility] Last Admin: 12/26/18 08:44 Dose: 10 mg Aspirin (Ecotrin) 81 mg PO DAILY [facility] Last Admin: 12/26/18 08:42 Dose: 81 mg Clopidogrel Bisulfate (Plavix) 75 mg PO DAILY [facility] Last Admin: 12/26/18 08:45 Dose: 75 mg Dextrose (Dextrose 50% Inj) 0 ml IV STAT PRN; Protocol PRN Reason: Hypoglycemia Protocol Dextrose (Glutose 15) 0 gm PO ONCE PRN; Protocol PRN Reason: Hypoglycemia Protocol Enalapril Maleate (Vasotec) 20 mg PO DAILY [facility] Last Admin: 12/26/18 08:46 Dose: 20 mg Furosemide (Lasix) 40 mg PO DAILY [facility] Last Admin: 12/26/18 08:47 Dose: 40 mg Gabapentin (Neurontin) 100 mg PO Q12 [facility] Last Admin: 12/26/18 08:44 Dose: 100 mg Glucagon (Glucagen Diagnostic Kit) 0 mg IM STAT PRN; Protocol PRN Reason: Hypoglycemia Protocol Heparin Sodium (Porcine) (Heparin) 5,000 units SC Q12 [facility]; Protocol Hydralazine HCl (Apresoline) 100 mg PO Q12 [facility] Last Admin: 12/26/18 08:41 Dose: 100 mg Insulin Human Lispro (Humalog) 0 units SC ACCU-CHECK [facility]; Protocol Last Admin: 12/26/18 06:37 Dose: Not Given Isosorbide Mononitrate (Imdur Er) 30 mg PO DAILY [facility] Last Admin: 12/26/18 08:45 Dose: 30 mg Metoprolol Succinate (Toprol Xl) 100 mg PO Q12 [facility] Last Admin: 12/26/18 08:42 Dose: 100 mg Pravastatin Sodium (Pravachol) 40 mg PO HS [facility] Last Admin: 12/25/18 22:00 Dose: 40 mg Repaglinide (Prandin) 1 mg PO BRKDIN [facility] Last Admin: 12/26/18 08:48 Dose: 1 mg Repaglinide (Prandin) 2 mg PO ACL [facility] Last Admin: 12/25/18 12:06 Dose: 2 mg Sevelamer Carbonate (Renvela) 2,400 mg PO TID [facility] Last Admin: 12/26/18 08:47 Dose: 2,400 mg Sitagliptin Phosphate (Januvia) 25 mg PO DAILY [facility] Last Admin: 12/26/18 08:42 Dose: 25 mg Vitamin B Complex/Vit C/Folic Acid (Nephro-Govind) 1 tab PO DAILY [facility] Last Admin: 12/26/18 08:42 Dose: 1 tab - Labs Labs: 12/26/18 04:30 12/26/18 04:30 PT 10.9 Seconds (9.8-13.1) 12/25/18 07:20 INR 1.0 12/25/18 07:20 APTT 30.3 Seconds (25.6-37.1) 12/25/18 07:20 - Constitutional Appears: No Acute Distress - Eye Exam Eye Exam: Conjunctival injection - ENT Exam ENT Exam: Mucous Membranes Moist - Neck Exam Neck Exam: absent: Lymphadenopathy - Respiratory Exam Respiratory Exam: NORMAL BREATHING PATTERN - GI/Abdominal Exam GI & Abdominal Exam: Soft, Normal Bowel Sounds - Extremities Exam Extremities Exam: absent: Calf Tenderness - Back Exam Back Exam: absent: CVA tenderness (L), CVA tenderness (R) - Neurological Exam Neurological Exam: Alert - Psychiatric Exam Psychiatric exam: Normal Affect - Skin Skin Exam: absent: Cyanosis Assessment and Plan (1) CHF exacerbation Status: Acute (2) Pneumonia Status: Acute - Assessment and Plan (Free Text) Assessment: End-stage renal disease on dialysis Tuesday Patient admitted with right upper lobe pneumonia presented with shortness of breath Volume overload diabetes mellitus Hyperphosphatemia Secondary hyperparathyroidism Recommendation Scheduled to have dialysis shortly arrangement underway. Antibiotics as per primary team considering GFR. Oxygen. Continue phosphorus binders. Commendation Patient is doing much better today. Continue hemodialysis Tuesday Glycemic control Continue antibiotics as per GFR
--- NOTE | 2018-12-26 12:11 | CP.PCM.PN ---
Subjective - Date & Time of Evaluation Date of Evaluation: 12/26/18 Time of Evaluation: 12:11 - Subjective Subjective: Patient seen and examined bedside. Afebrile, vitally stable, no acute events overnight and no new complaints. bedside. HD tomrorow. Objective - Vital Signs/Intake and Output Vital Signs (last 24 hours): Temp Pulse Resp BP Pulse Ox 98.7 F 61 20 113/62 100 12/26/18 09:00 12/26/18 09:00 12/26/18 09:00 12/26/18 09:00 12/26/18 09:00 - Medications Medications: Current Medications Allopurinol (Zyloprim) 200 mg PO DAILY [facility] Last Admin: 12/26/18 08:41 Dose: 200 mg Amlodipine Besylate (Norvasc) 10 mg PO DAILY [facility] Last Admin: 12/26/18 08:44 Dose: 10 mg Aspirin (Ecotrin) 81 mg PO DAILY [facility] Last Admin: 12/26/18 08:42 Dose: 81 mg Clopidogrel Bisulfate (Plavix) 75 mg PO DAILY [facility] Last Admin: 12/26/18 08:45 Dose: 75 mg Dextrose (Dextrose 50% Inj) 0 ml IV STAT PRN; Protocol PRN Reason: Hypoglycemia Protocol Dextrose (Glutose 15) 0 gm PO ONCE PRN; Protocol PRN Reason: Hypoglycemia Protocol Enalapril Maleate (Vasotec) 20 mg PO DAILY [facility] Last Admin: 12/26/18 08:46 Dose: 20 mg Furosemide (Lasix) 40 mg PO DAILY [facility] Last Admin: 12/26/18 08:47 Dose: 40 mg Gabapentin (Neurontin) 100 mg PO Q12 [facility] Last Admin: 12/26/18 08:44 Dose: 100 mg Glucagon (Glucagen Diagnostic Kit) 0 mg IM STAT PRN; Protocol PRN Reason: Hypoglycemia Protocol Heparin Sodium (Porcine) (Heparin) 5,000 units SC Q12 [facility]; Protocol Hydralazine HCl (Apresoline) 100 mg PO Q12 [facility] Last Admin: 12/26/18 08:41 Dose: 100 mg Insulin Human Lispro (Humalog) 0 units SC ACCU-CHECK [facility]; Protocol Last Admin: 12/26/18 06:37 Dose: Not Given Isosorbide Mononitrate (Imdur Er) 30 mg PO DAILY [facility] Last Admin: 12/26/18 08:45 Dose: 30 mg Metoprolol Succinate (Toprol Xl) 100 mg PO Q12 [facility] Last Admin: 12/26/18 08:42 Dose: 100 mg Pravastatin Sodium (Pravachol) 40 mg PO HS [facility] Last Admin: 12/25/18 22:00 Dose: 40 mg Repaglinide (Prandin) 1 mg PO BRKDIN [facility] Last Admin: 12/26/18 08:48 Dose: 1 mg Repaglinide (Prandin) 2 mg PO ACL [facility] Last Admin: 12/25/18 12:06 Dose: 2 mg Sevelamer Carbonate (Renvela) 2,400 mg PO TID [facility] Last Admin: 12/26/18 08:47 Dose: 2,400 mg Sitagliptin Phosphate (Januvia) 25 mg PO DAILY [facility] Last Admin: 12/26/18 08:42 Dose: 25 mg Vitamin B Complex/Vit C/Folic Acid (Nephro-Govind) 1 tab PO DAILY [facility] Last Admin: 12/26/18 08:42 Dose: 1 tab - Labs Labs: 12/26/18 04:30 12/26/18 04:30 PT 10.9 Seconds (9.8-13.1) 12/25/18 07:20 INR 1.0 12/25/18 07:20 APTT 30.3 Seconds (25.6-37.1) 12/25/18 07:20 - Constitutional Appears: No Acute Distress - Eye Exam Eye Exam: Normal appearance - ENT Exam ENT Exam: Mucous Membranes Moist - Respiratory Exam Respiratory Exam: Decreased Breath Sounds, Rales, Wheezes, NORMAL BREATHING PATTERN - Cardiovascular Exam Cardiovascular Exam: REGULAR RHYTHM - GI/Abdominal Exam GI & Abdominal Exam: absent: Tenderness - Extremities Exam Additional comments: Bilateral lower extremities: R lower leg (BKA). No edema on left lower leg. No cyanosis - Neurological Exam Neurological Exam: Alert, Awake, Oriented x3 - Psychiatric Exam Psychiatric exam: Normal Affect, Normal Mood - Skin Skin Exam: Normal Color, Warm Assessment and Plan - Assessment and Plan (Free Text) Assessment: 63 y/o M with a PMHx of ESRD on HD on , CAD, HTN and DM2 is admitted for evaluation of and management of acute respiratory failure. HD [id number] Plan: 1.Acute respiratory failure -Likely secondary to fluid overload and Pneumonia -HD yesterday, due tomorrow -O2 NC, monitor SpO2 -Started IV antibiotics -Follow-up culture -Repeat CXR shows only mild improvement and continued fluid overload 2.CAP -C/w Levaquine IV 3.ESRD on HD/ hyperkalemia -Nephro consulted; input and recs appreciated -HD yesterday, due tomorrow 12/27 4.Hypertension -home meds 5.DM type II -continue Accuchecks, diabetic diet 6.Gout -Allopurinol 7.Anemia of chronic disease -Hg/Hct 07/18 -Stable -Monitor CBC 8. CAD -Stable -C/W ASA, Plavix , Statin , BP meds 9. Dyslipidemia -C/W statin
--- NOTE | 2018-12-26 14:15 | RAD ---
Date of service: 12/26/2018 HISTORY: Pneumonia COMPARISON: Portable chest 12/25/2018. TECHNIQUE: 1 view obtained. FINDINGS: LUNGS: Patchy density at the mid right lung zone appears to have markedly improved with residual ridge reticular markings identified there. Left-sided infiltrate. PLEURA: No significant pleural effusion identified, no pneumothorax apparent. CARDIOVASCULAR: No aortic atherosclerotic calcification present. Normal cardiac size. No pulmonary vascular congestion. OSSEOUS STRUCTURES: No significant abnormalities. VISUALIZED UPPER ABDOMEN: Elevated right hemidiaphragm reiterated. OTHER FINDINGS: None. IMPRESSION: Resolved patchy density mid right lung zone with underlying reticular markings remaining slightly. No additional infiltrate bilaterally. No pulmonary vascular congestion.
[2018-12-26 16:02] VITALS: RESP 18
[2018-12-26] MEDS: Pravastatin Sodium 40 MG TAB PO SCH (21:12)
[2018-12-27 00:36] VITALS: O2SAT 100
[2018-12-27 06:20] LABS: BASO # 0.1 K/uL (0.0-0.2); BASO % 0.7 % (0.0-2.0); EOS % 10.8 % (0.0-4.0); HEMOGLOBIN 9.2 g/dL (12.0-18.0); LYMPH # 1.5 K/uL (1.0-4.3); LYMPH % 16.2 % (20.0-40.0); MEAN CELL VOLUME 94.1 fl (80.0-94.0); MEAN CORPUSCULAR HEMOGLOBIN 31.7 pg (27.0-31.0); MEAN CORPUSCULAR HGB CONC 33.7 g/dL (33.0-37.0); MEAN PLATELET VOLUME 9.5 fl (7.2-11.7); MONO # 0.8 K/uL (0.0-0.8); MONO % 9.4 % (0.0-10.0); NEUT # 5.6 K/uL (1.8-7.0); NEUT % 62.9 % (50.0-75.0); RBC 2.9 Mil/uL (4.40-5.90); RED CELL DISTRIBUTION WIDTH 14.1 % (11.5-14.5)
[2018-12-27 06:53] LABS: ALB/GLOB RATIO 1.1 (1.0-2.1); ALBUMIN 3.5 g/dL (3.5-5.0); CALCIUM 8.6 mg/dL (8.4-10.2)
[2018-12-27] MEDS ORDERED: levoFLOXacin 500 MG TAB PO SCH (08:00)
[2018-12-27] MEDS: Multivitamin Vitamin B Complex (Nephro-Vite) Tab PO SCH (08:50)
[2018-12-27] MEDS: Metoprolol Succinate 100 mg XL Tab PO SCH ×2 (08:50→09:00)
[2018-12-27] MEDS: Insulin Lispro (humaLOG) 100 Units/ml Inj SC SCH ×2 (08:52→13:19)
--- NOTE | 2018-12-27 10:59 | CP.PCM.PN ---
Subjective - Date & Time of Evaluation Date of Evaluation: 12/27/18 Time of Evaluation: 10:59 - Subjective Subjective: Dialysis note He was seen on hemodialysis now. Vital signs stable. Patient awake and conscious no nausea no vomiting no coughing. Discussed with the dialysis nurse at the bedside Objective - Vital Signs/Intake and Output Vital Signs (last 24 hours): Temp Pulse Resp BP Pulse Ox 98.5 F 74 18 122/67 100 12/27/18 08:09 12/27/18 08:09 12/27/18 08:09 12/27/18 08:09 12/27/18 08:09 - Medications Medications: Current Medications Allopurinol (Zyloprim) 200 mg PO DAILY [facility] Last Admin: 12/27/18 08:50 Dose: 200 mg Amlodipine Besylate (Norvasc) 10 mg PO DAILY [facility] Last Admin: 12/26/18 08:44 Dose: 10 mg Aspirin (Ecotrin) 81 mg PO DAILY [facility] Last Admin: 12/27/18 08:50 Dose: 81 mg Clopidogrel Bisulfate (Plavix) 75 mg PO DAILY [facility] Last Admin: 12/27/18 08:50 Dose: 75 mg Dextrose (Dextrose 50% Inj) 0 ml IV STAT PRN; Protocol PRN Reason: Hypoglycemia Protocol Dextrose (Glutose 15) 0 gm PO ONCE PRN; Protocol PRN Reason: Hypoglycemia Protocol Enalapril Maleate (Vasotec) 20 mg PO DAILY [facility] Last Admin: 12/26/18 08:46 Dose: 20 mg Furosemide (Lasix) 40 mg PO DAILY [facility] Last Admin: 12/26/18 08:47 Dose: 40 mg Gabapentin (Neurontin) 100 mg PO Q12 [facility] Last Admin: 12/27/18 08:50 Dose: 100 mg Glucagon (Glucagen Diagnostic Kit) 0 mg IM STAT PRN; Protocol PRN Reason: Hypoglycemia Protocol Heparin Sodium (Porcine) (Heparin) 5,000 units SC Q12 [facility]; Protocol Last Admin: 12/27/18 08:51 Dose: 5,000 units Hydralazine HCl (Apresoline) 100 mg PO Q12 [facility] Last Admin: 12/26/18 21:07 Dose: 100 mg Insulin Human Lispro (Humalog) 0 units SC ACCU-CHECK [facility]; Protocol Last Admin: 12/27/18 08:52 Dose: Not Given Isosorbide Mononitrate (Imdur Er) 30 mg PO DAILY [facility] Last Admin: 12/26/18 08:45 Dose: 30 mg Levofloxacin (Levaquin) 500 mg PO DIALW [facility]; Protocol Metoprolol Succinate (Toprol Xl) 100 mg PO Q12 [facility] Last Admin: 12/26/18 21:12 Dose: 100 mg Pravastatin Sodium (Pravachol) 40 mg PO HS [facility] Last Admin: 12/26/18 21:12 Dose: 40 mg Repaglinide (Prandin) 1 mg PO BRKDIN [facility] Last Admin: 12/27/18 08:49 Dose: 1 mg Repaglinide (Prandin) 2 mg PO ACL [facility] Last Admin: 12/26/18 13:06 Dose: 2 mg Sevelamer Carbonate (Renvela) 2,400 mg PO TID [facility] Last Admin: 12/27/18 08:53 Dose: 2,400 mg Sitagliptin Phosphate (Januvia) 25 mg PO DAILY [facility] Last Admin: 12/27/18 08:50 Dose: 25 mg Vitamin B Complex/Vit C/Folic Acid (Nephro-Govind) 1 tab PO DAILY [facility] Last Admin: 12/27/18 08:50 Dose: 1 tab - Labs Labs: 12/27/18 05:35 12/27/18 05:35 PT 10.9 Seconds (9.8-13.1) 12/25/18 07:20 INR 1.0 12/25/18 07:20 APTT 29.7 Seconds (25.6-37.1) 12/27/18 05:35 - Constitutional Appears: No Acute Distress - Eye Exam Eye Exam: Conjunctival injection - ENT Exam ENT Exam: Mucous Membranes Moist - Neck Exam Neck Exam: absent: Lymphadenopathy - Cardiovascular Exam Cardiovascular Exam: absent: Gallop, JVD, Rubs - GI/Abdominal Exam GI & Abdominal Exam: Soft, Normal Bowel Sounds - Extremities Exam Extremities Exam: absent: Calf Tenderness - Back Exam Back Exam: absent: CVA tenderness (L), CVA tenderness (R) - Neurological Exam Neurological Exam: Alert - Psychiatric Exam Psychiatric exam: Normal Affect - Skin Skin Exam: absent: Cyanosis Assessment and Plan (1) CHF exacerbation Status: Acute (2) Pneumonia Status: Acute (3) ESRD on hemodialysis Assessment & Plan: End-stage renal disease on dialysis Tuesday Patient admitted with right upper lobe pneumonia presented with shortness of breath Volume overload diabetes mellitus Hyperphosphatemia Secondary hyperparathyroidism Recommendation Scheduled to have dialysis shortly arrangement underway. Antibiotics as per primary team considering GFR. Oxygen. Continue phosphorus binders. Commendation Was seen on hemodialysis now. Discussed with the dialysis nurse. Ultrafiltration approximately 2000 cc as tolerated. Vital signs stable on hemodialysis. Patient is doing much better today. Continue hemodialysis Tuesday Glycemic control Continue antibiotics as per GFR Status: Chronic
--- NOTE | 2018-12-27 11:59 | CP.PCM.DIS ---
Provider - Provider Date of Admission: 12/25/18 06:11 Attending physician: Tito Freire Primary care physician: Miesha Rudolph MD Consults: 12/25/18 04:58 Nephrology Consult Stat Comment: Consulting Provider: Jonathan Palmer Consulting Physician: Jonathan Palmer Reason for Consult: ESRD 12/25/18 10:33 Social Work Referral Routine Comment: dialysis Physician Instructions: Reason For Exam: dialysis Time Spent in preparation of Discharge (in minutes): 20 Diagnosis - Discharge Diagnosis (1) CHF exacerbation Status: Acute (2) Pneumonia Status: Acute (3) ESRD on hemodialysis Status: Chronic Priority: High Hospital Course - Lab Results Lab Results: Micro Results 12/25/18 05:07 Blood-Venous Blood Culture - Preliminary NO GROWTH AFTER 48 HOURS Most Recent Lab Values WBC 9.0 K/uL (4.8-10.8) 12/27/18 05:35 RBC 2.90 Mil/uL (4.40-5.90) L 12/27/18 05:35 Hgb 9.2 g/dL (12.0-18.0) L 12/27/18 05:35 Hct 27.3 % (35.0-51.0) L 12/27/18 05:35 MCV 94.1 fl (80.0-94.0) H 12/27/18 05:35 MCH 31.7 pg (27.0-31.0) H 12/27/18 05:35 MCHC 33.7 g/dL (33.0-37.0) 12/27/18 05:35 RDW 14.1 % (11.5-14.5) 12/27/18 05:35 Plt Count 157 K/uL (130-400) 12/27/18 05:35 MPV 9.5 fl (7.2-11.7) 12/27/18 05:35 Neut % (Auto) 62.9 % (50.0-75.0) 12/27/18 05:35 Lymph % (Auto) 16.2 % (20.0-40.0) L 12/27/18 05:35 Grady % (Auto) 9.4 % (0.0-10.0) 12/27/18 05:35 Eos % (Auto) 10.8 % (0.0-4.0) H 12/27/18 05:35 Baso % (Auto) 0.7 % (0.0-2.0) 12/27/18 05:35 Neut # (Auto) 5.6 K/uL (1.8-7.0) 12/27/18 05:35 Lymph # (Auto) 1.5 K/uL (1.0-4.3) 12/27/18 05:35 Grady # (Auto) 0.8 K/uL (0.0-0.8) 12/27/18 05:35 Eos # (Auto) 1.0 K/uL (0.0-0.7) H 12/27/18 05:35 Baso # (Auto) 0.1 K/uL (0.0-0.2) 12/27/18 05:35 PT 10.9 Seconds (9.8-13.1) 12/25/18 07:20 INR 1.0 12/25/18 07:20 APTT 29.7 Seconds (25.6-37.1) 12/27/18 05:35 Sodium 136 mmol/l (132-148) 12/27/18 05:35 Potassium 4.2 MMOL/L (3.6-5.0) 12/27/18 05:35 Chloride 99 mmol/L (98-107) 12/27/18 05:35 Carbon Dioxide 26 mmol/L (22-30) 12/27/18 05:35 Anion Gap 15 (10-20) 12/27/18 05:35 BUN 54 mg/dl (9-20) H 12/27/18 05:35 Creatinine 8.2 mg/dl (0.8-1.5) H* D 12/27/18 05:35 Est GFR ( Amer) 8 12/27/18 05:35 Est GFR (Non-Af Amer) 7 12/27/18 05:35 POC Glucose (mg/dL) 140 mg/dL (65-110) H 12/27/18 11:05 Random Glucose 107 mg/dL (75-110) 12/27/18 05:35 Calcium 8.6 mg/dL (8.4-10.2) 12/27/18 05:35 Total Bilirubin 0.3 mg/dl (0.2-1.3) 12/27/18 05:35 AST 25 U/L (17-59) 12/27/18 05:35 ALT 28 U/L (21-72) 12/27/18 05:35 Alkaline Phosphatase 80 U/L (38-126) 12/27/18 05:35 Troponin I 0.0320 ng/mL (0.00-0.120) 12/25/18 07:20 Total Protein 6.6 G/DL (6.3-8.2) 12/27/18 05:35 Albumin 3.5 g/dL (3.5-5.0) 12/27/18 05:35 Globulin 3.1 gm/dL (2.2-3.9) 12/27/18 05:35 Albumin/Globulin Ratio 1.1 (1.0-2.1) 12/27/18 05:35 Hep Bs Antigen Negative (NEGATIVE) 12/25/18 17:21 Hep Bs Antibody Positive (NEGATIVE) 12/25/18 17:21 Hep B Core IgM Ab Negative (NEGATIVE) 12/25/18 17:21 Influenza Typ A,B (EIA) Negative for flu a/b (NEGATIVE) 12/25/18 05:07 - Hospital Course Hospital Course: 63 year-old male with PMH of ESRD on HD MWF, HTN , and DM2, presented with dyspnea and non productive cough for 1 day duration. Sick contacts = , URI. In ED he was tachypneic, Tmax 100 and WBC elevated 12.7. He was placed on BIPAp and Lasix IV given with some improvement of his breathing. Nephro consulted and HD ordered 12/25 and 12/27. Given Levaquine 500 mg IV after HD (2 doses). Pt clinically improved, comfortable sitting up in bed with no complaints of SOB or respiratory distress. Medically stable for discharge to home. Discharge Exam - Head Exam Head Exam: ATRAUMATIC, NORMOCEPHALIC - Eye Exam Eye Exam: Normal appearance - ENT Exam ENT Exam: Mucous Membranes Moist - Respiratory Exam Respiratory Exam: Decreased Breath Sounds, NORMAL BREATHING PATTERN. absent: Wheezes, Respiratory Distress - Cardiovascular Exam Cardiovascular Exam: REGULAR RHYTHM - GI/Abdominal Exam GI & Abdominal Exam: Soft. absent: Tenderness - Extremities Exam Additional comments: BKA right - Neurological Exam Neurological exam: Alert, Oriented x3 - Psychiatric Exam Psychiatric exam: Normal Affect, Normal Mood - Skin Skin Exam: Dry, Intact, Normal Color, Warm Discharge Plan - Discharge Medications Prescriptions: Allopurinol [Zyloprim] 200 mg PO DAILY #30 tab amLODIPine [Norvasc] 10 mg PO DAILY #30 tab Aspirin [Ecotrin] 81 mg PO DAILY #30 tabec Clopidogrel [Plavix] 75 mg PO DAILY #30 tab Enalapril Maleate [Vasotec] 20 mg PO DAILY #30 tab Furosemide [Lasix] 40 mg PO DAILY #30 tab Gabapentin [Neurontin] 100 mg PO Q12 #60 cap Hydralazine HCl 100 mg PO Q12 #60 tablet Isosorbide Mononitrate [Isosorbide Mononitrate ER] 30 mg PO DAILY #30 tab.er.24h Linagliptin [Tradjenta] 5 mg PO DAILY #30 tablet Metoprolol Succinate XL [Toprol XL] 100 mg PO Q12 #60 tab Pravastatin Sodium [Pravachol] 40 mg PO HS #30 tab Repaglinide [Prandin] 1 mg PO BRKDIN #30 tab Repaglinide [Prandin] 2 mg PO ACL #30 tab Sevelamer Carbonate [Renvela] 2,400 mg PO TID #90 tab Vitamin B Complex/Vit C/Folic [Nephro-Govind] 1 tab PO DAILY #30 tab - Follow Up Plan Condition: FAIR Disposition: HOME/ ROUTINE Instructions: Heart Failure, Adult (DC), Hemodialysis (DC) Additional Instructions: eileen con el Dr.Williams looney 01/03/19 9:00am continua con las dialysis [facility] Referrals: Jonathan Palmer MD [Staff Provider] - Miesha Rudolph MD [Primary Care Provider] - Una Morel MD [Staff Provider] -
[2018-12-27 12:04] VITALS: BP 125/64; PULSE 66; TEMP 98.4
--- NOTE | 2018-12-27 14:04 | RAD ---
Date of service: 12/27/2018 HISTORY: pneumonia COMPARISON: 12/26/2018 at 9 o'clock a.m. and 12/25/2018 at 0349 hr. TECHNIQUE: 1 view obtained. FINDINGS: LUNGS: The prior density in the mid lung zone on the 12/25/2018 study is less conspicuous on the current study as it was on the 12/26/2018 study. Some minimal pleural reaction seen on end here or some low-density homogeneous ground-glass opacity attenuation could simulate this. No dense consolidation noted. Last CT was 06/03/2012 PLEURA: No significant pleural effusion identified, no pneumothorax apparent. CARDIOVASCULAR: No aortic atherosclerotic calcification present. Normal cardiac size. Pulmonary vasculature probably top-normal. Apical lordotic projection. OSSEOUS STRUCTURES: Thoracic spondylosis. VISUALIZED UPPER ABDOMEN: Normal. OTHER FINDINGS: None. IMPRESSION: The prior 12/25/2018 mid lung zone low-density opacity perceived may represent pleural thickening seen on end or some low level ground-glass opacity. No dense consolidation seen here. Is less conspicuous than the 12/25/2018 study it is probably similar to the 12/26/2018 study. No correlate to it on the 2012 CT images. Technical factors is 1 consideration. However some low level ground-glass opacity and or some minimal pleural thickening seen on end could simulate this. Consider noncontrast CT chest imaging to further evaluate Comments: Study marked for PA review .
--- NOTE | 2018-12-27 18:51 | CP.PCM.PCO ---
Physician Communication Note - Physician Communication Note Physician Communication Note: CXR results discussed with Dr. Michelle and Dr. Barnett. Progress Note - Review of Symptoms Events since last encounter: Patient seen by Dr. Michelle, and Dr. Barnett this morning. Patient feeling better, afebrile , WBC trended down to normal , cultures with no growth , saturating well in RA. Received HD x twice and levaquine 500 mg IV post HD twice. Also on discharged patient was advised to continue with HD as scheduled . Continue salt restriction and home meds. Follow up with PMD.
== END 2018-12-27 14:30 | disposition home health service (06) ==
LOC: H.ER 03:21 → H.ERHOLD 06:11 → H.TEL 09:18
PROVIDERS: ADMIT Internal Medicine; ATTEND Internal Medicine
DX: J96.00 Acute respiratory failure, unspecified whether with hypoxia or hypercapnia (principal); J18.1 Lobar pneumonia, unspecified organism; I50.9 Heart failure, unspecified; N18.6 End stage renal disease; I13.2 Hypertensive heart and chronic kidney disease with heart failure and with stage 5 chronic kidney disease, or end stage renal disease; E87.5 Hyperkalemia; N25.81 Secondary hyperparathyroidism of renal origin; E11.22 Type 2 diabetes mellitus with diabetic chronic kidney disease; D63.1 Anemia in chronic kidney disease; E11.65 Type 2 diabetes mellitus with hyperglycemia; Z79.84 Long term (current) use of oral hypoglycemic drugs; I25.10 Atherosclerotic heart disease of native coronary artery without angina pectoris; E78.5 Hyperlipidemia, unspecified; E78.00 Pure hypercholesterolemia, unspecified; E83.39 Other disorders of phosphorus metabolism; M10.9 Gout, unspecified; Z89.511 Acquired absence of right leg below knee; Z99.2 Dependence on renal dialysis; Z95.5 Presence of coronary angioplasty implant and graft; Z87.01 Personal history of pneumonia (recurrent); Z79.02 Long term (current) use of antithrombotics/antiplatelets; Z79.82 Long term (current) use of aspirin
CPT/HCPCS: 36415; 71045; 80048; 80053; 82948; 84484; 85025; 85027; 85610; 85730; 86705; 86706; 87040; 87340; 87804; 93005; 94660; 99285; G0378; J1644